=== PATIENT | female | born 1955 | race Caucasian/White ===

== ENCOUNTER → 2024-07-12 | Outpatient (CLI) | payer MEDICARE, SELFPAY ==
[2024-07-12 11:29] LABS: EXAGEN MAILED SPECIMEN
[2024-07-12 12:06] LABS: Color, Urine Straw (Yellow); Glucose, Dipstick Normal (Normal); Ketone-Dipstick Negative (Negative); Leukocyte Esterase-Dipstick Negative /ul (Negative); Nitrite-Dipstick Negative (Negative); Occult Blood-Urine Negative /ul (Negative); Protein-Dipstick Negative (Negative); Urine Bilirubin Dipstick Negative (Negative); Urine Clarity Clear (Clear); Urine Urobilinogen Normal (Normal)
[2024-07-12 12:27] LABS: Absolute Lymphocyte Count 1.44 X10^3/uL (0.83-4.51); Absolute Neutrophil Count 8.3 X10^3/uL (2.0-7.7); Basophil# 0.07 X10^3/uL; Basophil% 0.7 % (0-1); Eosinophil# 0.26 X10^3/uL; Eosinophils% 2.4 % (0-5); Hematocrit 38.9 % (37-47); Hemoglobin 12.8 g/dL (12.0-15.0); Lymphocyte # 1.44 X10^3/ul (0.83-4.51); Lymphocyte % 13.4 % (19-41); Mean Corp Hgb Conc 32.9 g/dL (32-36); Mean Corpuscular Hgb 30.5 pg (27.0-32.0); Mean Corpuscular Volume 92.8 fL (81-99); Mean Platelet Vol. 9.6 fl (6.2-12.0); Monocyte# 0.61 X10^3/uL; Monocyte% 5.7 % (0-10); NRBC Flagged by Analyzer 0 % (0-5); Neutrophil # 8.29 X10^3/uL (2.7-7.7); Neutrophil % 77.2 % (47-70); Platelet Count 567 K/mm3 (150-450); RBC Distribution Width CV 13.3 % (11.6-14.6); RBC Distribution Width SD 45.1 fl (35.1-43.9); Red Blood Count 4.19 M/mm3 (4.2-5.4); White Blood Count 10.7 K/mm3 (4.4-11.0)
[2024-07-12 13:21] LABS: EST Glomerular Filtration Rate 87 (>60); Hepatitis B Surface Antibody Nonreactive; Hepatitis B Surface Antigen Nonreactive (Nonreactive); Hepatitis C Antibody Nonreactive (Nonreactive)
[2024-07-12 13:22] LABS: ALB/GLOB Ratio 1.4 RATIO (0.9-2.4); AST(SGOT) 18 U/L (<=31); Alanine Aminotransfer ALT/SGPT 12 U/L (<=34); Albumin, Serum 4.3 g/dL (3.4-4.8); Alkaline Phosphatase 118 U/L (35-104); Anion Gap 15 (5-15); BUN 11 mg/dL (4-19); BUN/Creat Ratio 14.7 RATIO (10-20); Calcium,Total 9.3 mg/dL (7.6-11.0); Carbon Dioxide 26.7 mmol/L (21.0-32.0); Chloride 96 mmol/L (98-108); Creatinine, Serum 0.71 mg/dL (0.70-1.20); Glucose 191 mg/dL (70-99); Potassium 4.1 mmol/L (3.3-5.1); Protein, Total 7.3 g/dL (5.9-8.4); Sodium Level 138 mmol/L (133-145); Total Bilirubin 0.95 mg/dL (0.00-1.30)
[2024-07-12 21:45] LABS: Protein, Urine (Random) < 6.0 mg/dL (0.0-12.0); Protein:Creat Ratio 188 mg/g CRE (0-200)
[2024-07-18 14:15] LABS: Dilute Prothrombin Time (dPT) 172.9 sec (0.0-47.6); Dilute Russell Viper Venom 93.5 sec (0.0-47.0); Dilute Russell Viper Venom Mix 43.3 sec (0.0-40.4); Hexagonal Phase Phospholipid 2 5 sec (0-11); PTT-LA 106.9 sec (0.0-43.5)
== END | disposition home or self-care (01) ==
LOC: MTLAB 10:23
PROVIDERS: PCP Family Medicine; Referring Provider Internal Medicine Rheumatology; Visit Provider Internal Medicine Rheumatology
DX: R76.8 Other specified abnormal immunological findings in serum (principal)
CPT/HCPCS: 36415; 80053; 81002; 82570; 84156; 85025; 86706; 86803; 87340

== ENCOUNTER 2024-08-08 12:33 | Outpatient (RCR) | payer MEDICARE, SELFPAY ==
[2024-07-18 18:58] LABS: International Normalized Ratio 1.5; Prothrombin Time (Protime)PT. 18.3 SECONDS (11.7-14.9)
[2024-07-25 18:04] LABS: International Normalized Ratio 1.6; Prothrombin Time (Protime)PT. 19.1 SECONDS (11.7-14.9)
[2024-08-01 12:49] LABS: International Normalized Ratio 4.1; Prothrombin Time (Protime)PT. 40.3 SECONDS (11.7-14.9)
[2024-08-08 15:34] LABS: International Normalized Ratio 3.1; Prothrombin Time (Protime)PT. 32.5 SECONDS (11.7-14.9)
== END 2024-08-08 18:00 | disposition home or self-care (01) ==
LOC: MTLAB 12:33
PROVIDERS: PCP Family Medicine; Referring Provider Internal Medicine Cardiovascular Disease; Visit Provider Internal Medicine Cardiovascular Disease
DX: I50.9 Heart failure, unspecified (principal); Z79.01 Long term (current) use of anticoagulants; I48.20 Chronic atrial fibrillation, unspecified
CPT/HCPCS: 36415; 85610

== ENCOUNTER 2024-08-22 11:43 | Outpatient (RCR) | payer MEDICARE, SELFPAY ==
[2024-08-22 15:39] LABS: International Normalized Ratio 2.9
== END 2024-09-07 18:00 | disposition home or self-care (01) ==
LOC: MTLAB 11:43
PROVIDERS: PCP Family Medicine; Referring Provider Internal Medicine Cardiovascular Disease; Visit Provider Internal Medicine Cardiovascular Disease
DX: Z79.01 Long term (current) use of anticoagulants (principal); I48.20 Chronic atrial fibrillation, unspecified
CPT/HCPCS: 36415; 85610

== ENCOUNTER 2024-10-05 11:43 | Outpatient (RCR) | payer MEDICARE, SELFPAY ==
[2024-10-05 16:12] LABS: International Normalized Ratio 3.4; Prothrombin Time (Protime)PT. 34.8 SECONDS (11.7-14.9)
[2024-10-05 16:29] LABS: ALB/GLOB Ratio 1.3 RATIO (0.9-2.4); AST(SGOT) 18 U/L (<=31); Alanine Aminotransfer ALT/SGPT 11 U/L (<=34); Albumin, Serum 4.4 g/dL (3.4-4.8); Alkaline Phosphatase 109 U/L (35-104); Anion Gap 12 (5-15); BUN 14 mg/dL (4-19); BUN/Creat Ratio 18.1 RATIO (10-20); Calcium,Total 9.5 mg/dL (7.6-11.0); Carbon Dioxide 26.4 mmol/L (21.0-32.0); Chloride 98 mmol/L (98-108); Creatinine, Serum 0.79 mg/dL (0.70-1.20); EST Glomerular Filtration Rate 82 (>60); Globulin 3.3 g/dL (2.2-4.2); Glucose 90 mg/dL (70-99); Potassium 4.1 mmol/L (3.3-5.1); Protein, Total 7.6 g/dL (5.9-8.4); Sodium Level 136 mmol/L (133-145); Total Bilirubin 0.76 mg/dL (0.00-1.30)
[2024-10-05 16:33] LABS: Hemoglobin A1c 6.9 % (<=5.6)
== END 2024-10-05 18:00 | disposition home or self-care (01) ==
LOC: MTLAB 11:43
PROVIDERS: PCP Family Medicine; Referring Provider Internal Medicine Cardiovascular Disease; Visit Provider Internal Medicine Cardiovascular Disease
DX: I05.9 Rheumatic mitral valve disease, unspecified (principal); I48.20 Chronic atrial fibrillation, unspecified; Z79.01 Long term (current) use of anticoagulants; E11.9 Type 2 diabetes mellitus without complications
CPT/HCPCS: 80053; 83036; 85610

== ENCOUNTER → 2024-10-17 | Outpatient (CLI) | payer MEDICARE, SELFPAY ==
[2024-10-17 12:16] LABS: Absolute Lymphocyte Count 1.15 X10^3/uL (0.83-4.51); Absolute Neutrophil Count 7.3 X10^3/uL (2.0-7.7); Basophil# 0.05 X10^3/uL; Basophil% 0.5 % (0-1); Eosinophil# 0.36 X10^3/uL; Eosinophils% 3.7 % (0-5); Hemoglobin 12.1 g/dL (12.0-15.0); Lymphocyte # 1.15 X10^3/ul (0.83-4.51); Lymphocyte % 11.8 % (19-41); Mean Corp Hgb Conc 32.7 g/dL (32-36); Mean Corpuscular Hgb 30.2 pg (27.0-32.0); Mean Corpuscular Volume 92.3 fL (81-99); Mean Platelet Vol. 9.4 fl (6.2-12.0); Monocyte% 9.2 % (0-10); NRBC Flagged by Analyzer 0 % (0-5); Neutrophil # 7.26 X10^3/uL (2.7-7.7); Neutrophil % 74.5 % (47-70); Platelet Count 442 K/mm3 (150-450); RBC Distribution Width CV 15.7 % (11.6-14.6); RBC Distribution Width SD 52.5 fl (35.1-43.9); Red Blood Count 4.01 M/mm3 (4.2-5.4); White Blood Count 9.8 K/mm3 (4.4-11.0)
[2024-10-17 13:23] LABS: ALB/GLOB Ratio 1.4 RATIO (0.9-2.4); AST(SGOT) 20 U/L (<=31); Alanine Aminotransfer ALT/SGPT 11 U/L (<=34); Albumin, Serum 4.1 g/dL (3.4-4.8); Alkaline Phosphatase 108 U/L (35-104); Anion Gap 15 (5-15); BUN 11 mg/dL (4-19); Calcium,Total 9.5 mg/dL (7.6-11.0); Chloride 97 mmol/L (98-108); Creatinine, Serum 0.83 mg/dL (0.70-1.20); EST Glomerular Filtration Rate 77 (>60); Glucose 117 mg/dL (70-99); Potassium 4.3 mmol/L (3.3-5.1); Protein, Total 7.1 g/dL (5.9-8.4); Sodium Level 137 mmol/L (133-145); Total Bilirubin 1.17 mg/dL (0.00-1.30)
== END | disposition home or self-care (01) ==
LOC: MTLAB 09:51
PROVIDERS: PCP Family Medicine; Referring Provider Internal Medicine Rheumatology; Visit Provider Internal Medicine Rheumatology
DX: M06.4 Inflammatory polyarthropathy (principal); M19.041 Primary osteoarthritis, right hand; R76.8 Other specified abnormal immunological findings in serum
CPT/HCPCS: 36415; 80053; 85025

== ENCOUNTER 2024-12-08 10:13 | Outpatient (RCR) | payer MEDICARE, SELFPAY ==
[2024-11-30 15:20] LABS: Prothrombin Time (Protime)PT. 39.7 SECONDS (11.7-14.9)
--- OUTSIDE RECORDS SUMMARY | 2024-11-30 19:56 | XMS RPT_ITS | CCD ---
Author Organization [facility] Care Team Providers Care Sales Operations Lead Name Role Phone JUANISSTEPHANY SCHNEIDER Unavailable Unavailable Kromalic, Melissa Unavailable Unavailable Kromalic, Melissa Unavailable Unavailable ERIK HAIRI Attending Unavailable ESTELLE HAIR Referring Unavailable KrMelissa soto. Primary Care Unavailable ESTELLE HARI Attending Unavailable , ESTELLE Referring Unavailable Kromalcheo, Melissa C. Primary Care Unavailable ESTELLE HAIR Referring Unavailable Melissa Del Rio Primary Care Unavailable Melissa Del Rio Primary Care Provider [phone] Quang Melissa Unavailable Unavailable Kromalcheo, Melissa C Unavailable Unavailable Kromalcheo, Melissa C Unavailable Unavailable Kromalic Melissa SMITH Unavailable Unavailable Kromalic Melissa WEST Primary Care Provider JEANNE WEST, DR NURYS Alonso Attending Unavaila ble GLENNA DO, ALEX K Consulting Unavailable NONE, NONE Primary Care Unavailable DR NURYS ANGEL MD Admitting Unavaila ble HE [phone], NELSON Downing Consulting Unava ilable NONE, NONE Consulting Unavailable Quang Melissa C Unavailable Unavailable Unavailable Melissa Del Rio DO Primary Care Provider [phone] Quang Melissa Referring Unavailable QUANG, MELISSA C Primary Care Unavailable Humberto Yu Attending Unavailable Lexi Do Attending Unavailable MELISSA DEL RIO Primary Care Unavailable Gentryomalcheo, Melissa Referring Unavailable Kromalcheo, Melissa Referring Unavailable KRBRITTANY, MELISSA C Primary Care Unavailable Humberto Yu Attending Unavailable Quang Melissa Referring Unavailable QUANG, MELISSA C Primary Care Unavailable Humberto Yu Attending Unavailable Melissa Del Rio Primary Care Unavailab Ms. Lexi Palacios Attending Unavailable Melissa Del Rio Primary Care Unavailab le McGreal, Ms. Lexi Attending Unavailable [facility] Melissa Starkey Primary Care Unavailab le McGreal, Ms. Lexi Attending Unavailable [facility] Melissa Satrkey Primary Care Unavailab le McGreal, Ms. Lexi Attending Unavailable [facility] Melissa Starkey Primary Care Unavailab le McGreal, Ms. Lexi Attending Unavailable [facility] Melissa Starkey Primary Care Unavailab le McGreal, Ms. Lexi Attending Un[facility] Care Unavailab le McGreal, Ms. Lexi Attending Unavailable McGreal, Ms. Lexi Attending [facility] Care Unavailab le Kromal, Melissa Lalito Primary Care Unavailab le McGreal, Ms. Lexi Attending Unavailable McGreal, Ms. Lexi Attending [facility] Unavailab le Kromal, Melissa Lalito Primary Care Unavailab le McGreal, Ms. Lexi Attending Unavailable [facility] Primary Care Unavailab le McGreal, Ms. Lexi Attending Unavailable [facility] Primary Care Unavailab le McGreal, Ms. Lexi Attending Unavailable [facility] Care Unavailab le McGreal, Ms. Lexi Attending Unavailable [facility] Primary Care Unavailab le McGreal, Ms. Lexi Attending Unavailable [facility] Primary Care Unavailab le McGreal, Ms. Lexi Attending Unavailable McGreal, Ms. Lexi Attending Unavailable [facility] Care Unavailab le [facility] Primary Care Unavailab le McGreal, Ms. Lexi Attending Unavailable [facility] Primary Care Unavailab le McGreal, Ms. Lexi Attending Unavailable [facility] Primary Care Unavailab le McGreal, Ms. Lexi Attending Unavailable [facility] Primary Care Unavailab le McGreal, Ms. Lexi Attending Unavailable [facility] Primary Care Unavailab le McGreal, Ms. Lexi Attending Unavailable [facility] Primary Care Unavailab le McGreal, Ms. Lexi Attending Unavailable Melissa Del Rio Primary Care Unavailab le McGreal, Ms. Lexi Attending Unavailable Melissa Del Rio DO Primary Care Provider Melissa Del Rio DO Primary Care Provider Melissa Del Rio DO Primary Care Provider Quang SMITH, Melissa Primary Care Provider KROMALIC, DO MELISSA STARKEY Referring Unavai lable KROMALIC, DO MELISSA STARKEY Attending Unavai lable KROMALIC, DO MELISSA STARKEY Primary Care Unavai lable KRBRITTANY, MELISSA STARKEY Referring Unavailab le KROMALIC, MELISSA STARKEY Attending Unavailab le KROMALIC, MELISSA STARKEY Primary Care Unavailab le KROMALIC, MELISSA STARKEY Primary Care Unavailab le KROMALIC, MELISSA STARKEY Referring Unavailab le KROMALIC, MELISSA STARKEY Attending Unavailab le Kromalic DOMelissa Unavailable Kromalcheo DO, Melissa Downing Primary Care Provider Gentryomalcheo DO, Melissa Downing Unavailable QUANG, MELISSA STARKEY Primary Care Unavailab KYLIE Ramsay Attending Unavailable Melissa Del Rio DO Primary Care Provider Quang WEST, Dr. Caraballo Primary Care Provider Tom WEST, Dr. Malik Attending Provider Tom WEST, Dr. Malik Referring Provider Jacqueline WEST, Dr. Stone Thomas Attending Provider Jacqueline WEST, Dr. Stone Thomas Referring Provider Jacqueline WEST, Dr. Stone Thomas Attending Provider Jacqueline WEST, Dr. Stone Thomas Referring Provider Quang WEST, Dr. Caraballo Other Provider [phone] Melissa Del Rio DO Unavailable MELISSA DEL RIO Attending Unavailable MELISSA DEL RIO Primary Care Unavailable MELISSA DEL RIO Attending Unavailable MELISSA DEL RIO Primary Care Unavailable MELISSA DEL RIO Attending Unavailable MELISSA DEL RIO Primary Care Unavailable STONE SON Attending Unavailable MELISSA DEL RIO Primary Care Unavailable TOAN PENA Admitting Unavailable TOAN PENA Attending Unavailable KROMALIC, MELISSA Primary Care Unavailable Isada, Stone R Attending Unavailable IsadaStone R Referring Unavailable Kromalic, Melissa Primary Care Unavailable Isada, Stone R Attending Unavailable Isada, Stone R Referring Unavailable Kromalic, Melissa Primary Care Unavailable Isada, Stone R Attending Unavailable Isada, Stone R Referring Unavailable Kromalic, Melissa Primary Care Unavailable Kromalic, Melissa Consulting Unavailable Vellanki, Helena Attending Unavailable Vellanki, Helena Referring Unavailable Kromalic, Melissa Primary Care Unavailable Isada, Stone R Attending Unavailable Isada, Stone R Referring Unavailable Kromalic, Melissa Primary Care Unavailable Kromalic, Melissa Consulting Unavailable Vellanki, Helena Attending Unavailable Vellanki, Helena Referring Unavailable Kromalic, Melissa Primary Care Unavailable KROMALIC, MELISSA C Primary Care Unavailable KROMALIC, MELISSA C Primary Care Unavailable KROMALIC, MELISSA C Primary Care Unavailable KROMALIC, MELISSA C Primary Care Unavailable KROMALIC, MELISSA C Primary Care Unavailable KROMALIC, MELISSA C Referring Unavailable KROMALIC, MELISSA C Primary Care Unavailable KROMALIC, MELISSA C Referring Unavailable KROMALIC, MELISSA C Primary Care Unavailable KROMALIC, MELISSA C Primary Care Unavailable MEJIA JACKSON Attending Unavailable KROMALIC, MELISSA C Referring Unavailable KROMALIC, MELISSA C Primary Care Unavailable MEJIA JACKSON Attending Unavailable KROMALIC, MELISSA C Referring Unavailable KROMALIC, MELISSA C Primary Care Unavailable MEJIA JACKSON Attending Unavailable KROMALIC, MELISSA C Referring Unavailable KROMALIC, MELISSA C Primary Care Unavailable MEJIA JACKSON Attending Unavailable KROMALIC, MELISSA C Referring Unavailable KROMALIC, MELISSA C Primary Care Unavailable MEJIA JACKSON Attending Unavailable KROMALIC, MELISSA C Referring Unavailable KROMALIC, MELISSA C Primary Care Unavailable Allergies Allergy Classification Reported Allergen(s) Allergy Type Date of Onset Reaction(s) Facility Cephalosporins (antibiotic) (1 source) Cefaclor Drug Allergy [facility] Work Phone: Penicillins (antibiotic) (2 sources) Amoxicillin; Translations: [Penicillins] Drug Allergy Nausea [facility] Work Phone: (20 sources) Amoxicillin; Translations: [AMOXICILLIN] Drug Allergy 2 Unknown, Other [facility] Repository (20 sources) Cefaclor; Translations: [CEFACLOR] Drug Allergy 2 Unknown, Anaphylaxis, Other [facility] Repository (20 sources) Penicillins; Translations: [PENICILLINS] Propensity to adverse reactions (disorder) 2 Unknown, Nausea, Nausea Only, Other [facility] Repository (20 sources) Amoxicillin; Translations: [Amoxicillin CAPS] Drug Allergy [facility] Work Phone: (20 sources) Cefaclor; Translations: [Ceclor CAPS] Drug Allergy [facility] Work Phone: (1 source) Cefaclor Drug Allergy [facility] Repository (2 sources) Seasonal allergy Propensity to adverse reactions to substance 2 [facility] (14 sources) Pollen; Translations: [POLLEN EXTRACTS] Propensity to adverse reactions [address] [facility] Work Phone: Medications Current Medications Medication Drug Class(es) Dates Sig (Normalized) Sig (Original) acetaminophen 325 mg / oxyCODONE hydrochloride 5 mg oral tablet (7 sources) Opioid Agonist Start: 01-14-2022 End: 07-13-2022 take 1 tablet by mouth every six hours as needed for pain oxyCODONE-acetam inophen (Percocet) 5-325 MG tablet TAKE ONE TABLET BY MOUTH EVERY 6 HOURS NEEDED FOR PAIN. TAKE THE LOWEST DOSE POSSIBLE TO MANAGE PAIN 28 tablet 0 01/14/2022 07/13/2022 Active ALPRAZolam 0.25 mg disintegrating oral tablet (1 source) Benzodiazepine Start: 01-14-2022 ALPRAZolam (NIRAVAM) dissolvable tablet 0.25 mg calcium chloride 0.0014 meq/ml / potassium chloride 0.004 meq/ml / sodium chloride 0.103 meq/ml / sodium lactate 0.028 meq/ml injectable solution (2 sources) Start: 01-14-2022 lactated ringers infusion carvedilol 12.5 mg oral tablet (20 sources) alpha-Adrenergic Drew, beta-Adrenergic Drew Start: 03-23-2015 End: 02-11-2024 take 1 tablet by mouth twice daily carvedilol (Coreg) 12.5 mg tablet Take 1 tablet (12.5 mg) by mouth 2 times a day. 03/23/2015 Active clindamycin 150 mg oral capsule (20 sources) Lincosamide Antibacterial Start: 01-14-2022 End: 01-14-2022 clindamycin (CLEOCIN) 600 mg in dextrose 5 % 50 mL IVPB Start: 12-12-2021 clindamycin (C leocin) 150 mg capsule 12/12/2021 Active Start: 12-12-2021 End: 10-21-2023 take 4 capsules by mouth every hour clindamycin (Cleocin) 150 MG capsule TAKE 4 CAPSULES BY MOUTH ONE HOUR PRIOR TO DENTAL PROCEDURE 4 capsule 1 10/21/2023 Active cyclobenzaprine hydrochloride 5 mg oral tablet (3 sources) Muscle Relaxant Start: 10-10-2024 take 1 tablet by mouth three times daily as needed for muscle spasms cyclobenzaprine (Flexeril) 5 mg tablet Indications: Cervical (neck) region somatic dysfunction Take 1 tablet (5 mg) by mouth 3 times a day as needed for muscle spasms for up to 21 doses. 21 tablet 10/10/2024 Active digoxin 0.125 mg oral tablet (20 sources) Cardiac Glycoside Start: 10-20-2015 End: 01-18-2024 take 1 tablet by mouth once daily digoxin (Lanoxin) 125 MCG tablet Take 1 tablet (125 mcg) by mouth once daily. 10/20/2015 Active 1 ml diphenhydrAMINE hydrochloride 50 mg/ml cartridge (1 source) Histamine-1 Receptor Antagonist Start: 01-14-2022 End: 01-14-2022 diphenhydrAMINE (BENADRYL) injection 12.5 mg 0.8 ml enoxaparin sodium 100 mg/ml prefilled syringe (20 sources) Low Molecular Weight Heparin Start: 07-12-2024 End: 07-26-2024 inject 80 mg by subcutaneous injection every twelve hours enoxaparin (Lovenox) 80 MG/0.8ML solution prefilled syringe Inject 0.8 mL (80 mg) under the skin every 12 hours. 15 each 1 07/26/2024 Active Start: 02-13-2023 End: 02-17-2023 inject 90 mg by subcutaneous injection every twelve hours enoxaparin (Lovenox) 100 MG/ML solution prefilled syringe Inject 0.9 mL (90 mg) under the skin in the morning and 0.9 mL (90 mg) in the evening. Do all this for 4 days. 8 each 0 02/13/2023 02/17/2023 Active Start: 11-12-2021 End: 04-22-2024 enoxaparin (Lovenox) 100 mg/ mL syringe INJECT 1 ML INTO THE SKIN 2 TIMES DAILY 11/16/2021 04/22/2024 Discontinued (Other) furosemide 40 mg oral tablet (20 sources) Loop Diuretic Start: 03-16-2023 End: 03-07-2024 furosemide (Lasix) 40 MG tablet 40 mg daily except 20 mg sat and Sun 100 tablet 3 03/07/2024 Active Start: 03-16-2023 End: 03-16-2023 furosemide (Lasix) 40 MG tab let In the AM skipping Wed and Sun 100 tablet 3 03/16/2023 03/16/2023 Discontinued (Reorder) Start: 10-20-2015 End: 03-16-2023 take 1 tablet by mouth in the morning furosemide (Lasix) 20 MG tablet Take 20 mg by mouth in the morning. 0 01/14/2022 Active 1 ml HYDROmorphone hydrochloride 1 mg/ml cartridge (2 sources) Opioid Agonist Start: 01-14-2022 HYDROmorphone (DILAUDID) injection 0.5 mg Start: 01-14-2022 HYDROmorphone (DILAUDID) injection 0.25 mg labetalol (NORMODYNE;TRANDATE) injection 5 mg (1 source) Start: 01-14-2022 labetalol (NORMODYNE;TRANDATE) injection 5 mg levothyroxine sodium 0.075 mg oral tablet (20 sources) l-Thyr oxine Start: 07-18-2022 End: 01-12-2025 take 1 tablet by mouth once daily before mealtime levothyroxine (Synthroid, Levoxyl) 75 mcg tablet Indications: Acquired hypothyroidism TAKE 1 TABLET (75 MCG) BY MOUTH ONCE DAILY IN THE MORNING. TAKE BEFORE MEALS. 90 tablet 3 01/18/2024 01/12/2025 Active Start: 10-06-2018 take 2 tablets by mo ut once daily levothyroxine (SYNTHROID) 50 mcg tablet Indications: Acquired hypothyroidism TAKE 2 TABLETS (100MCG) BY MOUTH EVERY DAY 180 tablet 1 10/06/2018 Active Start: 07-15-2018 take 1 tablet by fredrick th once daily levothyroxine (SYNTHROID) 100 mcg tablet Indications: Acquired hypothyroidism Take 1 tablet by mouth once daily. 6 days weekly 90 tablet 3 07/15/2018 Active Start: 03-15-2015 take 1 tablet by fredrick th once daily Levothyroxine Sodium 112 MCG Oral Tablet TAKE 1 TABLET DAILY. Refills: 0 DO Start : 15-Mar-2015 Active Comment on above: Take 1 tablet by fredrick th once daily. 6 days weekly TAKE 2 TABLETS (100M CG) BY MOUTH EVERY DAY lisinopril 2.5 mg oral tablet (20 sources) Angiotensin Converting Enzyme Inhibitor Start: 11-13-19 16 End: 02-11-20 24 take 1 tablet by mouth once daily lisinopril 2.5 mg tablet Take 1 tablet (2.5 mg) by mouth once daily. 02/12/2017 Active 1 ml meperidine hydrochloride 25 mg/ml cartridge (1 source) Opioid Agonist Start: 01-15-20 22 meperidine (DEMEROL) injection 12.5 mg oxyCODONE (1 source) Opioid Agonist Start: 01-15-20 End: 01-15-20 22 oxyCODONE (ROXICODONE) immediate release tablet 5 mg pravastatin sodium 40 mg oral tablet (20 sources) HMG-CoA Reductase Inhibitor Start: 11-23-19 14 End: 02-05-20 24 take 1 tablet by mouth once daily pravastatin (Pravachol) 40 mg tablet Take 1 tablet (40 mg) by mouth once daily. 11/22/2013 Active semaglutide (Ozempic) 0.25 mg or 0.5 mg (2 mg/3 mL) pen injector (7 sources) Start: 05-10-20 24 semaglutide (Ozempic) 0.25 mg or 0.5 mg (2 mg/3 mL) pen injector Indications: Class 2 severe obesity due to excess calories with serious comorbidity and body mass index (BMI) of 36.0 to 36.9 in adult , Type 2 diabetes mellitus without complication, without long-term current use of insulin (Multi) Inject 0.25 mg under the skin 1 (one) time per week. 3 mL 3 05/10/2024 Active semaglutide (Ozempic) 1 mg/dose (4 mg/3 mL) pen injector (2 sources) Start: 11-02-19 semaglutide (Ozempic) 1 mg/dose (4 mg/3 mL) pen injector Indications: Type 2 diabetes mellitus without complication, without long-term current use of insulin , Class 2 severe obesity due to excess calories with serious comorbidity and body mass index (BMI) of 36.0 to 36.9 in adult Inject 1 mg under the skin every 7 days. 3 mL 3 11/01/2024 Active spironolactone 25 mg oral tablet (20 sources) Aldosterone Antagonist Start: 03-27-20 End: 01-18-20 take 1 tablet by mouth once daily spironolactone (Aldactone) 25 mg tablet Take 1 tablet (25 mg) by mouth once daily. 03/27/2015 Active warfarin sodium 1 mg oral tablet (20 sources) Vitamin K Antagonist Start: 03-10-20 End: 07-15-19 take 1 tablet by mouth once daily warfarin (Coumadin) 1 mg tablet Take 1 tablet (1 mg) by mouth. Take daily or as directed 04/17/2024 Active Start: 01-20-2022 End: 10-17-2024 warfarin (Coumadin) 4 MG tab let TAKE 1/2-1 TABLET DAILY DIRECTED BY INR 90 tablet 1 10/17/2024 Active Start: 09-02-2021 take 1 tablet by fredrick th once daily warfarin (COUMADIN) 4 MG tablet TAKE 1 TABLET BY MOUTH DAILY OR DIRECTED 90 tablet 1 09/02/2021 Active Start: 09-20-2015 warfarin (COUM PEDRO) 4 mg tablet Start: 08-05-2013 warfarin (Coum pedro) 4 mg tablet Take by mouth. 2mg 5 days a week, 4mg 2 days a week 08/05/2013 Active Completed/Discontinued Medications Medication Drug Class(es) Dates Sig (Normalized) Sig (Original) 200 actuat albuterol 0.09 mg/actuat metered dose inhaler (1 source) beta2-Adrenergic Agonist Start: 02-10-2019 take 1-2 puff(s) by inhalation every four to six hours as needed ProAir HFA 108 (90 Base) MCG/ACT Inhalation Aerosol Solution INHALE 1 TO 2 PUFFS EVERY 4 TO 6 HOURS NEEDED. Quantity: 1 Refills: 3 Melissa Del Rio DO Start : 10-Feb-2019 Active 8.5 GM Inhaler azithromycin 250 mg oral tablet (1 source) Macrolide Antimicrobial Start: 11-16-2017 take 2 tablets by mouth once daily, then take 1 tablet by mouth once daily Azithromycin 250 MG Oral Tablet 2 tablets first day then 1 tablet daily until gone Quantity: 1 Refills: 0 Melissa Del Rio DO Start : 16-Nov-2017 Active 6 Tablet Pack betamethasone 3 mg/ml / betamethasone acetate 3 mg/ml injectable suspension (2 sources) Corticosteroid Start: 05-15-2022 End: 05-15-2022 betamethasone acetate-betamethas one sodium phosphate (Celestone) injection 6 mg Start: 05-15-2022 End: 05-15-2022 betamethasone acetate-betame thasone sodium phosphate (Celestone) injection 6 mg CALCIUM PHOSPHATE DIBAS/VIT D3 (VITAMIN D, WITH CALCIUM, ORAL) (4 sources) CALCIUM PHOSPHAT E DIBAS/VIT D3 (VITAMIN D, WITH CALCIUM, ORAL) Take by mouth. 0 Active Comment on above: Take by mouth. 10 ml lidocaine hydrochloride 10 mg/ml injection (3 sources) Antiarrhythmic, Amide Local Anesthetic Start: 05-15-2022 End: 05-15-2022 lidocaine (Xylocaine) 1 % injection 1 mL Start: 05-15-2022 End: 05-15-2022 lidocaine (Xylocaine) 1 % in jection 1 mL Start: 01-14-2022 End: 01-14-2022 lidocaine PF 1 % injection 1 mL 2 ml ondansetron 2 mg/ml injection (3 sources) Serotonin-3 Receptor Antagonist Start: 07-20-2024 End: 07-20-2024 4 mg, IntraVENous, Once PRN, nausea, vomiting, Starting on Thu07/20/24 at 0948, For 1 dose, Preprocedure Start: 01-14-2022 End: 01-14-2022 ondansetron (ZOFRAN) injecti on 4 mg semaglutide 0.25 mg or 0.5 m g (2 mg/3 mL) pen injector (2 sources) Start: 08-23-2024 End: 11-01-2024 semaglutide 0.25 mg or 0.5 m g (2 mg/3 mL) pen injector Indications: Type 2 diabetes mellitus without complication, without long-term current use of insulin Inject 0.25 mg under the skin 1 (one) time per week. 3 mL 4 08/23/2024 11/01/2024 Discontinued (Dose adjustment) Start: 08-23-2024 semaglutide 0. 25 mg or 0.5 mg (2 mg/3 mL) pen injector Indications: Type 2 diabetes mellitus without complication, without long-term current use of insulin Inject 0.25 mg under the skin 1 (one) time per week. 3 mL 4 08/23/2024 Active 1000 ml sodium chloride 9 mg/ml injection (20 sources) Start: 07-20-2024 End: 07-20-2024 take 75 mL intravenously every hour 75 mL/hr, IntraVENous, Continuous, Starting on Thu07/20/24 at 1000, Preprocedure Start: 02-13-2023 End: 02-13-2023 sodium chloride 0.9 % infusi on Start: 02-13-2023 End: 02-13-2023 sodium chloride 0.9% (NS) fl ush 5-40 mL Start: 01-14-2022 sodium chlorid e flush 0.9 % injection 5-40 mL Start: 01-14-2022 sodium chlorid e flush 0.9 % injection 5-40 mL Start: 01-14-2022 sodium chlorid e flush 0.9 % injection 5-40 mL Start: 01-14-2022 sodium chlorid e flush 0.9 % injection 5-40 mL Start: 01-14-2022 0.9 % sodium c hloride bolus Start: 01-14-2022 0.9 % sodium c hloride infusion Start: 01-14-2022 sodium chlorid e flush 0.9 % injection 5-40 mL traZODone hydrochloride 50 mg oral tablet (2 sources) Serotonin Reuptake Inhibitor Start: 11-15-2018 take 1 tablet by mouth once daily at bedtime as needed for sleep traZODone HCl - 50 MG Oral Tablet TAKE 1 TABLET BY MOUTH EVERY DAY AT BEDTIME NEEDED FOR SLEEP Quantity: 30 Refills: 0 Melissa Del Rio DO Start : 09-May-2019 Active Problems Active Problems Problem Classification Problem Date Documented Da te Episodic/Chronic Allergic reactions (4 sources) Allergy status to other antibiotic agents status; Translations: [Allergy status to penicillin] Onset: 01-14-2022 Episodic Cardiac dysrhythmias (20 sources) Unspecified atrial fibrillation; Translations: [Atrial fibrillation] Onset: 03-06-2016 Resolved: 01-23-2023 04-10-2016 Chronic Complication of device; implant or graft (5 sources) Pain; Translations: [Pain due to internal orthopedic prosthetic devices, implants and grafts, initial encounter] Onset: 01-14-2022 Episodic Coronary atherosclerosis and other heart disease (20 sources) Ischemic myocardial dysfunction; Translations: [Ischemic cardiomyopathy] Onset: 01-26-2023 Chronic Diabetes mellitus without complication (20 sources) Type 2 diabetes mellitus without complication; Translations: [Type 2 diabetes mellitus without complications] Onset: 04-22-2024 04-22-2024 Chronic Disorders of lipid metabolism (20 sources) Dyslipidemia; Translations: [Hyperlipidemia, unspecified] Onset: 04-10-2016 02-14-2016 Chronic E Codes: Adverse effects of medical care (2 sources) Other surgical procedures as the cause of abnormal reaction of the patient, or of later complication, without mention of misadventure at the time of the procedure; Translations: [Oth surgical procedures cause abn react/compl, w/o misadvnt] Onset: 01-14-2022 Episodic Essential hypertension (2 sources) Essential (primary) hypertension; Translations: [Essential (primary) hypertension] Onset: 11-12-2021 Chronic Heart valve disorders (20 sources) Nonrheumatic mitral (valve) insufficiency; Translations: [Presence of prosthetic heart valve] Onset: 04-10-2016 07-19-2011 Chronic Osteoarthritis (5 sources) Primary osteoarthritis, right elbow; Translations: [Primary osteoarthritis, left elbow] Onset: 01-14-2022 Chronic Other aftercare (3 sources) Drug therapy finding; Translations: [Other long term acute care registered nurse (current) drug therapy] 11-25-2023 Episodic Other aftercare (2 sources) Taking high risk medication; Translations: [Other half-way (current) drug therapy] 11-25-2023 Episodic Other and unspecified benign neoplasm (20 sources) History of polyp of colon; Translations: [Personal history of colonic polyps] Episodic Other bone disease and musculoskeletal deformities (4 sources) Cervical somatic dysfunction; Translations: [Segmental and somatic dysfunction of cervical region] Onset: 10-10-2024 10-10-2024 Episodic Other bone disease and musculoskeletal deformities (2 sources) Segmental and somatic dysfunction of cervical region; Translations: [Segmental and somatic dysfunction of cervical region] Onset: 10-10-2024 Episodic Other non-traumatic joint disorders (2 sources) Effusion, left elbow; Translations: [Effusion, left elbow] Onset: 02-27-2022 Episodic Other non-traumatic joint disorders (1 source) Pain in left elbow; Translations: [Pain in left elbow] Onset: 05-07-2022 Episodic Other non-traumatic joint disorders (1 source) Stiffness of left elbow, not elsewhere classified; Translations: [Stiffness of left elbow, not elsewhere classified] Onset: 05-07-2022 Episodic Other non-traumatic joint disorders (4 sources) Bilateral pain of joint of hands; Translations: [Pain in joints of right hand] 04-22-2024 Episodic Other nutritional; endocrine; and metabolic disorders (20 sources) Body mass index 30+ - obesity; Translations: [Obesity, unspecified] Onset: 10-31-2022 02-14-2016 Chronic Other nutritional; endocrine; and metabolic disorders (20 sources) Obesity; Translations: [Obesity, unspecified] Onset: 07-09-2022 11-01-2022 Chronic Other nutritional; endocrine; and metabolic disorders (20 sources) Severe obesity; Translations: [Morbid obesity] 01-25-2023 Chronic Other nutritional; endocrine; and metabolic disorders (2 sources) Body mass index (BMI) 33.0-33.9, adult; Translations: [Body mass index (BMI) 33.0-33.9, adult] Onset: 10-10-2024 Chronic Other nutritional; endocrine; and metabolic disorders (4 sources) Morbid (severe) obesity due to excess calories; Translations: [Morbid (severe) obesity due to excess calories (Multi)] Onset: 07-09-2022 Chronic Other nutritional; endocrine; and metabolic disorders (4 sources) Body mass index (BMI) 36.0-36.9, adult; Translations: [Body mass index (BMI) 36.0-36.9, adult] Onset: 07-09-2022 Chronic Other nutritional; endocrine; and metabolic disorders (2 sources) Obesity, unspecified; Translations: [Obesity, unspecified] Onset: 10-31-2022 Chronic Other upper respiratory infections (20 sources) Acute sinusitis; Translations: [Acute pharyngitis] Episodic Jessica-; endo-; and myocarditis; cardiomyopathy (except that caused by tuberculosis or sexually transmitted disease) (20 sources) Rheumatic heart disease; Translations: [Rheumatic heart disease, unspecified] Onset: 04-10-2016 Resolved: 11-01-2022 04-10-2016 Chronic Pneumonia (except that caused by tuberculosis or sexually transmitted disease) (1 source) Pneumonia, unspecified organism; Translations: [Pneumonia of both lungs due to infectious organism, unspecified part of lung] Onset: 06-30-2024 Episodic Residual codes; unclassified (2 sources) Other specified postprocedural states; Translations: [Other specified postprocedural states] Onset: 02-27-2022 Episodic Residual codes; unclassified (4 sources) Postmenopausal state; Translations: [Asymptomatic menopausal state] 04-22-2024 Episodic Rheumatoid arthritis and related disease (1 source) Inflammatory polyarthropathy; Translations: [Inflammatory polyarthropathy] Onset: 10-21-2024 Chronic Screening and history of mental health and substance abuse codes (2 sources) Personal history of nicotine dependence; Translations: [Personal history of nicotine dependence] Onset: 01-14-2022 Episodic Syncope (1 source) Near syncope; Translations: [Syncope and collapse] 01-26-2023 Episodic Thyroid disorders (20 sources) Hypothyroidism, unspecified; Translations: [Hypothyroidism] Onset: 07-15-2018 02-14-2016 Chronic Unclassified (7 sources) Chronic atrial fibrillation, unspecified; Translations: [Chronic atrial fibrillation, unspecified] Onset: 01-14-2022 Unclassified (2 sources) Longstanding persistent atrial fibrillation; Translations: [Longstanding persistent atrial fibrillation (Multi)] Onset: 07-09-2022 Unclassified (2 sources) Obesity, class 2; Translations: [Obesity, class 2] Onset: 07-09-2022 Urinary tract infections (20 sources) Acute urinary tract infection; Translations: [Urinary tract infection, site not specified] Episodic Past or Other Problems Problem Classification Problem Date Documented Date Episodic/Chronic Chronic obstructive pulmonary disease and bronchiectasis (20 sources) Bronchitis; Translations: [Bronchitis, not specified as acute or chronic] Onset: 07-09-2022 Resolved: 04-22-2024 07-09-2022 Episodic Deficiency and other anemia (15 sources) Anemia; Translations: [Anemia, unspecified] Onset: 01-23-2023 Resolved: 04-22-2024 01-23-2023 Episodic Diabetes mellitus without complication (20 sources) Hyperglycemia; Translations: [Impaired fasting glucose] Onset: 07-09-2022 Resolved: 04-22-2024 07-09-2022 Episodic Diseases of white blood cells (20 sources) Leukocytosis; Translations: [Leukocytosis, unspecified] Onset: 07-09-2022 Resolved: 04-22-2024 07-09-2022 Chronic Fluid and electrolyte disorders (9 sources) Dehydration; Translations: [Dehydration] Onset: 06-30-2024 Resolved: 10-10-2024 06-30-2024 Episodic Immunizations and screening for infectious disease (20 sources) Vaccination needed; Translations: [Need for prophylactic vaccination and inoculation against unspecified single disease] Onset: 07-22-2024 Episodic Other aftercare (20 sources) Long-term current use of anticoagulant; Translations: [penitentiary (current) use of anticoagulants] Onset: 03-06-2016 02-21-2017 Episodic Other aftercare (7 sources) penitentiary (current) use of anticoagulants; Translations: [penitentiary (current) use of anticoagulants] Onset: 01-14-2022 Episodic Other aftercare (2 sources) Other long term acute care registered nurse (current) drug therapy; Translations: [Other long term acute care registered nurse (current) drug therapy] Onset: 12-09-2023 Episodic Other lower respiratory disease (2 sources) Other forms of dyspnea; Translations: [OTHER FORMS OF DYSPNEA] Onset: 08-18-2020 Episodic Other lower respiratory disease (20 sources) Dyspnea; Translations: [Dyspnea, unspecified] Onset: 01-23-2023 Resolved: 10-10-2024 01-23-2023 Episodic Other lower respiratory disease (6 sources) Dyspnea, unspecified; Translations: [Dyspnea, unspecified] Onset: 01-23-2023 Episodic Other lower respiratory disease (4 sources) Shortness of breath; Translations: [Shortness of breath] Onset: 01-23-2023 Episodic Other non-traumatic joint disorders (20 sources) Joint pain; Translations: [Pain in joint, site unspecified] Onset: 07-09-2022 10-31-2022 Episodic Other non-traumatic joint disorders (20 sources) Pain in elbow; Translations: [Pain in left elbow] Onset: 07-09-2022 Resolved: 10-31-2022 Episodic Other non-traumatic joint disorders (20 sources) Decreased range of elbow movement; Translations: [Stiffness of joint, not elsewhere classified, upper arm] Onset: 07-10-2022 Resolved: 04-22-2024 07-10-2022 Episodic Other non-traumatic joint disorders (4 sources) Pain in unspecified joint; Translations: [Pain in unspecified joint] Onset: 07-09-2022 Episodic Other non-traumatic joint disorders (4 sources) Pain in joints of right hand; Translations: [Pain in joints of right hand] Onset: 07-09-2022 Episodic Other non-traumatic joint disorders (4 sources) Pain in joints of left hand; Translations: [Pain in joints of left hand] Onset: 07-09-2022 Episodic Other screening for suspected conditions (not mental disorders or infectious disease) (20 sources) Increased glucose level; Translations: [Patient encounter status] Onset: 03-06-2022 Resolved: 04-22-2024 07-09-2022 Episodic Residual codes; unclassified (2 sources) History of operative procedure on elbow; Translations: [Other specified postprocedural states] Episodic Residual codes; unclassified (1 source) Family history of malignant neoplasm of breast; Translations: [Family history of malignant neoplasm of breast] Onset: 03-06-2022 Episodic Residual codes; unclassified (4 sources) Asymptomatic menopausal state; Translations: [Asymptomatic menopausal state] Onset: 04-22-2024 Episodic Residual codes; unclassified (1 source) Requires vaccination; Translations: [Need for vaccination] Unclassified (6 sources) Patient encounter status; Translations: [Encounter for screening mammogram for breast cancer] 04-22-2024 Unclassified (14 sources) Onset: 07-18-2022 Resolved: 10-10-2024 07-18-2022 Unclassified (2 sources) Obesity, class 2; Translations: [Obesity, class 2] Onset: 04-22-2024 Viral infection (20 sources) Disease caused by 2019-nCoV; Translations: [Other specified viral infection] Onset: 07-09-2022 Resolved: 01-23-2023 07-09-2022 Episodic NEGATED: Highlighted row has not occurred!Residual codes; unclassified (6 sources) Disease Episodic Results Test Name Value Interpretation Reference Range Facility 36on 10-17-2024 36 Last seen 02/15/24. CMP done 10/05/24. GFR 82. CBC done 06/30/24. H/H 14.3/42.4 Normal [facility] Absolute lymphocyte countOrd ered By: Helena Santos on 10-17-2024 Lymphocytes Auto (Unsp spec) [#/Vol] 1.15 10*3/uL 0.83-4.51 [facility] Absolute neutrophil countOrd ered By: Helenayaima Santos on 10-17-2024 Neutrophils (Bld) [#/Vol] 7.3 10*3/uL 2.0-7.7 [facility] Anion gap in Serum or Plasma Ordered By: Helenayaima Santos on 10-17-2024 Anion gap [Moles/Vol] 15 mmol/L 5-15 [facility] Automated lymphocyte count a s percentage of total leukocytesOrdered By: Helena Santos on 10-17-2024 Lymphocytes/100 WBC Auto (Unsp spec) 11.8 % Low 19-41 [facility] BUN/creatinine ratioOrdered By: [facility] on 10-17-2024 Urea nitrogen/Creatinine [Mass ratio] 13.0 mg/mg 10-20 [facility] Basophil percentageOrdered B y: Helena Santos on 10-17-2024 Basophils/100 WBC (Bld) 0.5 % 0-1 [facility] Bilirubin, totalOrdered By: Helenayaima Santos on 10-17-2024 Bilirubin [Mass/Vol] 1.17 mg/dL 0.00-1.30 [facility] CBC W/Diff, Automatedon Absolute Lymph 1.15 X10 3/uL Normal 0.83-4.51 [facility] Comment on above: Performed By: #### L 500.4050, L3890.6202, L3890.6301, L100.0100, L3890.6102, L501.0900, L4500.0100, L400.2010 #### [facility] [address] [place], [address] Absolute Neut 7.3 X10 3/uL Normal 2.0-7.7 [facility] Comment on above: Performed By: #### L 500.4050, L3890.6202, L3890.6301, L100.0100, L3890.6102, L501.0900, L4500.0100, L400.2010 #### [facility] [address] [place], [address] Basophils/100 WBC (Bld) 0.5 % Normal 0-1 [facility] Comment on above: Performed By: #### L 500.4050, L3890.6202, L3890.6301, L100.0100, L3890.6102, L501.0900, L4500.0100, L400.2010 #### [facility] [address] [place], [address] Eosinophils/100 WBC (Bld) 3.7 % Normal 0-5 [facility] Comment on above: Performed By: #### L 500.4050, L3890.6202, L3890.6301, L100.0100, L3890.6102, L501.0900, L4500.0100, L400.2010 #### [facility] [address] [place], [address] Erythrocyte distribution width (RBC) [Ratio] 15.7 % High 11.6-14.6 [facility] Comment on above: Performed By: #### L 500.4050, L3890.6202, L3890.6301, L100.0100, L3890.6102, L501.0900, L4500.0100, L400.2010 #### [facility] [address] [place], [address] Hematocrit (Bld) [Volume fraction] 37.0 % Normal 37-47 [facility] Comment on above: Performed By: #### L 500.4050, L3890.6202, L3890.6301, L100.0100, L3890.6102, L501.0900, L4500.0100, L400.2010 #### [facility] [address] [place], [address] Hemoglobin (Bld) [Mass/Vol] 12.1 g/dL Normal 12.0-15.0 [facility] Comment on above: Performed By: #### L 500.4050, L3890.6202, L3890.6301, L100.0100, L3890.6102, L501.0900, L4500.0100, L400.2010 #### [facility] [address] [place], [address] IG% 0.300 Normal 0.0-0.9 [facility] Comment on above: Result Comment: IG% - Immature Granulocytes (promyelocytes, myelocytes and metamyelocytes) > 1% indicates that a LEFT SHIFT is Present. Performed By: #### L 500.4050, L3890.6202, L3890.6301, L100.0100, L3890.6102, L501.0900, L4500.0100, L400.2010 #### [facility] [address] [place], [address] Lymphocytes/100 WBC (Bld) 11.8 % Low 19-41 [facility] Comment on above: Performed By: #### L 500.4050, L3890.6202, L3890.6301, L100.0100, L3890.6102, L501.0900, L4500.0100, L400.2010 #### [facility] [address] [place], [address] MCH (RBC) [Entitic mass] 30.2 pg Normal 27.0-32.0 [facility] Comment on above: Performed By: #### L 500.4050, L3890.6202, L3890.6301, L100.0100, L3890.6102, L501.0900, L4500.0100, L400.2010 #### [facility] [address] [place], [address] MCHC (RBC) [Mass/Vol] 32.7 g/dL Normal 32-36 [facility] Comment on above: Performed By: #### L 500.4050, L3890.6202, L3890.6301, L100.0100, L3890.6102, L501.0900, L4500.0100, L400.2010 #### [facility] [address] [place], [address] MCV (RBC) [Entitic vol] 92.3 fL Normal 81-99 [facility] Comment on above: Performed By: #### L 500.4050, L3890.6202, L3890.6301, L100.0100, L3890.6102, L501.0900, L4500.0100, L400.2010 #### [facility] [address] [place], [address] Monocytes/100 WBC (Bld) 9.2 % Normal 0-10 [facility] Comment on above: Performed By: #### L 500.4050, L3890.6202, L3890.6301, L100.0100, L3890.6102, L501.0900, L4500.0100, L400.2010 #### [facility] [address] [place], [address] Neutrophils/100 WBC (Bld) 74.5 % High 47-70 [facility] Comment on above: Performed By: #### L 500.4050, L3890.6202, L3890.6301, L100.0100, L3890.6102, L501.0900, L4500.0100, L400.2010 #### [facility] [address] [place], [address] Nucleated RBC (Bld) [#/Vol] 0 10*3/uL Normal 0-5 [facility] Comment on above: Performed By: #### L 500.4050, L3890.6202, L3890.6301, L100.0100, L3890.6102, L501.0900, L4500.0100, L400.2010 #### [facility] [address] [place], [address] Platelet mean volume (Bld) [Entitic vol] 9.4 fL Normal 6.2-12.0 [facility] Comment on above: Performed By: #### L 500.4050, L3890.6202, L3890.6301, L100.0100, L3890.6102, L501.0900, L4500.0100, L400.2010 #### [facility] [address] [place], [address] Platelets (Bld) [#/Vol] 442 10*3/uL Normal 150-450 [facility] Comment on above: Performed By: #### L 500.4050, L3890.6202, L3890.6301, L100.0100, L3890.6102, L501.0900, L4500.0100, L400.2010 #### [facility] [address] [place], [address] RBC (Bld) [#/Vol] 4.01 10*6/uL Low 4.2-5.4 [facility] Comment on above: Performed By: #### L 500.4050, L3890.6202, L3890.6301, L100.0100, L3890.6102, L501.0900, L4500.0100, L400.2010 #### [facility] [address] [place], [address] RDW SD 52.5 fl High 35.1-43.9 [facility] Comment on above: Performed By: #### L 500.4050, L3890.6202, L3890.6301, L100.0100, L3890.6102, L501.0900, L4500.0100, L400.2010 #### [facility] [address] [place], [address] (446) WBC (Bld) [#/Vol] 9.8 10*3/uL Normal 4.4-11.0 [facility] Comment on above: Performed By: #### L 500.4050, L3890.6202, L3890.6301, L100.0100, L3890.6102, L501.0900, L4500.0100, L400.2010 #### [facility] [address] [place], [address] (489) Carbon dioxide, total [Moles /volume] in Central venous bloodOrdered By: Helena Santos on 10-17-2024 CO2 [Moles/Vol] 25.0 mmol/L 21.0-32.0 [facility] Chloride assayOrdered By: Jaime Santos on 10-17-2024 Chloride [Moles/Vol] 97 mmol/L Low 98-108 [facility] Comprehensive Metabolic Prof ilon 10-17-2024 Albumin [Mass/Vol] 4.1 g/dL Normal 3.4-4.8 [facility] Comment on above: Performed By: #### L 500.4050, L3890.6202, L3890.6301, L100.0100, L3890.6102, L501.0900, L4500.0100, L400.2010 #### [facility] [address] [place], [address] Albumin/Globulin [Mass ratio] 1.4 {ratio} Normal 0.9-2.4 [facility] Comment on above: Performed By: #### L 500.4050, L3890.6202, L3890.6301, L100.0100, L3890.6102, L501.0900, L4500.0100, L400.2010 #### [facility] [address] [place], [address] ALK PHOS 108 U/L High 35-104 [facility] Comment on above: Performed By: #### L 500.4050, L3890.6202, L3890.6301, L100.0100, L3890.6102, L501.0900, L4500.0100, L400.2010 #### [facility] [address] [place], [place], [id number] (720) ALT [Catalytic activity/Vol] 11 U/L Normal <=34 [facility] Comment on above: Performed By: #### L 500.4050, L3890.6202, L3890.6301, L100.0100, L3890.6102, L501.0900, L4500.0100, L400.2010 #### [facility] [address] [place], [place], [id number] AST [Catalytic activity/Vol] 20 U/L Normal <=31 [facility] Comment on above: Performed By: #### L 500.4050, L3890.6202, L3890.6301, L100.0100, L3890.6102, L501.0900, L4500.0100, L400.2010 #### [facility] [address] [place], [place], [id number] Bilirubin [Mass/Vol] 1.17 mg/dL Normal 0.00-1.30 [facility] Comment on above: Performed By: #### L 500.4050, L3890.6202, L3890.6301, L100.0100, L3890.6102, L501.0900, L4500.0100, L400.2010 #### [facility] [address] [place], [address] BUN/CRE 13.0 RATIO Normal 10-20 [facility] Comment on above: Performed By: #### L 500.4050, L3890.6202, L3890.6301, L100.0100, L3890.6102, L501.0900, L4500.0100, L400.2010 #### [facility] [address] [place], [address] Calcium [Mass/Vol] 9.5 mg/dL Normal 7.6-11.0 [facility] Comment on above: Performed By: #### L 500.4050, L3890.6202, L3890.6301, L100.0100, L3890.6102, L501.0900, L4500.0100, L400.2010 #### [facility] [address] [place], [address] Chloride [Moles/Vol] 97 mmol/L Low 98-108 [facility] Comment on above: Performed By: #### L 500.4050, L3890.6202, L3890.6301, L100.0100, L3890.6102, L501.0900, L4500.0100, L400.2010 #### [facility] [address] [place], [address] CO2 [Moles/Vol] 25.0 mmol/L Normal 21.0-32.0 [facility] Comment on above: Performed By: #### L 500.4050, L3890.6202, L3890.6301, L100.0100, L3890.6102, L501.0900, L4500.0100, L400.2010 #### [facility] [address] [place], [address] Creatinine [Mass/Vol] 0.83 mg/dL Normal 0.70-1.20 [facility] Comment on above: Performed By: #### L 500.4050, L3890.6202, L3890.6301, L100.0100, L3890.6102, L501.0900, L4500.0100, L400.2010 #### [facility] [address] [place], [address] GAP 15 Normal 5-15 [facility] Comment on above: Performed By: #### L 500.4050, L3890.6202, L3890.6301, L100.0100, L3890.6102, L501.0900, L4500.0100, L400.2010 #### [facility] [address] [place], [address] GFR/1.73 sq M.predicted among non-blacks MDRD (S/P/Bld) [Vol rate/Area] 77 mL/min/{1.73_m2} Normal >60 [facility] Comment on above: Result Comment: mL/m in/1.73m2 CKD-EPI Creatinine Equation (2020) Performed By: #### L 500.4050, L3890.6202, L3890.6301, L100.0100, L3890.6102, L501.0900, L4500.0100, L400.2010 #### [facility] [address] [place], [address] Globulin (S) [Mass/Vol] 3.0 g/dL Normal 2.2-4.2 [facility] Comment on above: Performed By: #### L 500.4050, L3890.6202, L3890.6301, L100.0100, L3890.6102, L501.0900, L4500.0100, L400.2010 #### [facility] [address] [place], [address] Glucose [Mass/Vol] 117 mg/dL High 70-99 [facility] Comment on above: Performed By: #### L 500.4050, L3890.6202, L3890.6301, L100.0100, L3890.6102, L501.0900, L4500.0100, L400.2010 #### [facility] [address] [place], [address] Potassium [Moles/Vol] 4.3 mmol/L Normal 3.3-5.1 [facility] Comment on above: Performed By: #### L 500.4050, L3890.6202, L3890.6301, L100.0100, L3890.6102, L501.0900, L4500.0100, L400.2010 #### [facility] [address] [place], [address] Sodium [Moles/Vol] 137 mmol/L Normal 133-145 [facility] Comment on above: Performed By: #### L 500.4050, L3890.6202, L3890.6301, L100.0100, L3890.6102, L501.0900, L4500.0100, L400.2010 #### [facility] [address] [place], [address] T PROT 7.1 g/dL Normal 5.9-8.4 [facility] Comment on above: Performed By: #### L 500.4050, L3890.6202, L3890.6301, L100.0100, L3890.6102, L501.0900, L4500.0100, L400.2010 #### [facility] [address] [place], [address] Urea nitrogen [Mass/Vol] 11 mg/dL Normal 4-19 [facility] Comment on above: Performed By: #### L 500.4050, L3890.6202, L3890.6301, L100.0100, L3890.6102, L501.0900, L4500.0100, L400.2010 #### [facility] [address] [place], [address] Eosinophil percentageOrdered By: Helena Santos on 10-17-2024 Eosinophils/100 WBC (Bld) 3.7 % 0-5 [facility] Erythrocyte distribution wid th ratioOrdered By: Helena Santos on 10-17-2024 Erythrocyte distribution width (RBC) [Ratio] 15.7 % High 11.6-14.6 [facility] Erythrocyte distribution wid th standard deviationOrdered By: Helena Santos on 10-17-2024 Erythrocyte distribution width (RBC) [Ratio] 52.5 fl High 35.1-43.9 [facility] Glomerular filtration rate ( GFR) estimation/1.73 sq m using serum, plasma, or whole bOrdered By: Helena Santos on 10-17-2024 GFR/1.73 sq M.predicted among non-blacks MDRD (S/P/Bld) [Vol rate/Area] 77 mL/min/{1.73_m2} >60 [facility] Comment on above: mL/min/1.73m2 CKD-EP I Creatinine Equation (2020) Hematocrit Auto (Bld) [Volum e fraction]Ordered By: [facility] on 10-17-2024 Hematocrit (Bld) [Volume fraction] 37.0 % 37-47 [facility] Hemoglobin measurementOrdere d By: Helena Santos on 10-17-2024 Hemoglobin (Bld) [Mass/Vol] 12.1 g/dL 12.0-15.0 [facility] Immature granulocytes/100 WB C Auto (Bld)Ordered By: Helena Santos on 10-17-2024 Immature granulocytes/100 WBC (Bld) 0.300 % 0.0-0.9 [facility] Comment on above: IG% - Immature Granu locytes (promyelocytes, myelocytes and metamyelocytes) > 1% indicates that a LEFT SHIFT is Present. Laboratory - Chemistry and C hemistry - challengeOrdered By: Helena Santos on 10-17-2024 AST [Catalytic activity/Vol] 20 U/L <32 [facility] MCV (mean corpuscular volume ) determinationOrdered By: Helena Santos 10-17-2024 MCV (RBC) [Entitic vol] 92.3 fL 81-99 [facility] Mean corpuscular hemoglobin (MCH) determinationOrdered By: Helena Santos on 10-17-2024 MCH (RBC) [Entitic mass] 30.2 pg 27.0-32.0 [facility] Mean corpuscular hemoglobin concentration (MCHC) determinationOrdered By: Helena Santos on 10-17-2024 MCHC (RBC) [Mass/Vol] 32.7 g/dL 32-36 [facility] Mean platelet volume determi nationOrdered By: Helena Santos on 10-17-2024 Platelet mean volume (Bld) [Entitic vol] 9.4 fL 6.2-12.0 [facility] Monocyte percentageOrdered B y: Helean Santos on 10-17-2024 Monocytes/100 WBC (Bld) 9.2 % 0-10 [facility] Neutrophil percentageOrdered By: Helena Santos on 10-17-2024 Neutrophils/100 WBC (Bld) 74.5 % High 47-70 [facility] Nucleated red blood cell per centageOrdered By: Helena Santos on 10-17-2024 Nucleated RBC/100 WBC (Bld) [Ratio] 0 % 0-5 [facility] Platelet countOrdered By: Jaime Santos on 10-17-2024 Platelets (Bld) [#/Vol] 442 10*3/uL 150-450 [facility] Potassium measurement (mass/ volume)Ordered By: Helena Santos on 10-17-2024 Potassium (Unsp spec) [Mass/Vol] 4.3 mmol/L 3.3-5.1 [facility] RBC Auto (Bld) [#/Vol]Ordere d By: Helena Santos on 10-17-2024 RBC (Bld) [#/Vol] 4.01 10*6/uL Low 4.2-5.4 [facility] Serum creatinine measurement (mass/volume)Ordered By: Helena Santos on 10-17-2024 Creatinine [Mass/Vol] 0.83 mg/dL 0.70-1.20 [facility] Serum globulin measurementOr dered By: Helena Santos on 10-17-2024 Globulin (S) [Mass/Vol] 3.0 g/dL 2.2-4.2 [facility] Serum glucose measurement (m ass/volume)Ordered By: Helena Santos on 10-17-2024 Glucose [Mass/Vol] 117 mg/dL High 70-99 [facility] Serum or plasma alanine patrick otransferase (ALT) measurementOrdered By: Helena Santos on 10-17-2024 ALT [Catalytic activity/Vol] 11 U/L <35 [facility] Serum or plasma albumin flaquita urement (mass/volume)Ordered By: Helena Santos on 10-17-2024 Albumin [Mass/Vol] 4.1 g/dL 3.4-4.8 [facility] Serum or plasma albumin/glob ulin mass ratioOrdered By: Helena Santos on 10-17-2024 Albumin/Globulin [Mass ratio] 1.4 {ratio} 0.9-2.4 [facility] Serum or plasma alkaline jessenia sphatase measurementOrdered By: Helena Santos on 10-17-2024 ALP [Catalytic activity/Vol] 108 U/L High 35-104 [facility] Serum or plasma calcium flaquita urement (mass/volume)Ordered By: Helena Santos on 10-17-2024 Calcium [Mass/Vol] 9.5 mg/dL 7.6-11.0 [facility] Serum or plasma urea nitroge n measurement (mass/volume)Ordered By: Helena Santos on 10-17-2024 Urea nitrogen [Mass/Vol] 11 mg/dL 4-19 [facility] Sodium levelOrdered By: Elisha Santos on 10-17-2024 Sodium [Moles/Vol] 137 mmol/L 133-145 [facility] Total proteinOrdered By: Abraham Santos on 10-17-2024 Protein [Mass/Vol] 7.1 g/dL 5.9-8.4 [facility] White blood cell (WBC) count Ordered By: Helena Santos on 10-17-2024 WBC (Bld) [#/Vol] 9.8 10*3/uL 4.4-11.0 [facility] 36on 10-06-2024 36 See anticoagulation encounter Normal [facility] 36 I rec'd a fax from [facility], dated for 10/05/24, INR 3.4. Normal [facility] Progress Noteon 10-06-2024 Progress Note Anticoagulation Episode Summary Current INR goal: 2.5-3.5 TTR: 46.1% (2.5 y) Next INR check: 11/07/2024 INR from last check: 3.4 (10/05/2024) Weekly max warfarin dose: -- Target end date: -- INR check location: -- Preferred lab: -- Send INR reminders to: [facility] [employer] RECEIVING CLERK Comments: range 2.5-3.5 is ok with LRI LM to continue with same dose and recheck in month. Normal [facility] Anion gap in Serum or Plasma Ordered By: Stone Son on 10-05-2024 Anion gap [Moles/Vol] 12 mmol/L 5-15 [facility] BUN/creatinine ratioOrdered By: Stone Son on 10-05-2024 Urea nitrogen/Creatinine [Mass ratio] 18.1 mg/mg 10-20 [facility] Bilirubin, totalOrdered By: Stone Son on 10-05-2024 Bilirubin [Mass/Vol] 0.76 mg/dL 0.00-1.30 [facility] Carbon dioxide, total [Moles /volume] in Central venous bloodOrdered By: Stone Son on 10-05-2024 CO2 [Moles/Vol] 26.4 mmol/L 21.0-32.0 [facility] Chloride assayOrdered By: Kamryn Son on 10-05-2024 Chloride [Moles/Vol] 98 mmol/L 98-108 [facility] Comprehensive Metabolic Prof ilon 10-05-2024 Albumin [Mass/Vol] 4.4 g/dL Normal 3.4-4.8 [facility] Comment on above: Performed By: #### L 500.4050, L3890.6202, L3890.6301, L100.0100, L3890.6102, L501.0900, L4500.0100, L400.2010 #### [facility] [address] [place], [address] Albumin/Globulin [Mass ratio] 1.3 {ratio} Normal 0.9-2.4 [facility] Comment on above: Performed By: #### L 500.4050, L3890.6202, L3890.6301, L100.0100, L3890.6102, L501.0900, L4500.0100, L400.2010 #### [facility] [address] [place], [address] ALK PHOS 109 U/L High 35-104 [facility] Comment on above: Performed By: #### L 500.4050, L3890.6202, L3890.6301, L100.0100, L3890.6102, L501.0900, L4500.0100, L400.2010 #### [facility] [address] [place], [address] ALT [Catalytic activity/Vol] 11 U/L Normal <=34 [facility] Comment on above: Performed By: #### L 500.4050, L3890.6202, L3890.6301, L100.0100, L3890.6102, L501.0900, L4500.0100, L400.2010 #### [facility] [address] [place], [address] AST [Catalytic activity/Vol] 18 U/L Normal <=31 [facility] Comment on above: Performed By: #### L 500.4050, L3890.6202, L3890.6301, L100.0100, L3890.6102, L501.0900, L4500.0100, L400.2010 #### [facility] [address] [place], [address] Bilirubin [Mass/Vol] 0.76 mg/dL Normal 0.00-1.30 [facility] Comment on above: Performed By: #### L 500.4050, L3890.6202, L3890.6301, L100.0100, L3890.6102, L501.0900, L4500.0100, L400.2010 #### [facility] [address] [place], [address] BUN/CRE 18.1 RATIO Normal 10-20 [facility] Comment on above: Performed By: #### L 500.4050, L3890.6202, L3890.6301, L100.0100, L3890.6102, L501.0900, L4500.0100, L400.2010 #### [facility] [address] [place], [address] Calcium [Mass/Vol] 9.5 mg/dL Normal 7.6-11.0 [facility] Comment on above: Performed By: #### L 500.4050, L3890.6202, L3890.6301, L100.0100, L3890.6102, L501.0900, L4500.0100, L400.2010 #### [facility] [address] [place], [address] Chloride [Moles/Vol] 98 mmol/L Normal 98-108 [facility] Comment on above: Performed By: #### L 500.4050, L3890.6202, L3890.6301, L100.0100, L3890.6102, L501.0900, L4500.0100, L400.2010 #### [facility] [address] [place], [address] CO2 [Moles/Vol] 26.4 mmol/L Normal 21.0-32.0 [facility] Comment on above: Performed By: #### L 500.4050, L3890.6202, L3890.6301, L100.0100, L3890.6102, L501.0900, L4500.0100, L400.2010 #### [facility] [address] [place], [address] Creatinine [Mass/Vol] 0.79 mg/dL Normal 0.70-1.20 [facility] Comment on above: Performed By: #### L 500.4050, L3890.6202, L3890.6301, L100.0100, L3890.6102, L501.0900, L4500.0100, L400.2010 #### [facility] [address] [place], [address] GAP 12 Normal 5-15 [facility] Comment on above: Performed By: #### L 500.4050, L3890.6202, L3890.6301, L100.0100, L3890.6102, L501.0900, L4500.0100, L400.2010 #### [facility] [address] [place], [address] GFR/1.73 sq M.predicted among non-blacks MDRD (S/P/Bld) [Vol rate/Area] 82 mL/min/{1.73_m2} Normal >60 [facility] Comment on above: Result Comment: mL/m in/1.73m2 CKD-EPI Creatinine Equation (2020) Performed By: #### L 500.4050, L3890.6202, L3890.6301, L100.0100, L3890.6102, L501.0900, L4500.0100, L400.2010 #### [facility] [address] [place], [address] Globulin (S) [Mass/Vol] 3.3 g/dL Normal 2.2-4.2 [facility] Comment on above: Performed By: #### L 500.4050, L3890.6202, L3890.6301, L100.0100, L3890.6102, L501.0900, L4500.0100, L400.2010 #### [facility] [address] [place], [address] Glucose [Mass/Vol] 90 mg/dL Normal 70-99 [facility] Comment on above: Performed By: #### L 500.4050, L3890.6202, L3890.6301, L100.0100, L3890.6102, L501.0900, L4500.0100, L400.2010 #### [facility] [address] [place], [address] Potassium [Moles/Vol] 4.1 mmol/L Normal 3.3-5.1 [facility] Comment on above: Performed By: #### L 500.4050, L3890.6202, L3890.6301, L100.0100, L3890.6102, L501.0900, L4500.0100, L400.2010 #### [facility] [address] [place], [address] Sodium [Moles/Vol] 136 mmol/L Normal 133-145 [facility] Comment on above: Performed By: #### L 500.4050, L3890.6202, L3890.6301, L100.0100, L3890.6102, L501.0900, L4500.0100, L400.2010 #### [facility] [address] [place], [address] T PROT 7.6 g/dL Normal 5.9-8.4 [facility] Comment on above: Performed By: #### L 500.4050, L3890.6202, L3890.6301, L100.0100, L3890.6102, L501.0900, L4500.0100, L400.2010 #### [facility] [address] [place], [address] Urea nitrogen [Mass/Vol] 14 mg/dL Normal 4-19 [facility] Comment on above: Performed By: #### L 500.4050, L3890.6202, L3890.6301, L100.0100, L3890.6102, L501.0900, L4500.0100, L400.2010 #### [facility] [address] [facility] [place], [place], [address] Glomerular filtration rate ( GFR) estimation/1.73 sq m using serum, plasma, or whole bOrdered By: Stone Son on 10-05-2024 GFR/1.73 sq M.predicted among non-blacks MDRD (S/P/Bld) [Vol rate/Area] 82 mL/min/{1.73_m2} >60 [facility] Comment on above: mL/min/1.73m2 CKD-EP I Creatinine Equation (2020) Hemoglobin A1con 10-05-2024 HbA1c (Bld) [Mass fraction] 6.9 % High <=5.6 [facility] Comment on above: Result Comment: Norm al < 5.7 % Prediabetic 5.7 - 6.4 % Diabetic >or= 6.5 % Please note range changes. Performed By: #### L 500.4050, L3890.6202, L3890.6301, L100.0100, L3890.6102, L501.0900, L4500.0100, L400.2010 #### [facility] [address] [facility] [place], [place], [id number] Hemoglobin A1c percentageOrd ered By: Stone Son on 10-05-2024 HbA1c (Bld) [Mass fraction] 6.9 % High <5.7 [facility] Comment on above: Normal < 5.7 % Predi abetic 5.7 - 6.4 % Diabetic >or= 6.5 % Please note range changes. International normalized rat io (INR) calculationOrdered By: Stone Son on 10-05-2024 INR Coag (Bld) [Relative time] 3.4 {INR} [facility] - Chemistry and C hemistry - challengeOrdered By: Stone Son on 10-05-2024 AST [Catalytic activity/Vol] 18 U/L <32 [facility] Potassium measurement (mass/ volume)Ordered By: Stone Son on 10-05-2024 Potassium (Unsp spec) [Mass/Vol] 4.1 mmol/L 3.3-5.1 [facility] Prothrombin Time w/INRon INR Coag (PPP) [Relative time] 3.4 {INR} Normal [facility] Comment on above: Performed By: #### L 500.4050, L3890.6202, L3890.6301, L100.0100, L3890.6102, L501.0900, L4500.0100, L400.2010 #### [facility] [address] [place], [place], [address] PT Coag (PPP) [Time] 34.8 s High 11.7-14.9 [facility] Comment on above: Performed By: #### L 500.4050, L3890.6202, L3890.6301, L100.0100, L3890.6102, L501.0900, L4500.0100, L400.2010 #### [facility] [address] [place], [address] Prothrombin timeOrdered By: Stone Son on 10-05-2024 PT Coag (PPP) [Time] 34.8 s High 11.7-14.9 [facility] Serum creatinine measurement (mass/volume)Ordered By: Stone Son on 10-05-2024 Creatinine [Mass/Vol] 0.79 mg/dL 0.70-1.20 [facility] Serum globulin measurementOr dered By: Stone Son on 10-05-2024 Globulin (S) [Mass/Vol] 3.3 g/dL 2.2-4.2 [facility] Serum glucose measurement (m ass/volume)Ordered By: Stone Son on 10-05-2024 Glucose [Mass/Vol] 90 mg/dL 70-99 [facility] Serum or plasma alanine patrick otransferase (ALT) measurementOrdered By: Stone Son on 10-05-2024 ALT [Catalytic activity/Vol] 11 U/L <35 [facility] Serum or plasma albumin flaquita urement (mass/volume)Ordered By: Stone Son on 10-05-2024 Albumin [Mass/Vol] 4.4 g/dL 3.4-4.8 [facility] Serum or plasma albumin/glob ulin mass ratioOrdered By: Stone Son on 10-05-2024 Albumin/Globulin [Mass ratio] 1.3 {ratio} 0.9-2.4 [facility] Serum or plasma alkaline jessenia sphatase measurementOrdered By: Stone Son on 10-05-2024 ALP [Catalytic activity/Vol] 109 U/L High 35-104 [facility] Serum or plasma calcium flaquita urement (mass/volume)Ordered By: Stone Son on 10-05-2024 Calcium [Mass/Vol] 9.5 mg/dL 7.6-11.0 [facility] Serum or plasma urea nitroge n measurement (mass/volume)Ordered By: Stone Son on 10-05-2024 Urea nitrogen [Mass/Vol] 14 mg/dL 4-19 [facility] Sodium levelOrdered By: Yin Son on 10-05-2024 Sodium [Moles/Vol] 136 mmol/L 133-145 [facility] Total proteinOrdered By: Nery Son on 10-05-2024 Protein [Mass/Vol] 7.6 g/dL 5.9-8.4 [facility] 36on 08-23-2024 36 See anticoagulation encounter Normal [facility] 36 I rec'd a fax from [facility], dated for 08/22/24, INR 2.9. Normal [facility] Progress Noteon 08-23-2024 Progress Note Anticoagulation Episode Summary Current INR goal: 2.5-3.5 TTR: 43.3% (2.4 y) Next INR check: 08/22/2024 INR from last check: 2.9 (08/22/2024) Weekly max warfarin dose: -- Target end date: -- INR check location: -- Preferred lab: -- Send INR reminders to: [facility] [employer] RECEIVING CLERK Comments: range 2.5-3.5 is ok with LRI Instructed to continue with same dose and recheck in month. Normal [facility] International normalized rat io (INR) calculationOrdered By: Stone Son on 08-22-2024 INR Coag (Bld) [Relative time] 2.9 {INR} [facility] Prothrombin Time w/INRon INR Coag (PPP) [Relative time] 2.9 {INR} [facility] Comment on above: Performed By: #### L 500.4050, L3890.6202, L3890.6301, L100.0100, L3890.6102, L501.0900, L4500.0100, L400.2010 #### [facility] [address] [place], [place], [address] PT Coag (PPP) [Time] 31.0 s High 11.7-14.9 [facility] Comment on above: Performed By: #### L 500.4050, L3890.6202, L3890.6301, L100.0100, L3890.6102, L501.0900, L4500.0100, L400.2010 #### [facility] [address] [place], [place], [address] Prothrombin timeOrdered By: Stone Son on 08-22-2024 PT Coag (PPP) [Time] 31.0 s High 11.7-14.9 [facility] 36on 08-09-2024 36 See anticoagulation encounter [facility] 36 I rec'd a fax from [facility], dated for 08/08/24, INR 3.1. Normal [facility] Progress Noteon 08-09-2024 Progress Note Anticoagulation Episode Summary Current INR goal: 2.5-3.5 TTR: 42.5% (2.3 y) Next INR check: 08/22/2024 INR from last check: 3.1 (08/09/2024) Weekly max warfarin dose: -- Target end date: -- INR check location: -- Preferred lab: -- Send INR reminders to: [facility] [employer]ED [employer] RECEIVING CLERK Comments: range 2.5-3.5 is ok with LRI Instructed to continue with same dose and recheck in 2 weeks. [facility] International normalized rat io (INR) calculationOrdered By: Stone Son on 08-08-2024 INR Coag (Bld) [Relative time] 3.1 {INR} [facility] Prothrombin Time w/INRon INR Coag (PPP) [Relative time] 3.1 {INR} Normal [facility] Comment on above: Performed By: #### L 500.4050, L3890.6202, L3890.6301, L100.0100, L3890.6102, L501.0900, L4500.0100, L400.2010 #### [facility] [address] [place], [place], [phone] PT Coag (PPP) [Time] 32.5 s High 11.7-14.9 [facility] Comment on above: Performed By: #### L 500.4050, L3890.6202, L3890.6301, L100.0100, L3890.6102, L501.0900, L4500.0100, L400.2010 #### [facility] [address] [place], [place], [id number] ([phone] Prothrombin timeOrdered By: Stone Son on 08-08-2024 PT Coag (PPP) [Time] 32.5 s High 11.7-14.9 [facility] 36on 08-01-2024 36 See anticoagulation encounter Normal [facility] 36 Sent to ASSOCIATE PASTOR for review. [facility] 36 Received a phone cheryl harish from [facility] with urgent alert for patient INR: 4.1 08-01-24 Thank you! Normal [facility] Progress Noteon 08-01-2024 Progress Note Please have her hold her dose today and then resume 3 mg daily starting tomorrow. Stop Lovenox. Recheck INR 1 week. Normal [facility] Progress Note Called pt to clarify if she took 5 mg for 3 days and went back to 3 mg. Pt said she miss understood. She has been taking 5 mg daily since last Thursday plus Lovenox. Advised to wait to hear back from me before taking coumadin and she can stop Lovenox. Pt was off for colonoscopy and bridging with Lovenox. Normal [facility] Progress Note Anticoagulation Episode Summary Current INR goal: 2.5-3.5 TTR: 42.5% (2.3 y) Next INR check: 08/08/2024 INR from last check: 4.1 (08/01/2024) Weekly max warfarin dose: -- Target end date: -- INR check location: -- Preferred lab: -- Send INR reminders to: [facility] [employer] RECEIVING CLERK Comments: range 2.5-3.5 is ok with LRI Instructed to hold dose today, then 3 mg starting tomorrow and recheck next week. Advised to stop Lovenox. Normal [facility] Prothrombin Time w/INRon INR Coag (PPP) [Relative time] 4.1 {INR} Invalid Interpretation Code [facility] Comment on above: Order Comment: Urine , Random Performed By: #### L 500.4050, L3890.6202, L3890.6301, L100.0100, L3890.6102, L501.0900, L4500.0100, L400.2010 #### [facility] [address] [place], [place], [id number] PT Coag (PPP) [Time] 40.3 s High 11.7-14.9 [facility] Comment on above: Order Comment: Urine , Random Performed By: #### L 500.4050, L3890.6202, L3890.6301, L100.0100, L3890.6102, L501.0900, L4500.0100, L400.2010 #### [facility] [address] [place], [address] 36on 07-26-2024 36 See anticoagulation encounter Normal [facility] 36 Lovenox 80 mg BID until INR at least 2. Warfarin 5 mg today, tomorrow and , then back to 3 mg. I need INR Saturday 07/29 or Tuesday 08/01. Normal [facility] 36 Pt had stopped coumadin for colonoscopy on 07/20. Her dose is 3 mg daily normally. She is being bridged with Lovenox 80 mg. INR yesterday 1.6. please advise? Normal [facility] 36 I rec'd a fax from [facility] lab, dated for 07/25/24, INR 1.6. Normal [facility] 36 Pt had INR done yesterday. Will call [facility] for results. Normal [facility] Progress Noteon 07-26-2024 Progress Note Anticoagulation Episode Summary Current INR goal: 2.5-3.5 TTR: 42.5% (2.3 y) Next INR check: 08/01/2024 INR from last check: 1.6 (07/25/2024) Weekly max warfarin dose: -- Target end date: -- INR check location: -- Preferred lab: -- Send INR reminders to: [facility] [employer] RECEIVING CLERK Comments: range 2.5-3.5 is ok with LRI Instructed to take 5 mg for next 3 days and recheck Thursday or Thursday at latest. Will continue with Lovenox 80 mg bid. Normal [facility] Prothrombin Time w/INRon INR Coag (PPP) [Relative time] 1.6 {INR} Normal [facility] Comment on above: Performed By: #### L 500.4050, L3890.6202, L3890.6301, L100.0100, L3890.6102, L501.0900, L4500.0100, L400.2010 #### [facility] [address] [place], [place], [id number] PT Coag (PPP) [Time] 19.1 s High 11.7-14.9 [facility] Comment on above: Performed By: #### L 500.4050, L3890.6202, L3890.6301, L100.0100, L3890.6102, L501.0900, L4500.0100, L400.2010 #### [facility] [address] [place], [address] 36on 07-19-2024 36 Notified pt of INR results. Will continue with Bridging. [facility] 36 I rec'd fax from [facility],INR dated for 07/18/24, INR 1.5. [facility] 36 Called pt she said she had her INR done at [facility] at [address] Advised her I will call for results. Advised her no Lovenox injection tonight. Normal [facility] 36 I called [facility] result line. Results could not be found. [facility] 36 Pt called, left vm. She said that she was calling for PT results she had done yesterday. She said she needs clarification about injection. She said she is scheduled for colonoscopy tomorrow. IN[facility] results not [facility]. [facility] Progress Noteon 07-19-2024 Progress Note Anticoagulation Episode Summary Current INR goal: 2.5-3.5 TTR: 42.9% (2.3 y) Next INR check: 07/25/2024 INR from last check: 1.5 (07/18/2024) Weekly max warfarin dose: -- Target end date: -- INR check location: -- Preferred lab: -- Send INR reminders to: [facility] [employer] RECEIVING CLERK Comments: range 2.5-3.5 is ok with LRI Called pt instructed to continue with bridging instructions. Has been holding since 07/15/24 and bridging. [facility] International normalized rat io (INR) calculationOrdered By: Stone Son on 07-18-2024 INR Coag (Bld) [Relative time] 1.5 {INR} [facility] Lupus Anticoagulant Compon 0 07-18-2024 aPTT Coag (Bld) [Time] 106.9 s High 0.0-43.5 [facility] Comment on above: Performed By: #### L 500.4050, L3890.6202, L3890.6301, L100.0100, L3890.6102, L501.0900, L4500.0100, L400.2010 #### [facility] [address] [place], [address] aPTT Coag (Bld) [Time] 58.0 s High 0.0-40.5 [facility] Comment on above: Performed By: #### L 500.4050, L3890.6202, L3890.6301, L100.0100, L3890.6102, L501.0900, L4500.0100, L400.2010 #### [facility] [address] [place], [address] DILUTE PT (dPT) 172.9 sec High 0.0-47.6 [facility] Comment on above: Result Comment: Ve rified by repeat analysis Performed By: #### L 500.4050, L3890.6202, L3890.6301, L100.0100, L3890.6102, L501.0900, L4500.0100, L400.2010 #### [facility] [address] [place], [address] dPT Conf. Ratio TNP Normal . [facility] Comment on above: Result Comment: Unab le to calculate result since non-numeric result obtained for component test. Performed By: #### L 500.4050, L3890.6202, L3890.6301, L100.0100, L3890.6102, L501.0900, L4500.0100, L400.2010 #### [facility] [address] [place], [address] DRVVT 93.5 sec Abnormal 0.0-47.0 [facility] Comment on above: Performed By: #### L 500.4050, L3890.6202, L3890.6301, L100.0100, L3890.6102, L501.0900, L4500.0100, L400.2010 #### [facility] [address] [place], [address] DRVVT CONFIRM 1.2 ratio Normal 0.8-1.2 [facility] Comment on above: Performed By: #### L 500.4050, L3890.6202, L3890.6301, L100.0100, L3890.6102, L501.0900, L4500.0100, L400.2010 #### [facility] [address] [place], [address] dRVVT MIX 43.3 sec Abnormal 0.0-40.4 [facility] Comment on above: Performed By: #### L 500.4050, L3890.6202, L3890.6301, L100.0100, L3890.6102, L501.0900, L4500.0100, L400.2010 #### [facility] [address] [place], [address] HEX PHAS PHOSPH 5 sec Normal 0-11 [facility] Comment on above: Performed By: #### L 500.4050, L3890.6202, L3890.6301, L100.0100, L3890.6102, L501.0900, L4500.0100, L400.2010 #### [facility] [address] [place], [address] Interpretation Comment Normal . [facility] Comment on above: Result Comment: No L upus Anticoagulant was detected. Performed at: - [address] [id number] Operations Representative: Miya Boyd MD, Phone: [phone] Performed By: #### L 500.4050, L3890.6202, L3890.6301, L100.0100, L3890.6102, L501.0900, L4500.0100, L400.2010 #### [facility] [address] [place], [address] THROMBIN TIME 18.0 sec Normal 0.0-23.0 [facility] Comment on above: Performed By: #### L 500.4050, L3890.6202, L3890.6301, L100.0100, L3890.6102, L501.0900, L4500.0100, L400.2010 #### [facility] [address] [place], [address] Prothrombin Time w/INRon INR Coag (PPP) [Relative time] 1.5 {INR} Normal [facility] Comment on above: Performed By: #### L 300.3900 #### [facility] [address] [place], [address] PT Coag (PPP) [Time] 18.3 s High 11.7-14.9 [facility] Comment on above: Performed By: #### L 300.3900 #### [facility] [address] [place], [address] Prothrombin timeOrdered By: Stone Son on 07-18-2024 PT Coag (PPP) [Time] 18.3 s High 11.7-14.9 [facility] 36on 07-14-2024 36 Last seen 02/15/24. CBC done 06/30/24. Normal [facility] 36on 07-12-2024 36 See anticoagulation encounter Normal [facility] 36 Bridging Instruction s reviewed with pt. Verbalized an understanding. Normal [facility] 36 Take 2 mg daily for now, and repeat INR 07/18. Normal [facility] 36 Pt's INR from yesterday was 4.9. she finished her last day of antibiotics last Thursday07/04/24 and took 2 mg then went back to 3 mg daily. Please advise? Pt having colonoscopy done 07/20/24. She will be stopping coumadin 07/15/24 and starting Lovenox. Normal [facility] Absolute lymphocyte countOrd ered By: Helena Santos on 07-12-2024 Lymphocytes Auto (Unsp spec) [#/Vol] 1.44 10*3/uL 0.83-4.51 [facility] Absolute neutrophil countOrd ered By: Helena Santos on 07-12-2024 Neutrophils (Bld) [#/Vol] 8.3 10*3/uL High 2.0-7.7 [facility] Anion gap in Serum or Plasma Ordered By: Helena Santos on 07-12-2024 Anion gap [Moles/Vol] 15 mmol/L 5-15 [facility] Comment on above: Previous reported re sult: 15 Edited by: YANG on 07/12/24:1322 AMENDED REPORT 07/12/24 1322 GAP previously reported as: 15 Automated lymphocyte count a s percentage of total leukocytesOrdered By: Helena Sanots on 07-12-2024 Lymphocytes/100 WBC Auto (Unsp spec) 13.4 % Low 19-41 [facility] BUN/creatinine ratioOrdered By: Helena Santos on 07-12-2024 Urea nitrogen/Creatinine [Mass ratio] 14.7 mg/mg 10-20 [facility] Comment on above: Previous reported re sult: 14.6 RATIOEdited by: YANG on 07/12/24:1322 AMENDED REPORT 07/12/24 1322 BUN/CRE previously reported as: 14.6 RATIO Basophil percentageOrdered B y: Helena Santos on 07-12-2024 Basophils/100 WBC (Bld) 0.7 % 0-1 [facility] Bilirubin Test strip Ql (U)O rdered By: Helena Santos on 07-12-2024 Bilirubin Ql (U) Negative Negative [facility] Bilirubin, totalOrdered By: Helena Santos on 07-12-2024 Bilirubin [Mass/Vol] 0.95 mg/dL 0.00-1.30 [facility] CBC W/Diff, Automatedon Absolute Lymph 1.44 X10 3/uL Normal 0.83-4.51 [facility] Comment on above: Performed By: #### L 500.4050, L3890.6202, L3890.6301, L100.0100, L3890.6102, L501.0900, L4500.0100, L400.2010 #### [facility] [address] [place], [address] Absolute Neut 8.3 X10 3/uL High 2.0-7.7 [facility] Comment on above: Performed By: #### L 500.4050, L3890.6202, L3890.6301, L100.0100, L3890.6102, L501.0900, L4500.0100, L400.2010 #### [facility] [address] [place], [address] Basophils/100 WBC (Bld) 0.7 % Normal 0-1 [facility] Comment on above: Performed By: #### L 500.4050, L3890.6202, L3890.6301, L100.0100, L3890.6102, L501.0900, L4500.0100, L400.2010 #### [facility] [address] [place], [address] Eosinophils/100 WBC (Bld) 2.4 % Normal 0-5 [facility] Comment on above: Performed By: #### L 500.4050, L3890.6202, L3890.6301, L100.0100, L3890.6102, L501.0900, L4500.0100, L400.2010 #### [facility] [address] [place], [address] Erythrocyte distribution width (RBC) [Ratio] 13.3 % Normal 11.6-14.6 [facility] Comment on above: Performed By: #### L 500.4050, L3890.6202, L3890.6301, L100.0100, L3890.6102, L501.0900, L4500.0100, L400.2010 #### [facility] [address] [place], [address] Hematocrit (Bld) [Volume fraction] 38.9 % Normal 37-47 [facility] Comment on above: Performed By: #### L 500.4050, L3890.6202, L3890.6301, L100.0100, L3890.6102, L501.0900, L4500.0100, L400.2010 #### [facility] [address] [place], [address] Hemoglobin (Bld) [Mass/Vol] 12.8 g/dL Normal 12.0-15.0 [facility] Comment on above: Performed By: #### L 500.4050, L3890.6202, L3890.6301, L100.0100, L3890.6102, L501.0900, L4500.0100, L400.2010 #### [facility] [address] [place], [address] IG% 0.600 Normal 0.0-0.9 [facility] Comment on above: Result Comment: IG% - Immature Granulocytes (promyelocytes, myelocytes and metamyelocytes) > 1% indicates that a LEFT SHIFT is Present. Performed By: #### L 500.4050, L3890.6202, L3890.6301, L100.0100, L3890.6102, L501.0900, L4500.0100, L400.2010 #### [facility] [address] [place], [address] Lymphocytes/100 WBC (Bld) 13.4 % Low 19-41 [facility] Comment on above: Performed By: #### L 500.4050, L3890.6202, L3890.6301, L100.0100, L3890.6102, L501.0900, L4500.0100, L400.2010 #### [facility] [address] [place], [address] MCH (RBC) [Entitic mass] 30.5 pg Normal 27.0-32.0 [facility] Comment on above: Performed By: #### L 500.4050, L3890.6202, L3890.6301, L100.0100, L3890.6102, L501.0900, L4500.0100, L400.2010 #### [facility] [address] [place], [address] MCHC (RBC) [Mass/Vol] 32.9 g/dL Normal 32-36 [facility] Comment on above: Performed By: #### L 500.4050, L3890.6202, L3890.6301, L100.0100, L3890.6102, L501.0900, L4500.0100, L400.2010 #### [facility] [address] [place], [address] MCV (RBC) [Entitic vol] 92.8 fL Normal 81-99 [facility] Comment on above: Performed By: #### L 500.4050, L3890.6202, L3890.6301, L100.0100, L3890.6102, L501.0900, L4500.0100, L400.2010 #### [facility] [address] [place], [address] Monocytes/100 WBC (Bld) 5.7 % Normal 0-10 [facility] Comment on above: Performed By: #### L 500.4050, L3890.6202, L3890.6301, L100.0100, L3890.6102, L501.0900, L4500.0100, L400.2010 #### [facility] [address] [place], [address] Neutrophils/100 WBC (Bld) 77.2 % High 47-70 [facility] Comment on above: Performed By: #### L 500.4050, L3890.6202, L3890.6301, L100.0100, L3890.6102, L501.0900, L4500.0100, L400.2010 #### [facility] [address] [place], [address] Nucleated RBC (Bld) [#/Vol] 0 10*3/uL Normal 0-5 [facility] Comment on above: Performed By: #### L 500.4050, L3890.6202, L3890.6301, L100.0100, L3890.6102, L501.0900, L4500.0100, L400.2010 #### [facility] [address] [place], [address] Platelet mean volume (Bld) [Entitic vol] 9.6 fL Normal 6.2-12.0 [facility] Comment on above: Performed By: #### L 500.4050, L3890.6202, L3890.6301, L100.0100, L3890.6102, L501.0900, L4500.0100, L400.2010 #### [facility] [address] [place], [address] Platelets (Bld) [#/Vol] 567 10*3/uL High 150-450 [facility] Comment on above: Performed By: #### L 500.4050, L3890.6202, L3890.6301, L100.0100, L3890.6102, L501.0900, L4500.0100, L400.2010 #### [facility] [address] [place], [address] RBC (Bld) [#/Vol] 4.19 10*6/uL Low 4.2-5.4 [facility] Comment on above: Performed By: #### L 500.4050, L3890.6202, L3890.6301, L100.0100, L3890.6102, L501.0900, L4500.0100, L400.2010 #### [facility] [address] [place], [address] RDW SD 45.1 fl High 35.1-43.9 [facility] Comment on above: Performed By: #### L 500.4050, L3890.6202, L3890.6301, L100.0100, L3890.6102, L501.0900, L4500.0100, L400.2010 #### [facility] [address] [place], [place], [address] WBC (Bld) [#/Vol] 10.7 10*3/uL Normal 4.4-11.0 [facility] Comment on above: Performed By: #### L 500.4050, L3890.6202, L3890.6301, L100.0100, L3890.6102, L501.0900, L4500.0100, L400.2010 #### [facility] [address] [place], [place], [address] Carbon dioxide, total [Moles /volume] in Central venous bloodOrdered By: Helena Santos on 07-12-2024 CO2 [Moles/Vol] 26.7 mmol/L 21.0-32.0 [facility] Comment on above: Previous reported re sult: 26.5 mmol/LEdited by: YANG on 07/12/24:1322 AMENDED REPORT 07/12/24 1322 CO2 previously reported as: 26.5 mmol/L Chloride assayOrdered By: Jaime Santos on 07-12-2024 Chloride [Moles/Vol] 96 mmol/L Low 98-108 [facility] Comment on above: Previous reported re sult: 95 mmol/LEdited by: AUTOINS on 07/12/24:1322 AMENDED REPORT 07/12/24 1322 CL previously reported as: 95 L mmol/L Comprehensive Metabolic Prof ilon 07-12-2024 Albumin [Mass/Vol] 4.2 g/dL Normal 3.4-4.8 [facility] Comment on above: Result Comment: AMENDED REPORT 07/12/24 1322 ALB previously reported as: 4.2 g/dL Performed By: #### L 500.4050, L3890.6202, L3890.6301, L100.0100, L3890.6102, L501.0900, L4500.0100, L400.2010 #### [facility] [address] [place], [address] Albumin/Globulin [Mass ratio] 1.1 {ratio} Normal 0.9-2.4 [facility] Comment on above: Result Comment: AMENDED REPORT 07/12/241321 A/G previously reported as: 1.1 RATIO Performed By: #### L 500.4050, L3890.6202, L3890.6301, L100.0100, L3890.6102, L501.0900, L4500.0100, L400.2010 #### [facility] [address] [place], [place], [id number] ALK PHOS 116 U/L High 35-104 [facility] Comment on above: Result Comment: AMENDED REPORT 07/12/241321 ALK P previously reported as: 116 H U/L Performed By: #### L 500.4050, L3890.6202, L3890.6301, L100.0100, L3890.6102, L501.0900, L4500.0100, L400.2010 #### [facility] [address] [place], [address] ALT [Catalytic activity/Vol] 11 U/L Normal <=34 [facility] Comment on above: Result Comment: AMENDED REPORT 07/12/241321 ALT previously reported as: 11 U/L Performed By: #### L 500.4050, L3890.6202, L3890.6301, L100.0100, L3890.6102, L501.0900, L4500.0100, L400.2010 #### [facility] [address] [place], [place], [address] AST [Catalytic activity/Vol] 16 U/L Normal <=31 [facility] Comment on above: Result Comment: AMENDED REPORT 07/12/241321 AST previously reported as: 16 U/L Performed By: #### L 500.4050, L3890.6202, L3890.6301, L100.0100, L3890.6102, L501.0900, L4500.0100, L400.2010 #### [facility] [address] [place], [place], [address] Bilirubin [Mass/Vol] 0.95 mg/dL Normal 0.00-1.30 [facility] Comment on above: Performed By: #### L 500.4050, L3890.6202, L3890.6301, L100.0100, L3890.6102, L501.0900, L4500.0100, L400.2010 #### [facility] [address] [facility] [place], [place], [id number] BUN/CRE 14.6 RATIO Normal 10-20 [facility] Comment on above: Result Comment: AMENDED REPORT 07/12/241321 BUN/CRE previously reported as: 14.6 RATIO Performed By: #### L 500.4050, L3890.6202, L3890.6301, L100.0100, L3890.6102, L501.0900, L4500.0100, L400.2010 #### [facility] [address] [address] [place], [place], [address] Calcium [Mass/Vol] 9.6 mg/dL Normal 7.6-11.0 [facility] Comment on above: Result Comment: AMENDED REPORT 07/12/241321 CA previously reported as: 9.6 mg/dL Performed By: #### L 500.4050, L3890.6202, L3890.6301, L100.0100, L3890.6102, L501.0900, L4500.0100, L400.2010 #### [facility] [address] [place], [address] Chloride [Moles/Vol] 95 mmol/L Low 98-108 [facility] Comment on above: Result Comment: AMENDED REPORT 07/12/241321 CL previously reported as: 95 L mmol/L Performed By: #### L 500.4050, L3890.6202, L3890.6301, L100.0100, L3890.6102, L501.0900, L4500.0100, L400.2010 #### [facility] [address] [place], [address] CO2 [Moles/Vol] 26.5 mmol/L Normal 21.0-32.0 [facility] Comment on above: Result Comment: AMENDED REPORT 07/12/241321 CO2 previously reported as: 26.5 mmol/L Performed By: #### L 500.4050, L3890.6202, L3890.6301, L100.0100, L3890.6102, L501.0900, L4500.0100, L400.2010 #### [facility] [address] [place], [address] Creatinine [Mass/Vol] 0.75 mg/dL Normal 0.70-1.20 [facility] Comment on above: Result Comment: AMENDED REPORT 07/12/241321 CREAT,SERUM previously reported as: 0.75 mg/dL Performed By: #### L 500.4050, L3890.6202, L3890.6301, L100.0100, L3890.6102, L501.0900, L4500.0100, L400.2010 #### [facility] [address] [place], [address] GAP 15 Normal 5-15 [facility] Comment on above: Result Comment: AMENDED REPORT 07/12/241321 GAP previously reported as: 15 Performed By: #### L 500.4050, L3890.6202, L3890.6301, L100.0100, L3890.6102, L501.0900, L4500.0100, L400.2010 #### [facility] [address] [place], [address] GFR/1.73 sq M.predicted among non-blacks MDRD (S/P/Bld) [Vol rate/Area] 87 mL/min/{1.73_m2} Normal >60 [facility] Comment on above: Result Comment: mL/m in/1.73m2 CKD-EPI Creatinine Equation (2020) Performed By: #### L 500.4050, L3890.6202, L3890.6301, L100.0100, L3890.6102, L501.0900, L4500.0100, L400.2010 #### [facility] [address] [place], [address] Globulin (S) [Mass/Vol] 3.7 g/dL Normal 2.2-4.2 [facility] Comment on above: Result Comment: AMENDED REPORT 07/12/241321 GLOB previously reported as: 3.7 g/dL Performed By: #### L 500.4050, L3890.6202, L3890.6301, L100.0100, L3890.6102, L501.0900, L4500.0100, L400.2010 #### [facility] [address] [place], [address] Glucose [Mass/Vol] 183 mg/dL High 70-99 [facility] Comment on above: Result Comment: AMENDED REPORT 07/12/241321 GLU previously reported as: 183 H mg/dL Performed By: #### L 500.4050, L3890.6202, L3890.6301, L100.0100, L3890.6102, L501.0900, L4500.0100, L400.2010 #### [facility] [address] [place], [address] Potassium [Moles/Vol] 4.0 mmol/L Normal 3.3-5.1 [facility] Comment on above: Result Comment: AMENDED REPORT 07/12/241321 K previously reported as: 4.0 mmol/L Performed By: #### L 500.4050, L3890.6202, L3890.6301, L100.0100, L3890.6102, L501.0900, L4500.0100, L400.2010 #### [facility] [address] [place], [address] Sodium [Moles/Vol] 136 mmol/L Normal 133-145 [facility] Comment on above: Result Comment: AMENDED REPORT 07/12/241321 NA previously reported as: 136 mmol/L Performed By: #### L 500.4050, L3890.6202, L3890.6301, L100.0100, L3890.6102, L501.0900, L4500.0100, L400.2010 #### [facility] [address] [place], [address] T PROT 7.9 g/dL Normal 5.9-8.4 [facility] Comment on above: Result Comment: AMENDED REPORT 07/12/241321 T PROT previously reported as: 7.9 g/dL Performed By: #### L 500.4050, L3890.6202, L3890.6301, L100.0100, L3890.6102, L501.0900, L4500.0100, L400.2010 #### [facility] [address] [place], [address] Urea nitrogen [Mass/Vol] 11 mg/dL Normal 4-19 [facility] Comment on above: Performed By: #### L 500.4050, L3890.6202, L3890.6301, L100.0100, L3890.6102, L501.0900, L4500.0100, L400.2011 #### [facility] [address] [place], [place], [address] Creatinine Unsp time (U) [Ma ss/Vol]Ordered By: Helena Santos on 07-12-2024 Creatinine (U) [Mass/Vol] 29.20 mg/dL 28-217 [facility] DRVVT confirmOrdered By: Abraham Santos on 07-12-2024 dRVVT actual/normal Coag (PPP) [Relative time] 1.2 ratio 0.8-1.2 [facility] Dilute Johan's viper venom timeOrdered By: Helena Santos on 07-12-2024 dRVVT Coag (PPP) [Time] 93.5 s High 0.0-47.0 [facility] dRVVT Coag (PPP) [Time] 43.3 s High 0.0-40.4 [facility] Dilute prothrombin time rati o confirmationOrdered By: Helena Santos on 07-12-2024 Prothrombin Time Ratio TNP [facility] Comment on above: Test not performedUn able to calculate result since non-numeric resultobtained for component test. EXAGENon 07-12-2024 EXAGEN MAILED SPECIMEN Normal [facility] Comment on above: Performed By: #### L 801.1549 #### [facility] [address] [place], [place], [id number] Eosinophil percentageOrdered By: Helena Santos on 07-12-2024 Eosinophils/100 WBC (Bld) 2.4 % 0-5 [facility] Erythrocyte distribution wid th ratioOrdered By: Helena Santos on 07-12-2024 Erythrocyte distribution width (RBC) [Ratio] 13.3 % 11.6-14.6 [facility] Erythrocyte distribution wid th standard deviationOrdered By: Helena Santos on 07-12-2024 Erythrocyte distribution width (RBC) [Entitic vol] 45.1 fL High 35.1-43.9 [facility] Erythrocyte distribution width (RBC) [Ratio] 45.1 fl High 35.1-43.9 [facility] GFR/1.73 sq M.predicted farhad g non-blacks MDRD (S/P/Bld) [Vol rate/Area]Ordered By: Helena Santos on 07-12-2024 Estimated GFR (MDRD) Non-Af Amer 87 >60 [facility] Comment on above: mL/min/1.73m2 CKD-EP I Creatinine Equation (2020) Glomerular filtration rate ( GFR) estimation/1.73 sq m using serum, plasma, or whole bOrdered By: Helena Santos on 07-12-2024 GFR/1.73 sq M.predicted among non-blacks MDRD (S/P/Bld) [Vol rate/Area] 87 mL/min/{1.73_m2} >60 [facility] Comment on above: mL/min/1.73m2 CKD-EP I Creatinine Equation (2020) Glucose Ql (U)Ordered By: Jaime Santos on 07-12-2024 Urine Glucose (UA) Normal mg/dl Normal [facility] HBV surface Ab Ql (S)Ordered By: Helena Santos on 07-12-2024 Hepatitis B Surface Antibody Non-Reactive [facility] Comment on above: <8.5 mIU/mL: Non-[place] ctive8.5<= x <11.5 mIU/mL: Indeterminate>=11.5 mIU/mL: Reactive Non Reactive: Inconsistent with immunity less than <10 mIU/mL Reactive: Consistent with immunity greater than or equal to 10 mIU/mL HBV surface Ag Ql (S)Ordered By: Helena Santos on 07-12-2024 Hepatitis B Surface Antigen Non-Reactive Nonreactive [facility] Comment on above: Reactive: Presumptiv e evidence of HBV. Repeatedly reactive samples must be confirmed using a neutralization test ([facility] HBsAg Confirmatory Test)Non-Reactive: HBsAg not detected; does not exclude the possibility of exposure to HBV Hematocrit Auto (Bld) [Volum e fraction]Ordered By: Helena Santos on 07-12-2024 Hematocrit (Bld) [Volume fraction] 38.9 % 37-47 [facility] Hemoglobin measurementOrdere d By: Helena Santos on 07-12-2024 Hemoglobin (Bld) [Mass/Vol] 12.8 g/dL 12.0-15.0 [facility] Hepatitis C antibodyOrdered By: Helena Santos on 07-12-2024 Hepatitis C Antibody Non-Reactive Nonreactive [facility] Comment on above: Reactive: Presumptiv e evidence of antibodies to HCV. Follow CDC recommendations for supplemental testing.Non-Reactive: Antibodies to HCV were not detected; does not exclude the possibility of exposure to HCVReactive Results are presumptive evidence of antibodies to HCV. Follow CDC recommendations for supplemental testing.Order confirmation testing: HCV Quant by PCR testing - HCVPCR lc#[id number] Non Reactive: < 0.8 Equivocal: >/= 0.8 to < 1.0 Reactive: >/= 1.0The CDC requires that a reactive/equivocal HCV antibody result be sent out for confirmation. HCV Quant by PCR testing. Immature granulocytes/100 WB C Auto (Bld)Ordered By: Helena Santos on 07-12-2024 Immature granulocytes/100 WBC (Bld) 0.600 % 0.0-0.9 [facility] Comment on above: IG% - Immature Granu locytes (promyelocytes, myelocytes and metamyelocytes) > 1% indicates that a LEFT SHIFT is Present. Interpretation of lupus anti coagulant assayOrdered By: Helena Santos on 07-12-2024 Lupus Anticoagulant Interpretation Comment . [facility] Comment on above: No Lupus Anticoagula nt was detected.Performed at: [address] [id number] Director: Miya Boyd MD, Phone: [phone] Ketones Test strip Ql (U)Ord ered By: Helena Santos on 07-12-2024 Ketones Ql (U) Negative Negative [facility] L3890.6102on 07-12-2024 HEP B Surf Ag Non-Reactive Normal Nonreactive [facility] Comment on above: Result Comment: Reac tive: Presumptive evidence of HBV. Repeatedly reactive samples must be confirmed using a neutralization test ([facility] HBsAg Confirmatory Test) Non-Reactive: HBsAg not detected; does not exclude the possibility of exposure to HBV Performed By: #### L 500.4050, L3890.6202, L3890.6301, L100.0100, L3890.6102, L501.0900, L4500.0100, L400.2010 #### [facility] [address] [place], [place], [id number] L3890.6202on 07-12-2024 HEP B Surf Ab Non-Reactive Normal [facility] Comment on above: Result Comment: <8.5 mIU/mL: Non-Reactive 8.5<= x <11.5 mIU/mL: Indeterminate >=11.5 mIU/mL: Reactive Non Reactive: Inconsistent with immunity less than <10 mIU/mL Reactive: Consistent with immunity greater than or equal to 10 mIU/mL Performed By: #### L 500.4050, L3890.6202, L3890.6301, L100.0100, L3890.6102, L501.0900, L4500.0100, L400.2010 #### [facility] [address] [place], [place], [id number] L3890.6301on 07-12-2024 Hepatitis C Ab Non-Reactive Normal Nonreactive [facility] Comment on above: Result Comment: Reac tive: Presumptive evidence of antibodies to HCV. Follow CDC recommendations for supplemental testing. Non-Reactive: Antibodies to HCV were not detected; does not exclude the possibility of exposure to HCV Reactive Results are presumptive evidence of antibodies to HCV. Follow CDC recommendations for supplemental testing. Order confirmation testing: HCV Quant by PCR testing - HCVPCR #[id number] Non Reactive: < 0.8 Equivocal: >/= 0.8 to < 1.0 Reactive: >/= 1.0 The CDC requires that a reactive/equivocal HCV antibody result be sent out for confirmation. HCV Quant by PCR testing. Performed By: #### L 500.4050, L3890.6202, L3890.6301, L100.0100, L3890.6102, L501.0900, L4500.0100, L400.2010 #### [facility] [address] [place], [place], [id number] Laboratory - Chemistry and C hemistry - challengeOrdered By: Helena Santos on 07-12-2024 AST [Catalytic activity/Vol] 18 U/L <32 [facility] Comment on above: Previous reported re sult: 16 U/LEdited by: YANG on 07/12/24:1322 AMENDED REPORT 07/12/24 1322 AST previously reported as: 16 U/L Laboratory - Microbiology an d Antimicrobial susceptibilityOrdered By: Helena Santos on 07-12-2024 HBV surface Ag Ql (S) Non-Reactive Nonreactive [facility] Comment on above: Reactive: Presumptiv e evidence of HBV. Repeatedly reactive samples must be confirmed using a neutralization test ([employer] HBsAg Confirmatory Test)Non-Reactive: HBsAg not detected; does not exclude the possibility of exposure to HBV Lupus anticoagulant neutrali zation dilute phospholipid time in platelet poor plasmaOrdered By: Helena Santos on 07-12-2024 Prothrombin Time Diluted 172.9 sec High 0.0-47.6 [facility] Comment on above: Verified by repeat analysis Lupus anticoagulant-sensitiv e activated partial thromboplastin timeOrdered By: Helena Santos on 07-12-2024 Lupus Anticoag PTT Mix/Correction 58.0 sec High 0.0-40.5 [facility] Lupus Anticoagulant APTT 106.9 sec High 0.0-43.5 [facility] Lymphocytes Auto (Unsp spec) [#/Vol]Ordered By: Helena Santos on 07-12-2024 Lymphocytes (Bld) [#/Vol] 1.44 10*3/uL 0.83-4.51 [facility] Lymphocytes/100 WBC Auto (Un sp spec)Ordered By: Helena Santos on 07-12-2024 Lymphocytes/100 WBC (Bld) 13.4 % Low 19-41 [facility] MCV (mean corpuscular volume ) determinationOrdered By: Helena Santos on 07-12-2024 MCV (RBC) [Entitic vol] 92.8 fL 81-99 [facility] Mean corpuscular hemoglobin (MCH) determinationOrdered By: Helena Santos on 07-12-2024 MCH (RBC) [Entitic mass] 30.5 pg 27.0-32.0 [facility] Mean corpuscular hemoglobin concentration (MCHC) determinationOrdered By: Helena Santos on 07-12-2024 MCHC (RBC) [Mass/Vol] 32.9 g/dL 32-36 [facility] Mean platelet volume determi nationOrdered By: Helena Santos on 07-12-2024 Platelet mean volume (Bld) [Entitic vol] 9.6 fL 6.2-12.0 [facility] Miscellaneous procedureOrder ed By: Helena Santos on 07-12-2024 Miscellaneous Test Comment MAILED SPECIMEN [facility] Monocyte percentageOrdered B y: Helena Santos on 07-12-2024 Monocytes/100 WBC (Bld) 5.7 % 0-10 [facility] Neutrophil percentageOrdered By: Helena Santos on 07-12-2024 Neutrophils/100 WBC (Bld) 77.2 % High 47-70 [facility] Nitrite Test strip Ql (U)Ord ered By: Helena Santos on 07-12-2024 Nitrite Ql (U) Negative Negative [facility] Nucleated red blood cell per centageOrdered By: Helena Santos on 07-12-2024 Nucleated RBC/100 WBC (Bld) [Ratio] 0 % 0-5 [facility] Plasma lupus anticoagulant d etection by hexagonal phase phospholipid neutralizationOrdered By: Helena Santos on 07-12-2024 aPTT W excess hexagonal phase phospholipid Ql (PPP) 5 sec 0-11 [facility] Platelet countOrdered By: Jaime Santos on 07-12-2024 Platelets (Bld) [#/Vol] 567 10*3/uL High 150-450 [facility] Potassium (Unsp spec) [Mass/ Vol]Ordered By: Helena Santos on 07-12-2024 Potassium [Moles/Vol] 4.1 mmol/L 3.3-5.1 [facility] Comment on above: Previous reported re sult: 4.0 mmol/LEdited by: AUTOINS on 07/12/24:1322 AMENDED REPORT 07/12/24 1322 K previously reported as: 4.0 mmol/L Potassium measurement (mass/ volume)Ordered By: Helena Santos on 07-12-2024 Potassium (Unsp spec) [Mass/Vol] 4.1 mmol/L 3.3-5.1 [facility] Comment on above: Previous reported re sult: 4.0 mmol/LEdited by: YANG on 07/12/24:1322 AMENDED REPORT 07/12/24 1322 K previously reported as: 4.0 mmol/L Progress Noteon 07-12-2024 Progress Note Anticoagulation Episode Summary Current INR goal: 2.5-3.5 TTR: 43.0% (2.2 y) Next INR check: 07/18/2024 INR from last check: 4.9 (07/11/2024) Weekly max warfarin dose: -- Target end date: -- INR check location: -- Preferred lab: -- Send INR reminders to: [facility] [employer] RECEIVING CLERK Comments: range 2.5-3.5 is ok with LRI Decrease to 2 mg and will be stopping for colonoscopy on 07/15/24. Recheck INR 07/18/24. Normal [facility] Protein (U) [Mass/Vol]Ordere d By: Helena Santos on 07-12-2024 Urine Random Total Protein < 6.0 mg/dL 0.0-12.0 [facility] Protein Test strip Ql (U)Ord ered By: Helena Santos on 07-12-2024 Protein Ql (U) Negative Negative [facility] Protein+Creatinine Ratio,Uri neon 07-12-2024 PROT:CRE RATIO 188 mg/g CRE Normal 0-200 [facility] Comment on above: Performed By: #### L 500.4050, L3890.6202, L3890.6301, L100.0100, L3890.6102, L501.0900, L4500.0100, L400.2010 #### [facility] [address] [place], [address] PROTEIN,UR.RAN. < 6.0 Normal 0.0-12.0 [facility] Comment on above: Performed By: #### L 500.4050, L3890.6202, L3890.6301, L100.0100, L3890.6102, L501.0900, L4500.0100, L400.2010 #### [facility] [address] [place], [address] UR CREAT 29.20 mg/dL Normal -217 [facility] Comment on above: Performed By: #### L 500.4050, L3890.6202, L3890.6301, L100.0100, L3890.6102, L501.0900, L4500.0100, L400.2010 #### [facility] [address] [place], [address] Protein/Creatinine (U) [Mass ratio]Ordered By: Helena Santos on 07-12-2024 Urine Protein/Creatinine Ratio 188 mg/g CRE 0-200 [facility] RBC Auto (Bld) [#/Vol]Ordere d By: Helena Santos on 07-12-2024 RBC (Bld) [#/Vol] 4.19 10*6/uL Low 4.2-5.4 [facility] Random urine creatinine flaquita urement (mass/volume)Ordered By: Helena Santos on 07-12-2024 Creatinine Unsp time (U) [Mass/Vol] 29.20 mg/dL [facility] Serum creatinine measurement (mass/volume)Ordered By: Helena Santos on 07-12-2024 Creatinine [Mass/Vol] 0.71 mg/dL 0.70-1.20 [facility] Comment on above: Previous reported re sult: 0.75 mg/dLEdited by: YANG on 07/12/24:1322 AMENDED REPORT 07/12/24 1322 CREAT,SERUM previously reported as: 0.75 mg/dL Serum globulin measurementOr dered By: Helena Santos on 07-12-2024 Globulin (S) [Mass/Vol] 3.0 g/dL 2.2-4.2 [facility] Comment on above: Previous reported re sult: 3.7 g/dLEdited by: YANG on 07/12/24:1322 AMENDED REPORT 07/12/24 1322 GLOB previously reported as: 3.7 g/dL Serum glucose measurement (m ass/volume)Ordered By: Helena Santos on 07-12-2024 Glucose [Mass/Vol] 191 mg/dL High 70-99 [facility] Comment on above: Previous reported re sult: 183 mg/dLEdited by: YANG on 07/12/24:1322 AMENDED REPORT 07/12/24 1322 GLU previously reported as: 183 H mg/dL Serum hepatitis B virus surf tod antibody detectionOrdered By: Helena Santos on 07-12-2024 HBV surface Ab Ql (S) Non-Reactive [facility] Comment on above: <8.5 mIU/mL: Non-Donna ctive8.5<= x <11.5 mIU/mL: Indeterminate>=11.5 mIU/mL: Reactive Non Reactive: Inconsistent with immunity less than <10 mIU/mL Reactive: Consistent with immunity greater than or equal to 10 mIU/mL Serum or plasma alanine patrick otransferase (ALT) measurementOrdered By: Helena Santos on 07-12-2024 ALT [Catalytic activity/Vol] 12 U/L <35 [facility] Comment on above: Previous reported re sult: 11 U/LEdited by: YANG on 07/12/24:1322 AMENDED REPORT 07/12/24 1322 ALT previously reported as: 11 U/L Serum or plasma albumin flaquita urement (mass/volume)Ordered By: Helena Santos on 07-12-2024 Albumin [Mass/Vol] 4.3 g/dL 3.4-4.8 [facility] Comment on above: Previous reported re sult: 4.2 g/dLEdited by: YANG on 07/12/24:1322 AMENDED REPORT 07/12/24 1322 ALB previously reported as: 4.2 g/dL Serum or plasma albumin/glob ulin mass ratioOrdered By: Helena Santos on 07-12-2024 Albumin/Globulin [Mass ratio] 1.4 {ratio} 0.9-2.4 [facility] Comment on above: Previous reported re sult: 1.1 RATIOEdited by: YANG on 07/12/24:1322 AMENDED REPORT 07/12/24 1322 A/G previously reported as: 1.1 RATIO Serum or plasma alkaline jessenia sphatase measurementOrdered By: Helena Santos on 07-12-2024 ALP [Catalytic activity/Vol] 118 U/L High 35-104 [facility] Comment on above: Previous reported re sult: 116 U/LEdited by: YANG on 07/12/24:1322 AMENDED REPORT 07/12/24 1322 ALK P previously reported as: 116 H U/L Serum or plasma calcium flaquita urement (mass/volume)Ordered By: Helena Santos on 07-12-2024 Calcium [Mass/Vol] 9.3 mg/dL 7.6-11.0 [facility] Comment on above: Previous reported re sult: 9.6 mg/dLEdited by: YANG on 07/12/24:1322 AMENDED REPORT 07/12/24 1322 CA previously reported as: 9.6 mg/dL Serum or plasma urea nitroge n measurement (mass/volume)Ordered By: Helena Santos on 07-12-2024 Urea nitrogen [Mass/Vol] 11 mg/dL 4-19 [facility] Sodium levelOrdered By: Elisha Santos on 07-12-2024 Sodium [Moles/Vol] 138 mmol/L 133-145 [facility] Comment on above: Previous reported re sult: 136 mmol/LEdited by: YANG on 07/12/24:1322 AMENDED REPORT 07/12/24 1322 NA previously reported as: 136 mmol/L Thrombin timeOrdered By: Abraham Santos on 07-12-2024 Thrombin time Coag (PPP) [Time] 18.0 sec 0.0-23.0 [facility] Thrombin time Coag (PPP) [Ti me]Ordered By: Helena Santos on 07-12-2024 Thrombin Time 18.0 sec 0.0-23.0 [facility] Total proteinOrdered By: Abraham Santos on 07-12-2024 Protein [Mass/Vol] 7.3 g/dL 5.9-8.4 [facility] Comment on above: Previous reported re sult: 7.9 g/dLEdited by: YANG on 07/12/24:1322 AMENDED REPORT 07/12/24 1322 T PROT previously reported as: 7.9 g/dL Urinalysis, Routine (Dipstic k)on 07-12-2024 BILIRUBIN URINE Negative Normal Negative [facility] Comment on above: Order Comment: Urine , Random Performed By: #### L 500.4050, L3890.6202, L3890.6301, L100.0100, L3890.6102, L501.0900, L4500.0100, L400.2010 #### [facility] [address] [place], [place], [id number] Clarity (U) Clear Normal Clear [facility] Comment on above: Order Comment: Urine , Random Performed By: #### L 500.4050, L3890.6202, L3890.6301, L100.0100, L3890.6102, L501.0900, L4500.0100, L400.2010 #### [facility] [address] [place], [place], [id number] Color (U) Straw Normal Yellow [facility] Comment on above: Order Comment: Urine , Random Performed By: #### L 500.4050, L3890.6202, L3890.6301, L100.0100, L3890.6102, L501.0900, L4500.0100, L400.2010 #### [facility] [address] [place], [place], [phone], UR Normal Normal Normal [facility] Comment on above: Order Comment: Urine , Random Performed By: #### L 500.4050, L3890.6202, L3890.6301, L100.0100, L3890.6102, L501.0900, L4500.0100, L400.2010 #### [facility] [address] [place], [address] KETONE UR Negative Normal Negative [facility] Comment on above: Order Comment: Urine , Random Performed By: #### L 500.4050, L3890.6202, L3890.6301, L100.0100, L3890.6102, L501.0900, L4500.0100, L400.2010 #### [facility] [address] [place], [address] LEUK ESTERASE Negative Normal Negative [facility] Comment on above: Order Comment: Urine , Random Performed By: #### L 500.4050, L3890.6202, L3890.6301, L100.0100, L3890.6102, L501.0900, L4500.0100, L400.2010 #### [facility] [address] [place], [address] Nitrite Ql (U) Negative Normal Negative [facility] Comment on above: Order Comment: Urine , Random Performed By: #### L 500.4050, L3890.6202, L3890.6301, L100.0100, L3890.6102, L501.0900, L4500.0100, L400.2010 #### [facility] [address] [place], [address] OCCULT BLOOD-UR Negative Normal Negative [facility] Comment on above: Order Comment: Urine , Random Performed By: #### L 500.4050, L3890.6202, L3890.6301, L100.0100, L3890.6102, L501.0900, L4500.0100, L400.2010 #### [facility] [address] [place], [address] pH UR 7.0 Normal 5.0 - 8.0 [facility] Comment on above: Order Comment: Urine , Random Performed By: #### L 500.4050, L3890.6202, L3890.6301, L100.0100, L3890.6102, L501.0900, L4500.0100, L400.2010 #### [facility] [address] [place], [address] PROT DIPSTX Negative Normal Negative [facility] Comment on above: Order Comment: Urine , Random Performed By: #### L 500.4050, L3890.6202, L3890.6301, L100.0100, L3890.6102, L501.0900, L4500.0100, L400.2010 #### [facility] [address] [place], [place], [id number] SP.GR. DIPSTX 1.010 Normal 1.002-1.030 [facility] Comment on above: Order Comment: Urine , Random Performed By: #### L 500.4050, L3890.6202, L3890.6301, L100.0100, L3890.6102, L501.0900, L4500.0100, L400.2010 #### [facility] [address] [place], [place], [phone] UROBILI Normal Normal Normal [facility] Comment on above: Order Comment: Urine , Random Performed By: #### L 500.4050, L3890.6202, L3890.6301, L100.0100, L3890.6102, L501.0900, L4500.0100, L400.2010 #### [facility] [address] [place], [place], [address] Urine blood detectionOrdered By: Helena Santos on 07-12-2024 Urine Occult Blood Negative Negative [facility] Urine clarityOrdered By: Abraham Santos on 07-12-2024 Clarity (U) Clear Clear [facility] Urine color determinationOrd ered By: Helena Santos on 07-12-2024 Color (U) Straw Yellow [facility] Urine glucose detectionOrder ed By: Helena Santos on 07-12-2024 Glucose Ql (U) Normal mg/dl Normal [facility] Urine leukocyte esterase det ection by dipstickOrdered By: Helena Santos on 07-12-2024 Leukocyte esterase Test strip Ql (U) Negative Negative [facility] Urine pHOrdered By: Helena ramirez on 07-12-2024 pH (U) 7.0 [pH] 5.0 - 8.0 [facility] Urine protein measurement (m ass/volume)Ordered By: Helena Santos on 07-12-2024 Protein (U) [Mass/Vol] mg/dL 0.0-12.0 [facility] Urine protein/creatinine mas s ratioOrdered By: Helena Santos on 07-12-2024 Protein/Creatinine (U) [Mass ratio] 188 mg/g CRE 0-200 [facility] Urine specific gravity measu rementOrdered By: Helena Santos on 07-12-2024 Specific gravity (U) [Rel density] 1.010 1.002-1.030 [facility] Urine urobilinogen measureme ntOrdered By: Helena Santos on 07-12-2024 Urobilinogen Ql (U) Normal mg/dl Normal [facility] Urobilinogen Ql (U)Ordered B y: Helena Santos on 07-12-2024 Urine Urobilinogen Normal mg/dl Normal [facility] White blood cell (WBC) count Ordered By: Helena Santos on 07-12-2024 WBC (Bld) [#/Vol] 10.7 10*3/uL 4.4-11.0 [facility] aPTT W excess hexagonal phas e phospholipid Ql (PPP)Ordered By: Helena Santos on 07-12-2024 Hexagonal Phase Phospholipid 5 sec 0-11 [facility] dRVVT Coag (PPP) [Time]Order ed By: Helena Santos on 07-12-2024 Dilute Johan Viper Venom (Lupus) 93.5 sec High 0.0-47.0 [facility] DRVVT Mixing Study 43.3 sec High 0.0-40.4 [facility] dRVVT actual/normal Coag (PP P) [Relative time]Ordered By: Helena Santos on 07-12-2024 DRVVT Confirmation Interpretation 1.2 ratio 0.8-1.2 [facility] 3607-05-2024 36 See anticoagulation encounter [facility] 36 2 mg daily now while on antibiotics, and then back to 3 mg daily after. I need another INR next Thursday as well, 07/11. [facility] 36 [facility]. INR from yesterday 07/04/24 4.3. pt has been holding. She normally takes 3 mg daily. [facility] Progress Noteon 07-05-2024 Progress Note Anticoagulation Episode Summary Current INR goal: 2.5-3.5 TTR: 43.4% (2.2 y) Next INR check: 07/11/2024 INR from last check: 8.0 (06/30/2024) Weekly max warfarin dose: -- Target end date: -- INR check location: -- Preferred lab: -- Send INR reminders to: [facility] [employer] RECEIVING CL[facility] Comments: range 2.5-3.5 is ok with LRI Per Dr Son-2 mg daily now while on antibiotics, and then back to 3 mg daily after. I need another INR next Thursday as well, 07/11 Pt verbalized an understanding.. [facility] 36on 07-04-2024 36 Called pt advised he r that INR is still pending and she needs to hold tonight's dose until we have results. Verbalized an understanding. [place] [address] Son. She wants coumadin still held tonight since we don't have results and was pt on antibiotics. Last INR was [address] Son said if results come after hours she can be contacted on what to do with coumadin. [facility] 36 Called for results. Still pending. Will discuss with Dr Son what to do about coumadin since she was to hold just until today. [facility] 36 Called pt she did have INR done today. Had done at facility [facility]. Will call for results. [facility] 3607-01-2024 36 I called and spoke jamilah Demarco; relaying note from Dr Son; she verbalized understanding. She will have INR completed at her usual lab (it was [facility], but now thinks it is a [facility]. I looked and standing INR order placed 02/15/24, so she should be good to go to get labs drawn. I let her know I would inform Nat as well, so that way will keep an eye out for the lab. She was thankful for the call back. [place] [address] This was addressed and a note written. I asked them NOT to give Vit K with a mechanical MVR, not a good idea. I asked her not to take any warfarin at all and get INR repeat on Tuesday 07/04, then we will decide how to proceed. If bleeding ensued in the meantime, back to ED. [place] [address] I called and spoke jamilah Demarco; she endorses being at the ER yesterday; she has pneumonia-she didn't have to be admitted though and she is currently home. Her INR yesterday was >8.0, she held her coumadin yesterday and was looking for further instruction; she tells me Dr Son and the ER physician were talking about it, but she did not receive an update. There is no documentation on our end or in [facility]'s documentation. She reports she thinks INR elevated due to not eating for 10 days due to being very sick with diarrhea and pneumonia. No abx prior or steroids, she just start doxycycline. She normally takes warfarin 3 mg daily. I told her to not take her dose until we talk with her; likely will need to hold at least today and likely will need INR on Thursday. [place] [address] I spoke with Nat today. She said that due to elevated INR in ER yesterday. Pt was told to hold Warfarin yesterday and to resume normal dosing per Dr Son discussion and that she MUST get INR done on Thursday07/04/24, because she was placed on antibiotics. Pls advise pt [phone]. [place] [address] Pt called to follow up on instructions, s/p ER visit yesterday regarding her Warfarin. [facility] HEALTHon 06-30-2024 [facility] HNO ID: [id number] Author: STACK, SHAHEED, RT(R) Service: Radiology Author Type: Technologist Type: Allied Health Filed: 06/30/2024 11:11 Note Text: Radiology Service Progress Note PATIENT NAME: Hernan Walter DATE OF SERVICE: June 30, 2024 TIME: 11:11 AM PATIENT IDENTITY VERIFICATION COMPLETED USING TWO (2) IDENTIFIERS: Name and Date of confirmed by patient verbally and Name and Date of confirmed by identification band. FALL SCREENING: Has the patient had 2 falls in the last year or 1 fall with injury or currently using an Ambulatory Assistive Device (Walker, Cane, Wheelchair, Crutches, etc.)? Emergency Room Patient: Screened in ED PATIENT GENDER DATA: Assigned female at . status: : No status: NO. PATIENT RELEVANT IMPLANT DATA REVIEWED: Not Applicable PATIENT PRESENTS WITH AN IMPLANTABLE OR ATTACHED STUDENT ADVISOR: No RADIOLOGY DEPARTMENT: General X-ray: Exam(s) Completed: Chest X-Ray PERIPHERAL IV DATA: Not applicable SIGNED BY: Shaheed Stack RT(R) June 30, 2024 11:[address] [facility] CBC W Auto Differential pane l (Bld)on 06-30-2024 Basophils (Bld) [#/Vol] 0.04 10*3/uL Normal <0.11 [facility] Comment on above: Order Comment: Specmervat mcdaniel Type: BLOOD SPECIMEN Ordering Facility: [facility] Address: [address] [place] [address] Performed By: #### 5 7021-8 #### [employer] [facility] [employer] [facility] CLIA [id number] [address] [place], [place] [id number] [place] Basophils/100 WBC (Bld) 0.5 % Normal [facility] Comment on above: Order Comment: Carissa mcdaniel Type: BLOOD SPECIMEN Ordering Facility: [facility] Address: [address] [place] [address] Performed By: #### 5 7021-8 #### [employer] [facility] CLIA [id number] [address] [place], [place] [id number] [place] Differential cell count method Nom (Bld) Auto Normal [facility] Comment on above: Order Comment: Carissa mcdaniel Type: BLOOD SPECIMEN Ordering Facility: [facility] Address: [address] [place], [place] [address], [place] [address] Performed By: #### 5 7021-8 #### [facility] CLIA [id number] [address] [place] [address] [place] Eosinophils (Bld) [#/Vol] 0.14 10*3/uL Normal <0.46 [facility] Comment on above: Order Comment: Speci men Type: BLOOD SPECIMEN Ordering Facility: [facility] Address: [address] [place] [address] Performed By: #### 5 7021-8 #### [facility] CLIA [id number] [address] [place], [place] [id number] [place] Eosinophils/100 WBC (Bld) 1.9 % Normal [facility] Comment on above: Order Comment: Speci men Type: BLOOD SPECIMEN Ordering Facility: [facility] Address: [facility] [place] [address] Performed By: #### 5 7021-8 #### [facility] CLIA [id number] [address] [place] [address] [place] Erythrocyte distribution width (RBC) [Ratio] 12.6 % Normal 11.5-15.0 [facility] Comment on above: Order Comment: Speci men Type: BLOOD SPECIMEN Ordering Facility: [facility] Address: [facility] [place] [address] Performed By: #### 5 7021-8 #### [facility] CLIA [id number] [address] [place] [address] [place] Hematocrit (Bld) [Volume fraction] 42.4 % Normal 36.0-46.0 [facility] Comment on above: Order Comment: Speci men Type: BLOOD SPECIMEN Ordering Facility: [facility] Address: [facility] [place] [address] Performed By: #### 5 7021-8 #### [facility] CLIA [id number] [address] [place] [address] [place] Hemoglobin (Bld) [Mass/Vol] 14.3 g/dL Normal 11.5-15.5 [facility] Comment on above: Order Comment: Speci men Type: BLOOD SPECIMEN Ordering Facility: [facility] Address: [address] [place] [address] Performed By: #### 5 7021-8 #### [facility] CLIA [id number] [address] [place] [address] [place] Immature granulocytes (Bld) [#/Vol] 10*3/uL Normal <0.10 [facility] Comment on above: Order Comment: Speci men Type: BLOOD SPECIMEN Ordering Facility: [facility] Address: [address] [place], [place] [address] Performed By: #### 5 7021-8 #### [facility] CLIA [id number] [address] [place] [address] [place] Immature granulocytes/100 WBC (Bld) 0.1 % Normal [facility] Comment on above: Order Comment: Speci men Type: BLOOD SPECIMEN Ordering Facility: [facility] Address: [address] [place] [address] Performed By: #### 5 7021-8 #### [facility] CLIA [id number] [address] [place] [address] [place] Lymphocytes (Bld) [#/Vol] 1.30 10*3/uL Normal 1.00-4.00 [facility] Comment on above: Order Comment: Speci men Type: BLOOD SPECIMEN Ordering Facility: [facility] Address: [facility] [place] [address] Performed By: #### 5 7021-8 #### [facility] CLIA [id number] [address] [place] [address]110 [place] Lymphocytes/100 WBC (Bld) 17.7 % Normal [facility] Comment on above: Order Comment: Speci men Type: BLOOD SPECIMEN Ordering Facility: [facility] Address: [address] [place] [address] Performed By: #### 5 7021-8 #### [facility] CLIA [id number] [address] [place] [address] 00[address]90 [place] MCH (RBC) [Entitic mass] 30.6 pg Normal 26.0-34.0 [facility] Comment on above: Order Comment: Speci men Type: BLOOD SPECIMEN Ordering Facility: [facility] Address: [address] [place] [address] Performed By: #### 5 7021-8 #### [facility] CLIA [id number] [address] [place] [address]36 [place] MCHC (RBC) [Mass/Vol] 33.7 g/dL Normal 30.5-36.0 [facility] Comment on above: Order Comment: Speci men Type: BLOOD SPECIMEN Ordering Facility: [facility] Address: [address] [place] [address] Performed By: #### 5 7021-8 #### [facility] CLIA [id number] [address] [place] [address] [place] MCV (RBC) [Entitic vol] 90.6 fL Normal 80.0-100.0 [facility] Comment on above: Order Comment: Speci men Type: BLOOD SPECIMEN Ordering Facility: [facility] Address: [address] [place] [address] Performed By: #### 5 7021-8 #### [facility] CLIA [id number] [address] [place], [place] [id number] [place] Monocytes (Bld) [#/Vol] 0.73 10*3/uL Normal <0.87 [facility] Comment on above: Order Comment: Speci men Type: BLOOD SPECIMEN Ordering Facility: [facility] Address: [address] [place] [address] Performed By: #### 5 7021-8 #### [facility] CLIA [id number] [address] [place] [address] [place] Monocytes/100 WBC (Bld) 9.9 % Normal [facility] Comment on above: Order Comment: Speci men Type: BLOOD SPECIMEN Ordering Facility: [facility] Address: [address] [place] [address] Performed By: #### 5 7021-8 #### [facility] CLIA [id number] [address] [place] [address]335 [place] Neutrophils (Bld) [#/Vol] 5.14 10*3/uL Normal 1.45-7.50 [facility] Comment on above: Order Comment: Speci men Type: BLOOD SPECIMEN Ordering Facility: [facility] Address: [address] [place] [address] Performed By: #### 5 7021-8 #### [facility] CLIA [id number] [address] [place] [address]08 [place] Neutrophils/100 WBC (Bld) 69.9 % Normal [facility] Comment on above: Order Comment: Speci men Type: BLOOD SPECIMEN Ordering Facility: [facility] Address: [address] [place] [address] Performed By: #### 5 7021-8 #### [facility] CLIA [id number] [address] [place] [address]191 [place] Nucleated RBC (Bld) [#/Vol] Normal [facility] Comment on above: Order Comment: Speci men Type: BLOOD SPECIMEN Ordering Facility: [facility] Address: [address] [place] [address] Performed By: #### 5 7021-8 #### [facility] CLIA [id number] [address] [place] [address]01 [place] Nucleated RBC/100 WBC (Bld) [Ratio] Normal [facility] Comment on above: Order Comment: Speci men Type: BLOOD SPECIMEN Ordering Facility: [facility] Address: [address] [place] [address] Performed By: #### 5 7021-8 #### [facility] CLIA [id number] [address] [place] [address] [place] Platelet mean volume (Bld) [Entitic vol] 9.1 fL Normal 9.0-12.7 [facility] Comment on above: Order Comment: Speci men Type: BLOOD SPECIMEN Ordering Facility: [facility] Address: [facility] [place] [address] Performed By: #### 5 7021-8 #### [facility] CLIA [id number] [address] [place] [address] [place] Platelets (Bld) [#/Vol] 380 10*3/uL Normal 150-400 [facility] Comment on above: Order Comment: Speci men Type: BLOOD SPECIMEN Ordering Facility: [facility] Address: [address] [place] [address] Performed By: #### 5 7021-8 #### [facility] CLIA [id number] [address] [place] [address] 27386 [place] RBC (Bld) [#/Vol] 4.68 10*6/uL Normal 3.90-5.20 [facility] Comment on above: Order Comment: Speci men Type: BLOOD SPECIMEN Ordering Facility: [facility] Address: [address] [place] [address] Performed By: #### 5 7021-8 #### [facility] CLIA [id number] [address] [place] [address] [place] [facility] WBC (Bld) [#/Vol] 7.36 10*3/uL Normal 3.70-11.00 [facility] Comment on above: Order Comment: Speci men Type: BLOOD SPECIMEN Ordering Facility: [facility] Address: [address] [place] [address] Performed By: #### 5 7021-8 #### [facility] CLIA [id number] [address] [place] [address] 77772 [facility] Comprehensive metabolic 2000 panelon 06-30-2024 Albumin [Mass/Vol] 4.3 g/dL Normal 3.9-4.9 [facility] Comment on above: Order Comment: Speci men Type: BLOOD SPECIMEN Ordering Facility: [facility] Address: [address] [place] [address] Performed By: #### 2 4323-8, 97060-8 #### [facility] CLIA [id number] [address] [place] [address] 12009 [place] ALP [Catalytic activity/Vol] 98 U/L Normal 34-123 [facility] Comment on above: Order Comment: Speci men Type: BLOOD SPECIMEN Ordering Facility: [facility] Address: [address] [place] [address] Performed By: #### 2 3-8, #### [facility] CLIA [id number] [address] [place] [address]56 [place] ALT [Catalytic activity/Vol] 18 U/L Normal 7-38 [facility] Comment on above: Order Comment: Speci men Type: BLOOD SPECIMEN Ordering Facility: [facility] Address: [address] [place] [address] Performed By: #### 2 8, #### [facility] CLIA [id number] [address] [place] [address] 65149 [place] Anion gap [Moles/Vol] 12 mmol/L Normal 8-15 [facility] Comment on above: Order Comment: Speci men Type: BLOOD SPECIMEN Ordering Facility: [facility] Address: [facility] [place] [address] Performed By: #### 2 38, #### [facility] CLIA [id number] [address] [place] [address]396 [place] AST [Catalytic activity/Vol] 23 U/L Normal 13-35 [facility] Comment on above: Order Comment: Speci men Type: BLOOD SPECIMEN Ordering Facility: [facility] Address: [address] [place] [address] Performed By: #### 2 3-8, #### [facility] CLIA [id number] [address] [place] [address] [place] Bilirubin [Mass/Vol] 1.0 mg/dL Normal 0.2-1.3 [facility] Comment on above: Order Comment: Speci men Type: BLOOD SPECIMEN Ordering Facility: [facility] Address: [address] [place] [address] Result Comment: Use of this assay is not recommended for patients undergoing treatment with eltrombopag due to the potential for falsely elevated results. Performed By: #### 2 432-8, #### [facility] CLIA [id number] [address] [place] [address] 27676 [place] Calcium [Mass/Vol] 9.3 mg/dL Normal 8.5-10.2 [facility] Comment on above: Order Comment: Speci men Type: BLOOD SPECIMEN Ordering Facility: [facility] Address: [address] [place] [address] Performed By: #### 2 8, #### [facility] CLIA [id number] [address] [place] [address] 52212 [place] Chloride [Moles/Vol] 95 mmol/L Low 98-107 [facility] Comment on above: Order Comment: Speci men Type: BLOOD SPECIMEN Ordering Facility: [facility] Address: [address] [place] [address] Performed By: #### 2 8, #### [facility] CLIA [id number] [address] [place] [address] 25134 [place] CO2 [Moles/Vol] 31 mmol/L High 22-30 [facility] Comment on above: Order Comment: Speci men Type: BLOOD SPECIMEN Ordering Facility: [facility] Address: [address] [place] [address] Performed By: #### 2 8, #### [facility] CLIA [id number] [address] [place] [address] 43053 [place] Creatinine [Mass/Vol] 0.81 mg/dL Normal 0.58-0.96 [facility] Comment on above: Order Comment: Speci men Type: BLOOD SPECIMEN Ordering Facility: [facility] Address: [address] [place] [address] Result Comment: Use of this assay is not recommended for patients undergoing treatment with phenindione, due to the potential for falsely depressed results. Performed By: #### 2 4328, #### [facility] CLIA [id number] [address] [place] [address] 38473 [place] Creatinine and Glomerular filtration rate.predicted panel (S/P/Bld) 80 mL/min/1.73m??? Normal >=60 [facility] Comment on above: Order Comment: Carissa mcdaniel Type: BLOOD SPECIMEN Ordering Facility: [facility] Address: [address] [place] [address] Result Comment: Loli mated Glomerular Filtration Rate (eGFR) is calculated using the 2020 CKD-EPI creatinine equation. This equation utilizes serum creatinine, sex, and age as parameters. The creatinine assay has traceable calibration to isotope dilution-mass spectrometry. Refer to KDIGO guidelines for clinical interpretation. In patients with unstable renal function, e.g. those with acute kidney injury, the eGFR may not accurately reflect actual GFR. Performed By: #### 2 4323-8, #### [facility] CLIA [id number] [address] [place], [place] [id number] [place] Glucose [Mass/Vol] 133 mg/dL High 74-99 [facility] Comment on above: Order Comment: Carissa mcdaniel Type: BLOOD SPECIMEN Ordering Facility: [facility] Address: [address] [place] [address] Result Comment: The [place] Diabetes Association (ADA) provides guidance for cutoff values for fasting glucose and random glucose. The ADA defines fasting as no caloric intake for at least 8 hours. Fasting plasma glucose results between 100 to 125 mg/dL indicate increased risk for diabetes (prediabetes). Fasting plasma glucose results greater than or equal to 126 mg/dL meet the criteria for diagnosis of diabetes. In the absence of unequivocal hyperglycemia, results should be confirmed by repeat testing. In a patient with classic symptoms of hyperglycemia or hyperglycemic crisis, random plasma glucose results greater than or equal to 200 mg/dL meet the criteria for diagnosis of diabetes. Reference: Standards of Medical Care in Diabetes 2016, French Diabetes Association. Diabetes Care. 2016.39(Suppl 1). Performed By: #### 2 4323-8, #### [facility] CLIA [id number] [address] [place] [address] 34780 [place] Potassium [Moles/Vol] 3.2 mmol/L Low 3.7-5.1 [facility] Comment on above: Order Comment: Speci men Type: BLOOD SPECIMEN Ordering Facility: [facility] Address: [address] [place] [address] Performed By: #### 2 4323-8, #### [facility] CLIA [id number] [address] [place] [address] 22383 [place] Protein [Mass/Vol] 7.6 g/dL Normal 6.3-8.0 [facility] Comment on above: Order Comment: Speci men Type: BLOOD SPECIMEN Ordering Facility: [facility] Address: [address] [place] [address] Performed By: #### 2 4323-8, #### [facility] CLIA [id number] [address] [place] [address] 76096 [place] Sodium [Moles/Vol] 138 mmol/L Normal 136-144 [facility] Comment on above: Order Comment: Speci men Type: BLOOD SPECIMEN Ordering Facility: [facility] Address: [address] [place] [address] Performed By: #### 2 3-8, #### [facility] CLIA [id number] [address] [place] [address] 49836 [place] Urea nitrogen [Mass/Vol] 10 mg/dL Normal 7-21 [facility] Comment on above: Order Comment: Speci men Type: BLOOD SPECIMEN Ordering Facility: [facility] Address: [address] [place] [id number] Performed By: #### 2 3-8, #### [facility] CLIA [id number] [address] [place] [address] [place] DIGOXIN/LANOXINon 06-30-2024 Digoxin [Mass/Vol] 1.3 ng/mL High 0.5-1.0 [facility] Comment on above: Order Comment: Speci men Type: BLOOD SPECIMEN Ordering Facility: [facility] Address: [address] [place] [address] Result Comment: Prov ided therapeutic concentrations are based on the 2008 ESC Guidelines for the Diagnosis and Treatment of Acute and Chronic Heart Failure. Reference ranges and high/low indicator flags are provided as general guidelines only. The treating physician must determine appropriate target levels/dosing based on the specific clinical situation. Performed By: #### D IG #### [facility] CLIA [id number] [address] [place] ECG COMPLETEon 06-30-2024 ECG COMPLETE Ventricular Rate : 7 2 BPM QRS Duration : 84 ms Q-T Interval : 406 ms QTC Calculation(Bazett) : 444 ms Calculated R [place] : 36 degrees Calculated T [place] : [address] & T WAVE ABNORMALITY, CONSIDER INFERIOR ISCHEMIA ST & T WAVE ABNORMALITY, CONSIDER ANTEROLATERAL ISCHEMIA ABNORMAL ECG WHEN COMPARED WITH ECG OF 26-Dec-1998 14:14, ATRIAL FIBRILLATION HAS REPLACED ECTOPIC ATRIAL RHYTHM ST NOW DEPRESSED IN LATERAL LEADS T WAVE INVERSION NOW EVIDENT IN INFERIOR LEADS T WAVE INVERSION NOW EVIDENT IN ANTEROLATERAL LEADS Confirmed by KYLIE DORSEY MD ([id number]) on 06/30/2024 2:11:52 PM NAME : HERNAN BRITO PID : [id number] : 1955 Gender : Female Race : ORD : [id number] Procedure Date : Jun 30 2024 10:27:14 Edit Date : Jun 30 2024 14:11:54 Diagnosis: ATRIAL FIBRILLATION ST & T WAVE ABNORMALITY, CONSIDER INFERIOR ISCHEMIA ST & T WAVE ABNORMALITY, CONSIDER ANTEROLATERAL ISCHEMIA ABNORMAL ECG WHEN COMPARED WITH ECG OF 26-Dec-1998 14:14, ATRIAL FIBRILLATION HAS REPLACED ECTOPIC ATRIAL RHYTHM ST NOW DEPRESSED IN LATERAL LEADS T WAVE INVERSION NOW EVIDENT IN INFERIOR LEADS T WAVE INVERSION NOW EVIDENT IN ANTEROLATERAL LEADS Confirmed by KYLIE DORSEY MD ([id number]) on 06/30/2024 2:11:52 PM Test Reason : Chest Pain Location : 148 : [facility] ED Overread By : KYLIE DORSEY MD Edited By : KYLIE DORSEY MD Referred By : , Acquired by : MARGA MCKINLEY [facility] ED NOTEon 06-30-2024 ED NOTE HNO ID: [id number] Author: OSCAR EVANS, RN Service: Emergency Medicine Author Type: Registered Nurse Type: ED Notes Filed: 06/30/2024 10:11 Note Text: Pt sent from Dr. Del Rio office for further eval URI x 8 days with cough congestion. Neg covid swab in office today Normal [facility] ED PROV NOTEon 06-30-2024 ED PROV NOTE HNO ID: [id number] Author: KYLIE MARTINI MD Service: Emergency Medicine Author Type: Physician Type: ED Provider Notes Filed: 06/30/2024 14:15 Note Text: ED Provider Note Patient Name: Hernan Brito : 1955 SERVICE DATE: 06/30/24 History Patient presents with: URI: Cold symptoms x 8 days /diarrhea HPI Patient is a 68-year-old female who has history as below, pertinent history of A-fib maintained on Coumadin status post mitral valve replacement presenting with reports of cough and fatigue, overall just not feeling well. History is provided by patient, spouse at the bedside. Onset of symptoms about 8 days ago. Developed flulike symptoms with headache fatigue, body aches. Had fevers, cough congestion sore throat runny nose. States that the fever broke after 5 days but overall she is just not feeling much better. Does continue to have a cough. States that she feels that her breathing is getting worse. Also having GI symptoms of poor appetite, diarrhea. Reports about 2 episodes per day, no blood. No abdominal pain. Saw her primary care provider today who tested her for influenza which was negative. Due to worsening symptoms and poor p.o. intake was referred to the ED for assessment She denies any chest pain. Again states that the cough is wet but she is not really bringing up much phlegm. No longer having fevers. States that overall she is feels very tired. PAST MEDICAL HISTORY Diagnosis Date - Atrial fibrillation (HCC) - Dyslipidemia - H/O hysterectomy with oophorectomy - H/O mitral valve replacement 1989 - Hypothyroidism, unspecified - Obesity (BMI 30-39.9) PAST SURGICAL HISTORY Procedure Laterality Date - REPLACEMENT OF MITRAL VALVE - TONSILLECTOMY HX FAMILY HISTORY Problem Relation Age of Onset - Alcohol/Drug Other - Arthritis Other - Breast Cancer Other - other (Depression) Other - Heart Other - other (Hypercholesterolemia ) Other Social History Tobacco Use - Smoking status: Former Current packs/day: 0.00 Types: Cigarettes Start date: 05/06/1980 Quit date: 05/06/2010 Years since quittin.1 - Smokeless tobacco: Never Vaping Use - Vaping status: Never Used Substance and Sexual Activity - Alcohol use: Yes Comment: occasional - Drug use: Never - Sexual activity: Yes Partners: Male ALLERGIES Allergen Reactions - Amoxicillin Unknown - Ceclor [Cefaclor] Unknown - Penicillins Unknown Review of Systems Per HPI Physical Exam Vitals BP Pulse Temp Temp src Resp SpO2 Weight Height 06/30/24 1012 06/30/24 1012 06/30/24 1006 06/30/24 1006 06/30/24 1006 06/30/24 1012 06/30/24 1006 -- 119/90 70 37 ?C (98.6 ?F) Temporal 20 98 % 90.7 kg (200 lb) Physical Exam Patient does look as if she feels unwell but is not acutely ill. Vital signs are stable. Hemodynamically stable and afebrile Heart RRR w/o murmurs; Distal pulses intact Lungs wheezing noted to the right lung base. No increased work of breathing or accessory muscle usage. Pulse oximetry is maintained on room air and she has unlabored speech Abd soft, NT, ND. No rebound or guarding. No peritoneal signs. No CVA tenderness or flank pain. Patient moves all 4 extremities spontaneously and without deficit No lower extremity edema. Asymmetric calf pain or swelling. Diagnostic Testing ED Labs Ordered and Reviewed - No data to display Procedures ED Course / Clinical Impression ED Course as of 06/30/24 1415 Kylie Martini's Documentation [facility] Jun 30, 2024 1031 Triage EKG obtained reviewed by myself. Noted to be in A-fib, rate controlled with ventricular of 72 bpm. Intervals otherwise within normal limits. Has some non-specific ST changes in septal leads, no STEMI. Clinical Impressions as of 06/30/24 1415 Hypokalemia Supratherapeutic INR Pneumonia of both lungs due to infectious organism, unspecified part of lung MDM / Disposition / Plan MDM Patient is a 68-year-old female with history as above presenting with complaints of flu-like symptoms. History and exam as above. Medical record reviewed. Additional encounters reviewed: PCP encounter from earlier today HPI obtained from patient and spouse, medical record, report from sending physician Triage EKG obtained reviewed by myself. Noted to be in A-fib, rate controlled with ventricular of 72 bpm. Intervals otherwise within normal limits. Has some non-specific ST changes in septal leads, no STEMI. DDx considered: Patient arrives with reports of 8 days of flulike symptoms not improving. She is reporting poor p.o. intake. Consider possible viral illness now superimposed bacterial process such as pneumonia given persisting cough and now some symptoms of shortness of breath. She has history of A-fib, reports compliance with home medications but is having very poor p.o. intake. Possible extralight derangement, dehydration. Is on digoxin, poor intake consider possible digo (more content not included)... Normal [facility] HIGH SENSITIVITY TROPONIN I (INITIAL)on 06-30-2024 Tropinin I.cardiac panel High sensitivity method 15.1 pg/mL Normal <=20.7 [facility] Comment on above: Order Comment: Carissa mcdaniel Type: BLOOD SPECIMEN Order[facility] Facility: [facility] Address: [address] [place] [address] Performed By: #### L [id number] #### [facility] CLIA [id number] [address] [place] [address] [place] HIGH SENSITIVITY TROPONIN I (SECOND)on 06-30-2024 Tropinin I.cardiac panel High sensitivity method 14.8 pg/mL Normal <=20.7 [facility] Comment on above: Order Comment: Carissa mcdaniel Type: BLOOD SPECIMEN Ordering Facility: [facility] Address: [address] [place] [address] Performed By: #### H STROPI2 #### [facility] CLIA [id number] [address] [place], [place] [id number] [place] Magnesium SerPl-mCncon 06-30 Magnesium [Mass/Vol] 1.7 mg/dL Normal 1.7-2.3 [facility] Comment on above: Order Comment: Carissa mcdaniel Type: BLOOD SPECIMEN Order[facility] Facility: [facility] Address: [address] [place] [address] Performed By: #### 2 4323-8, 39912-7 #### [facility] CLIA [id number] [address] [place] [address] [place] PT Coag (Bld) [Time]on 06-30 INR Coag (PPP) [Relative time] 8 {INR} Abnormal 0.9 - 1.1 [facility] Interpretation and review of laboratory results Abnormal [facility] PT panel Coag (PPP)on 2024 INR Coag (PPP) [Relative time] {INR} High 0.9-1.3 [facility] Comment on above: Order Comment: Carissa mcdaniel Type: BLOOD SPECIMEN Order[facility] Facility: [facility] Address: [address] [place] [address] Result Comment: Shala min K Antagonist (VKA) Therapeutic Range: INR 2 to 3 (Target INR of 2.5) Note: For patients treated with VKA drugs, such as warfarin, the [employer] 2012 Guideline recommends a therapeutic INR range of 2 to 3 (target INR of 2.5). This recommendation includes high-risk patients with antiphospholipid syndrome with previous arterial or venous thromboembolism, current-generation mechanical or bioprosthetic aortic heart valve replacement. Note: Patients with mechanical aortic valve replacement and additional risk factors for thromboembolic events (atrial fibrillation, previous thromboembolism, LV dysfunction, hypercoagulable conditions) or an older generation mechanical AVR (i.e., ball in-Cage) or any mechanical MVR should have a INR therapeutic range of 2.5 to 3.5 (target INR of 3). Sherry NICHOLSON, et al. Chest 2012, 141:7S-47S Osmany RA et al. [facility] 2017, 70: 252-289 Performed By: #### 3 4528-0 #### [facility] CLIA [id number] [address] [place] [address] [place] PT Coag (PPP) [Time] s High <13.1 [facility] Comment on above: Order Comment: Carissa mcdaniel Type: BLOOD SPECIMEN Ordering Facility: [facility] Address: [address] [place] [address] Performed By: #### 3 4528-0 #### AKRON [facility] CLIA [id number] [address] [place] [id number] [place] Protime-INRon 02-20-2025 PT Coag (Bld) [Time] 0 s 9.0 - 12.0 [facility] XR CHEST 2V FRONTAL/LATon XR CHEST 2V FRONTAL/LAT * * *Final Repor t* * * DATE OF EXAM: Jun 30 2024 11:15AM [id number] [id number] - XR CHEST 2V FRONTAL/LAT / PROCEDURE REASON: Cough * * * * Physician Interpretation * * * * EXAMINATION: CHEST RADIOGRAPH (2 VIEW FRONTAL and LATERAL) CLINICAL HISTORY: Cough, Shortness of breath MQ: [id number] EXAM DATE/TIME: 06/30/2024 11:15 AM COMPARISON: 06/30/24 chest x-ray, 07/19/2011 CT abdomen pelvis RESULT: Lines, tubes, and devices: None. Lungs and pleura: No pneumothorax or pleural effusion or convincing focal consolidation. Interstitial prominence Cardiomediastinal silhouette: Stable on the frontal film. Convex margin of the cardiac silhouette posteriorly on the lateral film, which may reflect left atrial enlargement and left atrial contour when correlating to prior CT. Bones and soft tissues: Median sternotomy. IMPRESSION: Interstitial prominence. Consider interstitial edema, atypical pneumonia, or chronic interstitial change Federal Java Developer: SUZAN Transcribe Date/Time: Jun 30 2024 11:26A Dictated by : LATISHA TEE MD This examination was interpreted and the report reviewed and electronically signed by: LATISHA TEE MD on Jun 30 2024 11:36AM EST [id number] N [facility] 05-18-2024 36 Bridging instruction s sent through my chart. [facility] 36on 05-17-2024 36 Called pt LM that sh e will need bridging for colonoscopy. Advised will send through my chart bridging instructions but can review over phone if pt prefers. Requesting call back with further questions. Will send Lovenox to pharmacy. [facility] BI MAMMO BILATERAL SCREENING TOMOSYNTHESISon 05-10-2024 BI MAMMO BILATERAL SCREENING TOMOSYNTHESIS Interpreted By: Severiano Blake, STUDY: BI MAMMO BILATERAL SCREENING TOMOSYNTHESIS; 05/10/2024 9:20 am ACCESSION NUMBER(S): [id number] ORDERING CLINICIAN: MELISSA DEL RIO INDICATION: Screening. ,Z12.31 Encounter for screening mammogram for malignant neoplasm of breast COMPARISON: 03/06/2022 and 02/24/2020 FINDINGS: 2D and tomosynthesis images were reviewed at 1 mm slice thickness. Density: The breasts are heterogeneously dense, which may obscure small masses. No suspicious masses or calcifications are identified. IMPRESSION: No mammographic evidence of malignancy. BI-RADS CATEGORY: BI-RADS Category: 1 Negative. Recommendation: Annual Screening. Recommended Date: 1 Year. Laterality: Bilateral. For any future breast imaging appointments, please call [phone]). MACRO: None Signed by: Severiano Blake 05/15/2024 6:37 AM Dictation workstation: [id number] [facility] C reactive proteinon 024 CRP [Mass/Vol] 1.83 mg/dL High <1.[address] [facility] Comment on above: Performed By: #### 2 4331-1 #### JODI Marquez ([id number]) [facility] ([facility]) [address] [place] [address] 25398 Coagulation tissue factor in ducedon 05-10-2024 PT Coag (PPP) [Time] 38.4 s High 9.8-12.8 [facility] Comment on above: Performed By: #### 2 4331-1 #### JODI Marquez ([id number]) [facility] ([facility]) [address] [place] [address] 27649 DEXA BONE DENSITYon 05-10-20 24 DEXA BONE DENSITY Interpreted By: Segun Sommer, STUDY: DEXA BONE WYOKPST5605/10/2024 9:48 am INDICATION: Signs/Symptoms:.. The patient is a 68 y/o year old F. ,Z78.0 Asymptomatic menopausal state COMPARISON: None. ACCESSION NUMBER(S): [id number] ORDERING CLINICIAN: MELISSA DEL RIO TECHNIQUE: DEXA BONE DENSITY FINDINGS: SPINE L1-L4 Bone Mineral Density: 1.212 T-Score 0.2 Z-Score 1.9 Bone Mineral Density change vs baseline: Not reported Bone Mineral Density change vs previous: Not reported LEFT FEMUR -TOTAL Bone Mineral Density: 1.077 T-Score 0.5 Z-Score 1.8 Bone Mineral Density change vs baseline: Not reported Bone Mineral Density change vs previous: Not reported LEFT FEMUR -NECK Bone Mineral Density: 1.106 T-Score 0.5 Z-Score 2.0 Bone Mineral Density change vs baseline: Not reported Bone Mineral Density change vs previous: Not reported LEFT FOREARM Total Bone Mineral Density: Not reported T-Score Not reported Z-Score Not reported UD Bone Mineral Density: Not reported T-Score Not reported Z-Score Not reported MID Bone Mineral Density: Not reported T-Score Not reported Z-Score Not reported 1/3 Bone Mineral Density: Not reported T-Score Not reported Z-Score Not reported Bone Mineral Density change vs baseline: Not reported Bone Mineral Density change vs previous: Not reported RIGHT FEMUR -TOTAL Bone Mineral Density: Not reported T-Score Not reported Z-Score Not reported Bone Mineral Density change vs baseline: Not reported Bone Mineral Density change vs previous: Not reported RIGHT FEMUR -NECK Bone Mineral Density: Not reported T-Score Not reported Z-Score Not reported Bone Mineral Density change vs baseline: Bone Mineral Density change vs previous: RIGHT FOREARM Bone Mineral Density: Not reported T-Score Not reported Z-Score Not reported UD Bone Mineral Density: Not reported T-Score Not reported Z-Score Not reported MID Bone Mineral Density: Not reported T-Score Not reported Z-Score Not reported 1/3 Bone Mineral Density: Not reported T-Score Not reported Z-Score Not reported Bone Mineral Density change vs baseline: Not reported Bone Mineral Density change vs previous: Not reported World Health Organization (WHO) criteria for post-menopausal, Women: Normal: T-score at or above -1 SD Osteopenia: T-score between -1 and -2.5 SD Osteoporosis: T-score at or below -2.5 SD 10-year Fracture Risk: Major Osteoporotic Fracture Not reported Hip Fracture Not reported Note: If no FRAX score is reported, it is because: Some T-score for Spine Total or Hip Total or Femoral Neck at or below -2.5 IMPRESSION: DEXA: According to World Health Organization criteria, classification is normal. Followup recommended in 2 years or sooner as clinically warranted. All images and detailed analysis are available on the Radiology PACS. MACRO: None Signed by: Segun Sommer 05/10/2024 10:11 AM Dictation workstation: [id number] [facility] DXA Skeletal system Views fo r bone densityon 05-10-2024 DEXA: According to World Health Organization criteria, classification is normal. Followup recommended in 2 years or sooner as clinically warranted. All images and detailed analysis are available on the Radiology PACS. MACRO: None Signed by: Segun Sommer 05/10/2024 10:11 AM Dictation workstation: [id number] MMODAL Interpreted By: Segun Sommer, STUDY: DEXA BONE [id number]/10/2024 9:48 am INDICATION: Signs/Symptoms:.. The patient is a 68 y/o year old F. ,Z78.0 Asymptomatic menopausal state COMPARISON: None. ACCESSION NUMBER(S): [id number] ORDERING CLINICIAN: MELISSA DEL RIO TECHNIQUE: DEXA BONE DENSITY FINDINGS: SPINE L1-L4 Bone Mineral Density: 1.212 T-Score 0.2 Z-Score 1.9 Bone Mineral Density change vs baseline: Not reported Bone Mineral Density change vs previous: Not reported LEFT FEMUR -TOTAL Bone Mineral Density: 1.077 T-Score 0.5 Z-Score 1.8 Bone Mineral Density change vs baseline: Not reported Bone Mineral Density change vs previous: Not reported LEFT FEMUR -NECK Bone Mineral Density: 1.106 T-Score 0.5 Z-Score 2.0 Bone Mineral Density change vs baseline: Not reported Bone Mineral Density change vs previous: Not reported LEFT FOREARM Total Bone Mineral Density: Not reported T-Score Not reported Z-Score Not reported UD Bone Mineral Density: Not reported T-Score Not reported Z-Score Not reported MID Bone Mineral Density: Not reported T-Score Not reported Z-Score Not reported 1/3 Bone Mineral Density: Not reported T-Score Not reported Z-Score Not reported Bone Mineral Density change vs baseline: Not reported Bone Mineral Density change vs previous: Not reported RIGHT FEMUR -TOTAL Bone Mineral Density: Not reported T-Score Not reported Z-Score Not reported Bone Mineral Density change vs baseline: Not reported Bone Mineral Density change vs previous: Not reported RIGHT FEMUR -NECK Bone Mineral Density: Not reported T-Score Not reported Z-Score Not reported Bone Mineral Density change vs baseline: Bone Mineral Density change vs previous: RIGHT FOREARM Bone Mineral Density: Not reported T-Score Not reported Z-Score Not reported UD Bone Mineral Density: Not reported T-Score Not reported Z-Score Not reported MID Bone Mineral Density: Not reported T-Score Not reported Z-Score Not reported 13 Bone Mineral Density: Not reported T-Score Not reported Z-Score Not reported Bone Mineral Density change vs baseline: Not reported Bone Mineral Density change vs previous: Not reported World Health Organization (WHO) criteria for post-menopausal, Women: Normal: T-score at or above -1 SD Osteopenia: T-score between -1 and -2.5 SD Osteoporosis: T-score at or below -2.5 SD 10-year Fracture Risk: Major Osteoporotic Fracture Not reported Hip Fracture Not reported Note: If no FRAX score is reported, it is because: Some T-score for Spine Total or Hip Total or Femoral Neck at or below -2.5 [facility] Segun Harvey MD - 05/10/2024 Interpreted By: Segun Sommer, STUDY: DEXA BONE SKXOTCN3605/10/2024 9:48 am INDICATION: Signs/Symptoms:.. The patient is a 68 y/o year old F. ,Z78.0 Asymptomatic menopausal state COMPARISON: None. ACCESSION NUMBER(S): [id number] ORDERING CLINICIAN: MELISSA DEL RIO TECHNIQUE: DEXA BONE DENSITY FINDINGS: SPINE L1-L4 Bone Mineral Density: 1.212 T-Score 0.2 Z-Score 1.9 Bone Mineral Density change vs baseline: Not reported Bone Mineral Density change vs previous: Not reported LEFT FEMUR -TOTAL Bone Mineral Density: 1.077 T-Score 0.5 Z-Score 1.8 Bone Mineral Density change vs baseline: Not reported Bone Mineral Density change vs previous: Not reported LEFT FEMUR -NECK Bone Mineral Density: 1.106 T-Score 0.5 Z-Score 2.0 Bone Mineral Density change vs baseline: Not reported Bone Mineral Density change vs previous: Not reported LEFT FOREARM Total Bone Mineral Density: Not reported T-Score Not reported Z-Score Not reported UD Bone Mineral Density: Not reported T-Score Not reported Z-Score Not reported MID Bone Mineral Density: Not reported T-Score Not reported Z-Score Not reported 3 Bone Mineral Density: Not reported T-Score Not reported Z-Score Not reported Bone Mineral Density change vs baseline: Not reported Bone Mineral Density change vs previous: Not reported RIGHT FEMUR -TOTAL Bone Mineral Density: Not reported T-Score Not reported Z-Score Not reported Bone Mineral Density change vs baseline: Not reported Bone Mineral Density change vs previous: Not reported RIGHT FEMUR -NECK Bone Mineral Density: Not reported T-Score Not reported Z-Score Not reported Bone Mineral Density change vs baseline: Bone Mineral Density change vs previous: RIGHT FOREARM Bone Mineral Density: Not reported T-Score Not reported Z-Score Not reported UD Bone Mineral Density: Not reported T-Score Not reported Z-Score Not reported MID Bone Mineral Density: Not reported T-Score Not reported Z-Score Not reported 1/3 Bone Mineral Density: Not reported T-Score Not reported Z-Score Not reported Bone Mineral Density change vs baseline: Not reported Bone Mineral Density change vs previous: Not reported World Health Organization (WHO) criteria for post-menopausal, Women: Normal: T-score at or above -1 SD Osteopenia: T-score between -1 and -2.5 SD Osteoporosis: T-score at or below -2.5 SD 10-year Fracture Risk: Major Osteoporotic Fracture Not reported Hip Fracture Not reported Note: If no FRAX score is reported, it is because: Some T-score for Spine Total or Hip Total or Femoral Neck at or below -2.5 IMPRESSION: DEXA: According to World Health Organization criteria, classification is normal. Followup recommended in 2 years or sooner as clinically warranted. All images and detailed analysis are available on the Radiology PACS. MACRO: None Signed by: Segun Sommer 05/10/2024 10:11 AM Dictation workstation: [id number] [facility] Work Phone: Radiology Study observation (narrative) [facility] Work Phone: DXA Skeletal system Views fo r bone densityOrdered By: Segun Sommer on 05-10-2024 [facility] Work Phone: ESR Westergren method (Bld) [Velocity]on 05-10-2024 ESR (Bld) [Velocity] 38 mm/h High 0-30 [facility] Comment on above: Performed By: #### 2 4331-1 #### JODI Marquez ([id number]) [facility] ([facility]) [address] [place] [address] [phone] Extractable nuclear Ab panel (S)on 05-10-2024 Centromere protein B Ab Qn (S) <0.2 Normal <1.[address] [facility] Comment on above: Result Comment: < 1. 0 = NEGATIVE >=1.0 = POSITIVE Performed By: #### 1 3935-3 #### JODI Marquez ([id number]) [facility] ([facility]) [address] [place] [address] 21092 Chromatin Ab Qn <0.2 Normal <1.0 [facility] Comment on above: Result Comment: < 1. 0 = NEGATIVE >=1.0 = POSITIVE Performed By: #### 1 9535-3 #### JODI Marquez ([id number]) [facility] ([facility]) [address] [place] [address] 53675 DNA double strand Ab Qn (S) 2.0 [IU]/mL Normal <5.[address] [facility] Comment on above: Result Comment: NEGA TIVE: <= 4 IU/ML EQUIVOCAL: 5- 9 IU/ML POSITIVE: >=10 IU/ML Performed By: #### 1 8828-3 #### JODI Marquez ([id number]) [facility] ([facility]) [address] [place] [address] 58499 Teresa-1 extractable nuclear Ab IA Ql (S) <0.2 Normal <1.[address] [facility] Comment on above: Result Comment: < 1. 0 = NEGATIVE >=1.0 = POSITIVE Performed By: #### 1 8892-3 #### JODI Marquez ([id number]) [facility] ([facility]) [address] [place] [address] 85644 Ribonucleoprotein extractable nuclear Ab IA Qn (S) <0.2 Normal <1.[address] [facility] Comment on above: Result Comment: < 1. 0 = NEGATIVE >=1.0 = POSITIVE Performed By: #### 1 8835-3 #### JODI Marquez ([id number]) [facility] ([facility]) [address] [place] [address] 67609 Ribosomal P Ab Qn (S) <0.2 Normal <1.0 [facility] Comment on above: Result Comment: < 1. 0 = NEGATIVE >=1.0 = POSITIVE Performed By: #### 1 0535-3 #### JODI Marquez ([id number]) [facility] ([facility]) [address] [place] [address] 44233 SCL-70 extractable nuclear Ab IA Ql (S) <0.2 Normal <1.[address] [facility] Comment on above: Result Comment: < 1. 0 = NEGATIVE >=1.0 = POSITIVE Performed By: #### 1 0535-3 #### JODI Marquez ([id number]) [facility] ([facility]) [address] [place], [place] [phone] Sjogrens syndrome-A extractable nuclear Ab IA Qn (S) <0.2 Normal <1.[address] [facility] Comment on above: Result Comment: < 1. 0 = NEGATIVE >=1.0 = POSITIVE Performed By: #### 1 0535-3 #### JODI Marquez ([id number]) [facility] ([facility]) [address] [place], [place] [phone] Sjogrens syndrome-B extractable nuclear Ab IA Qn (S) <0.2 Normal <1.[address] [facility] Comment on above: Result Comment: < 1. 0 = NEGATIVE >=1.0 = POSITIVE Performed By: #### 1 0535-3 #### JODI Marquez ([id number]) [facility] ([facility]) [address] [place] [address] 02499 Vinson extractable nuclear Ab IA Qn (S) <0.2 Normal <1.[address] [facility] Comment on above: Result Comment: < 1. 0 = NEGATIVE >=1.0 = POSITIVE Performed By: #### 1 0535-3 #### JODI Marquez ([id number]) [facility] ([facility]) [address] [place] [address] 65537 Vinson extractable nuclear Ab+Ribonucleoprotein extractable nuclear Ab IA Ql (S) <0.2 Normal <1.[address] [facility] Comment on above: Result Comment: < 1. 0 = NEGATIVE >=1.0 = POSITIVE Performed By: #### 1 0535-3 #### JODI Marquez ([id number]) [facility] ([facility]) [address] [place] [address] 04025 Nuclear Abon 05-10-2024 Nuclear Ab Hep2 substrate Ql (S) Positive Abnormal Negative [facility] Comment on above: Result Comment: The Antinuclear Antibody (TIA) test was performed using indirect immunofluorescence assay with HEp-2 cells slide. Performed By: #### 1 0535-3 #### JODI Marquez ([id number]) [facility] ([facility]) [address] [place] [address] 06733 Nuclear Ab Hep2 substrate Ql (S)on 05-10-2024 TIA PATTERN Homogeneous Normal [facility] Comment on above: Performed By: #### 1 0535-3 #### JODI Marquez ([id number]) [facility] ([facility]) [address] [place] [address] 85775 Nuclear Ab IF (S) [Titer] 1:[address] [facility] Comment on above: Performed By: #### 1 0535-3 #### JODI Marquez ([id number]) [facility] ([facility]) [address] [place] [address] 52135 PT Coag (PPP) [Time]on 05-10 INR Coag (PPP) [Relative time] 3.4 High 0.9-1.[address] [facility] Comment on above: Performed By: #### 2 4331-1 #### JODI Marquez ([id number]) [facility] ([facility]) [address] [place] [address] 67762 Rheumatoid factoron 05-10-20 24 Rheumatoid factor Nephelometry Qn (S) <10 Normal 0-[address] [facility] Comment on above: Performed By: #### 2 4331-1 #### JODI Marquez ([id number]) [facility] ([facility]) [address] [place] [address] 16006 XR HAND 3+ VIEWS BILATERALon 05-10-2024 XR HAND 3+ VIEWS BILATERAL Interpreted By: Sahara Tinoco, STUDY: XR HAND 3+ VIEWS BILATERAL; ; 05/10/2024 9:43 am INDICATION: Signs/Symptoms:.. ,M25.541 Pain in joints of right hand,M25.542 Pain in joints of left hand COMPARISON: 03/17/2018 ACCESSION NUMBER(S): [id number] ORDERING CLINICIAN: MELISSA DEL RIO FINDINGS: 6 views bilateral hands: Left hand: There is no fracture, dislocation or acute bony abnormality. There is erosive osteoarthritis involving the DIP joints. There is mild spurring of the 1st through 3rd metacarpophalangeal joints. There is no chondrocalcinosis. There is no periarticular osteopenia. The appearance of the left hand is unchanged compared to 03/17/2018. Right hand: There is no fracture, dislocation or acute bony abnormality. There is erosive osteoarthritis involving the DIP joints. This has progressed compared to 03/17/2018. There is erosive osteoarthritis involving the PIP joint of the 5th digit. This has progressed compared to 03/17/2018. There is mild spurring of the 1st through 3rd metacarpophalangeal joints, unchanged. There is mild spurring of the 1st carpometacarpal joint unchanged. There is no chondrocalcinosis. There is no periarticular osteopenia. 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 MACRO: None Signed by: Sahara Tinoco 05/12/2024 8:43 AM Dictation workstation: [id number] [address] 05-09-2024 36 Lovenox 80 mg BID to start on day 2 off warfarin. Hold the PM prior to surgery and the AM of surgery. Resume with warfarin the evening surgery is complete, and maintain Lovenox until INR at least 2. Normal [address] 05-07-2024 36 Letter done in [facility] 05/07/24. Intermediate risk pt. Needs bridging. [address] 05-06-2024 36 I rec'd a fax requesting clearance for colonoscopy scheduled on 07/20/[address] Pena's office. Pt last ov was 02/15/24. Normal [address] 04-20-2024 36 See anticoagulation encounter from 04/15/24. Normal [facility] 36on 04-15-2024 36 Sent to ASSOCIATE PASTOR for review. Normal [facility] 36 Pt called, left yesterday after 5pm for INR results she said she had done on 04/11/24. I checked for results in care everywhere. Pt's INR per labs was 3.8. Normal [facility] Progress Noteon 04-15-2024 Progress Note This makes it challenging going into the weekend. This lab value is old and I'm not comfortable modifying at this time. Her target goal is 2.5-3.5. Her INR today is 3.8. Please have her recheck her INR again on Thursday morning. She should call us if she hasn't heard from our office in 24 hours after we receive the result to assure that this has been handled. Normal [facility] Progress Note Anticoagulation Summary As of 04/15/2024 INR goal: 2.5-3.5 TTR: 48.4% (2 y) INR used for dosing: -- Warfarin maintenance plan: 3 mg (4 mg x 0.5 and 1 mg x 1) every day Weekly warfarin total: 21 mg Plan last modified: Tania Dawkins RN (03/09/2023) Next INR check: 04/29/2024 Priority: High Target end date: -- Anticoagulation Episode Summary INR check location: -- Preferred lab: -- Send INR reminders to: [facility] [employer] RECEIVING CLERK Comments: range 2.5-3.5 is ok with LRI I called and relayed the note form Ruby Elise CNPJason Demarco is not on any antibiotics, denied steroid use or other medication change. Hernan said it is hard to get in to where she has INR drawn as she lives far way. She will get in as soon as she can but not early next week. Normal [facility] CBC W Auto Differential pane l (Bld)on 04-11-2024 Basophils (Bld) [#/Vol] 0.07 x10*3/uL Normal 0.00-0.[address] [facility] Comment on above: Performed By: #### 5 7021-8 #### JODI Marquez ([id number]) [facility] ([facility]) [id number] [place] [address] 01970 Basophils/100 WBC (Bld) 0.7 % Normal 0.0-2.0 [facility] Comment on above: Performed By: #### 5 7021-8 #### JODI Marquez ([id number]) [facility] ([facility]) [id number] [place] [address] 79035 Eosinophils (Bld) [#/Vol] 0.34 x10*3/uL Normal 0.00-0.[address] [facility] Comment on above: Performed By: #### 5 7021-8 #### JODI Marquez ([id number]) [facility] ([facility]) [address] [place] [address] 21952 Eosinophils/100 WBC (Bld) 3.4 % Normal 0.0-6.[address] [facility] Comment on above: Performed By: #### 5 7021-8 #### JODI Marquez ([id number]) [facility] ([facility]) [address] [place] [address] 10404 Erythrocyte distribution width (RBC) [Ratio] 13.6 % Normal 11.5-14.[address] [facility] Comment on above: Performed By: #### 5 7021-8 #### JODI Marquez ([id number]) [facility] ([facility]) [address] [place] [address] 74162 Hematocrit (Bld) [Volume fraction] 37.5 % Normal 36.0-46.[address] [facility] Comment on above: Performed By: #### 5 7021-8 #### JODI Marquez ([id number]) [facility] ([facility]) [address] [place] [address] 63016 Hemoglobin (Bld) [Mass/Vol] 12.3 g/dL Normal 12.0-16.[address] [facility] Comment on above: Performed By: #### 5 7021-8 #### JODI Marquez ([id number]) [facility] ([facility]) [id number] [place] [address] 10493 Immature granulocytes (Bld) [#/Vol] 0.05 x10*3/uL Normal 0.00-0.[address] [facility] Comment on above: Performed By: #### 5 7021-8 #### JODI Marquez ([id number]) [facility] ([facility]) [id number] [place] [address] 10189 Immature granulocytes/100 WBC (Bld) 0.5 % Normal 0.0-0.[address] [facility] Comment on above: Result Comment: Jessica ture Granulocyte Count (IG) includes promyelocytes, myelocytes and metamyelocytes but does not include bands. Percent differential counts (%) should be interpreted in the context of the absolute cell counts (cells/UL). Performed By: #### 5 7021-8 #### JODI Marquez ([id number]) [facility] ([facility]) [address] [place] [address] 13147 Lymphocytes (Bld) [#/Vol] 1.24 x10*3/uL Normal 1.20-4.[address] [facility] Comment on above: Performed By: #### 5 7021-8 #### JODI Marquez ([id number]) [facility] ([facility]) [address] [place] [address] 73277 Lymphocytes/100 WBC (Bld) 12.5 % Normal 13.0-44.[address] [facility] Comment on above: Performed By: #### 5 7021-8 #### JODI Marquez ([id number]) [facility] ([facility]) [address] [place] [address] 12015 MCH (RBC) [Entitic mass] 31.0 pg Normal 26.0-34.[address] [facility] Comment on above: Performed By: #### 5 7021-8 #### JODI Marquez ([id number]) [facility] ([facility]) [address] [place] [address] 94281 MCHC (RBC) [Mass/Vol] 32.8 g/dL Normal 32.0-36.0 [facility] Comment on above: Performed By: #### 5 7021-8 #### JODI Marquez ([id number]) [facility] ([facility]) [address] [place] [address] MCV (RBC) [Entitic vol] 95 fL Normal 80-100 [facility] Comment on above: Performed By: #### 5 7021-8 #### JODI Marquez ([id number]) [facility] ([facility]) [address] [place] [address] 58192 Monocytes (Bld) [#/Vol] 0.86 x10*3/uL Normal 0.10-1.[address] [facility] Comment on above: Performed By: #### 5 7021-8 #### JODI Marquez ([id number]) [facility] ([facility]) [address] [place] [address] 15947 Monocytes/100 WBC (Bld) 8.7 % Normal 2.0-10.0 [facility] Comment on above: Performed By: #### 5 7021-8 #### JODI Marquez ([id number]) [facility] ([facility]) [address] [place] [address] 44978 Neutrophils (Bld) [#/Vol] 7.35 x10*3/uL Normal 1.20-7.[address] [facility] Comment on above: Result Comment: Perc ent differential counts (%) should be interpreted in the context of the absolute cell counts (cells/uL). Performed By: #### 5 7021-8 #### JODI Marquez ([id number]) [facility] ([facility]) [address] [place] [address] 53408 Neutrophils/100 WBC (Bld) 74.2 % Normal 40.0-80.[address] [facility] Comment on above: Performed By: #### 5 7021-8 #### JODI HUDSON L ([id number]) [facility] ([facility]) [address] [place] [address] 66740 Nucleated RBC/100 WBC (Bld) [Ratio] 0.0 /100 WBCs Normal 0.0-0.[address] [facility] Comment on above: Performed By: #### 5 7021-8 #### JODI Marquez ([id number]) [facility] ([facility]) [address] [place] [address] 37143 Platelets (Bld) [#/Vol] 452 x10*3/uL High 150-[address] [facility] Comment on above: Performed By: #### 5 7021-8 #### JODI Marquez ([id number]) [facility] ([facility]) [address] [place] [address] 41418 RBC (Bld) [#/Vol] 3.97 x10*6/uL Low 4.00-5.20 [facility] Comment on above: Performed By: #### 5 7021-8 #### JODI Marquez ([id number]) [facility] ([facility]) [address] [place] [address] 01539 WBC (Bld) [#/Vol] 9.9 x10*3/uL Normal 4.4-11.3 [facility] Comment on above: Performed By: #### 5 7021-8 #### JODI Marquez ([id number]) [facility] ([facility]) [address] [place] [address] 62476 Coagulation tissue factor in ducedon 04-11-2024 PT Coag (PPP) [Time] 43.8 s High 9.8-12.8 [facility] Comment on above: Performed By: #### 2 4331-1 #### JODI Marquez ([id number]) [facility] ([facility]) [address] [place] [address] 47952 Comprehensive metabolic 2000 panelon 04-11-2024 Albumin BCP dye [Mass/Vol] 4.3 g/dL Normal 3.4-5.[address] [facility] Comment on above: Performed By: #### 2 4323-8 #### JODI Marquez ([id number]) [facility] ([facility]) [address] [place] [address] 94774 ALP [Catalytic activity/Vol] 104 U/L Normal 33-[address] [facility] Comment on above: Performed By: #### 2 4323-8 #### JODI Marquez ([id number]) [facility] ([facility]) [address] [place] [address] ALT With P-5'-P [Catalytic activity/Vol] 11 U/L Normal 7-[address] [facility] Comment on above: Result Comment: Kellie ents treated with Sulfasalazine may generate falsely decreased results for ALT. Performed By: #### 2 4323-8 #### JODI Marquez ([id number]) [facility] ([facility]) [address] [place] [address] Anion gap [Moles/Vol] 12 mmol/L Normal 10-20 [facility] Comment on above: Performed By: #### 2 4323-8 #### JODI Marquez ([id number]) [facility] ([facility]) [address] [place] [address] AST With P-5'-P [Catalytic activity/Vol] 13 U/L Normal 9-[address] [facility] Comment on above: Performed By: #### 2 4323-8 #### JODI Marquez ([id number]) [facility] ([facility]) [address] [place] [address] Bilirubin [Mass/Vol] 1.3 mg/dL High 0.0-1.2 [facility] Comment on above: Performed By: #### 2 4323-8 #### JODI Marquez ([id number]) [facility] ([facility]) [address] [place] [address] Calcium [Mass/Vol] 9.4 mg/dL Normal 8.6-10.6 [facility] Comment on above: Performed By: #### 2 4323-8 #### JODI Marquez ([id number]) [facility] ([facility]) [address] [place] [address] Chloride [Moles/Vol] 98 mmol/L Normal 98-107 [facility] Comment on above: Performed By: #### 2 4323-8 #### JODI Marquez ([id number]) [facility] ([facility]) [address] [place] [address] CO2 [Moles/Vol] 30 mmol/L Normal 21-32 [facility] Comment on above: Performed By: #### 2 4323-8 #### JODI Marquez ([id number]) [facility] ([facility]) [address] [place] [address] 99327 Creatinine [Mass/Vol] 0.70 mg/dL Normal 0.50-1.05 [facility] Comment on above: Performed By: #### 2 4323-8 #### JODI Marquez ([id number]) [facility] ([facility]) [address] [place] [address] 41682 GFR/1.73 sq M.predicted MDRD (S/P/Bld) [Vol rate/Area] mL/min/{1.73_m2} Normal >[address] [facility] Comment on above: Result Comment: Calc ulations of estimated GFR are performed using the 2020 CKD-EPI Study Refit equation without the race variable for the IDMS-Traceable creatinine methods. https://jasn.asnjournals.org/content/early//ASN.2020 938296 Performed By: #### 2 4323-8 #### JODI Marquez ([id number]) [facility] ([facility]) [address] [place] [address] 37115 Glucose [Mass/Vol] 149 mg/dL High 74-99 [facility] Comment on above: Performed By: #### 2 4323-8 #### JODI Marquez ([id number]) [facility] ([facility]) [address] [place] [address] 39733 Potassium [Moles/Vol] 4.3 mmol/L Normal 3.5-5.3 [facility] Comment on above: Performed By: #### 2 4323-8 #### JODI Marquez ([id number]) [facility] ([facility]) [address] [place] [address] Protein [Mass/Vol] 7.0 g/dL Normal 6.4-8.2 [facility] Comment on above: Performed By: #### 2 4323-8 #### JODI Marquez ([id number]) [facility] ([facility]) [address] [place] [address] 81778 Sodium [Moles/Vol] 136 mmol/L Normal 136-145 [facility] Comment on above: Performed By: #### 2 4323-8 #### JODI Marquez ([id number]) [facility] ([facility]) [address] [place] [address] 52654 Urea nitrogen [Mass/Vol] 16 mg/dL Normal 6-[address] [facility] Comment on above: Performed By: #### 2 4323-8 #### JODI Marquez ([id number]) [facility] ([facility]) [address] [place] [address] 16816 HbA1c (Bld) [Mass fraction]o n 04-11-2024 Average glucose Estimated from glycated hemoglobin (Bld) [Mass/Vol] 171 mg/dL Normal Not Established [facility] Comment on above: Order Comment: Diagn osis of Xtzjhdxt-VltswtNcr-Duqarhno: < or = 5.6%Increased risk for developing diabetes: 5.7-6.4%Diagnostic of diabetes: > or = 6.5% Performed By: #### 2 4331-1 #### JODI Marquez ([id number]) [facility] ([facility]) [address] [place] [address] 03855 Hemoglobin A1c/Hemoglobin.to dayo 04-11-2024 HbA1c (Bld) [Mass fraction] 7.6 % High See comment [facility] Comment on above: Order Comment: Diagn osis of Iyufbuhc-LugnkpQbz-Rlzzwplt: < or = 5.6%Increased risk for developing diabetes: 5.7-6.4%Diagnostic of diabetes: > or = 6.5% Performed By: #### 2 4331-1 #### JODI Marquez ([id number]) [facility] ([facility]) [address] [place] [address] 23552 Lipid 1996 panelon 4 Cholesterol [Mass/Vol] 171 mg/dL Normal 0-199 [facility] Comment on above: Result Comment: Age Desirable Borderline High High 0-19 Y 0 - 169 170 - 199 >/= 200 20-24 Y 0 - 189 190 - 224 >/= 225 >24 Y 0 - 199 200 - 239 >/= 240 All ranges are based on fasting samples. Specific therapeutic targets will vary based on patient-specific cardiac risk. Pediatric guidelines reference:Pediatrics 2011, 128(S5).Adult guidelines reference: NCEP ATPIII Guidelines,LAYNE 2001, 258:2486-97 Venipuncture immediately after or during the administration of Metamizole may lead to falsely low results. Testing should be performed immediately prior to Metamizole dosing. Performed By: #### 2 4331-1 #### JODI Marquez ([id number]) [facility] ([facility]) [address] [place] [address] 77156 Cholesterol in HDL [Mass/Vol] 47.1 mg/dL Normal [facility] Comment on above: Result Comment: Age Very Low Low Normal High 0-19 Y < 35 < 40 40-45 ---- 20-24 Y ---- < 40 >45 ---- >24 Y ---- < 40 40-60 >60 Performed By: #### 2 4331-1 #### JODI Marquez ([id number]) [facility] ([facility]) [address] [place] [address] 23389 Cholesterol in LDL [Mass/Vol] 88 mg/dL Normal <=[address] [facility] Comment on above: Result Comment: Near Borderline AGE Desirable Optimal High High Very High 0-19 Y 0 - 109 --- 110-129 >/= 130 ---- 20-24 Y 0 - 119 --- 120-159 >/= 160 ---- >24 Y 0 - 99 100-129 130-159 160-189 >/=190 Performed By: #### 2 4331-1 #### JODI Marquez ([id number]) [facility] ([facility]) [address] [place] [address] Cholesterol in VLDL [Mass/Vol] 36 mg/dL Normal 0-[address] [facility] Comment on above: Performed By: #### 2 4331-1 #### JODI Marquez ([id number]) [facility] ([facility]) [address] [place] [address] CHOLESTEROL/HDL RATIO 3.6 Normal [facility] Comment on above: Result Comment: Ref Values Desirable < 3.4 High Risk > 5.0 Performed By: #### 2 4331-1 #### JODI Marquez ([id number]) [facility] ([facility]) [address] [place] [address] NON HDL CHOLESTEROL 124 mg/dL Normal 0-149 [facility] Comment on above: Result Comment: Age Desirable Borderline High High Very High 0-19 Y 0 - 119 120 - 144 >/= 145 >/= 160 20-24 Y 0 - 149 150 - 189 >/= 190 ---- >24 Y 30 mg/dL above LDL Cholesterol goal Performed By: #### 2 4331-1 #### JODI Marquez ([id number]) [facility] ([facility]) [address] [place] [address] Triglyceride [Mass/Vol] 180 mg/dL High 0-149 U [facility] Comment on above: Result Comment: Age Desirable Borderline High Very High SEX:B mg/dL mg/dL mg/dL mg/dL <=14D 86-277 ---- ---- ---- 15D-365D 55-277 ---- ---- ---- 1Y-9Y 0-74 75-99 >=100 ---- 10Y-19Y 0-89 90-129 >=130 ---- 20Y-24Y 0-114 115-149 >=150 ---- >= 25Y 0-149 150-199 200-499 >=500 Venipuncture immediately after or during the administration of Metamizole may lead to falsely low results. Testing should be performed immediately prior to Metamizole dosing. Performed By: #### 2 4331-1 #### JODI Marquez ([id number]) [facility] ([facility]) [address] [place] [address] PT Coag (PPP) [Time]on 04-11 INR Coag (PPP) [Relative time] 3.8 High 0.9-1.[address] [facility] Comment on above: Performed By: #### 2 4331-1 #### JODI Marquez ([id number]) [facility] ([facility]) [address] [place] [address] 41032 TSH WITH REFLEX TO FREE T4 I F ABNORMALon 04-11-2024 TSH Qn 3.16 m[IU]/L Normal 0.44-3.[address] [facility] Comment on above: Order Comment: TSH t esting is performed using different testing methodology at [facility] than at [facility]. Direct result comparisons should only be made within the same method. Performed By: #### 2 4331-1 #### JODI Marquez ([id number]) [facility] ([facility]) [address] [place] [address] 31302 36on 03-07-2024 36 Last seen 02/15/24. Normal [facility] 36on 02-25-2024 36 See anticoagulation encounter Normal [facility] 36 Sent to ASSOCIATE PASTOR for review Normal [facility] 36 Pt called for INR results from 02/23/24. I ck'd care everywhere. labs results for 02/23/24 was 3.7. Normal [facility] Progress Noteon 02-25-2024 Progress Note Called pt no changes in her medications or diet the last 2 weeks. Normal [facility] Progress Note Anticoagulation Episode Summary Current INR goal: 2.5-3.5 TTR: 51.8% (1.9 y) Next INR check: 03/01/2024 INR from last check: 3.7 (02/23/2024) Weekly max warfarin dose: Target end date: INR check location: Preferred lab: Send INR reminders to: [facility] [employer] RECEIVING CLERK Comments: range 2.5-3.5 is ok with LRI Instructed to take 1 mg today and recheck next week. Normal [facility] Progress Note Chart reviewed. She was also high last week. I would have her only take 1 mg today then continue her current dosing. Recheck in 1 week. If she is back in range next week, I may do a small permanent decrease in her dosing. Normal [facility] 36on 02-23-2024 36 Order faxed to [facility] [phone]. Normal [facility] 36 Pt called she is at the lab now and needs INR order signed. Will send for signature. Normal [facility] Coagulation tissue factor in ducedon 02-23-2024 PT Coag (PPP) [Time] 41.8 s High 9.8-12.8 [facility] Comment on above: Performed By: #### 5 902-2 #### JODI Marquez ([id number]) [facility] ([facility]) [id number] [place] [address] 84274 PT Coag (PPP) [Time]on 02-22 INR Coag (PPP) [Relative time] 3.7 High 0.9-1.[address] [facility] Comment on above: Performed By: #### 5 902-2 #### JODI Marquez ([id number]) [facility] ([facility]) [id number] [place] [address] 05461 36on 02-15-2024 36 Reviewed with pt in office. See anticoagulation flow sheet Normal [facility] 36 I would go with 2 mg today, tomorrow and Thu, re-check Normal [facility] 36 Pt's INR today 4.5. called pt no changes in diet or medication. Takes 3 mg daily. Last INR 12/27 was 3.8. pt coming in for office visit today. Please advise? Normal [facility] 36 I rec'd a fax from [facility], dated for 02/12/24, INR 4.5. Normal [facility] ECG 12 lead - CLINIC PERFORM EDon 02-15-2024 Atrial fibrillation -Nonspecific T-abnormality. ABNORMAL [facility] Office Visiton 02-15-2024 Follow-up visit [id number] Hernan Walter 1955 F Date Provider Department Center 02/15/2024 [id number] IV[facility] None Family History Problem Relation Age of Onset Breast cancer Mother Heart failure Father Family Status - Relation Status Age at Mother Alive Father Level of Service:80923 [facility] OFFICE/OUTPATIENT ESTABLISHED LOW MDM 20 MIN Reason for Visit and Comments: 6 Month Follow-up [671] - overdue Normal [facility] Progress Noteon 02-15-2024 Progress Note Anticoagulation Episode Summary Current INR goal: 2.5-3.5 TTR: 52.4% (1.8 y) Next INR check: 02/23/2024 INR from last check: 4.5 (02/15/2024) Weekly max warfarin dose: Target end date: INR check location: Preferred lab: Send INR reminders to: [facility] [employer] RECEIVING CLERK Comments: range 2.5-3.5 is ok with LRI Instructed to decrease 2 mg for next 3 days and check next week. Normal [facility] Progress Note [facility] Cardiology [facility] 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 Ms. Rosenbaum had a h/o tachycardia mediated LV dysfunction, now recovered. Dx also included hyperlipidemia and chronic anticoagulation. In 2020, she contracted Covid but did not require hospital stay. She felt unwell throughout August, September, October with intermittent high fevers; no Covid vaccine, and no intention of doing that either. In 2021, she had denied chest discomfort, dyspnea, PND, palpitations (despite the atrial arrhythmia); no dizziness, lightheadedness, syncope, or focal neurologic events. Updated echo early 2022: normal LV size and thickness, EF low normal 50%, no WMA; normal R side; [facility] [place] MVR, size unknown, mean grad 6 mm Hg, normal function; borderline ascending aorta = 3.7 cm. At the office visit, she c/o new exertional chest tightness, and initially wrote if off to humidity. However, despite the onset of cooler weather, she noted sx progressing. She stated she had to stop to rest. Not really SOB - but described as unable to take a breath - discomfort located in the mid-sternal area. Minutes for resolution, usually < 5 minutes. No nausea or diaphoresis. INR had been up and down, but nothing < 2.0. The valve was > 30 years old, placed 1989. I was not convinced this was related to the prosthetic valve, I was more concerned with CAD. L+R heart cath followed: widely patent right-dominant coronary arteries with minor luminal irregularities; no significant obstructive CAD; mildly elevated right heart filling pressure with mild-moderate pulmonary hypertension; borderline elevated LVEDP with elevated PCWP; normal cardiac index; normal function mechanical MVR on fluoro. 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 When last seen late 2022, she had remained stable, still some SOB, but not worsened. Diuresis seemed prudent. The pt had changes in insurance, and some question about follow up. I cannot continue to prescribe a high risk medication like warfarin without direct patient contact. Review of EMR does not suggest any recent hospital stays or surgery. Had noted SOB with heat, [place], and a bit uncomfortable. INR today is high 4.5, we are dropping warfarin to 2 mg today, tomorrow and Wed, and then back to usual dose. She has some limitations getting INR, planned to repeat next 02/22. Past Medical History: Past Medical History: Diagnosis Date Arthritis Atrial fibrillation, chronic (HCC) Cardiomegaly Cardiomyopathy, dilated (HCC) Cerebral artery occlusion with cerebral infarction (HCC) Endometriosis h/o reason for hyster H/O cardiovascular stress test H/O echocardiogram History of blood transfusion 1998 x6 post hysterectomy Hyperlipidemia Mitral valve disorder 1989- 01/21 [place] Paroxysmal atrial fibrillation (HCC) Presence of prosthetic heart valve Rheumatic heart disease S/P MVR (mitral valve replacement) 03/13/2021 Thyroid disease hypothroidism- NO MEDS TIA (transient ischemic attack) x2 Past Surgical History Past Surgical History: Procedure Laterality Date CARDIAC CATHETERIZATION N/A 02/13/2023 Performed by Papo Thompson MD at [facility] Cardiac Cath/EP Lab CARDIAC PROCEDURE CATARACT EXTRACTION Bilateral CATARACT EXTRACTION Bilateral COLONOSCOPY KNEE SURGERY Left [facility] [place] MITRAL VALVE REPLACEMENT RADIAL HEAD RECONSTRUCTION W/ IMPLANT Left 2014 [facility] - [place] TONSILLECTOMY (HISTORICAL) TOTAL ABDOMINAL HYSTERECTOMY AGH Family History Family History Problem Relation Name Age of Onset Breast cancer Mother Heart failure Father Social History Social History Tobacco Use Smoking status: Former Current packs/day: 0.00 Types: Cigarettes Quit date: 05/06/2010 Years since quittin.7 Smokeless tobacco: Never Substance Use Topics Alcohol use: Yes Comment: occ Drug use: No Allergies: Allergies Allergen Reactions Cefaclor Other reaction(s): Unknown Intolerance-unknown Penicillins Other reaction(s): Unknown, Unknown Intolerance-unknown Intolerance-unknown Medications: Current Outpatient Medications: carvedilol (Coreg) 12.5 MG tablet, TAKE 1 TABLET BY MOUTH TWICE A DAY, Disp: 180 tablet, Rfl: 3 clindamycin (Cleocin) 150 MG capsule, TAKE 4 CAPSULES BY MOUTH ONE HOUR PRIOR TO DENTAL PROCEDURE, Disp: 4 capsule, Rfl: 1 digoxin (Lanoxin) 125 MCG tablet, TAKE 1 TABLET BY MOUTH EVERY DAY, Disp: 90 tablet, Rfl: 3 fu (more content not included)... Normal [facility] Coagulation tissue factor in ducedon 02-12-2024 PT Coag (PPP) [Time] 51.4 s High 9.8-12.8 [facility] Comment on above: Performed By: #### 5 902-2 #### JODI Marquez ([id number]) [facility] ([facility]) [address] [place] [address] 39285 PT Coag (PPP) [Time]on 02-11 INR Coag (PPP) [Relative time] 4.5 High 0.9-1.[address] [facility] Comment on above: Performed By: #### 5 902-2 #### JODI Marquez ([id number]) [facility] ([facility]) [address] [place] [address] 89639 36on 02-11-2024 36 Last seen 03/16/23. CMP done 12/09/23. Has follow up scheduled. [facility] 36on 09-09-2024 36 Last seen 03/16/23. CMP done 12/09/23 and dig 12/09/23. Normal [facility] 36on 12-28-2023 36 See anticoagulation encounter Normal [facility] 36 I would do nothing, re-check this week, not urgent. [facility] 36 Called pt regarding elevated INR. No medication changes. Takes 3 mg daily. Please advise? Normal [facility] 36 I rec'd a fax from [employer], dated for 12/25/23, INR 3.8. Normal [facility] Progress Noteon 12-28-2023 Progress Note Anticoagulation Episode Summary Current INR goal: 2.5-3.5 TTR: 56.8% (1.7 y) Next INR check: 12/17/2023 INR from last check: 3.8 (12/25/2023) Weekly max warfarin dose: Target end date: INR check location: [facility] lab: Send INR reminders to: [facility] [employer]INICAL [employer] RECEIVING CLERK Comments: range 2.5-3.5 is ok with LRI No changes in dose. Recheck this week. Normal [facility] Coagulation tissue factor in ducedon 12-25-2023 PT Coag (PPP) [Time] 43.6 s High 9.8-12.8 [facility] Comment on above: Performed By: #### 5 902-2 #### JODI Marquez ([id number]) [facility] ([facility]) [address] [place] [address] PT Coag (PPP) [Time]on 12-24 INR Coag (PPP) [Relative time] 3.8 High 0.9-1.[address] [facility] Comment on above: Performed By: #### 5 902-2 #### JODI Marquez ([id number]) [facility] ([facility]) [address] [place] [address] 36on 12-11-2023 36 LM that labs showed nothing concerning except triglycerides were little elevated. Advised no medication changes and follow up as scheduled. Normal [facility] 36on 12-10-2023 36 Pt had labs done at that we ordered. Please review in epic. INR was addressed already. Normal [facility] 36 Spoke with Johanne. e anticoagulation encounter Normal [facility] 36 Results are in epic. INR from 12/09/23 is 3.8. takes 3 mg daily. Please advise? Range 2.5-3.5 Normal [facility] 36 Patient said her results and other labs were collected at on [address] Normal [facility] Progress Noteon 12-10-2023 Progress Note Anticoagulation Episode Summary Current INR goal: 2.5-3.5 TTR: 58.3% (1.7 y) Next INR check: 10/30/2023 INR from last check: 3.8 (12/09/2023) Weekly max warfarin dose: Target end date: INR check location: Preferred lab: Send INR reminders to: [facility] [employer] CLINICAL [employer]URNED [employer] RECEIVING CLERK Comments: range 2.5-3.5 is ok with LRI Anticoagulation Episode Summary Current INR goal: 2.5-3.5 TTR: 58.3% (1.7 y) Next INR check: 12/17/2023 INR from last check: 3.8 (12/09/2023) Weekly max warfarin dose: Target end date: INR check location: Preferred lab: Send INR reminders to: [employer] CLINICAL [employer]URNED [employer] RECEIVING CLERK Comments: range 2.5-3.5 is ok with LRI Spoke with johanne advised to have pt hold one dose and recheck next week. Pt aware. Normal [facility] Coagulation tissue factor in ducedon 12-09-2023 PT Coag (PPP) [Time] 43.2 s High 9.8-12.8 [facility] Comment on above: Performed By: #### 5 902-2 #### JODI Marquez ([id number]) [facility] ([facility]) [id number] [place] [address] 67661 Comprehensive metabolic 2000 panelon 12-09-2023 Albumin BCP dye [Mass/Vol] 4.2 g/dL Normal 3.4-5.[address] [facility] Comment on above: Performed By: #### 2 4323-8 #### JODI Marquez ([id number]) [facility] ([facility]) [id number] [place] [address] 74602 ALP [Catalytic activity/Vol] 95 U/L Normal 33-[address] [facility] Comment on above: Performed By: #### 2 4323-8 #### JODI Marquez ([id number]) [facility] ([facility]) [address] [place] [address] ALT With P-5'-P [Catalytic activity/Vol] 11 U/L Normal 7-[address] [facility] Comment on above: Result Comment: Kellie ents treated with Sulfasalazine may generate falsely decreased results for ALT. Performed By: #### 2 4323-8 #### JODI Marquez ([id number]) [facility] ([facility]) [address] [place] [address] Anion gap [Moles/Vol] 15 mmol/L Normal 10-20 [facility] Comment on above: Performed By: #### 2 4323-8 #### JODI Marquez ([id number]) [facility] ([facility]) [id number] [place] [address] 60453 AST With P-5'-P [Catalytic activity/Vol] 15 U/L Normal 9-[address] [facility] Comment on above: Performed By: #### 2 4323-8 #### JODI Marquez ([id number]) [facility] ([facility]) [address] [place] [address] Bilirubin [Mass/Vol] 0.6 mg/dL Normal 0.0-1.2 [facility] Comment on above: Performed By: #### 2 4323-8 #### JODI Marquez ([id number]) [facility] ([facility]) [address] [place] [address] 31602 Calcium [Mass/Vol] 9.2 mg/dL Normal 8.6-10.6 [facility] Comment on above: Performed By: #### 2 4323-8 #### JODI Marquez ([id number]) [facility] ([facility]) [address] [place] [address] Chloride [Moles/Vol] 97 mmol/L Low 98-107 [facility] Comment on above: Performed By: #### 2 4323-8 #### JODI Marquez ([id number]) [facility] ([facility]) [address] [place] [address] CO2 [Moles/Vol] 27 mmol/L Normal 21-32 [facility] Comment on above: Performed By: #### 2 4323-8 #### JODI Marquez ([id number]) [facility] ([facility]) [id number] [place] [address] 16287 Creatinine [Mass/Vol] 0.78 mg/dL Normal 0.50-1.05 [facility] Comment on above: Performed By: #### 2 4323-8 #### JODI Marquez ([id number]) [facility] ([facility]) [address] [place] [address] 27684 Glomerular filtration rate/1.73 sq M.predicted 84 mL/min/1.73m*2 Normal >[address] [facility] Comment on above: Result Comment: Calc ulations of estimated GFR are performed using the 2020 CKD-EPI Study Refit equation without the race variable for the IDMS-Traceable creatinine methods. https://jasn.asnjournals.org/content/early//ASN.2020 740048 Performed By: #### 2 4323-8 #### JODI Marquez ([id number]) [facility] ([facility]) [id number] [place] [address] 28131 Glucose [Mass/Vol] 136 mg/dL High 74-99 [facility] Comment on above: Performed By: #### 2 4323-8 #### JODI Marquez ([id number]) [facility] ([facility]) [id number] [place] [address] 08347 Potassium [Moles/Vol] 4.6 mmol/L Normal 3.5-5.3 [facility] Comment on above: Performed By: #### 2 4323-8 #### JODI Marquez ([id number]) [facility] ([facility]) [address] [place] [address] Protein [Mass/Vol] 6.6 g/dL Normal 6.4-8.2 [facility] Comment on above: Performed By: #### 2 4323-8 #### JODI Marquez ([id number]) [facility] ([facility]) [address] [place] [address] 74234 Sodium [Moles/Vol] 134 mmol/L Low 136-145 [facility] Comment on above: Performed By: #### 2 4323-8 #### JODI Marquez ([id number]) [facility] ([facility]) [address] [place] [address] 13011 Urea nitrogen [Mass/Vol] 21 mg/dL Normal 6-[address] [facility] Comment on above: Performed By: #### 2 4323-8 #### JODI Marquez ([id number]) [facility] ([facility]) [address] [place] [address] 90123 Creatine kinaseon 12-09-2023 CK [Catalytic activity/Vol] 108 U/L Normal 0-[address] [facility] Comment on above: Performed By: #### 2 157-6 #### JODI Marquez ([id number]) [facility] ([facility]) [address] [place] [address] 94025 Digoxinon 12-09-2023 Digoxin [Mass/Vol] 0.67 ng/mL Low 0.80-<2.00 [facility] Comment on above: Order Comment: Digox in measurements can be falsely increased or decreased if patient is receiving Digoxin-binding antibody therapy or Digoxin-like immunoreactive factors are present. Performed By: #### 1 0535-3 #### JODI Marquez ([id number]) [facility] ([facility]) [address] [place] [address] 70862 Lipid 1996 panelon Cholesterol [Mass/Vol] 155 mg/dL Normal 0-199 [facility] Comment on above: Performed By: #### 2 4331-1 #### JODI Marquez ([id number]) [facility] ([facility]) [address] [place] [address] Cholesterol in HDL [Mass/Vol] 42.6 mg/dL Normal [facility] Comment on above: Result Comment: Age Very Low Low Normal High 0-19 Y < 35 < 40 40-45 ---- 20-24 Y ---- < 40 >45 ---- >24 Y ---- < 40 40-60 >60 Performed By: #### 2 4331-1 #### JODI Marquez ([id number]) [facility] ([facility]) [address] [place] [address] 24887 Cholesterol in LDL [Mass/Vol] 78 mg/dL Normal [facility] Comment on above: Result Comment: Near Borderline AGE Desirable Optimal High High Very High 0-19 Y 0 - 109 --- 110-129 >/= 130 ---- 20-24 Y 0 - 119 --- 120-159 >/= 160 ---- >24 Y 0 - 99 100-129 130-159 160-189 >/=190 Performed By: #### 2 4331-1 #### JODI Marquez ([id number]) [facility] ([facility]) [id number] [place] [address] 20586 Cholesterol in VLDL [Mass/Vol] 34 mg/dL Normal 0-[address] [facility] Comment on above: Performed By: #### 2 4331-1 #### JODI Marquez ([id number]) [facility] ([facility]) [id number] [place] [address] 57132 CHOLESTEROL/HDL RATIO 3.6 Normal [facility] Comment on above: Result Comment: Ref Values Desirable < 3.4 High Risk > 5.0 Performed By: #### 2 4331-1 #### JODI Marquez ([id number]) [facility] ([facility]) [id number] [place] [address] 15546 NON HDL CHOLESTEROL 112 mg/dL Normal 0-149 [facility] Comment on above: Result Comment: Age Desirable Borderline High High Very High 0-19 Y 0 - 119 120 - 144 >/= 145 >/= 160 20-24 Y 0 - 149 150 - 189 >/= 190 ---- >24 Y 30 mg/dL above LDL Cholesterol goal Performed By: #### 2 4331-1 #### JODI Marquez ([id number]) [facility] ([facility]) [address] [place] [address] 78655 Triglyceride [Mass/Vol] 171 mg/dL High 0-149 U [facility] Comment on above: Performed By: #### 2 4331-1 #### JODI Marquez ([id number]) [facility] ([facility]) [address] [place] [address] PT Coag (PPP) [Time]on 12-08 INR Coag (PPP) [Relative time] 3.8 High 0.9-1.[address] [facility] Comment on above: Performed By: #### 5 902-2 #### JODI Marquez ([id number]) [facility] ([facility]) [id number] [place] [address] 27333 36on 11-26-2023 36 I mailed lab orders to pt. Normal [facility] 36on 11-25-2023 36 Orders placed. Normal [facility] 36 This pt does not hav e any recent labs since Feb, per pcp office. Normal [facility] 36on 10-27-2023 36 Needs new Rx for clarification on frequency. Normal [facility] 36on 10-21-2023 36 Can you see if PCP has any recent labs for refills? Thanks! Normal [facility] 36 Last seen 04/02. CBC and BMP fall 2022. Due for labs. Will check with PCP. Normal [facility] 36 Pt called for refill on Warfarin 4mg and Clindamyacin for 10/25 dental appt. Pls eRx to [facility] in [place]. She was unable to make an appt at this time due to her schedule. Normal [facility] PT Coag (Bld) [Time]on 02-20 INR Coag (PPP) [Relative time] 2.8 {INR} Abnormal 0.9 - 1.1 [facility] Interpretation and review of laboratory results Abnormal [facility] Protime-INRon 02-20-2023 PT Coag (Bld) [Time] 9.0 - 12.0 s [facility] Cardiac catheterization stud yon 02-13-2023 Widely patent right-dominant coronary arteries with minor luminal irregularities; no significant obstructive CAD. Mildly elevated right heart filling pressure with mild-moderate pulmonary hypertension. Borderline elevated LVEDP with elevated PCWP. Normal cardiac index. Normal function of mechanical MV by fluoroscopy. 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 Procedure Details Patient was prepped and draped in sterile fashion. Soft tissue overlying the right radial artery was anesthetized with lidocaine injected subcutaneously. 6 Wolof sheath was advanced into the right radial artery using modified Seldinger technique. Standard cocktail of nitroglycerin and verapamil was administered through the sheath. Patient was anticoagulated with IV heparin. Left and right coronary angiograms were performed with 5 Wolof JL 3.5 and JR4 catheters respectively. 4F PIG tail catheter was advanced across the aortic valve using a guidewire to perform left heart cath with measurement of pressures. Catheter was aspirated and flushed with saline. Sheath was aspirated and flushed between all catheter exchanges. At the end of the case, radial sheath was withdrawn and arterial hemostasis was achieved with placement of Vasc Band over the right radial arteriotomy. Right arm prepped and draped in sterile fashion. Continuous ECG monitoring and pulse oximetry in place. Soft tissue overlying the brachial vein anesthetized with lidocaine injected subcutaneously. Right brachial vein IV was exchanged using a modified Seldinger technique used to place a 5 Wolof sheath in the right brachial vein. Sheath sutured in place, and was aspirated and flushed with saline. 5 Wolof [place]-Beena catheter was advanced under fluoroscopic and hemodynamic guidance sequentially into the right atrium, right ventricle, pulmonary artery, and pulmonary capillary wedge positions. Pressures measured at each stage. Oxygen saturation obtained from right atrium and pulmonary artery for calculation of cardiac output by Salvador method. Cardiac output also assessed by standard thermal dilution technique. Coronary Findings Diagnostic Dominance: Right Left Main: The vessel is large in size. The vessel is angiographically normal. Left Anterior Descending: The vessel is moderate in size. The vessel exhibits minimal luminal irregularities. Prox LAD lesion, 20% stenosed. The lesion is tubular. First Diagonal Branch: The vessel is small in size. Second Diagonal Branch: The vessel is small in size. Left Circumflex: The vessel is moderate in size. The vessel exhibits minimal luminal irregularities. First Obtuse Marginal Branch: The vessel is moderate in size. The vessel is angiographically normal. Right Coronary Artery: The vessel is large in size. The vessel is angiographically normal. Right Posterior Descending Artery: The vessel is moderate in size. The vessel exhibits minimal luminal irregularities. First Right Posterolateral Branch: The vessel is moderate in size. The vessel exhibits minimal luminal irregularities. Second Right Posterolateral Branch: The vessel is moderate in size. The vessel exhibits minimal luminal irregularities. Intervention No interventions have been documented. Left Ventricle Left ventriculogram was not performed.LV systolic pressure is normal. LV end diastolic pressure is normal. Mitral Valve The patient has a mechanical prosthetic mitral valve that opens and closes well. Aortic Valve There is no aortic valve stenosis. Right Ventricle The right ventricle pressure is mildly and elevated. Right Atrium Right atrial pressure is mildly elevated. Right Heart Cath [place]-Beena catheter inserted via right brachial vein. Mild to moderate pulmonary hypertension noted. No shunt was noted. 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 Recent echo showed low normal EF and normal function of mechanical MV. Warfarin held for 2 days prior to cath, with INR today 1.6. Hemodynamics Interpretation Hemodynamic Summary: RA Mean: 15 mm Hg RV: 45/10 mm Hg PA: 52/22 mm Hg, Mean: 37 mm Hg PCWP: 23 mm Hg mean PVR: 112 CHARLES PA Sat: 65 % RA Sat 64% Arterial Sat 93% Salvador Cardiac Output: 6.4 L/min, Cardiac Index: 3.2 L/min/m2 Thermodilution Cardiac Output: 5.7 L/min, Cardiac Index: 2.8 L/min/m2 No significant aortic gradient LVEDP 18 mm Hg Cath Recommendations Patient management should include: Optimal medical management and continue with current meds. Continue long-term anticoagulation of mechanical MV with warfarin; INR target 2.5-3.5. Resume warfarin tonight. Given subthe (more content not included)... CV CPACS HEMO [facility] - Coagulationon 1 INR Coag (Bld) [Relative time] 1.6 {INR} High 0.9 - 1.1 [facility] No Panel Informationon 02-13 Performed by: [facility], [address] [place] [address] CLIA ID: [id number] Reportable Results: OxyHemoglobin 0 - 100% Expected Ranges: OxyHemoglobin Arterial Sample 95 - 100%* Adequate Oxygenation >92% Venous sample 60 - 85%* Note: *OxyHemoglobin Reference Ranges based upon literature review Adequate oxygenation based upon [facility] Clinical Decision [facility]formed by: [facility], [address] [place] [address] CLIA ID: [id number] Reportable Results: OxyHemoglobin 0 - 100% Expected Ranges: OxyHemoglobin Arterial Sample 95 - 100%* Adequate Oxygenation >92% Venous sample 60 - 85%* Note: *OxyHemoglobin Reference Ranges based upon literature review Adequate oxygenation based upon [facility] Clinical Decision [facility] Performed by: [facility], [address] [place] [address] CLIA ID: [id number] Reportable Results: OxyHemoglobin 0 - 100% Expected Ranges: OxyHemoglobin Arterial Sample 95 - 100%* Adequate Oxygenation >92% Venous sample 60 - 85%* Note: *OxyHemoglobin Reference Ranges based upon literature review Adequate oxygenation based upon [facility] Clinical Decision [facility] Interpretation and review of laboratory results Abnormal [facility] Performed by: [facility], [address] [place] [address] CLIA ID: [id number] [facility] Vital signson 02-13-2023 Oxygen saturation in Blood 66 % [facility] Oxygen saturation in Blood 93 % [facility] Oxygen saturation in Blood 64 % [facility] PT Coag (Bld) [Time]on 02-10 INR Coag (PPP) [Relative time] 3.7 {INR} High [facility] Comment on above: Reference Range 0.9 -1.1 Moderate-intensity Warfarin Therapy 2.0-3.0 Higher-intensity Warfarin Therapy 3.0-4.0 Interpretation and review of laboratory results Abnormal [facility] PT Coag (PPP) [Time] 35.3 s High [facility] Comment on above: For additional infor yon, please refer to [email or web address] I [email or web address]/[email or web address] (This link is being provided for informational/ educational purposes only.) [facility] PT Coag (Bld) [Time]on 02-05 INR Coag (PPP) [Relative time] 4.3 {INR} High [facility] Comment on above: Reference Range 0.9- 1.1 Moderate-intensity Warfarin Therapy 2.0-3.0 Higher-intensity Warfarin Therapy 3.0-4.0 Interpretation and review of laboratory results Abnormal [facility] PT Coag (PPP) [Time] 41.3 s High [facility] Comment on above: For additional infor yon, please refer to [email or web address] [email or web address] [email or web address]/[email or web address] (This link is being provided for informational/ educational purposes only.) [facility] ECG 12 Leadon 01-25-2023 EKG performed and reviewed. Atrial fibrillation noted with well-controlled rate. No acute ST-T wave changes noted. [facility] Work Phone: [facility] Work Phone: Cobalamin (Vitamin B12) [Mas s/Vol]on 01-24-2023 [facility] FERRITINon 01-24-2023 FERRITIN 65 ug/L Normal 8 - 150 [facility] Comment on above: Performed By: #### F ERRI #### [facility] [address] [place] [address] Ferritinon 01-24-2023 Ferritin [Mass/Vol] 65 ug/L 8 - 150 ug/L [facility] IRON + TIBCon 01-24-2023 % SATURATION 13 % Low 25 - 45 [facility] Comment on above: Performed By: #### I PAULA #### [facility] [address] [place] [address] Iron [Mass/Vol] 54 ug/dL Normal 35 - 150 [facility] Comment on above: Performed By: #### I RONT #### [facility] [address] [place] [address] TIBC 413 ug/dL Normal 240 - 445 [facility] Comment on above: Performed By: #### I RONT #### [facility] [address] [place] [address] Iron and Iron binding capaci ty panelon 01-24-2023 Interpretation and review of laboratory results Abnormal [facility] Iron [Mass/Vol] 54 ug/dL 35 - 150 ug/dL [facility] Iron binding capacity [Mass/Vol] 413 ug/dL 240 - 445 ug/dL [facility] Iron saturation [Mass fraction] 13 % Low 25 - 45 % [facility] No Panel Informationon 01-24 [facility] VITAMIN B12on 01-24-2023 Cobalamin (Vitamin B12) [Mass/Vol] 349 pg/mL Normal 211 - 911 [facility] Comment on above: Performed By: #### V TB12 #### [facility] [address] [place] [address] Vitamin B12on 01-24-2023 Cobalamin (Vitamin B12) [Mass/Vol] 349 pg/mL 211 - 911 pg/mL [facility] XR Chest 2 Viewson 3 Likely COPD changes. No evidence of acute intrathoracic abnormality. [facility] Interpreted By: JLUIS REYNA MD Patient Name: HERNAN WALTER STUDY: TH CHEST 2 VIEW PA AND LAT INDICATION: .. Dyspnea COMPARISON: February 10, 2019 ACCESSION NUMBER(S): [id number] ORDERING CLINICIAN: MELISSA DEL RIO FINDINGS: Cardiomegaly with median sternotomy unchanged. No consolidation, effusion, edema, or pneumothorax. Hyperinflation suggests COPD. [facility] Jluis Reyna MD - 01/24/2023 Interpreted By: JLUIS REYNA MD Patient Name: HERNAN WALTER STUDY: TH CHEST 2 VIEW PA AND LAT INDICATION: .. Dyspnea COMPARISON: February 10, 2019 ACCESSION NUMBER(S): [id number] ORDERING CLINICIAN: MELISSA DEL RIO FINDINGS: Cardiomegaly with median sternotomy unchanged. No consolidation, effusion, edema, or pneumothorax. Hyperinflation suggests COPD. IMPRESSION: Likely COPD changes. No evidence of acute intrathoracic abnormality. [facility] Work Phone: XR Chest 2 ViewsOrdered By: Jluis Reyna on 01-24-2023 [facility] CHEST 2 VIEW PA AND LATon CHEST 2 VIEW PA AND LAT Patient Name: HERNAN WALTRE STUDY: TH CHEST 2 VIEW PA AND LAT INDICATION: .. Dyspnea COMPARISON: February 10, 2019 ACCESSION NUMBER(S): [id number] ORDERING CLINICIAN: MELISSA DEL RIO FINDINGS: Cardiomegaly with median sternotomy unchanged. No consolidation, effusion, edema, or pneumothorax. Hyperinflation suggests COPD. IMPRESSION: Likely COPD changes. No evidence of acute intrathoracic abnormality. Electronically signed by: JLUIS REYNA MD Normal [facility] VITAMIN B12on 01-23-2023 Lab Specimen Source Normal [facility] Comment on above: Performed By: #### V TB12 #### [facility] [address] [place] [address] XR Chest 2 Viewson 3 Radiology Study observation (narrative) [facility] Work Phone: PT Coag (Bld) [Time]on 01-22 INR Coag (PPP) [Relative time] 4.9 {INR} High [employer] [facility] Comment on above: Verified by repeat a nalysis. Reference Range 0.9-1.1 Moderate-intensity Warfarin Therapy 2.0-3.0 Higher-intensity Warfarin Therapy 3.0-4.0 Interpretation and review of laboratory results Abnormal [facility] PT Coag (PPP) [Time] 46.8 s High [employer] Comment on above: For additional infor yon, please refer to http://education.Photos I Like/faq/CKG756 (This link is being provided for informational/ educational purposes only.) [facility] [facility] PT Coag (Bld) [Time]on 01-01 INR Coag (PPP) [Relative time] 3.3 {INR} High [facility] Comment on above: Reference Range 0.9- 1.1 Moderate-intensity Warfarin Therapy 2.0-3.0 Higher-intensity Warfarin Therapy 3.0-4.0 Interpretation and review of laboratory results Abnormal [facility] PT Coag (PPP) [Time] 32.5 s [facility] Comment on above: For additional infor yon, please refer to http://[employer].Photos I Like/faq/QDH310 (This link is being provided for informational/ educational purposes only.) [facility] PT Coag (Bld) [Time]on 12-19 INR Coag (PPP) [Relative time] 4.8 {INR} High [facility] Comment on above: Reference Range 0.9- 1.1 Moderate-intensity Warfarin Therapy 2.0-3.0 Higher-intensity Warfarin Therapy 3.0-4.0 Interpretation and review of laboratory results Abnormal [facility] PT Coag (PPP) [Time] 45.1 s [facility] Comment on above: For additional infor yon, please refer to http://[employer].Photos I Like/faq/TZO714 (This link is being provided for informational/ educational purposes only.) [facility] PT Coag (Bld) [Time]on 10-28 INR Coag (PPP) [Relative time] 4.4 {INR} High [facility] Comment on above: Reference Range 0.9- 1.1 Moderate-intensity Warfarin Therapy 2.0-3.0 Higher-intensity Warfarin Therapy 3.0-4.0 Interpretation and review of laboratory results Abnormal [facility] PT Coag (PPP) [Time] 42.3 s [facility] Comment on above: For additional infor yon, please refer to http://[employer].Photos I Like/faq/OQJ468 (This link is being provided for informational/ educational purposes only.) [facility] PT Coag (Bld) [Time]on 09-23 INR Coag (PPP) [Relative time] 3.5 {INR} High [facility] Comment on above: Reference Range 0.9- 1.1 Moderate-intensity Warfarin Therapy 2.0-3.0 Higher-intensity Warfarin Therapy 3.0-4.0 Interpretation and review of laboratory results Abnormal [facility] PT Coag (PPP) [Time] 34.1 s High [facility] Comment on above: For additional infor yon, please refer to http://education.Photos I Like/faq/RSG315 (This link is being provided for informational/ educational purposes only.) [facility] Heart TransthoracicOrdere d By: Guanaco López on 09-22-2022 Ascending Aorta 3.7 cm [facility] Work Phone: [phone] Ascending Aorta Index 1.83 cm/m2 [facility] Work Phone: [phone] AV Area by Peak Velocity 1.9 cm2 [facility] Work Phone: [phone] AV Area by VTI 1.8 cm2 [facility] Work Phone: [phone] AV Mean Gradient 7 mmHg [facility] Work Phone: [phone] AV Mean Velocity 1.2 m/s [facility] Work Phone: [phone] AV Peak Gradient 14 mmHg [facility] Work Phone: [phone] AV Peak Velocity 1.9 m/s [facility] Work Phone: [phone] AV Velocity Ratio 0.53 [facility] Work Phone: [phone] AV VTI 41.7 cm [facility] Work Phone: [phone] CHANCE/BSA Peak Velocity 0.9 cm2/m2 [facility] Work Phone: [phone] CHANCE/BSA VTI 0.9 cm2/m2 [facility] Work Phone: [phone] EF BP 47 % Abnormal 55 - 100 % [facility] Work Phone: [phone] Fractional Shortening 2D 24 % 28 - 44 % [facility] Work Phone: Global Longitudinal Strain -17.1 % [facility] Work Phone: [phone] Global Longitudinal Strain -12.1 % [facility] Work Phone: [phone] Global Longitudinal Strain -15.5 % [facility] Work Phone: [phone] Global Longitudinal Strain -14.9 % [facility] Work Phone: [phone] Interpretation and review of laboratory results Abnormal [facility] Work Phone: IVSd 1.4 cm Abnormal 0.6 - 0.9 cm [facility] Work Phone: LA Volume 4C 94 mL Abnormal 22 - 52 mL [facility] Work Phone: LA Volume Index 4C 47 mL/m2 Abnormal 16 - 34 mL/m2 [facility] Work Phone: LV E' Lateral Velocity 6 cm/s [facility] Work Phone: [phone] LV E' Septal Velocity 7 cm/s [facility] Work Phone: LV EDV A2C 105 mL [facility] Work Phone: LV EDV A4C 110 mL [facility] Work Phone: LV EDV BP 109 mL Abnormal 56 - 104 mL [facility] Work Phone: LV EDV Index A2C 52 mL/m2 [facility] Work Phone: LV EDV Index A4C 54 mL/m2 [facility] Work Phone: LV EDV Index BP 54 mL/m2 [facility] Work Phone: LV Ejection Fraction A2C 49 % [facility] Work Phone: LV Ejection Fraction A4C 46 % [facility] Work Phone: LV ESV A2C 54 mL [facility] Work Phone: LV ESV A4C 59 mL [facility] Work Phone: LV ESV BP 58 mL Abnormal 19 - 49 mL [facility] Work Phone: LV ESV Index A2C 27 mL/m2 [facility] Work Phone: LV ESV Index A4C 29 mL/m2 [facility] Work Phone: LV ESV Index BP 29 mL/m2 [facility] Work Phone: LV Mass 2D 249.4 g Abnormal 67 - 162 g [facility] Work Phone: LV Mass 2D Index 123.5 g/m2 Abnormal 43 - 95 g/m2 [facility] Work Phone: [phone] LV RWT Ratio 0.33 [facility] Work Phone: [phone] LVIDd 5.4 cm Abnormal 3.9 - 5.3 cm [facility] Work Phone: [phone] LVIDd Index 2.67 cm/m2 [facility] Work Phone: [phone] LVIDs 4.1 cm [facility] Work Phone: [phone] 95 LVIDs Index 2.03 cm/m2 [facility] Work Phone: [phone] 95 LVOT Area 3.5 cm2 [facility] Work Phone: ) 95 LVOT Cardiac Output 4.6 liter/minute [facility] Work Phone: ) 95 LVOT Diameter 2.1 cm [facility] Work Phone: 95 LVOT Mean Gradient 2 mmHg [facility] Work Phone: 95 LVOT Peak Gradient 4 mmHg [facility] Work Phone: 95 LVOT Peak Velocity 1.0 m/s [facility] Work Phone: 95 LVOT Stroke Volume Index 36.8 mL/m2 [facility] Work Phone: ) 95 LVOT SV 74.4 ml [facility] Work Phone: ) 95 LVOT VTI 21.5 cm [facility] Work Phone: 95 LVOT:AV VTI Index 0.52 [facility] Work Phone: ) 95 LVPWd 0.9 cm 0.6 - 0.9 cm [facility] Work Phone: 95 MV Area by PHT 2.3 cm2 [facility] Work Phone: 95 MV Area by VTI 1.5 cm2 [facility] Work Phone: 95 MV Max Velocity 2.1 m/s [facility] Work Phone: 95 MV Mean Gradient 6 mmHg [facility] Work Phone: 95 MV Mean Velocity 1.1 m/s [facility] Work Phone: [phone] MV Peak Gradient 18 mmHg [facility] Work Phone: [phone] MV PHT 97.2 ms [facility] Work Phone: [phone] MV VTI 50.7 cm [facility] Work Phone: [phone] MV:LVOT VTI Index 2.36 [facility] Work Phone: [phone] TAPSE 1.5 cm Abnormal 1.7 cm [facility] Work Phone: [phone] TR Max Velocity 2.68 m/s [facility] Work Phone: [phone] TR Peak Gradient 29 mmHg [facility] Work Phone: [phone] [facility] Work Phone: [phone] Heart Transthoracicon Left Ventricle: Left ventricle size is normal. Normal wall thickness. Findings consistent with mild asymmetric hypertrophy. Low normal left ventricular systolic function. The EF by visual approximation is 50%. Normal wall motion. Right Ventricle: Right ventricle size is normal. Normal systolic function. Mitral Valve: Not well visualized. ST EDINSON mechanical valve. MV mean gradient is 6 mmHg. Aorta: Normal sized sinuses of Valsalva. Mildly dilated ascending aorta. Ao ascending diameter is 3.7 cm. Left Ventricle Left ventricle size is normal. Normal wall thickness. Findings consistent with mild asymmetric hypertrophy. Low normal left ventricular systolic function. The EF by visual approximation is 50%. Normal wall motion. Indeterminate diastolic function due to mitral valve surgery. Right Ventricle Right ventricle size is normal. Normal systolic function. Left Atrium Left atrium is mildly dilated. Right Atrium Right atrium size is normal. IVC/SVC IVC is dilated. Mitral Valve Not well visualized. ST EDINSON mechanical valve. MV mean gradient is 6 mmHg. Trace regurgitation. No stenosis noted. Tricuspid Valve Valve structure is normal. Trace regurgitation. Aortic Valve Not well visualized. Trileaflet. Mildly thickened cusps. Mildly calcified cusps. Trace regurgitation. No stenosis. Pulmonic Valve Valve structure is normal. Trace regurgitation. Ascending Aorta Normal sized sinuses of Valsalva. Mildly dilated ascending aorta. Ao ascending diameter is 3.7 cm. Pericardium No pericardial effusion. Septum No interatrial shunt visualized on color Doppler. Study Details Image quality: adequate. Additional technique includes myocardial strain. Heart rate: 73 bpm. Blood pressure: 137/62 mmHg. No contrast was given. CV CPACS PT Coag (Bld) [Time]on 07-24 INR Coag (PPP) [Relative time] 3.7 {INR} Abnormal 0.9 - 1.1 [facility] Interpretation and review of laboratory results Abnormal [facility] Protime-INRon 07-24-2022 PT Coag (Bld) [Time] 9.0 - 12.0 s [facility] Therapy Communicationon Therapy Communication Message HERNAN BRITO was (D/C)- last seen: 05/13/22. Pt attended 18 visits. Pt called and cancelled all appts. Message left at physicians office. No return phone call. D/c at this time. Signatures Electronically signed by : DUSTIN Grant/Harish; Jun 19 2022 9:23AM EST (Author) Normal [facility] Progress Noteon OT Progress Note Therapy Diagnosis Assessed Left elbow pain (719.42) (M25.522) Decreased range of motion of left elbow (719.52) (M25.622) Plan Goals: Goals set and discussed today. STG: HERNAN will demonstrate good carryover of HEP for ROM, strengthening and coordination in order to improve functional independence at home/work by 2 weeks. 03/20 Pt reporting if she is not sore she does them 3 times a day, but if she is sore she does not complete 04/16 Pt reporting on less busy days she completes HEP 2x/day reports about 3/7 days LTG: HERNAN will demonstrate improved functional independence at home by a decreased DASH score by to below 50% by 6 weeks. 03/20 50% this date 04/14 52.27% this date, continue LTG: HERNAN will demo increased elbow extension to no more than 15 degree lack pain free and elbow flexion to 80 degrees pain free by 6 weeks 03/20 20 degree extension lacvk, 115 degrees flexion, CONTINUE 04/16 20 degree extension lack, 140 degrees flexion, UPGRADE flexion to 160 flexion LTG: HERNAN will demo decrease in scar length by 2cm to demo good scar management and prevent deformity by 6 weeks. 03/20 Decrease of 1 cm, CONTINUE 04/14 Decrease of 1cm overall this date, continue LTG: HERNAN will increase L barn hand strength by 15 lbs to increase I with manipulating heavier objects to complete work and home tasks in 4 weeks. 04/16 7lbs this date, CONTINUE LTG: HERNAN to improve L hand coordination by decreasing 9HPT time by 5 seconds with no drops to improve manipulation of small objects. 04/16 Decrease to 22seconds this date, overall decrease of 9 seconds. GOAL MET LTG: HERNAN will demo 4/5 or better in LUE elbow and shoulder with minimal pain by 4 weeks. 04/16 3/5 LUE this date. LTG: HERNAN will report sleeping well 4/7 nights or more by 4 weeks 04/16 Pt reporting 0/7 nights per week sleeping through pain. pt reporting she does wake up but is able to reposition back to sleep. LTG: HERNAN will demo increased elbow extension with hand pronated to 90 degrees or more pain free by 5 weeks. Motor Function/Control/Tone : Intervention plan include: fluidotherapy , hot pack , paraffin , ultrasound , compression bandaging , education/instruction , home program , manual therapy , therapeutic activities and therapeutic exercises. Frequency and duration: 2 time(s) a week, for 6 weeks, for 12 visits. Potential to achieve rehab goals is good. 04/16 Continue POC 2x/week for 5 weeks. Assessment Pt very painful this date with elbow flex/ext but demos increased ROM with AAROM. Pt demos increased sup/pro of wrist with hammer activity, demos significant weakness and lack of control with hammer. Patient was able to complete today's treatment with much difficulty. Reason For Visit Initial Evaluation, Evaluation and Treatment. Reason for Referral: removal of L radial head. Referred by Abiodun Hastings. Adult Risk Screening There are no spiritual/cultural practices/values/need s that are important to know Initial Fall Risk Screening: HERNAN has not fallen in the last 6 months. Her fall did not result in injury. HERNAN does not have a fear of falling. She does not need assistance with sitting, standing or walking. Does not need assistance walking in her home. She does not need assistance in an unfamiliar setting. The patient is not using an assistive device. Please identify location of pain: L wrist, forearm, elbow. Pain Quality: sharp. The pain makes it hard for the patient to do these things: work, house work, relationships with family or friends and self-care (bathing, dressing, eating). Living Will. Living Will: No living will on file. Healthcare POA: No healthcare proxy on file. Declaration of Mental Health Treatment: No mental health treatment on file. Insurance Insurance reviewed Visit number: 24 Approved number of visits: 70 [facility] 10/18 POC 24 INS Onset Date: 2021 Subjective Patient reports:. 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 Some bruising to tricep region. Objective Integumentary: Edema: Location #1: ELBOW and circumferential measurement (cm) 31Size: 9 cm cm 9 cm overall, 8 white and healed, 1.5 raised. ROM/JointMobility: (Range of Motion in degrees) Elbow: (Yusuf = P! Denotes Pain with Movement) Extension: L Active 20 degree lack. Flexion: L Active 20-140 . Supination L Active 0-170 P!. Pronation: L Active 180. Wrist: (Yusuf = P! Denotes Pain with Movement) Extension: L Active 0-55. Flexion: L Active 0-60. Radial deviation: L Active 0-20. Ulnar deviation: L Active 0-30. Supination: L Active 0-170. Hand: (Yusuf: Ext/Flex Finger abbrev. IF, MF, RF, SF P! Denotes Pain with Movement + Hypertension, - Extension Deficit) Thumb: Thumb opposition to all Additional Information: No elbow extension with hand pronated, very painful. Strength: Hands (Yusuf: P! Denotes Pain with Movement) Hand Dom (more content not included)... Normal [employer] Therapy Communicationon Therapy Communication Message HERNAN BRITO canceled today . Pt called restaurant front manager and stated she will be cancelling all appts per physician stating to stop going. She was unable to tell us which physician she was seeing this morning. Therapist attempted to call physician office at [phone] but was placed on extensive hold. Please call Rose Page OT to discuss. Thank you, Rose Page OTR/L. Signatures Electronically signed by : Rosemaribell Page OTR/L; May 15 2022 10:53AM EST (Author) Normal [facility] [employer] Therapy Communication Message HERNAN BRITO was (D/C)- last seen: 05/13/22. Per restaurant front manager pt called to cancel remaining appts per physician instruction. Fax and message left at office. D/c if not further follow up is made. Signatures Electronically signed by : DUSTIN Grant/Harish; May 15 2022 10:57AM EST (Author) Normal [facility] Progress Noteon 2 OT Progress Note Therapy Diagnosis Assessed Decreased range of motion of left elbow (719.52) (M25.622) Left elbow pain (719.42) (M25.522) Plan Goals: Goals set and discussed today. STG: HERNAN will demonstrate good carryover of HEP for ROM, strengthening and coordination in order to improve functional independence at home/work by 2 weeks. 03/20 Pt reporting if she is not sore she does them 3 times a day, but if she is sore she does not complete 04/16 Pt reporting on less busy days she completes HEP 2x/day reports about 3/7 days LTG: HERNAN will demonstrate improved functional independence at home by a decreased DASH score by to below 50% by 6 weeks. 03/20 50% this date 04/14 52.27% this date, continue LTG: HERNAN will demo increased elbow extension to no more than 15 degree lack pain free and elbow flexion to 80 degrees pain free by 6 weeks 03/20 20 degree extension lacvk, 115 degrees flexion, CONTINUE 04/16 20 degree extension lack, 140 degrees flexion, UPGRADE flexion to 160 flexion LTG: HERNAN will demo decrease in scar length by 2cm to demo good scar management and prevent deformity by 6 weeks. 03/20 Decrease of 1 cm, CONTINUE 04/14 Decrease of 1cm overall this date, continue LTG: HERNAN will increase L barn hand strength by 15 lbs to increase I with manipulating heavier objects to complete work and home tasks in 4 weeks. 04/16 7lbs this date, CONTINUE LTG: HERNAN to improve L hand coordination by decreasing 9HPT time by 5 seconds with no drops to improve manipulation of small objects. 04/16 Decrease to 22seconds this date, overall decrease of 9 seconds. GOAL MET LTG: HERNAN will demo 4/5 or better in LUE elbow and shoulder with minimal pain by 4 weeks. 04/16 3/5 LUE this date. LTG: HERNAN will report sleeping well 4/7 nights or more by 4 weeks 04/16 Pt reporting 0/7 nights per week sleeping through pain. pt reporting she does wake up but is able to reposition back to sleep. LTG: HERNAN will demo increased elbow extension with hand pronated to 90 degrees or more pain free by 5 weeks. Motor Function/Control/Tone : Intervention plan include: fluidotherapy , hot pack , paraffin , ultrasound , compression bandaging , education/instruction , home program , manual therapy , therapeutic activities and therapeutic exercises. Frequency and duration: 2 time(s) a week, for 6 weeks, for 12 visits. Potential to achieve rehab goals is good. 04/16 Continue POC 2x/week for 5 weeks. Assessment Patient c/o increased pain w/ activities this date, patient states she is unable to flex elbow this date d/t yesterdays session. Patient was able to complete today's treatment with much difficulty. Reason For Visit Initial Evaluation, Evaluation and Treatment. Reason for Referral: removal of L radial head. Referred by bAiodun Hastings. Adult Risk Screening There are no spiritual/cultural practices/values/need s that are important to know Initial Fall Risk Screening: HERNAN has not fallen in the last 6 months. Her fall did not result in injury. HERNAN does not have a fear of falling. She does not need assistance with sitting, standing or walking. Does not need assistance walking in her home. She does not need assistance in an unfamiliar setting. The patient is not using an assistive device. Please identify location of pain: L wrist, forearm, elbow. Pain Quality: sharp. The pain makes it hard for the patient to do these things: work, house work, relationships with family or friends and self-care (bathing, dressing, eating). Living Will. Living Will: No living will on file. Healthcare POA: No healthcare proxy on file. Declaration of Mental Health Treatment: No mental health treatment on file. Insurance Insurance reviewed Visit number: 23 Approved number of visits: 70 [facility] 09/17 POC 23 INS Onset Date: 2021 Subjective Patient reports:. Patient seen two days in a row this week, scheduled in 30 min slot this week. Patient states she does not do her exercises at home when she has therapy. Patient very tight in L elbow this date. Objective Integumentary: Edema: Location #1: ELBOW and circumferential measurement (cm) 31Size: 9 cm cm 9 cm overall, 8 white and healed, 1.5 raised. ROM/JointMobility: (Range of Motion in degrees) Elbow: (Yusuf = P! Denotes Pain with Movement) Extension: L Active 20 degree lack. Flexion: L Active 20-140 . Supination L Active 0-170 P!. Pronation: L Active 180. Wrist: (Yusuf = P! Denotes Pain with Movement) Extension: L Active 0-55. Flexion: L Active 0-60. Radial deviation: L Active 0-20. Ulnar deviation: L Active 0-30. Supination: L Active 0-170. Hand: (Yusuf: Ext/Flex Finger abbrev. IF, MF, RF, SF P! Denotes Pain with Movement + Hypertension, - Extension Deficit) Thumb: Thumb opposition to all Additional Information: No elbow extension with hand pronated, very painful. Strength: Hands (Yusuf: P! Denotes Pain with Movement) (more content not included)... Normal [facility] OT Progress Noteon 2 OT Progress Note Therapy Diagnosis Assessed Decreased range of motion of left elbow (719.52) (M25.622) Left elbow pain (719.42) (M25.522) Plan Goals: Goals set and discussed today. STG: HERNAN will demonstrate good carryover of HEP for ROM, strengthening and coordination in order to improve functional independence at home/work by 2 weeks. 03/20 Pt reporting if she is not sore she does them 3 times a day, but if she is sore she does not complete 12/ Pt reporting on less busy days she completes HEP 2x/day reports about 3/7 days LTG: HERNAN will demonstrate improved functional independence at home by a decreased DASH score by to below 50% by 6 weeks. 03/20 50% this date 04/14 52.27% this date, continue LTG: HERNAN will demo increased elbow extension to no more than 15 degree lack pain free and elbow flexion to 80 degrees pain free by 6 weeks 03/20 20 degree extension lacvk, 115 degrees flexion, CONTINUE 04/16 20 degree extension lack, 140 degrees flexion, UPGRADE flexion to 160 flexion LTG: HERNAN will demo decrease in scar length by 2cm to demo good scar management and prevent deformity by 6 weeks. 03/20 Decrease of 1 cm, CONTINUE 04/14 Decrease of 1cm overall this date, continue LTG: HERNAN will increase L barn hand strength by 15 lbs to increase I with manipulating heavier objects to complete work and home tasks in 4 weeks. 04/16 7lbs this date, CONTINUE LTG: HERNAN to improve L hand coordination by decreasing 9HPT time by 5 seconds with no drops to improve manipulation of small objects. 04/16 Decrease to 22seconds this date, overall decrease of 9 seconds. GOAL MET LTG: HERNAN will demo 4/5 or better in LUE elbow and shoulder with minimal pain by 4 weeks. 04/16 3/5 LUE this date. LTG: HERNAN will report sleeping well 4/7 nights or more by 4 weeks 04/16 Pt reporting 0/7 nights per week sleeping through pain. pt reporting she does wake up but is able to reposition back to sleep. LTG: HERNAN will demo increased elbow extension with hand pronated to 90 degrees or more pain free by 5 weeks. Motor Function/Control/Tone : Intervention plan include: fluidotherapy , hot pack , paraffin , ultrasound , compression bandaging , education/instruction , home program , manual therapy , therapeutic activities and therapeutic exercises. Frequency and duration: 2 time(s) a week, for 6 weeks, for 12 visits. Potential to achieve rehab goals is good. 04/16 Continue POC 2x/week for 5 weeks. Assessment Patient tolerating cupping well this date, states elbow feels really good at end of session. Patient was able to complete today's treatment with much difficulty. Reason For Visit Initial Evaluation, Evaluation and Treatment. Reason for Referral: removal of L radial head. Referred by Abiodun Hastings. Adult Risk Screening There are no spiritual/cultural practices/values/need s that are important to know Initial Fall Risk Screening: HERNAN has not fallen in the last 6 months. Her fall did not result in injury. HERNAN does not have a fear of falling. She does not need assistance with sitting, standing or walking. Does not need assistance walking in her home. She does not need assistance in an unfamiliar setting. The patient is not using an assistive device. Please identify location of pain: L wrist, forearm, elbow. Pain Quality: sharp. The pain makes it hard for the patient to do these things: work, house work, relationships with family or friends and self-care (bathing, dressing, eating). Living Will. Living Will: No living will on file. Healthcare POA: No healthcare proxy on file. Declaration of Mental Health Treatment: No mental health treatment on file. Insurance Insurance reviewed Visit number: 21 Approved number of visits: 70 [facility] 07/18 POC 21 INS Onset Date: 2021 Subjective Patient reports:. 0/10 pain reported at beginning of session. Precautions: no active ROM NO RESTRICTIONS. Fall Risk: none Objective Integumentary: Edema: Location #1: ELBOW and circumferential measurement (cm) 31Size: 9 cm cm 9 cm overall, 8 white and healed, 1.5 raised. ROM/JointMobility: (Range of Motion in degrees) Elbow: (Yusuf = P! Denotes Pain with Movement) Extension: L Active 20 degree lack. Flexion: L Active 20-140 . Supination L Active 0-170 P!. Pronation: L Active 180. Wrist: (Yusuf = P! Denotes Pain with Movement) Extension: L Active 0-55. Flexion: L Active 0-60. Radial deviation: L Active 0-20. Ulnar deviation: L Active 0-30. Supination: L Active 0-170. Hand: (Yusuf: Ext/Flex Finger abbrev. IF, MF, RF, SF P! Denotes Pain with Movement + Hypertension, - Extension Deficit) Thumb: Thumb opposition to all Additional Information: No elbow extension with hand pronated, very painful. Strength: Hands (Yusuf: P! Denotes Pain with Movement) Hand Dominance: Right Occupational Nurse Strength: level III 50 lbs on the right and level III 7 P! lbs on the left. The yusuf pinch (more content not included)... Normal [facility] OT Progress Noteon 2 OT Progress Note Therapy Diagnosis Assessed Left elbow pain (719.42) (M25.522) Plan Goals: Goals set and discussed today. STG: HERNAN will demonstrate good carryover of HEP for ROM, strengthening and coordination in order to improve functional independence at home/work by 2 weeks. 03/20 Pt reporting if she is not sore she does them 3 times a day, but if she is sore she does not complete 04/16 Pt reporting on less busy days she completes HEP 2x/day reports about 3/7 days LTG: HERNAN will demonstrate improved functional independence at home by a decreased DASH score by to below 50% by 6 weeks. 03/20 50% this date 04/14 52.27% this date, continue LTG: HERNAN will demo increased elbow extension to no more than 15 degree lack pain free and elbow flexion to 80 degrees pain free by 6 weeks 03/20 20 degree extension lacvk, 115 degrees flexion, CONTINUE 04/16 20 degree extension lack, 140 degrees flexion, UPGRADE flexion to 160 flexion LTG: HERNAN will demo decrease in scar length by 2cm to demo good scar management and prevent deformity by 6 weeks. 03/20 Decrease of 1 cm, CONTINUE 04/14 Decrease of 1cm overall this date, continue LTG: HERNAN will increase L barn hand strength by 15 lbs to increase I with manipulating heavier objects to complete work and home tasks in 4 weeks. 04/16 7lbs this date, CONTINUE LTG: HERNAN to improve L hand coordination by decreasing 9HPT time by 5 seconds with no drops to improve manipulation of small objects. 04/16 Decrease to 22seconds this date, overall decrease of 9 seconds. GOAL MET LTG: HERNAN will demo 4/5 or better in LUE elbow and shoulder with minimal pain by 4 weeks. 04/16 3/5 LUE this date. LTG: HERNAN will report sleeping well 4/7 nights or more by 4 weeks 04/16 Pt reporting 0/7 nights per week sleeping through pain. pt reporting she does wake up but is able to reposition back to sleep. LTG: HERNAN will demo increased elbow extension with hand pronated to 90 degrees or more pain free by 5 weeks. Motor Function/Control/Tone : Intervention plan include: fluidotherapy , hot pack , paraffin , ultrasound , compression bandaging , education/instruction , home program , manual therapy , therapeutic activities and therapeutic exercises. Frequency and duration: 2 time(s) a week, for 6 weeks, for 12 visits. Potential to achieve rehab goals is good. 04/16 Continue POC 2x/week for 5 weeks. Assessment Extended time and several breaks required for dowel activity patient c/o increased pain during at activity and at end of session. Patient was able to complete today's treatment with much difficulty. Reason For Visit Initial Evaluation, Evaluation and Treatment. Reason for Referral: removal of L radial head. Referred by Abiodun Hastings. Adult Risk Screening There are no spiritual/cultural practices/values/need s that are important to know Initial Fall Risk Screening: HERNAN has not fallen in the last 6 months. Her fall did not result in injury. HERNAN does not have a fear of falling. She does not need assistance with sitting, standing or walking. Does not need assistance walking in her home. She does not need assistance in an unfamiliar setting. The patient is not using an assistive device. Please identify location of pain: L wrist, forearm, elbow. Pain Quality: sharp. The pain makes it hard for the patient to do these things: work, house work, relationships with family or friends and self-care (bathing, dressing, eating). Living Will. Living Will: No living will on file. Healthcare POA: No healthcare proxy on file. Declaration of Mental Health Treatment: No mental health treatment on file. Insurance Insurance reviewed Visit number: 20 Approved number of visits: 70 [facility] 06/20 POC 20 INS Onset Date: 2021 Subjective Patient reports:. Patient 1/10 pain without movement 6-7/10 pain w/ movement states elbow is bruised from last session. Precautions: no active ROM NO RESTRICTIONS. Fall Risk: none Objective Integumentary: Edema: Location #1: ELBOW and circumferential measurement (cm) 31Size: 9 cm cm 9 cm overall, 8 white and healed, 1.5 raised. ROM/JointMobility: (Range of Motion in degrees) Elbow: (Yusuf = P! Denotes Pain with Movement) Extension: L Active 20 degree lack. Flexion: L Active 20-140 . Supination L Active 0-170 P!. Pronation: L Active 180. Wrist: (Yusuf = P! Denotes Pain with Movement) Extension: L Active 0-55. Flexion: L Active 0-60. Radial deviation: L Active 0-20. Ulnar deviation: L Active 0-30. Supination: L Active 0-170. Hand: (Yusuf: Ext/Flex Finger abbrev. IF, MF, RF, SF P! Denotes Pain with Movement + Hypertension, - Extension Deficit) Thumb: Thumb opposition to all Additional Information: No elbow extension with hand pronated, very painful. Strength: Hands (Yusuf: P! Denotes Pain with Movement) Hand Dominance: Right Occupational Nurse Strength: level III 50 lbs on the right and level III 7 P (more content not included)... Normal [facility] OT Progress Noteon 2 OT Progress Note Therapy Diagnosis Assessed Decreased range of motion of left elbow (719.52) (M25.622) Left elbow pain (719.42) (M25.522) Plan Goals: Goals set and discussed today. STG: HERNAN will demonstrate good carryover of HEP for ROM, strengthening and coordination in order to improve functional independence at home/work by 2 weeks. 03/20 Pt reporting if she is not sore she does them 3 times a day, but if she is sore she does not complete 04/16 Pt reporting on less busy days she completes HEP 2x/day reports about 3/7 days LTG: HERNAN will demonstrate improved functional independence at home by a decreased DASH score by to below 50% by 6 weeks. 03/20 50% this date 04/14 52.27% this date, continue LTG: HERNAN will demo increased elbow extension to no more than 15 degree lack pain free and elbow flexion to 80 degrees pain free by 6 weeks 03/20 20 degree extension lacvk, 115 degrees flexion, CONTINUE 04/16 20 degree extension lack, 140 degrees flexion, UPGRADE flexion to 160 flexion LTG: HERNAN will demo decrease in scar length by 2cm to demo good scar management and prevent deformity by 6 weeks. 03/20 Decrease of 1 cm, CONTINUE 04/14 Decrease of 1cm overall this date, continue LTG: HERNAN will increase L barn hand strength by 15 lbs to increase I with manipulating heavier objects to complete work and home tasks in 4 weeks. 04/16 7lbs this date, CONTINUE LTG: HERNAN to improve L hand coordination by decreasing 9HPT time by 5 seconds with no drops to improve manipulation of small objects. 04/16 Decrease to 22seconds this date, overall decrease of 9 seconds. GOAL MET LTG: HERNAN will demo 4/5 or better in LUE elbow and shoulder with minimal pain by 4 weeks. 04/16 3/5 LUE this date. LTG: HERNAN will report sleeping well 4/7 nights or more by 4 weeks 04/16 Pt reporting 0/7 nights per week sleeping through pain. pt reporting she does wake up but is able to reposition back to sleep. LTG: HERNAN will demo increased elbow extension with hand pronated to 90 degrees or more pain free by 5 weeks. Motor Function/Control/Tone : Intervention plan include: fluidotherapy , hot pack , paraffin , ultrasound , compression bandaging , education/instruction , home program , manual therapy , therapeutic activities and therapeutic exercises. Frequency and duration: 2 time(s) a week, for 6 weeks, for 12 visits. Potential to achieve rehab goals is good. 04/16 Continue POC 2x/week for 5 weeks. Assessment Pt tolerating IASTM and US much better this date. Pt muscles very tight at beginning of session but demos increased elbow extension at end of session. Educated to keep arm down and extended rather than flexed and guarded. Patient was able to complete today's treatment with much difficulty. Reason For Visit Initial Evaluation, Evaluation and Treatment. Reason for Referral: removal of L radial head. Referred by Abiodun Hastings. Adult Risk Screening There are no spiritual/cultural practices/values/need s that are important to know Initial Fall Risk Screening: HERNAN has not fallen in the last 6 months. Her fall did not result in injury. HERNAN does not have a fear of falling. She does not need assistance with sitting, standing or walking. Does not need assistance walking in her home. She does not need assistance in an unfamiliar setting. The patient is not using an assistive device. Please identify location of pain: L wrist, forearm, elbow. Pain Quality: sharp. The pain makes it hard for the patient to do these things: work, house work, relationships with family or friends and self-care (bathing, dressing, eating). Living Will. Living Will: No living will on file. Healthcare POA: No healthcare proxy on file. Declaration of Mental Health Treatment: No mental health treatment on file. Insurance Insurance reviewed Visit number: 19 Approved number of visits: 70 [facility] 05/20 POC 19 INS Onset Date: 2021 Subjective Patient reports:. Pt reporting work has been a rough go of it. Pt reporting she has only be able to do her stretches 1x a day and its very painful. Precautions: no active ROM NO RESTRICTIONS. Fall Risk: none Objective Integumentary: Edema: Location #1: ELBOW and circumferential measurement (cm) 31Size: 9 cm cm 9 cm overall, 8 white and healed, 1.5 raised. ROM/JointMobility: (Range of Motion in degrees) Elbow: (Yusuf = P! Denotes Pain with Movement) Extension: L Active 20 degree lack. Flexion: L Active 20-140 . Supination L Active 0-170 P!. Pronation: L Active 180. Wrist: (Yusuf = P! Denotes Pain with Movement) Extension: L Active 0-55. Flexion: L Active 0-60. Radial deviation: L Active 0-20. Ulnar deviation: L Active 0-30. Supination: L Active 0-170. Hand: (Yusuf: Ext/Flex Finger abbrev. IF, MF, RF, SF P! Denotes Pain with Movement + Hypertension, - Extension Deficit) Thumb: Thumb opposition to all Additional Information: No elbow extension w (more content not included)... Normal [facility] OT Progress Noteon 2 OT Progress Note Therapy Diagnosis Assessed Left elbow pain (719.42) (M25.522) Decreased range of motion of left elbow (719.52) (M25.622) Plan Goals: Goals set and discussed today. STG: HERNAN will demonstrate good carryover of HEP for ROM, strengthening and coordination in order to improve functional independence at home/work by 2 weeks. 03/20 Pt reporting if she is not sore she does them 3 times a day, but if she is sore she does not complete 04/16 Pt reporting on less busy days she completes HEP 2x/day reports about 3/7 days LTG: HERNAN will demonstrate improved functional independence at home by a decreased DASH score by to below 50% by 6 weeks. 03/20 50% this date 04/14 52.27% this date, continue LTG: HERNAN will demo increased elbow extension to no more than 15 degree lack pain free and elbow flexion to 80 degrees pain free by 6 weeks 03/20 20 degree extension lacvk, 115 degrees flexion, CONTINUE 04/16 20 degree extension lack, 140 degrees flexion, UPGRADE flexion to 160 flexion LTG: HERNAN will demo decrease in scar length by 2cm to demo good scar management and prevent deformity by 6 weeks. 03/20 Decrease of 1 cm, CONTINUE 04/14 Decrease of 1cm overall this date, continue LTG: HERNAN will increase L barn hand strength by 15 lbs to increase I with manipulating heavier objects to complete work and home tasks in 4 weeks. 04/16 7lbs this date, CONTINUE LTG: HERNAN to improve L hand coordination by decreasing 9HPT time by 5 seconds with no drops to improve manipulation of small objects. 04/16 Decrease to 22seconds this date, overall decrease of 9 seconds. GOAL MET LTG: HERNAN will demo 4/5 or better in LUE elbow and shoulder with minimal pain by 4 weeks. 04/16 3/5 LUE this date. LTG: HERNAN will report sleeping well 4/7 nights or more by 4 weeks 04/16 Pt reporting 0/7 nights per week sleeping through pain. pt reporting she does wake up but is able to reposition back to sleep. LTG: HERNAN will demo increased elbow extension with hand pronated to 90 degrees or more pain free by 5 weeks. Motor Function/Control/Tone : Intervention plan include: fluidotherapy , hot pack , paraffin , ultrasound , compression bandaging , education/instruction , home program , manual therapy , therapeutic activities and therapeutic exercises. Frequency and duration: 2 time(s) a week, for 6 weeks, for 12 visits. Potential to achieve rehab goals is good. 04/16 Continue POC 2x/week for 5 weeks. Assessment Patients Response to Today's Treatment: orthosis - independent with don/doffing. Pt demos some improvement with recheck this date with ROM and FMC. Pt demos no change on barn hand strength and only slight improvement of pinch strength. Pt still very limited with elbow extension in any position aside from neutral. Pt provided t sponge HEP for strengthening and reminder of importance of completing HEP, stretching and massage at home to facilitate most improvement possible. Pt returns to work tomorrow and educated on reporting difficulties to therapist so adaptations can be put in place. Pt appears discouraged by lack of progress this date and educated on prognosis with intensive surgery. Pt in agrement to continue therapy to help increase QOL and to return to best recent PLOF. Pt has met goals with [] and []. Pt still presenting with [] and []. Pt provided [] this date for increased challenge. Pt still presenting with deficits with [] this date. Pt would continue to benefit from additional skilled therapy services. Extend POC to address new/updated goals. Patient was able to complete today's treatment with much difficulty. Reason For Visit Initial Evaluation, Evaluation and Treatment. Reason for Referral: removal of L radial head. Referred by Abiodun Hastings. Adult Risk Screening There are no spiritual/cultural practices/values/need s that are important to know Initial Fall Risk Screening: HERNAN has not fallen in the last 6 months. Her fall did not result in injury. HERNAN does not have a fear of falling. She does not need assistance with sitting, standing or walking. Does not need assistance walking in her home. She does not need assistance in an unfamiliar setting. The patient is not using an assistive device. Please identify location of pain: L wrist, forearm, elbow. Pain Quality: sharp. The pain makes it hard for the patient to do these things: work, house work, relationships with family or friends and self-care (bathing, dressing, eating). Living Will. Living Will: No living will on file. Healthcare POA: No healthcare proxy on file. Declaration of Mental Health Treatment: No mental health treatment on file. Insurance Insurance reviewed Visit number: 18 Approved number of visits: 70 [facility] 10/16 POC 18 INS Onset Date: 2021 Subjective Patient reports:. Pt reporting she drove all the way to [place] on her own. Pt reporting she has had less difficulty with her hair. Pt also reporting she has been able to lift (more content not included)... Normal [facility] Therapy Re-eval Noteon 04-16 Therapy Re-eval Note Therapy Diagnosis Assessed Left elbow pain (719.42) (M25.522) Decreased range of motion of left elbow (719.52) (M25.622) Plan Goals: Goals set and discussed today. STG: HERNAN will demonstrate good carryover of HEP for ROM, strengthening and coordination in order to improve functional independence at home/work by 2 weeks. / Pt reporting if she is not sore she does them 3 times a day, but if she is sore she does not complete 04/16 Pt reporting on less busy days she completes HEP 2x/day reports about 3/7 days LTG: HERNAN will demonstrate improved functional independence at home by a decreased DASH score by to below 50% by 6 weeks. 03/20 50% this date 04/14 52.27% this date, continue LTG: HERNAN will demo increased elbow extension to no more than 15 degree lack pain free and elbow flexion to 80 degrees pain free by 6 weeks 03/20 20 degree extension lacvk, 115 degrees flexion, CONTINUE 04/16 20 degree extension lack, 140 degrees flexion, UPGRADE flexion to 160 flexion LTG: HERNAN will demo decrease in scar length by 2cm to demo good scar management and prevent deformity by 6 weeks. 03/20 Decrease of 1 cm, CONTINUE 04/14 Decrease of 1cm overall this date, continue LTG: HERNAN will increase L barn hand strength by 15 lbs to increase I with manipulating heavier objects to complete work and home tasks in 4 weeks. 04/16 7lbs this date, CONTINUE LTG: HERNAN to improve L hand coordination by decreasing 9HPT time by 5 seconds with no drops to improve manipulation of small objects. 04/16 Decrease to 22seconds this date, overall decrease of 9 seconds. GOAL MET LTG: HERNAN will demo 4/5 or better in LUE elbow and shoulder with minimal pain by 4 weeks. 04/16 3/5 LUE this date. LTG: HERNAN will report sleeping well 4/7 nights or more by 4 weeks 04/16 Pt reporting 0/7 nights per week sleeping through pain. pt reporting she does wake up but is able to reposition back to sleep. LTG: HERNAN will demo increased elbow extension with hand pronated to 90 degrees or more pain free by 5 weeks. Motor Function/Control/Tone : Intervention plan include: fluidotherapy , hot pack , paraffin , ultrasound , compression bandaging , education/instruction , home program , manual therapy , therapeutic activities and therapeutic exercises. Frequency and duration: 2 time(s) a week, for 6 weeks, for 12 visits. Potential to achieve rehab goals is good. 04/16 Continue POC 2x/week for 5 weeks. Assessment Patients Response to Today's Treatment: orthosis - independent with don/doffing. Pt demos some improvement with recheck this date with ROM and FMC. Pt demos no change on barn hand strength and only slight improvement of pinch strength. Pt still very limited with elbow extension in any position aside from neutral. Pt provided t sponge HEP for strengthening and reminder of importance of completing HEP, stretching and massage at home to facilitate most improvement possible. Pt returns to work tomorrow and educated on reporting difficulties to therapist so adaptations can be put in place. Pt appears discouraged by lack of progress this date and educated on prognosis with intensive surgery. Pt in agrement to continue therapy to help increase QOL and to return to best recent PLOF. Pt has met goals with [] and []. Pt still presenting with [] and []. Pt provided [] this date for increased challenge. Pt still presenting with deficits with [] this date. Pt would continue to benefit from additional skilled therapy services. Extend POC to address new/updated goals. Patient was able to complete today's treatment with much difficulty. Reason For Visit Reason for Visit_OT_[facility]: Initial Evaluation, Evaluation and Treatment. Reason for Referral: removal of L radial head. Referred by Abiodun Hastings. Adult Risk Screening There are no spiritual/cultural practices/values/need s that are important to know Initial Fall Risk Screening: HERNAN has not fallen in the last 6 months. Her fall did not result in injury. HERNAN does not have a fear of falling. She does not need assistance with sitting, standing or walking. Does not need assistance walking in her home. She does not need assistance in an unfamiliar setting. The patient is not using an assistive device. Please identify location of pain: L wrist, forearm, elbow. Pain Quality: sharp. The pain makes it hard for the patient to do these things: work, house work, relationships with family or friends and self-care (bathing, dressing, eating). Living Will. Living Will: No living will on file. Healthcare POA: No healthcare proxy on file. Declaration of Mental Health Treatment: No mental health treatment on file. Insurance Insurance reviewed Visit number: 18 Approved number of visits: 70 [facility] 10/16 POC 18 INS Onset Date: 2021 Subjective Patient reports:. Pt reporting she drove all the way to [place] on her own. Pt reporting she has had less difficulty with her hair. Pt also reporting (more content not included)... [facility] OT Progress Noteon 2 OT Progress Note Therapy Diagnosis Assessed Left elbow pain (719.42) (M25.522) Plan Goals: Goals set and discussed today. STG: HERNAN will demonstrate good carryover of HEP for ROM, strengthening and coordination in order to improve functional independence at home/work by 2 weeks. 03/20 Pt reporting if she is not sore she does them 3 times a day, but if she is sore she does not complete LTG: HERNAN will demonstrate improved functional independence at home by a decreased DASH score by to below 50% by 6 weeks. 03/20 50% this date LTG: HERNAN will demo increased elbow extension to no more than 15 degree lack pain free and elbow flexion to 80 degrees pain free by 6 weeks 03/20 20 degree extension lacvk, 115 degrees flexion, CONTINUE LTG: HERNAN will demo decrease in scar length by 2cm to demo good scar management and prevent deformity by 6 weeks. 03/20 Decrease of 1 cm, CONTINUE LTG: HERNAN will increase L barn hand strength by 15 lbs to increase I with manipulating heavier objects to complete work and home tasks in 4 weeks. LTG: HERNAN to improve L hand coordination by decreasing 9HPT time by 5 seconds with no drops to improve manipulation of small objects. LTG: HERNAN will demo 4/5 or better in LUE elbow and shoulder with minimal pain by 4 weeks. LTG: HERNAN will report sleeping well 4/7 nights or more by 4 weeks Motor Function/Control/Tone : Intervention plan include: fluidotherapy , hot pack , paraffin , ultrasound , compression bandaging , education/instruction , home program , manual therapy , therapeutic activities and therapeutic exercises. Frequency and duration: 2 time(s) a week, for 6 weeks, for 12 visits. Potential to achieve rehab goals is good. Assessment Patients Response to Today's Treatment: orthosis - independent with don/doffing. Patient able to complete most activities w/ several breaks and tons of encouragement, patient requiring extensive education to keep moving arm at home d/t arm being stiff from lack of movement over past several days. LUE extremely tight this date, several adhesions found in L forearm, bicep and elbow region that have been recently broke down with cupping, IASTM and Manual massage d/t lack of use and carry over at home. Patient Strongly encouraged to call for early follow up d/t high pain and patient not having an appointment until the middle of May 2022. 10/10 pain reported with exercises this date session ended early d/t high pain and unable to complete hammer activity. Patient states she is going on vacation this weekend and will call when she has time and unsure when that would be. Patient was able to complete today's treatment with much difficulty. Reason For Visit Initial Evaluation, Evaluation and Treatment. Reason for Referral: removal of L radial head. Referred by Abiodun Hastings. Adult Risk Screening There are no spiritual/cultural practices/values/need s that are important to know Initial Fall Risk Screening: HERNAN has not fallen in the last 6 months. Her fall did not result in injury. HERNAN does not have a fear of falling. She does not need assistance with sitting, standing or walking. Does not need assistance walking in her home. She does not need assistance in an unfamiliar setting. The patient is not using an assistive device. Please identify location of pain: L wrist, forearm, elbow. Pain Quality: sharp. The pain makes it hard for the patient to do these things: work, house work, relationships with family or friends and self-care (bathing, dressing, eating). Living Will. Living Will: No living will on file. Healthcare POA: No healthcare proxy on file. Declaration of Mental Health Treatment: No mental health treatment on file. Insurance Insurance reviewed Visit number: 17 Approved number of visits: 70 [facility] 09/15 POC 17 INS Onset Date: 2021 Subjective Patient reports:. Patient reporting 5/10 pain in elbow this date w/o movement. 9/10 pain w/ movement. Patient encouraged to call to discuss pain patient states I am not calling my DrJason and I am not going there Patient states after cupping she did not move arm at all for two days and it feels very tight. Patient hesitant to do therapy this date however agreeing to try. Patient states she has not done exercises past 2 days. Precautions: no active ROM NO RESTRICTIONS. Fall Risk: none Objective Integumentary: Edema: Location #1: ELBOW and circumferential measurement (cm) 31Size: 9 cm cm 9 cm overall, 8.5 white and healed, 1.5 raised. ROM/JointMobility: (Range of Motion in degrees) Elbow: (Yusuf = P! Denotes Pain with Movement) Extension: L Active 20 degree lack. Flexion: L Active 20-115 P!. Supination L Active 0-160 P!. Pronation: L Active 0 P!. Wrist: (Yusuf = P! Denotes Pain with Movement) Extension: L Active 0-50. Flexion: L Active 0-50. Radial deviation: L Active 0-20. Ulnar deviation: L Active 0-30. Supination: L Active 0-1 (more content not included)... Normal [facility] OT Progress Noteon 2 OT Progress Note Therapy Diagnosis Assessed Left elbow pain (719.42) (M25.522) Plan Goals: Goals set and discussed today. STG: HERNAN will demonstrate good carryover of HEP for ROM, strengthening and coordination in order to improve functional independence at home/work by 2 weeks. 03/20 Pt reporting if she is not sore she does them 3 times a day, but if she is sore she does not complete LTG: HERNAN will demonstrate improved functional independence at home by a decreased DASH score by to below 50% by 6 weeks. 03/20 50% this date LTG: HERNAN will demo increased elbow extension to no more than 15 degree lack pain free and elbow flexion to 80 degrees pain free by 6 weeks 03/20 20 degree extension lacvk, 115 degrees flexion, CONTINUE LTG: HERNAN will demo decrease in scar length by 2cm to demo good scar management and prevent deformity by 6 weeks. 03/20 Decrease of 1 cm, CONTINUE LTG: HERNAN will increase L barn hand strength by 15 lbs to increase I with manipulating heavier objects to complete work and home tasks in 4 weeks. LTG: HERNAN to improve L hand coordination by decreasing 9HPT time by 5 seconds with no drops to improve manipulation of small objects. LTG: HERNAN will demo 4/5 or better in LUE elbow and shoulder with minimal pain by 4 weeks. LTG: HERNAN will report sleeping well 4/7 nights or more by 4 weeks Motor Function/Control/Tone : Intervention plan include: fluidotherapy , hot pack , paraffin , ultrasound , compression bandaging , education/instruction , home program , manual therapy , therapeutic activities and therapeutic exercises. Frequency and duration: 2 time(s) a week, for 6 weeks, for 12 visits. Potential to achieve rehab goals is good. Assessment Patients Response to Today's Treatment: orthosis - independent with don/doffing. Patient c/o 6/10 pain with exercises this date, patient given 2lb DB states I am unable to pick that up off the table given 1lb DB to complete exercises. Patient educated to continue with exercises at home for strengthening. Patient was able to complete today's treatment with much difficulty. Reason For Visit Initial Evaluation, Evaluation and Treatment. Reason for Referral: removal of L radial head. Referred by Abiodun Hastings. Adult Risk Screening There are no spiritual/cultural practices/values/need s that are important to know Initial Fall Risk Screening: HERNAN has not fallen in the last 6 months. Her fall did not result in injury. HERNAN does not have a fear of falling. She does not need assistance with sitting, standing or walking. Does not need assistance walking in her home. She does not need assistance in an unfamiliar setting. The patient is not using an assistive device. Please identify location of pain: L wrist, forearm, elbow. Pain Quality: sharp. The pain makes it hard for the patient to do these things: work, house work, relationships with family or friends and self-care (bathing, dressing, eating). Living Will. Living Will: No living will on file. Healthcare POA: No healthcare proxy on file. Declaration of Mental Health Treatment: No mental health treatment on file. Insurance Insurance reviewed Visit number: 16 Approved number of visits: 70 [facility] 08/16 POC 16 INS Onset Date: 2021 Subjective Patient reports:. Patient reporting 0/10 pain in elbow this date w/o movement. Precautions: no active ROM NO RESTRICTIONS. Fall Risk: none Objective Integumentary: Edema: Location #1: ELBOW and circumferential measurement (cm) 31Size: 9 cm cm 9 cm overall, 8.5 white and healed, 1.5 raised. ROM/JointMobility: (Range of Motion in degrees) Elbow: (Yusuf = P! Denotes Pain with Movement) Extension: L Active 20 degree lack. Flexion: L Active 20-115 P!. Supination L Active 0-160 P!. Pronation: L Active 0 P!. Wrist: (Yusuf = P! Denotes Pain with Movement) Extension: L Active 0-50. Flexion: L Active 0-50. Radial deviation: L Active 0-20. Ulnar deviation: L Active 0-30. Supination: L Active 0-170. Hand: (Yusuf: Ext/Flex Finger abbrev. IF, MF, RF, SF P! Denotes Pain with Movement + Hypertension, - Extension Deficit) Not Tested Due To: Surgery. Additional Information: no wrist AROM yet. Strength: Hands (Yusuf: P! Denotes Pain with Movement) Hand Dominance: Right Occupational Nurse Strength: level III 50 lbs on the right and level III 7 P! lbs on the left. The yusuf pinch trials for the right 14 lbs and left 9 P! lbs. 3 Point Pinch: right 10 lbs and left 4 lbs. Coordination and Manual Dexterity: 9 Hole Peg Test: 20 seconds on right, 31 seconds on the left Outcome Measures: Quick Dash score: 50.00 Treatment Time in clinic started at 1115 am Time in clinic ended at 1200 pm Total time in clinic is 45 minutes. Total timed code time is 43 minutes. Modalities: untimed minutes . Manual Therapy (85154): timed minutes 20 . [id number] -Cupping to dorsal forearm and bicep regions to break d (more content not included)... [facility] Therapy Communicationon 03-12 Therapy Communication Message HERNAN BRITO canceled today 04/15/22. Per PSR patient stated told her not to do OT treatments until they were able to see her in person. Patient has recheck with OT tomorrow 04/16/22. Signatures Electronically signed by : KELSEA Fuller/Harish; Apr 15 2022 3:45PM EST (Author) [facility] Therapy Communicationon 03-12 Therapy Communication Message HERNAN BRITO canceled today 04/02/22. d/t problems w/ vehicle. Signatures Electronically signed by : KELSEA Fuller/Harish; Apr 02 2022 3:23PM EST (Author) [facility] OT Progress Noteon OT Progress Note Therapy Diagnosis Assessed Left elbow pain (719.42) (M25.522) Plan Goals: Goals set and discussed today. STG: HERNAN will demonstrate good carryover of HEP for ROM, strengthening and coordination in order to improve functional independence at home/work by 2 weeks. 03/20 Pt reporting if she is not sore she does them 3 times a day, but if she is sore she does not complete LTG: HERNAN will demonstrate improved functional independence at home by a decreased DASH score by to below 50% by 6 weeks. 03/20 50% this date LTG: HERNAN will demo increased elbow extension to no more than 15 degree lack pain free and elbow flexion to 80 degrees pain free by 6 weeks 03/20 20 degree extension lacvk, 115 degrees flexion, CONTINUE LTG: HERNAN will demo decrease in scar length by 2cm to demo good scar management and prevent deformity by 6 weeks. 03/20 Decrease of 1 cm, CONTINUE LTG: HERNAN will increase L barn hand strength by 15 lbs to increase I with manipulating heavier objects to complete work and home tasks in 4 weeks. LTG: HERNAN to improve L hand coordination by decreasing 9HPT time by 5 seconds with no drops to improve manipulation of small objects. LTG: HERNAN will demo 4/5 or better in LUE elbow and shoulder with minimal pain by 4 weeks. LTG: HERNAN will report sleeping well 4/7 nights or more by 4 weeks Motor Function/Control/Tone : Intervention plan include: fluidotherapy , hot pack , paraffin , ultrasound , compression bandaging , education/instruction , home program , manual therapy , therapeutic activities and therapeutic exercises. Frequency and duration: 2 time(s) a week, for 6 weeks, for 12 visits. Potential to achieve rehab goals is good. Assessment Patients Response to Today's Treatment: orthosis - independent with don/doffing. Patient c/o increased pain 7/10 w/ PROM flexion and 5/10 w/ extension, patient demos increased ROM and decreased pain post stretching and cupping, states arm is sore. Patient c/o intense pain in dorsal forearm with light pressure prior to cupping then stating it does not hurt anymore there at all post cupping. Patient demos understanding of potential bruising and to drink water. Patient was able to complete today's treatment with much difficulty. Reason For Visit Initial Evaluation, Evaluation and Treatment. Reason for Referral: removal of L radial head. Referred by Abiodun Hastings. Adult Risk Screening There are no spiritual/cultural practices/values/need s that are important to know Initial Fall Risk Screening: HERNAN has not fallen in the last 6 months. Her fall did not result in injury. HERNAN does not have a fear of falling. She does not need assistance with sitting, standing or walking. Does not need assistance walking in her home. She does not need assistance in an unfamiliar setting. The patient is not using an assistive device. Please identify location of pain: L wrist, forearm, elbow. Pain Quality: sharp. The pain makes it hard for the patient to do these things: work, house work, relationships with family or friends and self-care (bathing, dressing, eating). Living Will. Living Will: No living will on file. Healthcare POA: No healthcare proxy on file. Declaration of Mental Health Treatment: No mental health treatment on file. Insurance Insurance reviewed Visit number: 15 Approved number of visits: 70 [facility] 07/16 POC 15 INS Onset Date: 2021 Subjective Patient reports:. Patient reporting 4/10 pain in elbow this date. Patient states she is compliant with exercises. Precautions: no active ROM NO RESTRICTIONS. Fall Risk: none Objective Integumentary: Edema: Location #1: ELBOW and circumferential measurement (cm) 31Size: 9 cm cm 9 cm overall, 8.5 white and healed, 1.5 raised. ROM/JointMobility: (Range of Motion in degrees) Elbow: (Yusuf = P! Denotes Pain with Movement) Extension: L Active 20 degree lack. Flexion: L Active 20-115 P!. Supination L Active 0-160 P!. Pronation: L Active 0 P!. Wrist: (Uysuf = P! Denotes Pain with Movement) Extension: L Active 0-50. Flexion: L Active 0-50. Radial deviation: L Active 0-20. Ulnar deviation: L Active 0-30. Supination: L Active 0-170. Hand: (Yusuf: Ext/Flex Finger abbrev. IF, MF, RF, SF P! Denotes Pain with Movement + Hypertension, - Extension Deficit) Not Tested Due To: Surgery. Additional Information: no wrist AROM yet. Strength: Hands (Yusuf: P! Denotes Pain with Movement) Hand Dominance: Right Occupational Nurse Strength: level III 50 lbs on the right and level III 7 P! lbs on the left. The yusuf pinch trials for the right 14 lbs and left 9 P! lbs. 3 Point Pinch: right 10 lbs and left 4 lbs. Coordination and Manual Dexterity: 9 Hole Peg Test: 20 seconds on right, 31 seconds on the left Outcome Measures: Quick Dash score: 50.00 Treatment Time in clinic started at 1345 am Time in clinic ended at 1430 am Total time in clinic is 4 (more content not included)... [facility] OT Progress Noteon 2 OT Progress Note Therapy Diagnosis Assessed Left elbow pain (719.42) (M25.522) Plan Goals: Goals set and discussed today. STG: HERNAN will demonstrate good carryover of HEP for ROM, strengthening and coordination in order to improve functional independence at home/work by 2 weeks. 11 Pt reporting if she is not sore she does them 3 times a day, but if she is sore she does not complete LTG: HERNAN will demonstrate improved functional independence at home by a decreased DASH score by to below 50% by 6 weeks. 03/20 50% this date LTG: HERNAN will demo increased elbow extension to no more than 15 degree lack pain free and elbow flexion to 80 degrees pain free by 6 weeks 03/20 20 degree extension lacvk, 115 degrees flexion, CONTINUE LTG: HERNAN will demo decrease in scar length by 2cm to demo good scar management and prevent deformity by 6 weeks. 03/20 Decrease of 1 cm, CONTINUE LTG: HERNAN will increase L barn hand strength by 15 lbs to increase I with manipulating heavier objects to complete work and home tasks in 4 weeks. LTG: HERNAN to improve L hand coordination by decreasing 9HPT time by 5 seconds with no drops to improve manipulation of small objects. LTG: HERNAN will demo 4/5 or better in LUE elbow and shoulder with minimal pain by 4 weeks. LTG: HERNAN will report sleeping well 4/7 nights or more by 4 weeks Motor Function/Control/Tone : Intervention plan include: fluidotherapy , hot pack , paraffin , ultrasound , compression bandaging , education/instruction , home program , manual therapy , therapeutic activities and therapeutic exercises. Frequency and duration: 2 time(s) a week, for 6 weeks, for 12 visits. Potential to achieve rehab goals is good. Assessment Patient unable to push Dystrophile on 2lb setting, however able to push 11lb ball back and forth on table. Patient unable to complete hammer exercise states hammer is too heavy and she is unable to turn it. Max A to hold L arm to attempt to complete activity. Patient strongly encouraged to continue hammer and isometric exercises at home w/ other exercises. reporting 6/10 pain in elbow and forearm at end of session. Patient was able to complete today's treatment with much difficulty. Reason For Visit Initial Evaluation, Evaluation and Treatment. Reason for Referral: removal of L radial head. Referred by Abiodun Hastings. Adult Risk Screening There are no spiritual/cultural practices/values/need s that are important to know Initial Fall Risk Screening: HERNAN has not fallen in the last 6 months. Her fall did not result in injury. HERNAN does not have a fear of falling. She does not need assistance with sitting, standing or walking. Does not need assistance walking in her home. She does not need assistance in an unfamiliar setting. The patient is not using an assistive device. Please identify location of pain: L wrist, forearm, elbow. Pain Quality: sharp. The pain makes it hard for the patient to do these things: work, house work, relationships with family or friends and self-care (bathing, dressing, eating). Living Will. Living Will: No living will on file. Healthcare POA: No healthcare proxy on file. Declaration of Mental Health Treatment: No mental health treatment on file. Insurance Insurance reviewed Visit number: 14 Approved number of visits: 70 [facility] 06/18 POC 14 INS Onset Date: 2021 Subjective Patient reports:. Patient reporting 4/10 pain in elbow this date. States pain is worse w/ cold weather. Patient states she is compliant with exercises however has not done any massage on elbow. Precautions: no active ROM NO RESTRICTIONS. Fall Risk: none Objective Integumentary: Edema: Location #1: ELBOW and circumferential measurement (cm) 31Size: 9 cm cm 9 cm overall, 8.5 white and healed, 1.5 raised. ROM/JointMobility: (Range of Motion in degrees) Elbow: (Yusuf = P! Denotes Pain with Movement) Extension: L Active 20 degree lack. Flexion: L Active 20-115 P!. Supination L Active 0-160 P!. Pronation: L Active 0 P!. Wrist: (Yusuf = P! Denotes Pain with Movement) Extension: L Active 0-50. Flexion: L Active 0-50. Radial deviation: L Active 0-20. Ulnar deviation: L Active 0-30. Supination: L Active 0-170. Hand: (Yusuf: Ext/Flex Finger abbrev. IF, MF, RF, SF P! Denotes Pain with Movement + Hypertension, - Extension Deficit) Not Tested Due To: Surgery. Additional Information: no wrist AROM yet. Strength: Hands (Yusuf: P! Denotes Pain with Movement) Hand Dominance: Right Occupational Nurse Strength: level III 50 lbs on the right and level III 7 P! lbs on the left. The yusfu pinch trials for the right 14 lbs and left 9 P! lbs. 3 Point Pinch: right 10 lbs and left 4 lbs. Coordination and Manual Dexterity: 9 Hole Peg Test: 20 seconds on right, 31 seconds on the left Outcome Measures: Quick Dash score: 50.00 Treatment Time in clinic started at 1100 am Time in clinic ended at 1145 (more content not included)... Normal [facility] OT Progress Noteon 2 OT Progress Note Therapy Diagnosis Assessed Left elbow pain (719.42) (M25.522) Plan Goals: Goals set and discussed today. STG: HERNAN will demonstrate good carryover of HEP for ROM, strengthening and coordination in order to improve functional independence at home/work by 2 weeks. 03/20 Pt reporting if she is not sore she does them 3 times a day, but if she is sore she does not complete LTG: HERNAN will demonstrate improved functional independence at home by a decreased DASH score by to below 50% by 6 weeks. 03/20 50% this date LTG: HERNAN will demo increased elbow extension to no more than 15 degree lack pain free and elbow flexion to 80 degrees pain free by 6 weeks 03/20 20 degree extension lacvk, 115 degrees flexion, CONTINUE LTG: HERNAN will demo decrease in scar length by 2cm to demo good scar management and prevent deformity by 6 weeks. 03/20 Decrease of 1 cm, CONTINUE LTG: HERNAN will increase L barn hand strength by 15 lbs to increase I with manipulating heavier objects to complete work and home tasks in 4 weeks. LTG: HERNAN to improve L hand coordination by decreasing 9HPT time by 5 seconds with no drops to improve manipulation of small objects. LTG: HERNAN will demo 4/5 or better in LUE elbow and shoulder with minimal pain by 4 weeks. LTG: HERNAN will report sleeping well 4/7 nights or more by 4 weeks Motor Function/Control/Tone : Intervention plan include: fluidotherapy , hot pack , paraffin , ultrasound , compression bandaging , education/instruction , home program , manual therapy , therapeutic activities and therapeutic exercises. Frequency and duration: 2 time(s) a week, for 6 weeks, for 12 visits. Potential to achieve rehab goals is good. Assessment Patient requiring extensive encouragement for arm ladder and sliding towel up wall for elbow extension d/t increase in pain. Patient asking to use R hand to hold L arm up several times stating I can't do it several times w/ attempting only 1x each, patient requiring [employer] and extra encouragement to complete task. Patient was able to complete today's treatment with some difficulty. Reason For Visit Initial Evaluation, Evaluation and Treatment. Reason for Referral: removal of L radial head. Referred by Abiodun Hastings. Adult Risk Screening There are no spiritual/cultural practices/values/need s that are important to know Initial Fall Risk Screening: HERNAN has not fallen in the last 6 months. Her fall did not result in injury. HERNAN does not have a fear of falling. She does not need assistance with sitting, standing or walking. Does not need assistance walking in her home. She does not need assistance in an unfamiliar setting. The patient is not using an assistive device. Please identify location of pain: L wrist, forearm, elbow. Pain Quality: sharp. The pain makes it hard for the patient to do these things: work, house work, relationships with family or friends and self-care (bathing, dressing, eating). Living Will. Living Will: No living will on file. Healthcare POA: No healthcare proxy on file. Declaration of Mental Health Treatment: No mental health treatment on file. Insurance Insurance reviewed Visit number: 13 Approved number of visits: 70 [facility] 05/18 POC 13 INS Onset Date: 2021 Subjective Patient reports:. Patient reporting 3/10 pain in elbow this date, states she had trouble driving w/ L hand d/t tightness in L wrist and elbow. Patient states she is returning to work April 16. Precautions: no active ROM NO RESTRICTIONS. Fall Risk: none Objective Integumentary: Edema: Location #1: ELBOW and circumferential measurement (cm) 31Size: 9 cm cm 9 cm overall, 8.5 white and healed, 1.5 raised. ROM/JointMobility: (Range of Motion in degrees) Elbow: (Yusuf = P! Denotes Pain with Movement) Extension: L Active 20 degree lack. Flexion: L Active 20-115 P!. Supination L Active 0-160 P!. Pronation: L Active 0 P!. Wrist: (Yusuf = P! Denotes Pain with Movement) Extension: L Active 0-50. Flexion: L Active 0-50. Radial deviation: L Active 0-20. Ulnar deviation: L Active 0-30. Supination: L Active 0-170. Hand: (Yusuf: Ext/Flex Finger abbrev. IF, MF, RF, SF P! Denotes Pain with Movement + Hypertension, - Extension Deficit) Not Tested Due To: Surgery. Additional Information: no wrist AROM yet. Strength: Hands (Yusuf: P! Denotes Pain with Movement) Hand Dominance: Right Occupational Nurse Strength: level III 50 lbs on the right and level III 7 P! lbs on the left. The yusuf pinch trials for the right 14 lbs and left 9 P! lbs. 3 Point Pinch: right 10 lbs and left 4 lbs. Coordination and Manual Dexterity: 9 Hole Peg Test: 20 seconds on right, 31 seconds on the left Outcome Measures: Quick Dash score: 50.00 Treatment Time in clinic started at 945 am Time in clinic ended at 1030 am Total time in clinic is 45 minutes. Total timed code time is 43 minutes. Modalities: untimed (more content not included)... Normal [facility] OT Progress Noteon 2 OT Progress Note Therapy Diagnosis Assessed Left elbow pain (719.42) (M25.522) Plan Goals: Goals set and discussed today. STG: HERNAN will demonstrate good carryover of HEP for ROM, strengthening and coordination in order to improve functional independence at home/work by 2 weeks. 03/20 Pt reporting if she is not sore she does them 3 times a day, but if she is sore she does not complete LTG: HERNAN will demonstrate improved functional independence at home by a decreased DASH score by to below 50% by 6 weeks. 03/20 50% this date LTG: HERNAN will demo increased elbow extension to no more than 15 degree lack pain free and elbow flexion to 80 degrees pain free by 6 weeks 03/20 20 degree extension lacvk, 115 degrees flexion, CONTINUE LTG: HERNAN will demo decrease in scar length by 2cm to demo good scar management and prevent deformity by 6 weeks. 03/20 Decrease of 1 cm, CONTINUE LTG: HERNAN will increase L barn hand strength by 15 lbs to increase I with manipulating heavier objects to complete work and home tasks in 4 weeks. LTG: HERNAN to improve L hand coordination by decreasing 9HPT time by 5 seconds with no drops to improve manipulation of small objects. LTG: HERNAN will demo 4/5 or better in LUE elbow and shoulder with minimal pain by 4 weeks. LTG: HERNAN will report sleeping well 4/7 nights or more by 4 weeks Motor Function/Control/Tone : Intervention plan include: fluidotherapy , hot pack , paraffin , ultrasound , compression bandaging , education/instruction , home program , manual therapy , therapeutic activities and therapeutic exercises. Frequency and duration: 2 time(s) a week, for 6 weeks, for 12 visits. Potential to achieve rehab goals is good. Assessment Pt demos significant improvements with re-eval this date. Pt has met goals with ROM this date. Pt was assessed for barn hand strength and FMC this date as protocol now has no limitations. Pt is still very painful with ROM this date but demonstrates increase of 65 degrees of flexion. Pt still presenting with decreased ROM, ADLs/IADLs, FMC, pain management. Pt would continue to benefit from additional skilled therapy services. Extend POC to address new/updated goals. Patient was able to complete today's treatment with some difficulty. Reason For Visit Initial Evaluation, Evaluation and Treatment. Reason for Referral: removal of L radial head. Referred by Abiodun Hastings. Adult Risk Screening There are no spiritual/cultural practices/values/need s that are important to know Initial Fall Risk Screening: HERNAN has not fallen in the last 6 months. Her fall did not result in injury. HERNAN does not have a fear of falling. She does not need assistance with sitting, standing or walking. Does not need assistance walking in her home. She does not need assistance in an unfamiliar setting. The patient is not using an assistive device. Please identify location of pain: L wrist, forearm, elbow. Pain Quality: sharp. The pain makes it hard for the patient to do these things: work, house work, relationships with family or friends and self-care (bathing, dressing, eating). Living Will. Living Will: No living will on file. Healthcare POA: No healthcare proxy on file. Declaration of Mental Health Treatment: No mental health treatment on file. Insurance Insurance reviewed Visit number: 12 Approved number of visits: 70 [facility] 04/21 POC 12 INS Onset Date: 2021 Subjective Patient reports:. Pt reporting / pain this date. Pt reporting she did not complete any exercises yesterday d/t soreness. Pt seen for recheck this date. Precautions: no active ROM NO RESTRICTIONS. Fall Risk: none Objective Integumentary: Edema: Location #1: ELBOW and circumferential measurement (cm) 31Size: 9 cm cm 9 cm overall, 8.5 white and healed, 1.5 raised. ROM/JointMobility: (Range of Motion in degrees) Elbow: (Yusuf = P! Denotes Pain with Movement) Extension: L Active 20 degree lack. Flexion: L Active 20-115 P!. Supination L Active 0-160 P!. Pronation: L Active 0 P!. Wrist: (Yusuf = P! Denotes Pain with Movement) Extension: L Active 0-50. Flexion: L Active 0-50. Radial deviation: L Active 0-20. Ulnar deviation: L Active 0-30. Supination: L Active 0-170. Hand: (Yusuf: Ext/Flex Finger abbrev. IF, MF, RF, SF P! Denotes Pain with Movement + Hypertension, - Extension Deficit) Not Tested Due To: Surgery. Additional Information: no wrist AROM yet. Strength: Hands (Yusuf: P! Denotes Pain with Movement) Hand Dominance: Right Occupational Nurse Strength: level III 50 lbs on the right and level III 7 P! lbs on the left. The yusuf pinch trials for the right 14 lbs and left 9 P! lbs. 3 Point Pinch: right 10 lbs and left 4 lbs. Coordination and Manual Dexterity: 9 Hole Peg Test: 20 seconds on right, 31 seconds on the left Outcome Measures: Quick Dash score: 50.00 Treatment Time in clinic started at 930 am Time in clinic ended (more content not included)... Normal [facility] Therapy Re-eval Noteon 03-20 Therapy Re-eval Note Therapy Diagnosis Assessed Left elbow pain (719.42) (M25.522) Plan Goals: Goals set and discussed today. STG: HERNAN will demonstrate good carryover of HEP for ROM, strengthening and coordination in order to improve functional independence at home/work by 2 weeks. 11 Pt reporting if she is not sore she does them 3 times a day, but if she is sore she does not complete LTG: HERNAN will demonstrate improved functional independence at home by a decreased DASH score by to below 50% by 6 weeks. 03/20 50% this date LTG: HERNAN will demo increased elbow extension to no more than 15 degree lack pain free and elbow flexion to 80 degrees pain free by 6 weeks 03/20 20 degree extension lacvk, 115 degrees flexion, CONTINUE LTG: HERNAN will demo decrease in scar length by 2cm to demo good scar management and prevent deformity by 6 weeks. 03/20 Decrease of 1 cm, CONTINUE LTG: HERNAN will increase L barn hand strength by 15 lbs to increase I with manipulating heavier objects to complete work and home tasks in 4 weeks. LTG: HERNAN to improve L hand coordination by decreasing 9HPT time by 5 seconds with no drops to improve manipulation of small objects. LTG: HERNAN will demo 4/5 or better in LUE elbow and shoulder with minimal pain by 4 weeks. LTG: HERNAN will report sleeping well 4/7 nights or more by 4 weeks Motor Function/Control/Tone : Intervention plan include: fluidotherapy , hot pack , paraffin , ultrasound , compression bandaging , education/instruction , home program , manual therapy , therapeutic activities and therapeutic exercises. Frequency and duration: 2 time(s) a week, for 6 weeks, for 12 visits. Potential to achieve rehab goals is good. Assessment Pt demos significant improvements with re-eval this date. Pt has met goals with ROM this date. Pt was assessed for barn hand strength and FMC this date as protocol now has no limitations. Pt is still very painful with ROM this date but demonstrates increase of 65 degrees of flexion. Pt still presenting with decreased ROM, ADLs/IADLs, FMC, pain management. Pt would continue to benefit from additional skilled therapy services. Extend POC to address new/updated goals. Patient was able to complete today's treatment with some difficulty. Reason For Visit Reason for Visit_OT_[facility]: Initial Evaluation, Evaluation and Treatment. Reason for Referral: removal of L radial head. Referred by Abiodun Hastings. Adult Risk Screening There are no spiritual/cultural practices/values/need s that are important to know Initial Fall Risk Screening: HERNAN has not fallen in the last 6 months. Her fall did not result in injury. HERNAN does not have a fear of falling. She does not need assistance with sitting, standing or walking. Does not need assistance walking in her home. She does not need assistance in an unfamiliar setting. The patient is not using an assistive device. Please identify location of pain: L wrist, forearm, elbow. Pain Quality: sharp. The pain makes it hard for the patient to do these things: work, house work, relationships with family or friends and self-care (bathing, dressing, eating). Living Will. Living Will: No living will on file. Healthcare POA: No healthcare proxy on file. Declaration of Mental Health Treatment: No mental health treatment on file. Insurance Insurance reviewed Visit number: 12 Approved number of visits: 70 [facility] 04/21 POC 12 INS Onset Date: 2021 Subjective Patient reports:. Pt reporting 6/10 pain this date. Pt reporting she did not complete any exercises yesterday d/t soreness. Pt seen for recheck this date. Precautions: no active ROM NO RESTRICTIONS. Fall Risk: none Objective Integumentary: Edema: Location #1: ELBOW and circumferential measurement (cm) 31Size: 9 cm cm 9 cm overall, 8.5 white and healed, 1.5 raised. ROM/JointMobility: (Range of Motion in degrees) Elbow: (Yusuf = P! Denotes Pain with Movement) Extension: L Active 20 degree lack. Flexion: L Active 20-115 P!. Supination L Active 0-160 P!. Pronation: L Active 0 P!. Wrist: (Yusuf = P! Denotes Pain with Movement) Extension: L Active 0-50. Flexion: L Active 0-50. Radial deviation: L Active 0-20. Ulnar deviation: L Active 0-30. Supination: L Active 0-170. Hand: (Yusuf: Ext/Flex Finger abbrev. IF, MF, RF, SF P! Denotes Pain with Movement + Hypertension, - Extension Deficit) Not Tested Due To: Surgery. Additional Information: no wrist AROM yet. Strength: Hands (Yusuf: P! Denotes Pain with Movement) Hand Dominance: Right Occupational Nurse Strength: level III 50 lbs on the right and level III 7 P! lbs on the left. The yusuf pinch trials for the right 14 lbs and left 9 P! lbs. 3 Point Pinch: right 10 lbs and left 4 lbs. Coordination and Manual Dexterity: 9 Hole Peg Test: 20 seconds on right, 31 seconds on the left Outcome Measures: Quick Dash score: 50.00 Treatment Time in clinic started at 930 (more content not included)... Normal [facility] OT Progress Noteon 2 OT Progress Note Therapy Diagnosis Assessed Left elbow pain (719.42) (M25.522) Plan Goals: Goals set and discussed today. STG: HERNAN will demonstrate good carryover of HEP for ROM, strengthening and coordination in order to improve functional independence at home/work by 2 weeks. LTG: HERNAN will demonstrate improved functional independence at home by a decreased DASH score by to below 50% by 6 weeks. LTG: HERNAN will demo increased elbow extension to no more than 15 degree lack pain free and elbow flexion to 80 degrees pain free by 6 weeks LTG: HERNAN will demo decrease in scar length by 2cm to demo good scar management and prevent deformity by 6 weeks. Goals will be upgraded as protocol permits Motor Function/Control/Tone : Intervention plan include: fluidotherapy , hot pack , paraffin , ultrasound , compression bandaging , education/instruction , home program , manual therapy , therapeutic activities and therapeutic exercises. Frequency and duration: 2 time(s) a week, for 6 weeks, for 12 visits. Potential to achieve rehab goals is good. Assessment Pt tolerating manual this date with minimal suction for cupping. pt demos good reponse with cupping on scar. Pt requires min a for about 8/10 reps of ROM arc in each direction, requires increased time. Patient was able to complete today's treatment with some difficulty. Reason For Visit Initial Evaluation, Evaluation and Treatment. Reason for Referral: removal of L radial head. Referred by Abiodun Hastings. Adult Risk Screening There are no spiritual/cultural practices/values/need s that are important to know Initial Fall Risk Screening: HERNAN has not fallen in the last 6 months. Her fall did not result in injury. HERNAN does not have a fear of falling. She does not need assistance with sitting, standing or walking. Does not need assistance walking in her home. She does not need assistance in an unfamiliar setting. The patient is not using an assistive device. Please identify location of pain: L wrist, forearm, elbow. Pain Quality: sharp. The pain makes it hard for the patient to do these things: work, house work, relationships with family or friends and self-care (bathing, dressing, eating). Living Will. Living Will: No living will on file. Healthcare POA: No healthcare proxy on file. Declaration of Mental Health Treatment: No mental health treatment on file. Insurance Insurance reviewed Visit number: 11 Approved number of visits: 70 [facility] 03/22 POC 11 INS Onset Date: 2021 Subjective Patient reports:. Patient reporting 2/10 pain at beginning of session. Pt states she traveled over the weekend and did not do any exercises. Precautions: no active ROM NO RESTRICTIONS. Fall Risk: none Objective Integumentary: Edema: Location #1: ELBOW and circumferential measurement (cm) 33Size: 10 cm cm 10 cm overall, 4.5 white and healed, 5.5 red and scabbed. ROM/JointMobility: (Range of Motion in degrees) Elbow: (Yusuf = P! Denotes Pain with Movement) Extension: L Active 30 degree lack. Flexion: L Active 30-55 degrees. Supination L Active 0-140. Pronation: L Active 0 P!. Hand: (Yusuf: Ext/Flex Finger abbrev. IF, MF, RF, SF P! Denotes Pain with Movement + Hypertension, - Extension Deficit) Not Tested Due To: Surgery. Additional Information: no wrist AROM yet. Outcome Measures: Quick Dash score: 84.09 Treatment Time in clinic started at 930 am Time in clinic ended at 1020 am Total time in clinic is 50 minutes. Total timed code time is 48 minutes. Modalities: untimed minutes 5 . 930-938 US to L elbow with o.8cm2 continuous 3.3hz. Manual Therapy (80645): timed minutes 36 . 930-938 US to L elbow with o.8cm2 continuous 3.3hz 940-1008 Static cupping to medial and lateral L elbow to facilaite increased blood flow and to break up scar tissue adhesions Dynamic cupping with light suction to medial and lateral L elbow to facilaite increased blood flow and break up scar tissue adhesions Dynamic cupping with small cup to scar on L elbow to break down scar tissue and facilitate scar healing. Therapeutic Activity (01874): timed minutes 15 . 7053-2514 ROM arc with long attachment x1 full rep in each direction. Provided today: a personalized home program, education and equipment provided . [employer] w/ HEP. 'Scores and Scales' Signatures Electronically signed by : Rose Page OTR/L; Mar 18 2022 10:43AM EST (Author) Normal [facility] OT Progress Noteon 2 OT Progress Note Therapy Diagnosis Assessed Left elbow pain (719.42) (M25.522) Plan Goals: Goals set and discussed today. STG: HERNAN will demonstrate good carryover of HEP for ROM, strengthening and coordination in order to improve functional independence at home/work by 2 weeks. LTG: HERNAN will demonstrate improved functional independence at home by a decreased DASH score by to below 50% by 6 weeks. LTG: HERNAN will demo increased elbow extension to no more than 15 degree lack pain free and elbow flexion to 80 degrees pain free by 6 weeks LTG: HERNAN will demo decrease in scar length by 2cm to demo good scar management and prevent deformity by 6 weeks. Goals will be upgraded as protocol permits Motor Function/Control/Tone : Intervention plan include: fluidotherapy , hot pack , paraffin , ultrasound , compression bandaging , education/instruction , home program , manual therapy , therapeutic activities and therapeutic exercises. Frequency and duration: 2 time(s) a week, for 6 weeks, for 12 visits. Potential to achieve rehab goals is good. Assessment Patient refusing cupping this date and asking therapist to stop w/ STM d/t high increase in pain. Patient continues to demo little to no improvement, c/o of fatigue and 6/10 pain at end of session. Patient has several adhesions in L tricep and distal bicep, educated to massage at home several times a day. Patient demos extreme difficulty w/ tasks this date unable to finish block stacking task stating I cannot close my hand anymore I think I am done patient strongly encouraged to stretch and finish activity to improve overall healing process. Patient states she is unable to lift arm off of table to stack/un stack last two towers of blocks. Patient strongly educated to continue massage and exercises at home. Patient was able to complete today's treatment with some difficulty. Reason For Visit Initial Evaluation, Evaluation and Treatment. Reason for Referral: removal of L radial head. Referred by Abiodun Hastings. Adult Risk Screening There are no spiritual/cultural practices/values/need s that are important to know Initial Fall Risk Screening: HERNAN has not fallen in the last 6 months. Her fall did not result in injury. HERNAN does not have a fear of falling. She does not need assistance with sitting, standing or walking. Does not need assistance walking in her home. She does not need assistance in an unfamiliar setting. The patient is not using an assistive device. Please identify location of pain: L wrist, forearm, elbow. Pain Quality: sharp. The pain makes it hard for the patient to do these things: work, house work, relationships with family or friends and self-care (bathing, dressing, eating). Living Will. Living Will: No living will on file. Healthcare POA: No healthcare proxy on file. Declaration of Mental Health Treatment: No mental health treatment on file. Insurance Insurance reviewed Visit number: 10 Approved number of visits: 70 [facility] 02/19 POC 10 INS Onset Date: 2021 Subjective Patient reports:. Patient reporting 2/10 pain at beginning of session states things are getting a lot easier at home and it has not been as painful Patient states sje goes back to work in 2 weeks. Precautions: no active ROM NO RESTRICTIONS. Fall Risk: none Objective Integumentary: Edema: Location #1: ELBOW and circumferential measurement (cm) 33Size: 10 cm cm 10 cm overall, 4.5 white and healed, 5.5 red and scabbed. ROM/JointMobility: (Range of Motion in degrees) Elbow: (Yusuf = P! Denotes Pain with Movement) Extension: L Active 30 degree lack. Flexion: L Active 30-55 degrees. Supination L Active 0-140. Pronation: L Active 0 P!. Hand: (Yusuf: Ext/Flex Finger abbrev. IF, MF, RF, SF P! Denotes Pain with Movement + Hypertension, - Extension Deficit) Not Tested Due To: Surgery. Additional Information: no wrist AROM yet. Outcome Measures: Quick Dash score: 84.09 Treatment Time in clinic started at 1030 am Time in clinic ended at 1115 am Total time in clinic is 45 minutes. Total timed code time is 43 minutes. Modalities: untimed minutes 5 . [id number] -Hot pack donned to L elbow to increase ROM, Patient interview w/ hot pack donned. Manual Therapy (08351): timed minutes 20 . [id number] -Hot pack donned to L elbow to increase ROM, Patient interview w/ hot pack donned -STM to medial elbow and forearm to facilitate edema management and loosen muscle adhesions -PROM to L elbow flex/ext x 10 w/ 10 second holds each to increase ROM and decrease pain . Therapeutic Activity (01958): timed minutes 23 . 3833-3161 -L hand squeezing hand helper 5#s resistance x 20 -LUE ROM over 11lb ball flex/ext x 10 w/ 10 second holds -L hand on short handle mortuary technician in extension 0 resistance stacking/un-stacking 1: blocks into towers of 4 x 4 towers x 3 trials . Provided today: a personalized home program, education and eq (more content not included)... Normal [facility] OT Progress Noteon 2 OT Progress Note Therapy Diagnosis Assessed Left elbow pain (719.42) (M25.522) Plan Goals: Goals set and discussed today. STG: HERNAN will demonstrate good carryover of HEP for ROM, strengthening and coordination in order to improve functional independence at home/work by 2 weeks. LTG: HERNAN will demonstrate improved functional independence at home by a decreased DASH score by to below 50% by 6 weeks. LTG: HERNAN will demo increased elbow extension to no more than 15 degree lack pain free and elbow flexion to 80 degrees pain free by 6 weeks LTG: HERNAN will demo decrease in scar length by 2cm to demo good scar management and prevent deformity by 6 weeks. Goals will be upgraded as protocol permits Motor Function/Control/Tone : Intervention plan include: fluidotherapy , hot pack , paraffin , ultrasound , compression bandaging , education/instruction , home program , manual therapy , therapeutic activities and therapeutic exercises. Frequency and duration: 2 time(s) a week, for 6 weeks, for 12 visits. Potential to achieve rehab goals is good. Assessment Patient demos increased ROM and decreased pain this date w/ exercises and cupping, Patient refusing to do cupping at first after extensive encouragement patient agreeing to try it again. Patient was able to complete today's treatment with some difficulty. Reason For Visit Initial Evaluation, Evaluation and Treatment. Reason for Referral: removal of L radial head. Referred by Abiodun Hastings. Adult Risk Screening There are no spiritual/cultural practices/values/need s that are important to know Initial Fall Risk Screening: HERNAN has not fallen in the last 6 months. Her fall did not result in injury. HERNAN does not have a fear of falling. She does not need assistance with sitting, standing or walking. Does not need assistance walking in her home. She does not need assistance in an unfamiliar setting. The patient is not using an assistive device. Please identify location of pain: L wrist, forearm, elbow. Pain Quality: sharp. The pain makes it hard for the patient to do these things: work, house work, relationships with family or friends and self-care (bathing, dressing, eating). Living Will. Living Will: No living will on file. Healthcare POA: No healthcare proxy on file. Declaration of Mental Health Treatment: No mental health treatment on file. Insurance Insurance reviewed Visit number: 9 Approved number of visits: 70 [facility] 01/20 POC 9 INS Onset Date: 2021 Subjective Patient reports:. Patient reporting 2/10 pain at beginning of session states things are getting a lot easier at home and it has not been as painful Patient states sje goes back to work in 2 weeks. Precautions: no active ROM NO RESTRICTIONS. Fall Risk: none Objective Integumentary: Edema: Location #1: ELBOW and circumferential measurement (cm) 33Size: 10 cm cm 10 cm overall, 4.5 white and healed, 5.5 red and scabbed. ROM/JointMobility: (Range of Motion in degrees) Elbow: (Yusuf = P! Denotes Pain with Movement) Extension: L Active 30 degree lack. Flexion: L Active 30-55 degrees. Supination L Active 0-140. Pronation: L Active 0 P!. Hand: (Yusuf: Ext/Flex Finger abbrev. IF, MF, RF, SF P! Denotes Pain with Movement + Hypertension, - Extension Deficit) Not Tested Due To: Surgery. Additional Information: no wrist AROM yet. Outcome Measures: Quick Dash score: 84.09 Treatment Time in clinic started at 1030 am Time in clinic ended at 1115 am Total time in clinic is 45 minutes. Total timed code time is 43 minutes. Modalities: timed minutes 8 . 5209-4658 -US to L elbow with 3.3mhz continuous 0.8cm2 to facilitate muscle ROM. Manual Therapy (30765): timed minutes 20 . 0433-0645 -STM to medial elbow and forearm to facilitate edema management and loosen muscle adhesions -Cupping to L elbow to break down adhesions to increase ROM and decrease pain . Therapeutic Activity (96026): timed minutes 15 . 2335-4498 -L hand squeezing hand helper 5#s resistance x 20 -LUE ROM over 11lb ball flex/ext x 10 w/ 10 second holds . Provided today: a personalized home program, education and equipment provided . [place] Putty w/ HEP. 'Scores and Scales' Signatures Electronically signed by : KELSEA Fuller/Harish; Mar 10 2022 11:14AM EST (Author) Electronically signed by : YEIMY Grant; Mar 10 2022 4:49PM EST Normal [facility] Mamm - Screening Mammogram w / Tomosynthesison 03-06-2022 MG Breast Screening Normal [facility] Work Phone: OT Progress Noteon 2 OT Progress Note Therapy Diagnosis Assessed Left elbow pain (719.42) (M25.522) Plan Goals: Goals set and discussed today. STG: HERNAN will demonstrate good carryover of HEP for ROM, strengthening and coordination in order to improve functional independence at home/work by 2 weeks. LTG: HERNAN will demonstrate improved functional independence at home by a decreased DASH score by to below 50% by 6 weeks. LTG: HERNAN will demo increased elbow extension to no more than 15 degree lack pain free and elbow flexion to 80 degrees pain free by 6 weeks LTG: HERNAN will demo decrease in scar length by 2cm to demo good scar management and prevent deformity by 6 weeks. Goals will be upgraded as protocol permits Motor Function/Control/Tone : Intervention plan include: fluidotherapy , hot pack , paraffin , ultrasound , compression bandaging , education/instruction , home program , manual therapy , therapeutic activities and therapeutic exercises. Frequency and duration: 2 time(s) a week, for 6 weeks, for 12 visits. Potential to achieve rehab goals is good. Assessment Patient very tearful and painful throughout session w/ STM, retrograde massage and PROM, patient requiring several breaks throughout session. 6/10 pain reported at end of session in L Lateral wrist, elbow and tricep. Patient was able to complete today's treatment with some difficulty. Reason For Visit Initial Evaluation, Evaluation and Treatment. Reason for Referral: removal of L radial head. Referred by Abiodun Hastings. Adult Risk Screening There are no spiritual/cultural practices/values/need s that are important to know Initial Fall Risk Screening: HERNAN has not fallen in the last 6 months. Her fall did not result in injury. HERNAN does not have a fear of falling. She does not need assistance with sitting, standing or walking. Does not need assistance walking in her home. She does not need assistance in an unfamiliar setting. The patient is not using an assistive device. Please identify location of pain: L wrist, forearm, elbow. Pain Quality: sharp. The pain makes it hard for the patient to do these things: work, house work, relationships with family or friends and self-care (bathing, dressing, eating). Living Will. Living Will: No living will on file. Healthcare POA: No healthcare proxy on file. Declaration of Mental Health Treatment: No mental health treatment on file. Insurance Insurance reviewed Visit number: 8 Approved number of visits: 70 [facility] 12/20 POC 8 INS Onset Date: 2021 Subjective Patient reports:. patient reporting 5/10 pain in LUE states elbow is very painful from cupping. states she is in constant agony. Precautions: no active ROM NO RESTRICTIONS. Fall Risk: none Objective Integumentary: Edema: Location #1: ELBOW and circumferential measurement (cm) 33Size: 10 cm cm 10 cm overall, 4.5 white and healed, 5.5 red and scabbed. ROM/JointMobility: (Range of Motion in degrees) Elbow: (Yusuf = P! Denotes Pain with Movement) Extension: L Active 30 degree lack. Flexion: L Active 30-55 degrees. Supination L Active 0-140. Pronation: L Active 0 P!. Hand: (Yusuf: Ext/Flex Finger abbrev. IF, MF, RF, SF P! Denotes Pain with Movement + Hypertension, - Extension Deficit) Not Tested Due To: Surgery. Additional Information: no wrist AROM yet. Outcome Measures: Quick Dash score: 84.09 Treatment Time in clinic started at 1115 am Time in clinic ended at 1200 pm Total time in clinic is 45 minutes. Total timed code time is 43 minutes. Modalities: timed minutes 8 . 5289-0100 US to L elbow with 3.3mhz continuous 0.8cm2 to facilitate muscle ROM. Manual Therapy (33155): timed minutes 17 . 5294-5114 -STM to medial elbow and forearm to faciliate edema management and loosen muscle adhesions. Therapeutic Activity (02570): timed minutes 18 . 3745-7890 -PROM to wrist and elbow with x5 reps of each direction with 3 second holds -AAROM over 11lb ball elbow flex/ext x 10 w/ 10 second holds -AAROM to L elbow on towel on table to increase elbow extension. Provided today: a personalized home program, education and equipment provided . Alden Blakely w/ HEP. 'Scores and Scales' Signatures Electronically signed by : KELSEA Fuller/Harish; Mar 06 2022 12:02PM EST (Author) Electronically signed by : YEIMY Grant; Mar 10 2022 4:49PM EST Normal [facility] HM 50+ Yearson 03-03-2022 HM 50+ Years Diagnoses/Problems Health Maintenance/Risks Encounter for preventive health examination (V70.0) (Z00.00) Assessed Atrial fibrillation (427.31) (I48.91) Hypothyroidism (244.9) (E03.9) Mitral valve replaced (V43.3) (Z95.2) Obesity (278.00) (E66.9) Rheumatic heart disease (398.90) (I09.9) Class 2 obesity with body mass index (BMI) of 36.0 to 36.9 in adult (278.00,V85.36) (E66.9,Z68.36) Class 2 severe obesity due to excess calories with serious comorbidity and body mass index (BMI) of 35.0 to 35.9 in adult (278.01,V85.35) (E66.01,Z68.35) Elevated fasting glucose (790.21) (R73.01) Elevated WBC count (288.60) (D72.829) Elevated TSH (794.5) (R79.89) Orders Elevated TSH T3 - Free Triiodothyronine, Serum; Status:Active; Requested for:03Mar2022; Perform:Lab Services - Lab To Draw (Blood Test); Due:01Jun2022;Ordered ; For:Elevated TSH; Ordered By:Melissa Del Rio; Thyroxine, Serum (T4); Status:Active; Requested for:03Mar2022; Perform:Lab Services - Lab To Draw (Blood Test); Due:01Jun2022;Ordered ; For:Elevated TSH; Ordered By:Melissa Del Rio; TSH - Thyroid Stimulating Hormone, Serum; Status:Active; Requested for:03Mar2022; Perform:Lab Services - Lab To Draw (Blood Test); Due:01Jun2022;Ordered ; For:Elevated TSH; Ordered By:Melissa Del Rio; Elevated WBC count Complete Blood Count + Differential; Status:Active; Requested for:03Mar2022; Perform:Lab Services - Lab To Draw (Blood Test); Due:01Jun2022;Ordered ; For:Elevated WBC count; Ordered By:Melissa Del Rio; Encounter for screening mammogram for breast cancer Mamm - Screening Mammogram w/ Tomosynthesis; Status:Active; Requested for:06Mar2022; Perform: Radiology Services Imaging;Ordered; For:Encounter for screening mammogram for breast cancer; Ordered By:Melissa Del Rio; Radiologist to Determine Optimal Study : Y What are the patient's signs and symptoms ? : Annual Screening Mammogram Health Maintenance IO UA (automated w/ microscopy); Status:Active - Perform Order; Requested for:03Mar2022; Perform:In Office; Due:01Jun2022;Ordered ; For:Health Maintenance; Ordered By:Melissa Del Rio; Obesity AEROBIC EXERCISE - ASHLI; Status:In Progress; Done: 03Mar2022 Perform:[employer]; Last Updated By:Olimpia Bhat; 03/03/2022 2:55:21 PM;Ordered; For:Obesity; Ordered By:Melissa Del Rio; BODY MASS INDEX, ADULT - ASHLI; Status:In Progress; Done: 03Mar2022 Perform:[employer]; Last Updated By:Perlita Provider; 03/03/2022 2:55:04 PM;Ordered; For:Obesity; Ordered By:Melissa Del Rio; CALORIE COUNTING DIET - ASHLI; Status:In Progress; Done: 03Mar2022 Perform:[employer]; Last Updated By:Perlita Provider; 03/03/2022 2:55:13 PM;Ordered; For:Obesity; Ordered By:Melissa Del Rio; CARBOHYDRATE COUNTING DIET - ASHLI; Status:In Progress; Done: 03Mar2022 Perform:[employer]; Last Updated By:Perlita Provider; 03/03/2022 2:55:17 PM;Ordered; For:Obesity; Ordered By:Melissa Del Rio; WEIGHT LOSS TIPS; Status:In Progress; Done: 03Mar2022 Perform:[employer]; Last Updated By:Perlita Provider; 03/03/2022 2:55:09 PM;Ordered; For:Obesity; Ordered By:Melissa Del Rio; Patient Discussion/Summary Doing well. Please continue to work toward weight loss. Given 1500-calorie diet. Obtain a copy of your labs to be performed. Lab studies showed slight elevation of TSH level. Also showed slight elevation of white blood cell count. Patient did have recent surgery performed. Discussion about colonoscopy. She would like to wait 1 year to do this. I have offered to do fecal occult blood testing in the interim. He would like to hold off on this. Please continue follow-up with cardiology on regular please have annual mammogram performed. Reviewed labs with you today. TSH level is somewhat elevated. Going to reevaluate this in 4 weeks, urinalysis also going to be performed. TSH is slightly elevated going to recheck TSH, T3 and T4 in 4 weeks as well. If any fever or chills or signs or symptoms of infection, please call and let me know. Chief Complaint physical History of Present IllnessThe last health maintenance visit was 1 year year(s) ago. The patient's health since the last visit is described as good. There are no interval changes in the patient's PMH, PSH, and current medications. There are no interval changes in the patient's social and family history. She has regular dental visits. She denies vision problems. She denies hearing loss. Immunizations status: not up to date . Requires Shingrix vaccination. Lifestyle: She does not have a healthy diet. She does not have any weight concerns. She does not exercise regularly (7 days per week for 1 hour per day). She exercises for 30 or more minutes per session. Exercise includes walking, aerobic conditioning and biking. She does not use tobacco. She consumes alcohol (Vodka and sprite rarely). She reports occasional alcohol use and drinking 1 drinks per week. She typically drinks hard liquor, but no wine consumption. Reproductive health: the p (more content not included)... Normal [facility] IO UA (automated w/ microsco py)on 03-03-2022 Protein (U) [Mass/Vol] Negative [facility] Work Phone: IO UA (automated w/ microscopy) Negative [facility] Work Phone: IO UA (automated w/ microscopy) Normal (0.2-1.0 mg/dl) [facility] Work Phone: IO UA (automated w/ microscopy) 5.5 1 [facility] Work Phone: IO UA (automated w/ microscopy) Trace [facility] Work Phone: IO UA (automated w/ microscopy) 1.020 1 [facility] Work Phone: OT Progress Noteon 2 OT Progress Note Therapy Diagnosis Assessed Left elbow pain (719.42) (M25.522) Plan Goals: Goals set and discussed today. STG: HERNAN will demonstrate good carryover of HEP for ROM, strengthening and coordination in order to improve functional independence at home/work by 2 weeks. LTG: HERNAN will demonstrate improved functional independence at home by a decreased DASH score by to below 50% by 6 weeks. LTG: HERNAN will demo increased elbow extension to no more than 15 degree lack pain free and elbow flexion to 80 degrees pain free by 6 weeks LTG: HERNAN will demo decrease in scar length by 2cm to demo good scar management and prevent deformity by 6 weeks. Goals will be upgraded as protocol permits Motor Function/Control/Tone : Intervention plan include: fluidotherapy , hot pack , paraffin , ultrasound , compression bandaging , education/instruction , home program , manual therapy , therapeutic activities and therapeutic exercises. Frequency and duration: 2 time(s) a week, for 6 weeks, for 12 visits. Potential to achieve rehab goals is good. Assessment Pt demos significant difficulty tolerating PROM, cupping and STM with light/moderate pressure. pt requiring cues to keep breathing though exercises. Pt refusing IASTM this date or continued cupping, only allowing STM but requests light pressure. Pt reporting pain with light pressure and with AROM/PROM this date. Pt demos good understanding of wearing compression sleeve to faciliate edema management. Patient was able to complete today's treatment with some difficulty. Reason For Visit Initial Evaluation, Evaluation and Treatment. Reason for Referral: removal of L radial head. Referred by Abiodun Hastings. Adult Risk Screening There are no spiritual/cultural practices/values/need s that are important to know Initial Fall Risk Screening: HERNAN has not fallen in the last 6 months. Her fall did not result in injury. HERNAN does not have a fear of falling. She does not need assistance with sitting, standing or walking. Does not need assistance walking in her home. She does not need assistance in an unfamiliar setting. The patient is not using an assistive device. Please identify location of pain: L wrist, forearm, elbow. Pain Quality: sharp. The pain makes it hard for the patient to do these things: work, house work, relationships with family or friends and self-care (bathing, dressing, eating). Living Will. Living Will: No living will on file. Healthcare POA: No healthcare proxy on file. Declaration of Mental Health Treatment: No mental health treatment on file. Insurance Insurance reviewed Visit number: 7 Approved number of visits: 70 [facility] 11/19 POC 7 INS Onset Date: 2021 Subjective Patient reports:. Pt reporting no pain at beginning of session. Pt bringing new order with her stating no restrictions and to continue aggressive ROM and compression sleeve. Precautions: no active ROM NO RESTRICTIONS. Fall Risk: none Objective Integumentary: Edema: Location #1: ELBOW and circumferential measurement (cm) 33Size: 10 cm cm 10 cm overall, 4.5 white and healed, 5.5 red and scabbed. ROM/JointMobility: (Range of Motion in degrees) Elbow: (Yusuf = P! Denotes Pain with Movement) Extension: L Active 30 degree lack. Flexion: L Active 30-55 degrees. Supination L Active 0-140. Pronation: L Active 0 P!. Hand: (Yusuf: Ext/Flex Finger abbrev. IF, MF, RF, SF P! Denotes Pain with Movement + Hypertension, - Extension Deficit) Not Tested Due To: Surgery. Additional Information: no wrist AROM yet. Outcome Measures: Quick Dash score: 84.09 Treatment Time in clinic started at 1120 am Time in clinic ended at 1205 pm Total time in clinic is 45 minutes. Total timed code time is 43 minutes. Modalities: timed minutes 8 . 5168-3589 US to L elbow with 3.3mhz continuous 0.8cm2 to facilitate muscle ROM. Manual Therapy (86110): timed minutes 17 . 0845-9386 Cupping with x.05 pumps to lateral elbow and bicep 1653-2675 STM to medial elbow and forearm to faciliate edema management and loosen muscle adhesions. Therapeutic Activity (45202): timed minutes 16 . 6778-9185 PROM to wrist and elbow with x5 reps of each direction with 3 second holds. Provided today: a personalized home program, education and equipment provided . Alden Blakely w/ HEP. 'Scores and Scales' Signatures Electronically signed by : DUSTIN Grant/Harish; Mar 03 2022 12:47PM EST (Author) Normal [facility] PHQ-2 VITALSon 03-03-2022 Adult depression screening assessment No [facility] Work Phone: Fall risk assessment a) No falls within the last year [facility] Work Phone: CR Elbow 3+ Views Lefton CR Elbow 3+ Views Left Patient Name: HERNAN DAWKINS Diagnostic Radiology ACCESSION EXAM DATE/TIME PROCEDURE ORDERING PROVIDER [id number] 02/27/2022 09:51 EDT CR Elbow 3+ Views Left TRACI DO, LEXI Garcia CPT code 86122 Reason For Exam (CR Elbow 3+ Views Left) Pain due to internal orthopedic prosthetic devices, implants and grafts, initial encounter Report LEFT ELBOW, 3 VIEWS: INDICATION: Left elbow pain and limited range of motion COMPARISON: 01/20/2022 Frontal, lateral and oblique views of the left elbow were obtained. The bone density appears normal. There has been a prior resection of the proximal radius. Again noted is lucency of the proximal radial shaft, likely a sequela of the previously removed prosthetic component. Arthritic changes and joint space narrowing is noted the elbow joint. There are no significant soft tissue abnormalities. There is a moderate joint effusion, similar in appearance to the prior study. 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 Report Dictated on Final Dictating Physician: DO HARGROVE ALFRED Signed Date and Time: 03/03/2022 9:20 am Signed by: DO HARGROVE ALFRED Transcribed Date and Time: 03/03/2022 9:21 Normal [facility] OT Progress Noteon OT Progress Note Therapy Diagnosis Assessed Left elbow pain (719.42) (M25.522) Plan Goals: Goals set and discussed today. STG: HERNAN will demonstrate good carryover of HEP for ROM, strengthening and coordination in order to improve functional independence at home/work by 2 weeks. LTG: HERNAN will demonstrate improved functional independence at home by a decreased DASH score by to below 50% by 6 weeks. LTG: HERNAN will demo increased elbow extension to no more than 15 degree lack pain free and elbow flexion to 80 degrees pain free by 6 weeks LTG: HERNAN will demo decrease in scar length by 2cm to demo good scar management and prevent deformity by 6 weeks. Goals will be upgraded as protocol permits Motor Function/Control/Tone : Intervention plan include: fluidotherapy , hot pack , paraffin , ultrasound , compression bandaging , education/instruction , home program , manual therapy , therapeutic activities and therapeutic exercises. Frequency and duration: 2 time(s) a week, for 6 weeks, for 12 visits. Potential to achieve rehab goals is good. Assessment Patient demos increased ROM in L elbow and wrist this date, intermittent increase in pain reported w/ exercises. Patient states she is sore at end of session however not super painful patient demos understanding of HEP w/ putty and stretches. Patient was able to complete today's treatment with some difficulty. Reason For Visit Initial Evaluation, Evaluation and Treatment. Reason for Referral: removal of L radial head. Referred by Abiodun Hastings. Adult Risk Screening There are no spiritual/cultural practices/values/need s that are important to know Initial Fall Risk Screening: HERNAN has not fallen in the last 6 months. Her fall did not result in injury. HERNAN does not have a fear of falling. She does not need assistance with sitting, standing or walking. Does not need assistance walking in her home. She does not need assistance in an unfamiliar setting. The patient is not using an assistive device. Please identify location of pain: L wrist, forearm, elbow. Pain Quality: sharp. The pain makes it hard for the patient to do these things: work, house work, relationships with family or friends and self-care (bathing, dressing, eating). Living Will. Living Will: No living will on file. Healthcare POA: No healthcare proxy on file. Declaration of Mental Health Treatment: No mental health treatment on file. Insurance Insurance reviewed Visit number: 6 Approved number of visits: 70 [facility] 10/20 POC 6 INS Onset Date: 2021 Subjective Patient reports:. No pain reported at beginning of session, patient states she cooked this am and was able to use L hand to help, patient also states she is sleeping a lot better. Precautions: weight bearing restrictions, no active ROM NWB on LUE. Fall Risk: none Objective Integumentary: Edema: Location #1: ELBOW and circumferential measurement (cm) 33Size: 10 cm cm 10 cm overall, 4.5 white and healed, 5.5 red and scabbed. ROM/JointMobility: (Range of Motion in degrees) Elbow: (Yusuf = P! Denotes Pain with Movement) Extension: L Active 30 degree lack. Flexion: L Active 30-55 degrees. Supination L Active 0-140. Pronation: L Active 0 P!. Hand: (Yusuf: Ext/Flex Finger abbrev. IF, MF, RF, SF P! Denotes Pain with Movement + Hypertension, - Extension Deficit) Not Tested Due To: Surgery. Additional Information: no wrist AROM yet. Outcome Measures: Quick Dash score: 84.09 Treatment Time in clinic started at 1400 pm Time in clinic ended at 1445 pm Total time in clinic is 45 minutes. Total timed code time is 43 minutes. Modalities: timed minutes 8 . 1594-2868 US to L elbow with 3.3mhz continuous 0.8cm2 to facilitate muscle ROM. Therapeutic Activity (28019): timed minutes 35 . 6846-4133 -LUE over ball elbow flex/ext x 10 w/ 10 second holds at end points -LUE over ball wrist flex/ex x 10 w/ 10 second holds -B hands cane raises x 12 -B hands bicep curls on cane x 12 -LUE over ROM arc low setting x 3 round trips -T putty exercises w/ [place] Ward putty and HEP provided -L D1/D2 pinching loops on Velcro blocks to take off of grid to extended elbow to place on target dot x25 -L D1/D5 pinching Velcro blocks to push back down on grid x 25. Provided today: a personalized home program, education and equipment provided . [place] Putty w/ HEP. 'Scores and Scales' Signatures Electronically signed by : KELSEA Fuller/Harish; Feb 26 2022 2:46PM EST (Author) Electronically signed by : DUSTIN Grant/Harish; Feb 26 2022 3:54PM EST Normal [facility] OT Progress Noteon 2 OT Progress Note Therapy Diagnosis Assessed Left elbow pain (719.42) (M25.522) Plan Goals: Goals set and discussed today. STG: HERNAN will demonstrate good carryover of HEP for ROM, strengthening and coordination in order to improve functional independence at home/work by 2 weeks. LTG: HERNAN will demonstrate improved functional independence at home by a decreased DASH score by to below 50% by 6 weeks. LTG: HERNAN will demo increased elbow extension to no more than 15 degree lack pain free and elbow flexion to 80 degrees pain free by 6 weeks LTG: HERNAN will demo decrease in scar length by 2cm to demo good scar management and prevent deformity by 6 weeks. Goals will be upgraded as protocol permits Motor Function/Control/Tone : Intervention plan include: fluidotherapy , hot pack , paraffin , ultrasound , compression bandaging , education/instruction , home program , manual therapy , therapeutic activities and therapeutic exercises. Frequency and duration: 2 time(s) a week, for 6 weeks, for 12 visits. Potential to achieve rehab goals is good. Assessment Patient reporting increased pain with all exercises this date in L elbow, patient unable to lift L arm off of able for Juxacisor activity wedge provided for elevation. Extended time for all activities d/t decreased ROM and increased pain. Patient was able to complete today's treatment with some difficulty. Reason For Visit Initial Evaluation, Evaluation and Treatment. Reason for Referral: removal of L radial head. Referred by Abiodun Hastings. Adult Risk Screening There are no spiritual/cultural practices/values/need s that are important to know Initial Fall Risk Screening: HERNAN has not fallen in the last 6 months. Her fall did not result in injury. HERNAN does not have a fear of falling. She does not need assistance with sitting, standing or walking. Does not need assistance walking in her home. She does not need assistance in an unfamiliar setting. The patient is not using an assistive device. Please identify location of pain: L wrist, forearm, elbow. Pain Quality: sharp. The pain makes it hard for the patient to do these things: work, house work, relationships with family or friends and self-care (bathing, dressing, eating). Living Will. Living Will: No living will on file. Healthcare POA: No healthcare proxy on file. Declaration of Mental Health Treatment: No mental health treatment on file. Insurance Insurance reviewed Visit number: 5 Approved number of visits: 70 [facility] 09/19 POC 5 INS Onset Date: 2021 Subjective Patient reports:. patient rating 7/10 pain in L elbow and 3/10 pain in L wrist this date with movement only. Patient states she does not have any pain without movement. Patient states she is compliant with exercises. Precautions: weight bearing restrictions, no active ROM NWB on LUE. Fall Risk: none Objective Integumentary: Edema: Location #1: ELBOW and circumferential measurement (cm) 33Size: 10 cm cm 10 cm overall, 4.5 white and healed, 5.5 red and scabbed. ROM/JointMobility: (Range of Motion in degrees) Elbow: (Yusuf = P! Denotes Pain with Movement) Extension: L Active 30 degree lack. Flexion: L Active 30-55 degrees. Supination L Active 0-140. Pronation: L Active 0 P!. Hand: (Yusuf: Ext/Flex Finger abbrev. IF, MF, RF, SF P! Denotes Pain with Movement + Hypertension, - Extension Deficit) Not Tested Due To: Surgery. Additional Information: no wrist AROM yet. Outcome Measures: Quick Dash score: 84.09 Treatment Time in clinic started at 1430 pm Time in clinic ended at 1515 pm Total time in clinic is 45 minutes. Total timed code time is 43 minutes. Modalities: timed minutes 8 . 2758-7311 US to L elbow with 3.3mhz continuous 0.8cm2 to facilitate muscle ROM. Therapeutic Activity (76587): timed minutes 35 . 6870-7399 -LUE over ball elbow flex/ext x 10 w/ 10 second holds at end points -LUE over ball wrist flex/ex x 10 w/ 10 second holds -L hand juxacisor x 1 round trip on wedge -L hand large Velcro Dowel flex/ext x 3 round trips -B hands cane raises x 10. 'Scores and Scales' Signatures Electronically signed by : KELSEA Fuller/Harish; Feb 24 2022 4:07PM EST (Author) Electronically signed by : DUSTIN Grant/Harish; Feb 26 2022 3:53PM EST (Author) Normal [facility] OT Progress Noteon 2 OT Progress Note Therapy Diagnosis Assessed Left elbow pain (719.42) (M25.522) Plan Goals: Goals set and discussed today. STG: HERNAN will demonstrate good carryover of HEP for ROM, strengthening and coordination in order to improve functional independence at home/work by 2 weeks. LTG: HERNAN will demonstrate improved functional independence at home by a decreased DASH score by to below 50% by 6 weeks. LTG: HERNAN will demo increased elbow extension to no more than 15 degree lack pain free and elbow flexion to 80 degrees pain free by 6 weeks LTG: HERNAN will demo decrease in scar length by 2cm to demo good scar management and prevent deformity by 6 weeks. Goals will be upgraded as protocol permits Motor Function/Control/Tone : Intervention plan include: fluidotherapy , hot pack , paraffin , ultrasound , compression bandaging , education/instruction , home program , manual therapy , therapeutic activities and therapeutic exercises. Frequency and duration: 2 time(s) a week, for 6 weeks, for 12 visits. Potential to achieve rehab goals is good. Assessment Pt reporting increased pain with ROM arc, demos lack of control with release of rings, unable to complete full reps decreased to 2 full ROM. Pt reporting icnreased pain with towel activity, demos ability to complete all reps. Encouraged to limited use fo RUE to assist LUE. pt reporting 4-5/10 pain at end of session. Patient was able to complete today's treatment with some difficulty. Interdisciplinary Team Communication: occupational therapy . Reason For Visit Initial Evaluation, Evaluation and Treatment. Reason for Referral: removal of L radial head. Referred by Abiodun Hastings. Adult Risk Screening There are no spiritual/cultural practices/values/need s that are important to know Initial Fall Risk Screening: HERNAN has not fallen in the last 6 months. Her fall did not result in injury. HERNAN does not have a fear of falling. She does not need assistance with sitting, standing or walking. Does not need assistance walking in her home. She does not need assistance in an unfamiliar setting. The patient is not using an assistive device. Please identify location of pain: L wrist, forearm, elbow. Pain Quality: sharp. The pain makes it hard for the patient to do these things: work, house work, relationships with family or friends and self-care (bathing, dressing, eating). Living Will. Living Will: No living will on file. Healthcare POA: No healthcare proxy on file. Declaration of Mental Health Treatment: No mental health treatment on file. Insurance Insurance reviewed Visit number: 4 Approved number of visits: 70 [facility] 08/20 POC 4 INS Onset Date: 2021 Subjective Patient reports:. Pt reporting she was very sore following treatment Thursday. Precautions: weight bearing restrictions, no active ROM NO WRIST ROM UNTIL CLEARED BY OT, 4 WEEKS POST OP EARLIEST. Protocol in chart allow finger AROM NWB on LUE. Fall Risk: none Objective Integumentary: Edema: Location #1: ELBOW and circumferential measurement (cm) 33Size: 10 cm cm 10 cm overall, 4.5 white and healed, 5.5 red and scabbed. ROM/JointMobility: (Range of Motion in degrees) Elbow: (Yusuf = P! Denotes Pain with Movement) Extension: L Active 30 degree lack. Flexion: L Active 30-55 degrees. Supination L Active 0-140. Pronation: L Active 0 P!. Hand: (Yusuf: Ext/Flex Finger abbrev. IF, MF, RF, SF P! Denotes Pain with Movement + Hypertension, - Extension Deficit) Not Tested Due To: Surgery. Additional Information: no wrist AROM yet. Outcome Measures: Quick Dash score: 84.09 Treatment Time in clinic started at 1500 pm Time in clinic ended at 1545 pm Total time in clinic is 45 minutes. Total timed code time is 43 minutes. Modalities: timed minutes 8 . 1041-1734 US to L elbow with 3.3mhz continuous 0.8cm2 to facilitate muscle ROM. Therapeutic Activity (83952): timed minutes 35 . 1621-5116 ROM arc with no attachments from R<=>L for elbow wrist ROM x3 with ball under elbow to faciliate elbow extension, beading pony beads onto string with LUE x25 table wiping elbow flexion/extension L<=R and forward<=> back x15 each direction balling/unballing towel x15 . 'Scores and Scales' Signatures Electronically signed by : DUSTIN Grant/Harish; Feb 20 2022 3:44PM EST (Author) [facility] OT Progress Noteon 2 OT Progress Note Therapy Diagnosis Assessed Left elbow pain (719.42) (M25.522) Plan Goals: Goals set and discussed today. STG: HERNAN will demonstrate good carryover of HEP for ROM, strengthening and coordination in order to improve functional independence at home/work by 2 weeks. LTG: HERNAN will demonstrate improved functional independence at home by a decreased DASH score by to below 50% by 6 weeks. LTG: HERNAN will demo increased elbow extension to no more than 15 degree lack pain free and elbow flexion to 80 degrees pain free by 6 weeks LTG: HERNAN will demo decrease in scar length by 2cm to demo good scar management and prevent deformity by 6 weeks. Goals will be upgraded as protocol permits Motor Function/Control/Tone : Intervention plan include: fluidotherapy , hot pack , paraffin , ultrasound , compression bandaging , education/instruction , home program , manual therapy , therapeutic activities and therapeutic exercises. Frequency and duration: 2 time(s) a week, for 6 weeks, for 12 visits. Potential to achieve rehab goals is good. Assessment Pt reporting significant pain with all PROM this date, reps limited to 5. Pt demos good understanding of increasing HEP frequency to x3/day. Patient was able to complete today's treatment with some difficulty. Interdisciplinary Team Communication: occupational therapy . Reason For Visit Initial Evaluation, Evaluation and Treatment. Reason for Referral: removal of L radial head. Referred by Abiodun Hastings. Adult Risk Screening There are no spiritual/cultural practices/values/need s that are important to know Initial Fall Risk Screening: HERNAN has not fallen in the last 6 months. Her fall did not result in injury. HERNAN does not have a fear of falling. She does not need assistance with sitting, standing or walking. Does not need assistance walking in her home. She does not need assistance in an unfamiliar setting. The patient is not using an assistive device. Please identify location of pain: L wrist, forearm, elbow. Pain Quality: sharp. The pain makes it hard for the patient to do these things: work, house work, relationships with family or friends and self-care (bathing, dressing, eating). Living Will. Living Will: No living will on file. Healthcare POA: No healthcare proxy on file. Declaration of Mental Health Treatment: No mental health treatment on file. Insurance Insurance reviewed Visit number: 3 Approved number of visits: 70 [facility] 07/20 POC 3 INS Onset Date: 2021 Subjective Patient reports:. Pt reporting no pain at rest this date. Progressing to wrist ROM this date. Precautions: weight bearing restrictions, no active ROM NO WRIST ROM UNTIL CLEARED BY OT, 4 WEEKS POST OP EARLIEST. Protocol in chart allow finger AROM NWB on LUE. Fall Risk: none Objective Integumentary: Edema: Location #1: ELBOW and circumferential measurement (cm) 33Size: 10 cm cm 10 cm overall, 4.5 white and healed, 5.5 red and scabbed. ROM/JointMobility: (Range of Motion in degrees) Elbow: (Yusuf = P! Denotes Pain with Movement) Extension: L Active 30 degree lack. Flexion: L Active 30-55 degrees. Supination L Active 0-140. Pronation: L Active 0 P!. Hand: (Yusuf: Ext/Flex Finger abbrev. IF, MF, RF, SF P! Denotes Pain with Movement + Hypertension, - Extension Deficit) Not Tested Due To: Surgery. Additional Information: no wrist AROM yet. Outcome Measures: Quick Dash score: 84.09 Treatment Time in clinic started at 1015 am Time in clinic ended at 1045 am Total time in clinic is 45 minutes. Total timed code time is 43 minutes. Manual Therapy (52089): timed minutes 15 . 6710-7505 STM to bicep and elbow to decrease muscle tightness and increase ROM IASTM to scar to break down scar tissue and facilitate healing. Therapeutic Activity (34677): timed minutes 28 . 7196-8745 AAROM of wrist flex/ex/sup/pro over 11lb with 5 second holds x10 HEP additions of wrist AROM 2536-0947 PROM of elbow flex/ext x5 PROM of wrist flex/ext/supx5 External rotation of shoulder x5. 'Scores and Scales' Signatures Electronically signed by : DUSTIN Grant/Harish; Feb 17 2022 12:35PM EST (Author) [facility] OT Progress Noteon 2 OT Progress Note Therapy Diagnosis Assessed Left elbow pain (719.42) (M25.522) Plan Goals: Goals set and discussed today. STG: HERNAN will demonstrate good carryover of HEP for ROM, strengthening and coordination in order to improve functional independence at home/work by 2 weeks. LTG: HERNAN will demonstrate improved functional independence at home by a decreased DASH score by to below 50% by 6 weeks. LTG: HERNAN will demo increased elbow extension to no more than 15 degree lack pain free and elbow flexion to 80 degrees pain free by 6 weeks LTG: HERNAN will demo decrease in scar length by 2cm to demo good scar management and prevent deformity by 6 weeks. Goals will be upgraded as protocol permits Motor Function/Control/Tone : Intervention plan include: fluidotherapy , hot pack , paraffin , ultrasound , compression bandaging , education/instruction , home program , manual therapy , therapeutic activities and therapeutic exercises. Frequency and duration: 2 time(s) a week, for 6 weeks, for 12 visits. Potential to achieve rehab goals is good. Assessment Patient requiring extended time for ROM d/t decreased ROM and increased pain 08/18. Start gentle ROM of wrist next week. Patient was able to complete today's treatment with some difficulty. Interdisciplinary Team Communication: occupational therapy . Reason For Visit Initial Evaluation, Evaluation and Treatment. Reason for Referral: removal of L radial head. Referred by Abiodun Hastings. Adult Risk Screening There are no spiritual/cultural practices/values/need s that are important to know Initial Fall Risk Screening: HERNAN has not fallen in the last 6 months. Her fall did not result in injury. HERNAN does not have a fear of falling. She does not need assistance with sitting, standing or walking. Does not need assistance walking in her home. She does not need assistance in an unfamiliar setting. The patient is not using an assistive device. Please identify location of pain: L wrist, forearm, elbow. Pain Quality: sharp. The pain makes it hard for the patient to do these things: work, house work, relationships with family or friends and self-care (bathing, dressing, eating). Living Will. Living Will: No living will on file. Healthcare POA: No healthcare proxy on file. Declaration of Mental Health Treatment: No mental health treatment on file. Insurance Insurance reviewed Visit number: 2 Approved number of visits: 70 [facility] 06/22 POC 2 INS Onset Date: 2021 Subjective Patient reports:. 0/10 pain reported at rest, patient states she only has pain w/ movement. Precautions: weight bearing restrictions, no active ROM NO WRIST ROM UNTIL CLEARED BY OT, 4 WEEKS POST OP EARLIEST. Protocol in chart allow finger AROM NWB on LUE. Fall Risk: none Objective Integumentary: Edema: Location #1: ELBOW and circumferential measurement (cm) 33Size: 10 cm cm 10 cm overall, 4.5 white and healed, 5.5 red and scabbed. ROM/JointMobility: (Range of Motion in degrees) Elbow: (Yusuf = P! Denotes Pain with Movement) Extension: L Active 30 degree lack. Flexion: L Active 30-55 degrees. Supination L Active 0-140. Pronation: L Active 0 P!. Hand: (Yusuf: Ext/Flex Finger abbrev. IF, MF, RF, SF P! Denotes Pain with Movement + Hypertension, - Extension Deficit) Not Tested Due To: Surgery. Additional Information: no wrist AROM yet. Outcome Measures: Quick Dash score: 84.09 Treatment Time in clinic started at 1445 pm Time in clinic ended at 1530 pm Total time in clinic is 45 minutes. Total timed code time is 43 minutes. Therapeutic Activity (62021): timed minutes 43 . 9578-4987 -LUE on towel L<>R, P<>D w/ 5 second holds at end points x 15 each -L hand on ROM arc moving rings L to R x 10 rings -STM to L elbow to break down adhesions to increase ROM -Scar management education -AROM education for elbow. 'Scores and Scales' Signatures Electronically signed by : KELSEA Fuller/Harish; Feb 12 2022 3:58PM EST (Author) Electronically signed by : DUSTIN Grant/Harish; Feb 17 2022 8:29AM EST [facility] OT Initial Evalutationon OT Initial Evalutation Therapy Diagnosis Assessed Left elbow pain (719.42) (M25.522) Plan of Care Goals: Goals set and discussed today. STG: HERNAN will demonstrate good carryover of HEP for ROM, strengthening and coordination in order to improve functional independence at home/work by 2 weeks. LTG: HERNAN will demonstrate improved functional independence at home by a decreased DASH score by to below 50% by 6 weeks. LTG: HERNAN will demo increased elbow extension to no more than 15 degree lack pain free and elbow flexion to 80 degrees pain free by 6 weeks LTG: HERNAN will demo decrease in scar length by 2cm to demo good scar management and prevent deformity by 6 weeks. Goals will be upgraded as protocol permits Motor Function/Control/Tone : Intervention plan include: fluidotherapy , hot pack , paraffin , ultrasound , compression bandaging , education/instruction , home program , manual therapy , therapeutic activities and therapeutic exercises. Frequency and duration: 2 time(s) a week, for 6 weeks, for 12 visits. Potential to achieve rehab goals is good. Assessment HERNAN BRITO was evaluated today for s/p radial head implant removal on 01/14/22 . HERNAN presents with deficits in elbow/wrist and finger ROM, pain management, ADLs/IADLS, edema, scar management. HERNAN would benefit from regular outpatient OT x2 /week for 6 weeks in order to improve AROM/PROM, strengthening, coordination, scar management, pain management and activity tolerance to improve functional independence in ADLs/IADLs/work tasks. HERNAN BRITO presents with good prognosis considering supportive factors such as age, motivation, PLOF with consideration of onset of condition 7 years ago. HERNAN BRITO presents with good understanding and teach back of today's education and provides input into goals/POC. Interdisciplinary Team Communication: occupational therapy . Reason For Visit Initial Evaluation, Evaluation and Treatment. Reason for Referral: removal of L radial head. Referred by Abiodun Hastings. Adult Risk Screening There are no spiritual/cultural practices/values/need s that are important to know Initial Fall Risk Screening: HERNAN has not fallen in the last 6 months. Her fall did not result in injury. HERNAN does not have a fear of falling. She does not need assistance with sitting, standing or walking. Does not need assistance walking in her home. She does not need assistance in an unfamiliar setting. The patient is not using an assistive device. Pain Scale: On a scale of 0 to 10, the patient rates the pain at 5. Please identify location of pain: L wrist, forearm, elbow. Pain Quality: sharp. The pain makes it hard for the patient to do these things: work, house work, relationships with family or friends and self-care (bathing, dressing, eating). Living Will. Living Will: No living will on file. Healthcare POA: No healthcare proxy on file. Declaration of Mental Health Treatment: No mental health treatment on file. Insurance Insurance reviewed Visit number: 1 Approved number of visits: 70 [facility] Onset Date: 2021 Subjective Patient reports: Pt presenting to outpatient OT this date s/p radial head implant removal on 01/14/22 from break 7 years ago from fall on 2014. Pt reporting 1/10 pain at rest. Pt reporting significant pain since the surgery. Pt reporting she is not taking the percocete since last week and is currently taking Tylenol that limits the pain that can help her sleep. Pt lives with spouse helps with ADLs. Pt reporting currently her spouse has been having to only help with her bra and wash her R side. Pt reporting she has been doing a lot better doing things one handed. Pt denies n/t in L UE. Pt is R handed. 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 Pain Exacerbating Factors: repetitive motion. Pain Relieving Factors: rest, ice, over the counter medication and splint use. Medical Screening: Reviewed medical history form with patient and medical screening assessed. Precautions: weight bearing restrictions, no active ROM NO WRIST ROM UNTIL CLEARED BY OT, 4 WEEKS POST OP EARLIEST. Protocol in chart allow finger AROM NWB on LUE. Fall Risk: none Functional Assessment and Medical Management Prior Level of Function: independent. 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 Roles, Rituals, Routines: parent, spouse Patient stated goal(s) for treatment include: relieving pain, increasing strength, returning to work and returning to prior level of function . Pt likes to dedechino caruso, 4 wheeling. Pt is very active outside. Current Status: condition of patient is improving. Patient Awareness: Pt is aware of her diagnosis and prognosis. Preferred learning method: visual, verbal and kinesthetic . HERNAN does not demonstrate any current barriers to learning that may impact effectiv (more content not included)... Normal [facility] OPERATIVE REPORTon 2 Ordered by an unspecified provider. [facility] Op Noteon 01-14-2022 Op Note [facility] GENERAL SURGERY [address] [place] [address] Dept: [phone] Loc: [phone] Operative Report Patient Name: Hernan Brito Date of : 1955 Date of Surgery: 01/14/22 Preoperative Diagnosis: Loose LEFT radial head implant Postoperative Diagnosis: Same, with no evidence of infection. Arthrosis capitellum. Procedure: Removal LEFT radial head implant Surgeon: Humberto Yu MD 1st Assist: Edwin Garcia MD 2nd Assist: None Implants: None Specimens Removed: None Anesthesia: MAC/Regional Local Anesthesia: None Tourniquet: Brachium Estimated Blood Loss: <5ml Pre Operative Antibiotics: Yes Indications: Ms. Hernan Brito is a 66 y.o. year-old female who had a previous left radial head implant 7-8 years ago who presented my office with lateral elbow pain. X-rays demonstrated gross lucency of her implant within the medullary canal of the proximal radius. She elected to proceed with radial head excision. I have discussed with her, preoperatively, the complications, limitations, expectations, alternatives, and risks of surgical intervention which she has demonstrated understanding. No guarantees were given or implied. After having all of her questions answered to her satisfaction, Ms. Hernan Brito has provided written informed consent to proceed. Please see previous notes for full operative risk discussion. Procedure: Hernan Brito was identified in the preoperative waiting area. Her operative site was initialed and consent was reviewed. Final questions were answered. She was brought to the operating room and placed in the supine position. All bony prominences were well padded. The operative extremity was prepped and draped in the usual sterile fashion. A surgical timeout was then performed with the patient's identification, the procedure to be performed being reviewed, verification that the patient had received preoperative antibiotics if indicated, and verification of the correct surgical site. The patient's ASA was verified by the nurse tour manager and the anesthesia staff. Fire risk was assessed. An esmarch bandage was used to exsanguinate the limb and the tourniquet was inflated to 250mm Hg. I used the previous incision over the lateral elbow. Electrocautery was used to subcutaneous tissues. Mena's interval was used to enter the radiocapitellar joint. There was benign-appearing fluid within the joint and a loose radial head implant. The lateral collateral ligament and common extensors appeared intact and competent. The radial head was levered anteriorly and the stem removed without incident. The joint was cassidy irrigated normal saline. The wrist extensors were repaired directly to the common extensors using interrupted 0 Vicryl sutures. The tourniquet was deflated. Hemostasis was achieved with bipolar cautery and gentle compression. The skin was closed in layers followed by well-padded posterior slab splint. Ms. Hernan Brito was taken to the recovery room in stable condition. POST OPERATIVE PLAN Percocet IPO: DC splint. Fit with cock up wrist splint. Begin elbow/forearm ROM unrestricted. Sling when not working ROM. No wrist ROM 4wks: Begin gentle wrist ROM out of splint. DC sling 6wks: DC wrist splint and begin gentle strengthening to pain tolerance Outpatient Follow-up XRays: Yes, Left Elbow 3V Humberto Yu MD 01/14/2022 , 5:45 PM Normal [facility] Basic Metabolic Panelon 07-0 Anion gap [Moles/Vol] 8 mmol/L Normal 3-13 [facility] Comment on above: Performed By: #### Desmond EDWARDS BMP3 #### [facility] [address] [place] [address] Calcium [Mass/Vol] 8.8 mg/dL Normal 8.4-10.4 [facility] Comment on above: Performed By: #### Desmond EDWARDS BMP3 #### [facility] [address] [place] [address] CO2 [Moles/Vol] 30 mmol/L Normal 22-30 [facility] Comment on above: Performed By: #### Desmond EDWARDS BMP3 #### [facility] [address] [place] [address] Glucose [Mass/Vol] 109 mg/dL High 70-100 [facility] Comment on above: Performed By: #### Desmond EDWARDS BMP3 #### [facility] [address] [place] [address] Urea nitrogen [Mass/Vol] 19 mg/dL Normal 9-20 [facility] Comment on above: Performed By: #### Desmond EDWARDS BMP3 #### [facility] [address] [place] [address] Creatinine [Mass/Vol] 0.77 mg/dL Normal 0.52-1.25 [facility] Comment on above: Performed By: #### Desmond EDWARDS BMP3 #### [facility] [address] [place] [address] GFR/1.73 sq M.predicted among blacks MDRD (S/P/Bld) [Vol rate/Area] mL/min/{1.73_m2} Normal >60 [facility] Comment on above: Performed By: #### Desmond EDWARDS BMP3 #### [facility] [address] [place] [address] GFR/1.73 sq M.predicted among non-blacks MDRD (S/P/Bld) [Vol rate/Area] 81.5 mL/min/{1.73_m2} Normal >60 [facility] Comment on above: Result Comment: KDIG O guidelines provide the following GFR categories: Stage GFR(ml/min/1.73 m2) Terms G1 >=90 Normal or high G2 60-89 Mildly decreased* G3a 45-59 Mildly to moderately decreased G3b 30-44 Moderately to severely decreased G4 15-29 Severely decreased G5 <15 Kidney failure *Relative to young adult level. In the absence of evidence of kidney damage, neither GFR category G1 nor G2 fulfill the criteria for CKD. The CKD-EPI equation is validated in individuals 18 years of age and older. Currently the best equation for estimating glomerular filtration rate (GFR) from serum creatinine in children is the Bedside Neal equation. It is less accurate in patients with extremes of muscle mass, restriction of dietary protein, ingestion of creatine, extra-renal metabolism of creatinine, or treatment with medications that affect renal tubular creatinine secretion. Performed By: #### Desmond EDWARDS BMP3 #### [facility] [address] [place] [address] Potassium [Moles/Vol] 4.4 mmol/L Normal 3.5-5.1 [facility] Comment on above: Performed By: #### Desmond EDWARDS BMP3 #### [facility] [address] [place] [address] Sodium [Moles/Vol] 138 mmol/L Normal 135-145 [facility] Comment on above: Performed By: #### Desmond EDWARDS BMP3 #### [facility] [address] [place] [address] Chloride [Moles/Vol] 99 mmol/L Normal 98-107 [facility] Comment on above: Performed By: #### Desmond EDWARDS BMP3 #### [facility] [address] [place] [address] Hemogramon 11-12-2021 Erythrocyte distribution width (RBC) [Ratio] 14.1 % Normal 11.5-14.5 [facility] Comment on above: Performed By: #### Desmond EDWARDS BMP3 #### [facility] [address] [place] [address] Hematocrit (Bld) [Volume fraction] 35.3 % Normal 35.0-47.0 [facility] Comment on above: Performed By: #### Desmond EDWARDS BMP3 #### [facility] [address] [place] [address] Hemoglobin (Bld) [Mass/Vol] 12.1 g/dL Normal 11.7-16.0 [facility] Comment on above: Performed By: #### H JERRY, BMP3 #### [facility] [address] [place] [address] MCH (RBC) [Entitic mass] 32.1 pg Normal 26.0-34.0 [facility] Comment on above: Performed By: #### H JERRY BMP3 #### [facility] [address] [place] [address] MCHC 34.2 % Normal 32.0-36.0 [facility] Comment on above: Performed By: #### H JERRY BMP3 #### [facility] [address] [place] [address] MCV (RBC) [Entitic vol] 93.8 fL Normal 79.0-98.0 [facility] Comment on above: Performed By: #### Desmond EDWARDS BMP3 #### [facility] [address] [place] [address] Platelet mean volume (Bld) [Entitic vol] 7.0 fL Low 7.4-12.4 [facility] Comment on above: Result Comment: MPV is a calculated measurement using platelet volume ratio. Performed By: #### H JERRY, BMP3 #### [facility] [address] [place] [address] Platelets (Bld) [#/Vol] 367 10*3/uL Normal 140-440 [facility] Comment on above: Performed By: #### H JERRY, BMP3 #### [facility] [address] [place] [address] RBC (Bld) [#/Vol] 3.76 10*6/uL Low 3.80-5.20 [facility] Comment on above: Performed By: #### H EMOYessica, BMP3 #### [facility] [address] [place] [address] WBC (Bld) [#/Vol] 9.6 10*3/uL Normal 3.6-10.7 [facility] Comment on above: Performed By: #### H EMO, BMP3 #### [facility] [address] [place] [address] No Panel Informationon 05-06 [facility] Mamm - Screening Mammogram w / Tomosynthesison 02-24-2020 [facility] Breast screening Interpreted by: ISAK EMERY 16:50MRN: [id number] Name: HERNAN BRITO STUDY:DIGITAL MAMM SCREENING W/ BERT; 02/24/2020 2:44 pm ORDERING CLINICIAN:MELISSA DEL RIO INDICATION:Screening. Family history of breast cancer. COMPARISON:03/10/2018 , 02/13/2017 FINDINGS:2D and tomosynthesis images were reviewed at 1 mm slice thickness. There are areas of scattered fibroglandular tissue. There arebilateral benign circumscribed masses. No suspicious masses orcalcifications are identified. IMPRESSION:No mammographic evidence of malignancy. BI-RADS CATEGORY: Category: 2 - Benign.Recommendation : 1 Year Screening. For any future breast imaging appointments, please call [phone]). Patient letter sent SNORM Electronically signed by: ISAK VALENTINE 02/24/20 16:50 Normal [facility] Work Phone: Free Thyroxineon 07-15-2018 T4 free mass conc 1.16 ng/dL Normal 0.76-1.46 [facility] Comment on above: Performed By: #### F T4 #### [facility] [address] [place], [place] [address] TSH, 3rd generationon 2018 TSH, 3rd generation 1.940 uIU/mL Normal 0.358-3.740 [facility] Comment on above: Performed By: #### T SH3 #### [facility] [address] [place], [place] [address] Echo Complete w/wo Contrasto n 04-14-2018 Echo Complete w/wo Contrast Patient Name: HERNAN BRITO Ultrasound Exam Date/Time 04/14/2018 09:09:54 EST Exam Echo Complete w/wo Contrast Ordering Physician MULUGETA ELIZALDE NICHOLE Accession Number [id number] Reason For Exam mechanical MV Report TRANSTHORACIC ECHOCARDIOGRAM PATIENT: Hernan Brito STUDY DATE: 04/14/2018 : 1955 AGE: 62 HT/WT: 167.6 cm (66 88.5 kg in) (194.6 lb) GENDER: F BP: 105 / 65 LOCATION: [facility] STATUS: *ORDERING PHYSICIAN: * Stephany Elizalde *RN: * Veronica Carrillo RN *READING PHYSICIAN: * Stone Son *CLAIM EXAMINER: * Walter Garibay RDCS, AE MD --- INDICATIONS: MVR. --- CONCLUSIONS SUMMARY: 1. Left ventricle: The cavity size is normal. Wall thickness is mildly increased. Systolic function is normal by the biplane method of disks. The estimated ejection fraction is 54%. Unable to assess LV diastolic function due to prosthetic mitral valve 2. Mitral valve: A [employer] mechanical prosthesis is present. Size is not known. There is trivial, less than 1+ regurgitation. Mean gradient (D): 4 mm Hg. When caompred to study done in Jun 2015, mean gradients was 6 mm Hg, and peak was 19.5 mm Hg = stable. --- STUDY DATA: Complete transthoracic echocardiogram. Procedure: Image quality was suboptimal. Intravenous imaging enhancement (Definity) was administered to opacify the chamber. Definity lot #: [id number]. M-mode, complete 2D, complete spectral Doppler, and color flow Doppler images were acquired and archived for permanent storage and are available for subsequent review. Study status: Routine. Patient status: Outpatient. ECG RHYTHM: Atrial fibrillation --- FINDINGS LEFT VENTRICLE: The cavity size is normal. Wall thickness is mildly increased. Systolic function is normal by the biplane method of disks. The estimated ejection fraction is 54%. There are no regional wall motion abnormalities. Unable to assess LV diastolic function due to prosthetic mitral valve RIGHT VENTRICLE: The cavity size is normal. Wall thickness is normal. Systolic function is normal. Right ventricular systolic pressure is within the normal range. VENTRICULAR SEPTUM: There is no evidence of a ventricular septal defect. LEFT ATRIUM: The atrium is mildly dilated. RIGHT ATRIUM: The atrium is normal in size. ATRIAL SEPTUM: Color Doppler shows no evidence of shunt. MITRAL VALVE: A [employer] Edinson mechanical prosthesis is present. Size is not known. When caompred to study done in Jun 2015, mean gradients was 6 mm Hg, and peak was 19.5 mm Hg = stable. Doppler: There is trivial, less than 1+ regurgitation. Valve area by pressure half-time: 2.6 cm2. Valve area by continuity equation (using LVOT flow): 1.6 cm2. Mean gradient (D): 4 mm Hg. Peak gradient (D): 15 mm Hg. AORTIC VALVE: Trileaflet; mildly thickened, mildly calcified leaflets. Doppler: There is mild, 1+ regurgitation, which arises centrally. Peak gradient (S): 10 mm Hg. Peak velocity (S): 1.6 m/sec. TRICUSPID VALVE: Structurally normal valve. Doppler: There is no significant regurgitation. PULMONIC VALVE: Structurally normal valve. Doppler: There is trivial, less than 1+ regurgitation. AORTA: The aorta is normal. PULMONARY ARTERY: Main pulmonary artery: Normal. PERICARDIUM: There is no pericardial effusion. SYSTEMIC VEINS: Inferior vena cava: The vessel is normal. The IVC collapses by greater than 50% with inspiration. --- Measurements Left ventricle Value 04/10/2016 Reference LV ID, ED 4.8 cm 5.2 3.9 - 5.3 LV ID, ES 3.6 cm 4.1 ------- -- LV PW thickness, ED (H) 1.2 cm 1.3 0.6 - 0.9 LV end-diastolic volume, 1-p A4C 87 ml 128 56 - 104 LV end-systolic volume, 1-p A4C 34 ml 45 19 - 49 LV end-diastolic volume, 2-p 64 ml 115 56 - 104 LV end-systolic volume, 2-p 29 ml 38 19 - 49 LV ejection fraction, 2-p (L) 54 % >=55 Ventricular septum Value 04/10/2016 Reference IVS thickness, ED (H) 1.1 cm 1.3 0.6 - 0.9 LVOT Value 04/10/2016 Reference LVOT ID, A-P 2.0 cm 1.8 ------- -- LVOT mean velocity, S 0.6 m/sec ------- -- LVOT VTI, S 19.9 cm ------- -- LVOT peak gradient, S 4 mm Hg ------- -- Stroke volume (SV), LVOT DP 64 ml ------- -- Stroke index (SV/bsa), LVOT DP 31 ml/m2 -------- - Aortic valve Value 04/10/2016 Reference Aortic annulus diameter, ED 1.2 cm ------- -- Aortic valve peak velocity, S 1.6 m/sec ------- -- Aortic peak gradient, S 10 mm Hg ------- -- Aortic regurg pressure half-time 781 ms ------- -- Aorta Value 04/10/2016 Reference Ascending aorta ID, A-P, S 2.9 cm ------- -- Left atrium Value 04/10/2016 Reference LA volume/bsa, ES, 2-p 35 ml/m2 -------- - Mitral valve Value 04/10/2016 Reference Mitral pressure half-time 85 ms 105 ------- -- Mitral mean gradient, D 4 mm Hg 6 ------- -- Mitral peak gradient, D 15 mm Hg 20 ------- -- Mitral valve area, PHT, DP 2.6 cm2 2.1 -------- - Mitral valve area, LVOT continuity 1.6 cm2 -------- - Tricuspid valve Value 04/10/2016 Reference Tricuspid regurg peak velocity 1.5 m/sec 2.6 ------- -- Tricuspid peak RV-RA gradient 9 mm Hg 27 ------- -- Right atrium Value 04/10/2016 Reference RA area, ES, A4C 17 cm2 10 - 18 Right ventricle Value 04/10/2016 Reference RV ID, minor axis, ED, A4C base 2.9 cm 2.4 - 4.2 RV ID, minor axis, ED, A4C mid 3.4 cm 2.0 - 3.5 TAPSE 1.7 cm ------- -- RV s', lateral, S 0.08 m/sec ------- -- Pulmonic valve Value 04/10/2016 Reference Pulmonic regurg gradient, ED 6 mm Hg ------- -- Legend: (L) and (H) papo values outside specified reference range. Electronically signed by Stone Son MD 04/14/2018 09:59 Final Dictated: 04/14/2018 9:59 am Dictating Physician: MD SON LORETTA Signed Date and Time: 04/14/2018 9:59 am Signed by: MD SON LORETTA [facility] 12-27-1998 CONVERTED ELECTRONIC SIGNATURE JESUSITA HAWTHORNE M.D. (Electronic signature on file) Final Signed Out: 12/27/1998 16:45 [facility] CONVERTED FINAL DIAGNOSIS DIAGNOSIS NO MALIGNANT CELLS IDENTIFIED. NARRATIVE MESOTHELIAL CELLS, HISTIOCYTES, PMN'S, LYMPHOCYTES. [facility] CONVERTED ORDERING PROVIDER Ordering Provider: CELESTINA [facility] CLIN[facility]AY [facility] CONVERTED ELECTRONIC SIGNATURE RONI BARRETT M.D., PATHOLOGIST (Electronic signature on file) Final Signed Out: 12/27/1998 16:10 [facility] CONVERTED FINAL DIAGNOSIS A) OVARY, LEFT, PARTIAL OOPHORECTOMY - RUPTURED HEMORRHAGIC CORPUS LUTEUM WITH EXTENSIVE BLOOD CLOT FORMATION AND NECROSIS. B) UTERUS AND RIGHT OVARY AND FALLOPIAN TUBE, HYSTERECTOMY/RIGHT SALPINGO-OOPHORECTOMY - CERVIX - NO PATHOLOGIC ABNORMALITIES. ENDOMETRIUM - PROLIFERATIVE PHASE. MYOMETRIUM - ADENOMYOSIS. OVARY, RIGHT - NO PATHOLOGIC ABNORMALITIES. SEE COMMENT. FALLOPIAN TUBE, RIGHT - NO PATHOLOGIC ABNORMALITY. SEE COMMENT. LEFT OVARIAN REMNANT - RUPTURED HEMORRHAGIC CORPUS LUTEUM. COMMENT: The right ovary and fallopian tube are surrounded by blood clot and fibrous adhesions but show no intrinsic pathologic abnormalities. [facility] CONVERTED ORDERING PROVIDER Ordering Provider: CELESTINA [facility] Vital Signs Date Time Vital Sign Value Performing Clinician Facility 10-10-2024 09:01-0400 Body height 162.6 cm Melissa Pierrecheo DO Work Phone: [facility] 10-10-2024 09:01-0400 Body mass index (BMI) [Ratio] 33.13 kg/m2 Melissa Del Rio DO Work Phone: [facility] 10-10-2024 09:01-0400 Body temperature 97.5 [degF] Melissa Jayic DO Work Phone: [facility] 10-10-2024 09:01-0400 Body weight 87.54 kg Melissa Jayic DO Work Phone: [facility] 10-10-2024 09:01-0400 Diastolic blood pressure 70 mm[Hg] Melissa Jayic DO Work Phone: [facility] 10-10-2024 09:01-0400 Heart rate 94 /min Melissa Del Rio DO Work Phone: [facility] 10-10-2024 09:01-0400 SaO2% (BldA) [Mass fraction] 97 % Melissa Del Rio DO Work Phone: [facility] 10-10-2024 09:01-0400 Systolic blood pressure 124 mm[Hg] Melissa Del Rio DO Work Phone: [facility] 07-20-2024 11:13-0400 Diastolic blood pressure 73 mm[Hg] Toan Hudsons DO Work Phone: [facility] 07-20-2024 11:13-0400 Heart rate 70 /min Toan Aggarwallis DO Work Phone: [facility] 07-20-2024 11:13-0400 Respiratory rate 16 /min Toan Aggarwallis DO Work Phone: [facility] 07-20-2024 11:13-0400 SaO2% (BldA) [Mass fraction] 100 % Toan Aggarwallis DO Work Phone: [facility] 07-20-2024 11:13-0400 Systolic blood pressure 112 mm[Hg] Toan Aggarwallis DO Work Phone: [facility] 07-20-2024 10:53-0400 Body temperature 97.5 [degF] Toan Pena DO Work Phone: [facility] 07-20-2024 09:30-0400 Body height 162.6 cm Toan Pena DO Work Phone: [facility] 07-20-2024 09:30-0400 Body mass index (BMI) [Ratio] 37.76 kg/m2 Toan Pena DO Work Phone: [facility] 07-20-2024 09:30-0400 Body weight 99.79 kg Toan Pena DO Work Phone: [facility] 06-30-2024 08:49-0500 Body height 162.6 cm Melissa Del Rio DO Work Phone: [facility] 06-30-2024 08:49-0500 Body mass index (BMI) [Ratio] 34.33 kg/m2 Melissa aJyic DO Work Phone: [facility] 06-30-2024 08:49-0500 Body temperature 97.7 [degF] Melissa Jayic DO Work Phone: [facility] 06-30-2024 08:49-0500 Body weight 90.72 kg Melissa Jayic DO Work Phone: [facility] 06-30-2024 08:49-0500 Diastolic blood pressure 60 mm[Hg] Melissa Jayic DO Work Phone: [facility] 06-30-2024 08:49-0500 Heart rate 71 /min Melissa Jayic DO Work Phone: [facility] 06-30-2024 08:49-0500 SaO2% (BldA) [Mass fraction] 96 % Melissa Jayic DO Work Phone: [facility] 06-30-2024 08:49-0500 Systolic blood pressure 139 mm[Hg] Melissa Rinaldiomalic DO Work Phone: [facility] 05-10-2024 08:58-0500 Body height 163.8 cm [facility] 05-10-2024 08:58-0500 Body mass index (BMI) [Ratio] 36.86 kg/m2 [facility] 05-10-2024 08:58-0500 Body weight 98.9 kg [facility] 04-22-2024 15:20-0500 Body height 163.8 cm Melissa Kromalic DO Work Phone: [facility] 04-22-2024 15:20-0500 Body mass index (BMI) [Ratio] 36.84 kg/m2 Melissa Kromalic DO Work Phone: [facility] 04-22-2024 15:20-0500 Body temperature 97.7 [degF] Melissa Kromalic DO Work Phone: [facility] 04-22-2024 15:20-0500 Body weight 98.88 kg Melissa Kromalic DO Work Phone: [facility] 04-22-2024 15:20-0500 Diastolic blood pressure 64 mm[Hg] Melissa Kromalic DO Work Phone: [facility] 04-22-2024 15:20-0500 Heart rate 80 /min Melissa Kromalic DO Work Phone: [facility] 04-22-2024 15:20-0500 SaO2% (BldA) [Mass fraction] 97 % Melissa Kromalic DO Work Phone: [facility] 04-22-2024 15:20-0500 Systolic blood pressure 128 mm[Hg] Melissa Kromalic DO Work Phone: [facility] 02-15-2024 15:37-0400 Body height 166.4 cm Stone Son MD Work Phone: [employer] 02-15-2024 15:37-0400 Body mass index (BMI) [Ratio] 36.35 kg/m2 Stone Son MD Work Phone: [facility] 02-15-2024 15:37-0400 Body weight 100.61 kg Stone Son MD Work Phone: [facility] 02-15-2024 15:37-0400 Diastolic blood pressure 76 mm[Hg] Stone Son MD Work Phone: [facility] 02-15-2024 15:37-0400 Heart rate 65 /min Stone Son MD Work Phone: [facility] 02-15-2024 15:37-0400 Systolic blood pressure 130 mm[Hg] Stone Son MD Work Phone: [facility] 03-16-2023 08:14-0500 Body height 166.4 cm Stone Son MD Work Phone: [facility] 03-16-2023 08:14-0500 Body mass index (BMI) [Ratio] 35.95 kg/m2 Stone Son MD Work Phone: [facility] 03-16-2023 08:14-0500 Body weight 99.52 kg Stone Son MD Work Phone: [facility] 03-16-2023 08:14-0500 Diastolic blood pressure 82 mm[Hg] Stone Son MD Work Phone: [facility] 03-16-2023 08:14-0500 Heart rate 68 /min Stone Son MD Work Phone: [facility] 03-16-2023 08:14-0500 Systolic blood pressure 118 mm[Hg] Stone Son MD Work Phone: [facility] 02-13-2023 15:15-0400 Diastolic blood pressure 47 mm[Hg] Papo Thompson MD Work Phone: [facility] 02-13-2023 15:15-0400 Heart rate 52 /min Papo Thompson MD Work Phone: [facility] 02-13-2023 15:15-0400 Respiratory rate 22 /min Papo Thompson MD Work Phone: [facility] 02-13-2023 15:15-0400 Systolic blood pressure 112 mm[Hg] Papo Thompson MD Work Phone: [facility] 02-13-2023 13:45-0400 SaO2% (BldA) [Mass fraction] 95 % Papo Thompson MD Work Phone: [facility] 02-13-2023 13:12-0400 Body temperature 97.2 [degF] Papo Thompson MD Work Phone: [facility] 02-13-2023 10:56-0400 Body height 165.1 cm Papo Thompson MD Work Phone: [facility] 02-13-2023 10:56-0400 Body mass index (BMI) [Ratio] 34.95 kg/m2 Papo Thompson MD Work Phone: [facility] 02-13-2023 10:56-0400 Body weight 95.25 kg Papo Thompson MD Work Phone: [facility] 01-26-2023 15:34-0400 Body height 166.4 cm Stone Son MD Work Phone: [facility] 01-26-2023 15:34-0400 Body mass index (BMI) [Ratio] 36.02 kg/m2 Stone Son MD Work Phone: [facility] 01-26-2023 15:34-0400 Body weight 99.7 kg Stone Son MD Work Phone: [facility] 01-26-2023 15:34-0400 Diastolic blood pressure 68 mm[Hg] Stone Son MD Work Phone: [facility] 01-26-2023 15:34-0400 Heart rate 62 /min Stone Son MD Work Phone: [facility] 01-26-2023 15:34-0400 Systolic blood pressure 138 mm[Hg] Stone Son MD Work Phone: [facility] 01-23-2023 14:51-0400 Body height 162.6 cm Melissa Kromalic DO Work Phone: [facility] 01-23-2023 14:51-0400 Body mass index (BMI) [Ratio] 37.42 kg/m2 Melissa Kromalic DO Work Phone: [facility] 01-23-2023 14:51-0400 Body temperature 97.3 [degF] Melissa Kromalic DO Work Phone: [facility] 01-23-2023 14:51-0400 Body weight 98.88 kg Melissa Kromalic DO Work Phone: [facility] 01-23-2023 14:51-0400 Diastolic blood pressure 60 mm[Hg] Melissa Kromalic DO Work Phone: [facility] 01-23-2023 14:51-0400 Heart rate 80 /min Melissa Gentryomalic DO Work Phone: [facility] 01-23-2023 14:51-0400 SaO2% (BldA) [Mass fraction] 97 % Melissa Kromalic DO Work Phone: [facility] 01-23-2023 14:51-0400 Systolic blood pressure 124 mm[Hg] Melissa Kromalic DO Work Phone: [facility] 10-31-2022 15:47-0400 Body temperature 97.59 [degF] Melissa Kromalic DO Work Phone: [facility] 10-31-2022 15:47-0400 Diastolic blood pressure 82 mm[Hg] Melissa Kromalic DO Work Phone: [facility] 10-31-2022 15:47-0400 Heart rate 73 /min Melissa Kromalic DO Work Phone: [facility] 10-31-2022 15:47-0400 Systolic blood pressure 134 mm[Hg] Melissa Kromalic DO Work Phone: [facility] 09-22-2022 08:56-0400 Body height 165.1 cm Stone Son MD Work Phone: [facility] 09-22-2022 08:56-0400 Body mass index (BMI) [Ratio] 34.95 kg/m2 Stone Son MD Work Phone: [facility] 09-22-2022 08:56-0400 Body weight 95.25 kg Stone Son MD Work Phone: [facility] 07-18-2022 15:18-0500 Body height 162.6 cm Melissa Kromalic DO Work Phone: [facility] 07-18-2022 15:18-0500 Body mass index (BMI) [Ratio] 36.73 kg/m2 Melissa Kromalic DO Work Phone: [facility] 07-18-2022 15:18-0500 Body temperature 97.11 [degF] Melissa Kromalic DO Work Phone: [facility] 07-18-2022 15:18-0500 Body weight 97.07 kg Melissa Kromalic DO Work Phone: [facility] 07-18-2022 15:18-0500 Diastolic blood pressure 60 mm[Hg] Melissa Kromalic DO Work Phone: [facility] 07-18-2022 15:18-0500 Heart rate 90 /min Melissa Kromalic DO Work Phone: [facility] 07-18-2022 15:18-0500 SaO2% (BldA) [Mass fraction] 95 % Melissa Kromalic DO Work Phone: [facility] 07-18-2022 15:18-0500 Systolic blood pressure 112 mm[Hg] Melissa Kromalic DO Work Phone: [facility] 05-15-2022 09:25-0500 Body height 166.4 cm Humberto Yu MD Work Phone: [facility] 05-15-2022 09:25-0500 Body mass index (BMI) [Ratio] 34.41 kg/m2 Humberto Yu MD Work Phone: [facility] 05-15-2022 09:25-0500 Body temperature 96.91 [degF] Humberto Yu MD Work Phone: [facility] 05-15-2022 09:25-0500 Body weight 95.25 kg Humberto Yu MD Work Phone: [facility] 05-15-2022 09:25-0500 Diastolic blood pressure 74 mm[Hg] Humberto Yu MD Work Phone: [facility] 05-15-2022 09:25-0500 Systolic blood pressure 116 mm[Hg] Humberto Yu MD Work Phone: [facility] 03-03-2022 14:34-0400 Diastolic blood pressure 70 mm[Hg] Melissa Del Rio Work Phone: [facility] Work Phone: 03-03-2022 14:34-0400 Systolic blood pressure 122 mm[Hg] Melissa Del Rio Work Phone: [facility] Work Phone: 03-03-2022 13:55-0400 Body height 165.1 cm Melissa Del Rio Work Phone: [facility] Work Phone: 03-03-2022 13:55-0400 Body mass index (BMI) [Ratio] 36.11 kg/m2 Melissa Del Rio Work Phone: [facility] Work Phone: 03-03-2022 13:55-0400 Body surface area Derived from formula 2.05 m2 Melissa Del Rio Work Phone: [facility] Work Phone: 03-03-2022 13:55-0400 Body temperature 97 [degF] Melissa Del Rio Work Phone: [facility] Work Phone: 03-03-2022 13:55-0400 Body weight 98.43 kg Melissa Del Rio Work Phone: [facility] Work Phone: 03-03-2022 13:55-0400 Diastolic blood pressure 70 mm[Hg] Melissa Del Rio Work Phone: [facility] Work Phone: 03-03-2022 13:55-0400 Heart rate 84 /min Melissa Del Rio Work Phone: [facility] Work Phone: 03-03-2022 13:55-0400 SaO2% (BldA) [Mass fraction] 96 % Melissa Del Rio Work Phone: [facility] Work Phone: 03-03-2022 13:55-0400 Systolic blood pressure 134 mm[Hg] Melissa Del Rio Work Phone: [facility] Work Phone: 01-14-2022 18:00-0400 Diastolic blood pressure 57 mm[Hg] Humberto Yu MD Work Phone: [facility] 01-14-2022 18:00-0400 Heart rate 68 /min Humberto Yu MD Work Phone: [facility] 01-14-2022 18:00-0400 Respiratory rate 18 /min Humberto Yu MD Work Phone: [facility] 01-14-2022 18:00-0400 SaO2% (BldA) [Mass fraction] 93 % Humberto Yu MD Work Phone: [facility] 01-14-2022 18:00-0400 Systolic blood pressure 135 mm[Hg] Humberto Yu MD Work Phone: [facility] 01-14-2022 17:18-0400 Body temperature 97.59 [degF] Humberto Yu MD Work Phone: [facility] 01-14-2022 13:34-0400 Body height 166.4 cm Humberto Yu MD Work Phone: [facility] 01-14-2022 13:32-0400 Body mass index (BMI) [Ratio] 34.41 kg/m2 Humberto Yu MD Work Phone: [facility] 01-14-2022 13:32-0400 Body weight 95.25 kg Humberto Yu MD Work Phone: [facility] 01-07-2022 11:03-0400 Body height 166.4 cm Humberto Yu MD Work Phone: [facility] 01-07-2022 11:03-0400 Body mass index (BMI) [Ratio] 34.74 kg/m2 Humberto Yu MD Work Phone: [facility] 01-07-2022 11:03-0400 Body weight 96.16 kg Humberto Yu MD Work Phone: [facility] 05-06-2021 13:05-0500 Body height 167.6 cm Jania Garrido APRN.PROJECT MANAGEMENT PROFESSOR Work Phone: [facility] 05-06-2021 13:05-0500 Body weight 83.92 kg Jania Garrido KEY BED INSTALLER.PROJECT MANAGEMENT PROFESSOR Work Phone: [facility] 05-06-2021 13:05-0500 Respiratory rate 18 /min Jania Garrido KEY BED INSTALLER.PROJECT MANAGEMENT PROFESSOR Work Phone: [facility] Encounters Encounter Date Encounter Type Care Provider Facility Start: 11-29-2024 End: 11-29-2024 Telemedicine consultation with patient Mejia Abad Jackson [facility] Work Phone: [facility] Comment on above: Type 2 diabetes elton itus without complication, without long- term current use of insulin (Primary Dx); Class 2 severe obesity due to excess calories with serious comorbidity and body mass index (BMI) of 36.0 to 36.9 in adult Start: 11-01-2024 End: 11-01-2024 ambulatory MEJIA JACKSON [facility] Start: 11-01-2024 End: 11-01-2024 Telemedicine consultation with patient Mejia Jackson [facility] Work Phone: [facility] Comment on above: Type 2 diabetes elton itus without complication, without long- term current use of insulin (Primary Dx); Class 2 severe obesity due to excess calories with serious comorbidity and body mass index (BMI) of 36.0 to 36.9 in adult Start: 10-17-2024 End: 10-17-[address] Melissa Del Rio MD Work Phone: [facility] Work Phone: Start: 10-17-2024 End: 10-17-[address] Helena Santos MD -Laboratory [place] Work Phone: Start: 10-17-2024 End: 10-17-2024 ambulatory Helena Santos Facility:[facility] Start: 10-15-2024 End: 10-17-2024 Refill Stone Son MD Work Phone: [facility] Card[facility] Start: 10-10-2024 End: 10-10-2024 Office outpatient visit 25 minutes Melissa Del Rio DO Work Phone: [facility] Comment on above: Longstanding persist ent atrial fibrillation (Multi) (Primary Dx); Cardiomyopathy, dilated (Multi); BMI 33.0-33.9,adult; Type 2 diabetes mellitus without complication, without long-term current use of insulin; Cervical (neck) region somatic dysfunction Start: 10-10-2024 End: 10-10-2024 ambulatory MELISSA DEL RIO [facility] Start: 10-05-2024 End: 10-05-[address] Stone Thomas MD -Laboratory [place] Work Phone: Start: 10-05-2024 End: 10-05-[address] Melissa Del Rio MD Work Phone: [facility] Work Phone: Start: 10-04-2024 End: 10-04-2024 ambulatory [facility] Start: 08-22-2024 End: 09-07-[address] Stone Thomas MD -Laboratory [place] Work Phone: Start: 08-22-2024 End: 09-07-2024 ambulatory Stone Son Facility:[facility] Start: 08-08-2024 End: 08-08-[address] Melissa Del Rio MD Work Phone: [facility] Work Phone: Start: 08-08-2024 End: 08-08-[address] Stone Thomas MD -Laboratory, [place] Work Phone: Start: 08-01-2024 End: 08-01-2024 Telephone encounter Stone Son MD Work Phone: [facility] Comment on above: Results (INR) Start: 07-26-2024 End: 07-26-2024 Refill Tania Dawkins RN [facility]iology [facility] Start: 07-20-2024 End: 07-20-2024 ambulatory TOAN PENA [facility] Start: 07-20-2024 End: 07-20-2024 Subsequent hospital visit by physician Toan Pena DO Work Phone: [facility] Start: 07-19-2024 End: 07-19-2024 Telephone encounter Stone Son MD Work Phone: [facility] Comment on above: Results (INR results /colonoscopy tomorrow) Start: 07-18-[address] Guilherme Thomas MD -Laboratory, [place] Work Phone: Start: 07-14-2024 End: 07-14-2024 Refill Stone Son MD Work Phone: [facility] Start: 07-12-2024 End: 07-12-[address] Helena Santos MD -Laboratory, [place] Work Phone: Start: 07-12-2024 End: 07-12-2024 Refill Tania Dawkins RN [facility] Start: 07-12-2024 End: 07-12-2024 ambulatory Helena Santos Facility:[facility] Start: 07-05-2024 End: 07-05-2024 Anticoagulant drug monitoring [facility] Start: 07-05-2024 End: 07-05-2024 Telemedicine consultation with patient Mejia Jackson PharmD Work Phone: [facility] Comment on above: Type 2 diabetes elton itus without complication, without long- term current use of insulin (Multi) (Primary Dx); Class 2 severe obesity due to excess calories with serious comorbidity and body mass index (BMI) of 36.0 to 36.9 in adult; Obesity (BMI 30-39.9) Start: 07-05-2024 End: 07-05-2024 ambulatory MEJIA JACKSON [facility] Start: 07-01-2024 End: 07-04-2024 Telephone encounter [facility] Comment on above: Other (INR instructi ons/post ER visit) Start: 06-30-2024 End: 06-30-2024 Emergency department patient visit MELISSA DEL RIO Facility:[facility] Start: 06-30-2024 End: 06-30-2024 ambulatory [facility] Start: 06-30-2024 End: 06-30-2024 Office outpatient visit 40 minutes Melissa Del Rio DO Work Phone: [facility] Comment on above: Longstanding persist ent atrial fibrillation (Multi) (Primary Dx); Dehydration; Dyspnea, unspecified type; Bronchitis Start: 06-07-2024 End: 06-07-2024 Telemedicine consultation with patient Mejia Jackson PharmD Work Phone: [facility] Comment on above: Type 2 diabetes elton itus without complication, without long- term current use of insulin (Multi) (Primary Dx); Obesity (BMI 30-39.9); Class 2 severe obesity due to excess calories with serious comorbidity and body mass index (BMI) of 36.0 to 36.9 in adult Start: 06-07-2024 End: 06-07-2024 ambulatory MEJIA JACKSON [facility] Start: 05-10-2024 End: 05-10-2024 ambulatory MEJIA JACKSON [facility] Start: 05-10-2024 End: 05-10-2024 Telemedicine consultation with patient Mejia Jackson PharmD Work Phone: [facility] Comment on above: Class 2 severe obesi ty due to excess calories with serious comorbidity and body mass index (BMI) of 36.0 to 36.9 in adult (Primary Dx); Type 2 diabetes mellitus without complication, without long-term current use of insulin (Multi) Start: 05-10-2024 End: 05-10-2024 Subsequent hospital visit by physician Casey Nova110 X-Ray 1 [facility] Comment on above: Arthralgia of both h ands Post-menopausal Screening mammogram for breast cancer Start: 05-10-2024 End: 05-10-2024 ambulatory [facility] Start: 05-06-2024 End: 05-07-2024 Telephone encounter Stone Son MD Work Phone: [facility] [place] Comment on above: Cardiac Clearance Start: 04-22-2024 End: 04-22-2024 ambulatory [facility] Start: 04-22-2024 End: 04-22-2024 Encounter for general adult medical examination without abnormal findings [facility] Start: 04-22-2024 End: 04-22-2024 Assay of hemosiderin, quant Melissa Del Rio DO Work Phone: [facility] Work Phone: Start: 04-22-2024 End: 04-22-2024 Patient encounter procedure Melissa Del Rio DO Work Phone: [facility] Comment on above: Routine general medi cheryl examination at health care facility (Primary Dx); Arthralgia, unspecified joint; Longstanding persistent atrial fibrillation (Multi); Elevated fasting glucose; Hypothyroidism, unspecified type; Mitral valve replaced; Class 2 severe obesity due to excess calories with serious comorbidity and body mass index (BMI) of 36.0 to 36.9 in adult; Cardiomyopathy, dilated (Multi); Mitral valve disorder; Dyslipidemia; Arthralgia of both hands; History of mitral valve replacement; Type 2 diabetes mellitus without complication, without long-term current use of insulin (Multi); Post-menopausal; Screening mammogram for breast cancer; Colon cancer screening Start: 04-15-2024 End: 04-15-2024 Telephone encounter Stone Son MD Work Phone: [facility] [place] Comment on above: Results (INR results ) Start: 04-11-2024 End: 04-11-2024 ambulatory [facility] Start: 03-05-2024 End: 03-07-2024 Refill Stone Son MD Work Phone: [facility] Start: 02-25-2024 End: 02-25-2024 Telephone encounter Stone Son MD Work Phone: [facility] [place] Comment on above: Results (INR results ) Start: 02-23-2024 End: 02-23-2024 ambulatory [facility] Start: 02-23-2024 End: 02-23-2024 Telephone encounter Tania Dawkins RN [facility] Comment on above: Orders Start: 02-15-2024 End: 02-15-2024 Office outpatient visit 15 minutes Stone Son MD Work Phone: [facility] Comment on above: Shortness of breath (Primary Dx); H/O mitral valve replacement with mechanical valve; Rheumatic heart disease; Atrial fibrillation, chronic (HCC); Chronic anticoagulation; Mixed hyperlipidemia Start: 02-15-2024 End: 02-15-2024 ambulatory STONE SON [facility] Start: 02-12-2024 End: 02-12-2024 ambulatory [facility] Start: 02-11-2024 End: 02-11-2024 Refill Stone Son MD Work Phone: [facility] Start: 02-05-2024 End: 02-05-2024 Refill Stone Son MD Work Phone: [facility] Start: 01-26-2024 End: 01-26-2024 Refill Stone Son MD Work Phone: [facility] Start: 01-17-2024 End: 01-18-2024 Refill Stone Sno MD Work Phone: [facility] Start: 01-13-2024 End: 01-13-2024 Refill Stone Son MD Work Phone: [facility] Start: 12-25-2023 End: 12-25-2023 ambulatory [facility] Start: 12-10-2023 End: 12-10-2023 Telephone encounter Stone Son MD Work Phone: [facility] Comment on above: Results (PT/INR) Start: 12-09-2023 End: 12-09-2023 ambulatory [facility] Start: 10-27-2023 End: 10-27-2023 Refill Tania Dawkins RN [facility] Start: 10-21-2023 End: 11-26-2023 Refill Stone Son MD Work Phone: [facility] Comment on above: Labs Only Start: 07-13-2023 Refill Stone alonso MD Work Phone: [facility] Start: 04-25-2023 Refill Stone alonso MD Work Phone: [facility] Comment on above: Cardiomyopathy, dila asiya (HCC); H/O mitral valve replacement with mechanical valve Start: 04-13-2023 Refill Stone alonso MD Work Phone: [facility] Start: 03-16-2023 Refill Stone alonso MD Work Phone: [facility] Start: 03-16-2023 End: 03-16-2023 Office outpatient visit 15 minutes Stone Son MD Work Phone: [facility] Comment on above: Shortness of breath (Primary Dx); H/O mitral valve replacement with mechanical valve; Cardiomyopathy, dilated (HCC); Atrial fibrillation, chronic (HCC); Chronic anticoagulation Start: 03-10-2023 Refill Stone alonso MD Work Phone: [facility] Start: 03-09-2023 Telephone encounter Stone Son MD Work Phone: [facility] Comment on above: Results (INR) Start: 02-24-2023 Anticoagulant drug monitoring Tania Dawkins RN [facility] Start: 02-18-2023 Telephone encounter Stone Son MD Work Phone: [facility] Comment on above: Orders (INR standing order/ medical question) Start: 02-13-2023 End: 02-13-2023 Subsequent hospital visit by physician Papo Thompson MD Work Phone: [facility] Cath/EP Lab Comment on above: History of MVR with cardiopulmonary bypass; Cardiomyopathy, dilated (HCC); Atrial fibrillation, chronic (CMS/HCC) (HCC); Chronic anticoagulation; Angina of effort (CMS/HCC) (HCC) Start: 02-12-2023 ambulatory Cecilia Mckeon KEY BED INSTALLER - PROJECT MANAGEMENT PROFESSOR Work Phone: [facility] Start: 02-11-2023 Refill Stone alonso MD Work Phone: [facility] Start: 02-09-2023 Orders Only Stone alonso MD Work Phone: [facility] Start: 02-05-2023 Telephone encounter Stone Son MD Work Phone: [facility] Comment on above: Results (INR) Results (labs) Start: 02-04-2023 Orders Only Stone alonso MD Work Phone: [facility] Start: 01-28-2023 Refill Stone alonso MD Work Phone: [facility] Start: 01-27-2023 Refill Stone alonso MD Work Phone: [facility] Start: 01-27-2023 Telephone encounter Stone Son MD Work Phone: [facility] Comment on above: Procedure (L/RHC) Start: 01-26-2023 End: 01-27-2023 Office outpatient visit 40 minutes Stone Son MD Work Phone: [facility] Comment on above: History of MVR with cardiopulmonary bypass (Primary Dx); Cardiomyopathy, dilated (HCC); Atrial fibrillation, chronic (CMS/HCC) (HCC); Chronic anticoagulation; Angina of effort (CMS/HCC) (HCC); Near syncope Start: 01-23-2023 ambulatory MELISSA DEL RIO Facility:[id number] Start: 01-23-2023 End: 01-23-2023 Office outpatient visit 25 minutes Melissa Del Rio DO Work Phone: [facility] Comment on above: Longstanding persist ent atrial fibrillation (CMS/HCC) (Primary Dx); Cardiomyopathy, dilated (CMS/HCC); Dyslipidemia; Elevated fasting glucose; Hyperlipidemia, unspecified hyperlipidemia type; Hypothyroidism, unspecified type; Anemia, unspecified type; Dyspnea, unspecified type; Class 2 severe obesity due to excess calories with serious comorbidity and body mass index (BMI) of 36.0 to 36.9 in adult (CMS/HCC) Start: 01-21-2023 Orders Only Stone alonso MD Work Phone: [facility] Start: 01-21-2023 Refill Stone alonso MD Work Phone: [facility] Start: 12-31-2022 Orders Only Stone alonso MD Work Phone: [facility] Start: 12-18-2022 Orders Only Stone alonso MD Work Phone: [facility] Start: 10-31-2022 End: 10-31-2022 Office outpatient visit 25 minutes Melissa Del Rio DO Work Phone: [facility] Comment on above: Cardiomyopathy, dila asiay (CMS/HCC) (Primary Dx); Acquired hypothyroidism; Atrial fibrillation, chronic ([facility]); Rheumatic heart disease; Hypothyroidism, unspecified type; Pain in other joint; Left elbow pain; Mitral valve replaced; Chronic atrial fibrillation ([facility]CC); Class 2 severe obesity due to excess calories with serious comorbidity and body mass index (BMI) of 36.0 to 36.9 in adult (CMS/HCC); Mitral valve disorder; History of mitral valve replacement Start: 10-27-2022 Orders Only Stone alonso MD Work Phone: [facility] Start: 09-22-2022 Orders Only Stone alonso MD Work Phone: [facility] Start: 09-22-2022 End: 09-22-2022 Subsequent hospital visit by physician Stone Son MD Work Phone: [facility] Non-Invasive Cardiology Comment on above: Cardiomyopathy, isch emic Start: 07-25-2022 Anticoagulant drug monitoring Tania Dawkins RN [facility] Start: 07-18-2022 End: 07-18-2022 Office outpatient visit 15 minutes Melissa Del Rio DO Work Phone: [facility] Comment on above: Acquired hypothyroid ism (Primary Dx); Longstanding persistent atrial fibrillation (CMS/HCC); Elbow pain, chronic, left; Class 2 severe obesity due to excess calories with serious comorbidity and body mass index (BMI) of 36.0 to 36.9 in adult (CMS/HCC) Start: 07-09-2022 Refill Stone alonso MD Work Phone: [facility] Start: 07-03-2022 Telephone encounter Stone Son MD Work Phone: [facility] Comment on above: Results (INR results ) Start: 05-15-2022 OTFUADULT4, Provider : Rebecca Westfall, Status: Pen, Time: 5:00 PM Melissa Del Rio [facility] Work [facility]: Start: 05-15-2022 Patient encounter procedure Melissa Del Rio Work Phone: [facility] Work Phone: Start: 05-15-2022 End: 05-15-2022 Office outpatient visit 15 minutes Humberto Yu MD Work Phone: [facility] [place] Comment on above: Arthritis of left el bow; H/O elbow surgery Start: 05-13-2022 Patient encounter procedure Melissa Del Rio Work Phone: [facility] Work Phone: Start: 05-13-2022 ambulatory Melissa Del Rio Facility:[id number] Start: 05-07-2022 OTFUADULT3, Provider : Rebecca Westfall, Status: Pen, Time: 4:30 PM Melissa Del Rio Work Phone: [facility] Work Phone: Start: 05-07-2022 Patient encounter procedure Melissa Del Rio Work Phone: [facility] Work Phone: Start: 05-07-2022 ambulatory Melissa Del Rio Facility:[id number] Start: 05-06-2022 ambulatory Ms. Lexi Olivo ility:[id number] Start: 05-06-2022 Patient encounter procedure Melissa Del Rio [facility] Work [facility]: Start: 04-30-2022 Patient encounter procedure Melissa Del Rio Work [facility] Work [facility]: Start: 04-30-2022 ambulatory Ms. Lexi Olivo ility:[id number] Start: 04-25-2022 ambulatory Ms. Lexi Olivo ility:[id number] Start: 04-25-2022 OTFUCOLEMAN, Provider : Rebecca Westfall, Status: Pen, Time: 8:45 AM Melissa Salina Rinaldibrittany Work Phone: [facility] Work [facility]: Start: 04-25-2022 Patient encounter procedure Melissa Del Rio Work [facility] Work [facility]: Start: 04-23-2022 ambulatory Melissa Del Rio Facility:[id number] Start: 04-23-2022 Patient encounter procedure Melissa Jaycheo [facility]: Start: 04-16-2022 OTRECALLAN, Provider : Rose Page, Status: Pen, Time: 7:45 AM Melissa Del Rio [facility] Work [facility]: Start: 04-16-2022 ambulatory Melissa Del Rio Facility:[id number] Start: 04-10-2022 AUDIT Melissa downing Work Phone: [facility] Work Phone: Start: 04-09-2022 OTFUADULT4, Provider : Rbeecca Westfall, Status: Pen, Time: 1:00 PM Melissa Jayic Work Phone: [facility] Work Phone: Start: 04-09-2022 Patient encounter procedure Melissa Jayic Work Phone: [facility] Work Phone: Start: 04-09-2022 ambulatory Melissa Lalito Quang Facility:[id number] Start: 04-07-2022 Patient encounter procedure Melissa Jayic Work Phone: [facility] Work Phone: Start: 04-07-2022 ambulatory Melissa Lalito Quang Facility:[id number] Start: 04-02-2022 OTFUADULT4, Provider : Rebecca Westfall, Status: Pen, Time: 2:45 PM Melissa Jayic Work Phone: [facility] Work Phone: Start: 03-31-2022 Patient encounter procedure Melissa Del Rio Work Phone: [facility] Work Phone: Start: 03-31-2022 ambulatory Melissa Lalito Rinaldibrittany Facility:[id number] Start: 03-28-2022 Patient encounter procedure Melissa Jayic Work Phone: [facility] Work Phone: Start: 03-28-2022 ambulatory Melissa Lalito Rinaldibrittany Facility:[id number] Start: 03-24-2022 ambulatory Melissa Lalito Rinaldibrittany Facility:[id number] Start: 03-24-2022 Patient encounter procedure Melissa Downing Pierreic Work Phone: [facility] Work Phone: Start: 03-20-2022 Patient encounter procedure Melissa Jayic Work Phone: [facility] Work Phone: Start: 03-20-2022 ambulatory Melissa Del Rio Facility:[id number] Start: 03-18-2022 ambulatory Melissa Del Rio Facility:[id number] Start: 03-13-2022 Patient encounter procedure Melissa Jayic Work Phone: [facility] Work Phone: Start: 03-13-2022 ambulatory Melissa Del Rio Facility:[id number] Start: 03-10-2022 Patient encounter procedure Melissa Del Rio Work Phone: [facility] Work Phone: Start: 03-10-2022 ambulatory Melissa Del Rio Facility:[id number] Start: 03-06-2022 ambulatory MELISSA DEL RIO Facility:[id number] Start: 03-06-2022 OTFUADULT4, Provider : Rebecca Westfall, Status: Pen, Time: 11:15 AM Melissa Del Rio Work Phone: [facility] Work Phone: Start: 03-06-2022 Patient encounter procedure Melissa Jayic Work Phone: [facility] Work Phone: Start: 03-06-2022 ambulatory Melissa Del Rio Facility:[id number] Start: 03-03-2022 Periodic preventive med est patient 40-64yrs Melissa Jayic Work Phone: [facility] Work Phone: Start: 03-03-2022 ambulatory DO MELISSA LOKESH Gwyn JAYCHEO Facility:[id number] Start: 03-03-2022 Patient encounter procedure Melissa Jayic Work Phone: [facility] Work Phone: Start: 03-03-2022 ambulatory Melissa Del Rio Facility:[id number] Start: 02-27-2022 ambulatory Lexi Do [facility] Start: 02-26-2022 OTFUADULT4, Provider : Rebecca Westfall, Status: Pen, Time: 2:00 PM Melissa Del Rio Work Phone: [facility] Work Phone: Start: 02-26-2022 ambulatory Melissa Del Rio Facility:[id number] Start: 02-24-2022 ambulatory Melissa Del Rio Facility:[id number] Start: 02-24-2022 Patient encounter procedure Melissa Del Rio Work Phone: [facility] Work Phone: Start: 02-23-2022 Transcribe Orders Stone soni MD Work Phone: [facility] Comment on above: Cardiomyopathy, isch emic (Primary Dx) Start: 02-20-2022 Patient encounter procedure Melissa Del Rio Work Phone: [facility] [facility] Work Phone: Start: 02-20-2022 ambulatory Melissa Del Rio Facility:[id number] Start: 02-17-2022 ambulatory Melissa Del Rio Facility:[id number] Start: 02-17-2022 Patient encounter procedure Melissa Del Rio Work Phone: [facility] Work Phone: Start: 02-12-2022 ambulatory Melissa Del Rio Facility:[id number] Start: 02-05-2022 Patient encounter procedure Melissa Del Rio Work Phone: [facility] Work Phone: Start: 02-05-2022 ambulatory Melissa Del Rio Facility:[id number] Start: 01-14-2022 End: 01-14-2022 ambulatory Melissa Del Rio [facility] Start: 01-14-2022 End: 01-14-2022 Subsequent hospital visit by physician Humberto Yu MD Work Phone: [facility] General Surgery Comment on above: Painful orthopaedic hardware (HCC) (Primary Dx) Start: 01-07-2022 End: 01-07-2022 Subsequent hospital visit by physician Humberto Yu MD Work Phone: [facility] Comment on above: Arrived Start: 01-02-2022 AUDIT Melissa downing Work Phone: [facility] Work Phone: Start: 11-19-2021 [facility] Start: 11-12-2021 ambulatory Melissa Del Rio [facility] Start: 11-12-2021 Encounter for other [facility]procedural [facility] Start: 05-07-2021 Telephone encounter Aidee man MD Work Phone: [facility] Comment on above: Appointment Start: 05-06-2021 Telephone encounter Jaina grimes KEY BED INSTALLER.PROJECT MANAGEMENT PROFESSOR Work Phone: [facility] Comment on above: Xray Results Start: 05-06-2021 End: 05-06-2021 Subsequent hospital visit by physician Blaise Columbus [facility] Comment on above: Left elbow pain [M25 .522] Start: 05-06-2021 End: 05-06-2021 Patient encounter procedure Jania Garrido APRN.PROJECT MANAGEMENT PROFESSOR Work Phone: [facility] Comment on above: Left elbow pain ([place] Dx); H/O elbow surgery Start: 08-23-2020 [facility] Work Phone: Start: 08-18-2020 End: 08-18-[address] NURYS ANGEL MD Facility:[facility] Start: 03-02-2020 [facility] Work Phone: Start: 02-10-2019 [facility] Work Phone: Start: 07-15-2018 End: 07-16-2018 Patient encounter procedure ESTELLE HAIR Facility:[facility] Start: 04-14-2018 Patient encounter procedure STEPHANY ELIZALDE [facility] Start: 03-22-2018 Nursing evaluation o f patient and report Melissa [facility] Work Phone: Start: 03-17-2018 [facility] procedure Melissa [facility] Work Phone: Start: 12-26-1998 End: 12-26-1998 Patient encounter procedure Celestina Quinn Work Phone: [facility] Start: 12-26-1998 Results Only Celestina Camacho Riya gusmankelin Work Phone: [facility] Procedures Date Procedure Procedure Detail Performing Clinician Start: 07-20-2024 Colonoscopy Toan Ge llis DO Work Phone: Start: 07-12-[address] Melissa benitez MD Work Phone: Start: 07-12-2024 Hepatitis C antibody measurement Dr. Melissa Del Rio MD Work Phone: Comment on above: Reactive: Presumptiv e evidence of antibodies to HCV. Follow CDC recommendations for supplemental testing.Non-Reactive: Antibodies to HCV were not detected; does not exclude the possibility of exposure to HCVReactive Results are presumptive evidence of antibodies to HCV. Follow CDC recommendations for supplemental testing.Order confirmation testing: HCV Quant by PCR testing - HCVPCR #[id number] Non Reactive: < 0.8 Equivocal: >/= 0.8 to < 1.0 Reactive: >/= 1.0The CDC requires that a reactive/equivocal HCV antibody result be sent out for confirmation. HCV Quant by PCR testing. Start: 07-12-[address] Melissa Del Rio MD Work Phone: Comment on above: No Lupus Anticoagula nt was detected.Performed at: [address] [id number] Director: Miya Boyd MD, Phone: [phone] Start: 07-12-2024 Lupus anticoagulant assay, platelet neutralization method Dr. Melissa Del Rio MD Work Phone: Comment on above: Verified by repeat analysis Start: 07-12-2024 Lupus antico[address] screening test Dr. Melissa Del Rio MD Work Phone: Start: 07-12-[address] Teresa Del Rio MD Work Phone: Comment on above: Test not performedUn able to calculate result since non-numeric resultobtained for component test. Start: 07-12-2024 Urnls dip stick/tabl et reagent auto microscopy Dr. Melissa Del Rio MD Work Phone: Start: 06-30-2024 Prothrombin time Histor suellen Doan MD Work Phone: Start: 05-10-2024 Dxa bone density federico dy 1/> sites axial skel Melissa Del Rio DO Work Phone: Start: 05-10-2024 Mammography Mejia Ray PharmD Work Phone: Start: 04-11-2024 Lipid 1995 panel - S wyatt or Plasma Stone Son MD Work Phone: Start: 04-11-2024 Thyrotropin [Units/v olume] in Serum or Plasma Stone Son MD Work Phone: Start: 02-15-2024 Ecg routine ecg w/le ast 12 lds w/i&r Stone Son MD Work Phone: Start: 12-09-2023 Lipid 1995 panel - S wyatt or Plasma Stone Son MD Work Phone: Start: 02-20-2023 Prothrombin time Histor romiel Olimpia WEST Work Phone: Start: 02-13-2023 Cardiac catheterizat ion study Stone Son MD Work Phone: Start: 02-13-2023 End: 02-13-2023 POCT O2 SATURATION Papo Thompson MD Work Phone: Start: 02-13-2023 Prothrombin time Papo Thompson MD Work Phone: Start: 02-09-2023 Prothrombin time Michelle Son MD Work Phone: Start: 02-04-2023 Prothrombin time Michelle Son MD Work Phone: Start: 01-25-2023 Ecg routine ecg w/le ast 12 lds w/i&r Melissa Del Rio DO Work Phone: Start: 01-23-2023 Radiologic exam ches t 2 views Melissa Del Rio DO Work Phone: Start: 01-21-2023 Prothrombin time Michelle Son MD Work Phone: Start: 12-31-2022 Prothrombin time Michelle Son MD Work Phone: Start: 12-18-2022 Prothrombin time Michelle Son MD Work Phone: Start: 10-28-2022 Thyrotropin [Units/v olume] in Serum or Plasma Melissa Del Rio DO Work Phone: Start: 10-27-2022 Prothrombin time Michelle Son MD Work Phone: Start: 09-22-2022 Prothrombin time Michelle Son MD Work Phone: Start: 09-22-2022 Echo tthrc r-t 2d w/ wom-mode compl spec&colr d Stone Son MD Work Phone: Start: 07-24-2022 Prothrombin time Josephine Doan MD Work Phone: Start: 03-06-2022 Mammography Melissa killian DO Work Phone: Start: 01-14-2022 OPERATIVE REPORT Physic [place] Generic Start: 05-06-2021 Radex elbow complete minimum 3 views Jania Garrido APRN.PROJECT MANAGEMENT PROFESSOR Work Phone: Start: 03-15-2021 Lipid 1996 panel - S wyatt or Plasma Stone Son MD Work Phone: Start: 02-10-2020 Assay of thyroid sti mulating hormone tsh Melissa Rinaldiomalic Start: 02-10-2020 Blood count complete auto&auto difrntl wbc Melissa Rinaldiomalic Start: 02-10-2020 Comprehensive metabo lic 2000 panel Melissa Gentryomalic Start: 02-10-2020 Lipid panel Melissa Kroma lic Start: 02-10-2020 MG Breast screening Cy diane Rinaldiomalic Start: 02-10-2020 Thyrotropin [Units/v olume] in Serum or Plasma Stone Son MD Work Phone: Start: 03-10-2018 Lipid 1996 panel - S wyatt or Plasma Melissa Del Rio DO Work Phone: Start: 03-10-2018 Thyrotropin [Units/v olume] in Serum or Plasma Melissa Del Rio DO Work Phone: Start: 12-26-1998 CONVERTED CYTOLOGY NON-CIRCUS LABORER Celestina Qiunn Work Phone: Start: 12-26-1998 CONVERTED SURGICAL PATHOLOGY Celestina Quinn Work Phone: History of Mitral Va lve Replacement Melissa Del Rio Screening colonoscopy Melissa benitez Tonsillectomy Melissa Del Rio Total abdominal hyst erectomy with bilateral salpingo-oophorectomy Melissa Del Rio Plan of Treatment Date Care Activity Detail Author Start: 07-20-2034 Screening for malignant neoplasm of colon [facility] Start: 04-11-2029 Lipid panel Lipid Panel [facility] Start: 12-08-2028 Lipid panel Lipid Panel [facility] Start: 02-12-2027 DTaP/Tdap/Td vaccine (2 - Td or Tdap) DTaP/Tdap/Td vaccine (2 - Td or Tdap) [facility] Start: 02-12-2027 DTaP/Tdap/Td Vaccines (2 - Td or Tdap) DTaP/Tdap/Td Vaccines (2 - Td or Tdap) [facility] Start: 03-15-2026 Lipid panel Lipid Panel [facility] Start: 10-05-2025 Hemoglobin A1c measurement Diabetes: Hemoglobin A1C [facility] Start: 05-10-2025 Screening for malignant neoplasm of breast Mammogram [facility] Start: 04-23-2025 Medicare Annual Wellness Visit Medicare Annual Wellness Visit (AWV) [facility] Start: 04-11-2025 Diabetes mellitus screening Diabetes Screening [facility] Start: 04-11-2025 Hemoglobin A1c measurement Diabetes: Hemoglobin A1C [facility] Start: 04-11-2025 Lipid panel Lipid Panel [facility] Start: 04-11-2025 Thyroid stimulating hormone measurement TSH Level [facility] Start: 03-30-2025 End: 03-30-2025 Patient encounter procedure 03/30/2025 10:00 AM EST Office Visit [facility] [address] [place] [address] Melissa Del Rio DO [address] [facility] [address] [place] [address] [facility] Start: 02-01-2025 End: 02-01-2025 Telemedicine consultation with patient 02/01/2025 1:40 PM EDT Telemedicine [facility] [address] [place] [phone] Mejia Jackson, [facility] [address] [place] [address] [facility] Start: 01-09-2025 Influenza vaccination [facility] Start: 01-05-2025 Hemoglobin A1c measurement Diabetes: Hemoglobin A1C [facility] Start: 11-29-2024 End: 11-29-2024 Telemedicine consultation with patient 11/29/2024 1:20 PM EDT Telemedicine [facility] [address] [place] [phone] Mejia Jackson, [facility] [address] [place] [address] [facility] Start: 11-01-2024 End: 11-01-2024 Telemedicine consultation with patient 11/01/2024 1:40 PM EDT Telemedicine [facility] [address] [place] [phone] Mejia Jackson, [facility] [address] [place] [address] [facility] Start: 10-04-2024 End: 10-04-2024 Telemedicine consultation with patient 10/04/2024 1:20 PM EDT Telemedicine [facility] [address] [place] [phone] Mejia Jackson, PharmD [address] [place] [address] [facility] Start: 07-20-2024 End: 07-20-2024 Admission to same day surgery center 07/20/2024 10:30 AM EDT - 07/20/2024 11:00 AM EDT Surgery [facility] [address] [place] [phone] Toan Pena DO [address] [place], [place] [id number] COLONOSCOPY [16730 (CPT )] [facility] Comment on above: COLONOSCOPY [62489 (CPT )] Start: 07-20-2024 Subsequent hospital visit by physician 07/20/2024 10:30 AM EDT Hospital Encounter [facility] [address] [place] [phone] Toan Pena DO [address] [place] [address] [facility] Start: 07-20-2024 End: 07-20-2024 Colonoscopy flx dx w/collj spec when pfrmd [facility] Start: 07-11-2024 End: 07-05-2025 Hemoglobin A1c/Hemoglobin.total in Blood Hemoglobin A1c Lab Routine Type 2 diabetes mellitus without complication, without long-term current use of insulin (Multi) Expected: 07/11/2024 (Approximate), Expires: 07/05/2025 [facility] Service Area Work Phone: Comment on above: Expected: 07/11/2024 (Approximate), Expi res: 07/05/2025 Start: 07-10-2024 Hemoglobin A1c measurement Diabetes: Hemoglobin A1C [facility] Start: 07-05-2024 End: 07-05-2024 Telemedicine consultation with patient [facility] Start: 06-25-2024 Zoster Vaccines (2 of 2) Zoster Vaccines (2 of 2) [facility] Start: 06-07-2024 End: 06-07-2024 Telemedicine consultation with patient 06/07/2024 1:20 PM EST Telemedicine [facility] [address] [phone] Mejia Jackson, PharmD [address] [place] [address] [facility] Start: 05-11-2024 Medicare Advantage Annual Wellness Visit Medicare Advantage Annual Wellness Visit [facility] Start: 04-22-2024 End: 04-22-2025 C reactive protein [Mass/volume] in Serum or Plasma C-reactive protein Lab Routine Arthralgia, unspecified joint Arthralgia of both hands Expected: 04/22/2024 (Approximate), Expires: 04/22/2025 [facility] Work Phone: Comment on above: Expected: 04/22/2024 (Approximate), Expi res: 04/22/2025 Start: 04-22-2024 End: 06-23-2025 DBT Breast - bilateral BI mammo bilateral screening tomosynthesis Imaging Routine Screening mammogram for breast cancer Expected: 04/22/2024, Expires: 06/23/2025 [facility] Work Phone: Comment on above: Expected: 04/22/2024, Expires: Start: 04-22-2024 End: 04-22-2025 DXA Skeletal system Views for bone density XR DEXA bone density Imaging Routine Post-menopausal Expected: 04/22/2024, Expires: 04/22/2025 [facility] Work Phone: Comment on above: Expected: 04/22/2024, Expires: Start: 04-22-2024 End: 04-22-2025 Erythrocyte sedimentation rate Sedimentation Rate Lab Routine Arthralgia, unspecified joint Arthralgia of both hands Expected: 04/22/2024 (Approximate), Expires: 04/22/2025 [facility] Service Area Work Phone: Comment on above: Expected: 04/22/2024 (Approximate), Expi res: 04/22/2025 Start: 04-22-2024 End: 04-22-2025 Nuclear Ab [Presence] in Serum by Hep2 substrate TIA with Reflex to JAMISON Lab Routine Arthralgia, unspecified joint Arthralgia of both hands Expected: 04/22/2024 (Approximate), Expires: 04/22/2025 [facility] Work Phone: Comment on above: Expected: 04/22/2024 (Approximate), Expi res: 04/22/2025 Start: 04-22-2024 End: 04-22-2025 Rheumatoid factor [Units/volume] in Serum by Nephelometry Rheumatoid Factor Lab Routine Arthralgia, unspecified joint Arthralgia of both hands Expected: 04/22/2024 (Approximate), Expires: 04/22/2025 [facility] Work Phone: Comment on above: Expected: 04/22/2024 (Approximate), Expi res: 04/22/2025 Start: 04-22-2024 End: 04-22-2025 XR Hand - bilateral Views XR hand 1-2 views bilateral Imaging Routine Arthralgia of both hands Expected: 04/22/2024, Expires: 04/22/2025 [facility] Work Phone: Comment on above: Expected: 04/22/2024, Expires: Start: 02-15-2024 End: 02-15-2024 Patient encounter procedure 02/15/2024 3:30 PM EDT Office Visit [facility] Cardiology [facility] [address] [place] [address] Stone Son MD [address] [facility] [address] [place] [address] [facility] Start: 02-15-2024 End: 02-14-2025 CBC panel - Blood by Automated count CBC Lab Routine Shortness of breath Chronic anticoagulation Expected: 02/15/2024 (Approximate), Expires: 02/14/2025 [facility] Work Phone: Comment on above: Expected: 02/15/2024 (Approximate), Expi res: 02/14/2025 Start: 02-05-2024 Diabetes: Estimated Glomerular Filtration Rate for Kidney Health Diabetes: Estimated Glomerular Filtration Rate for Kidney Health [facility] Start: 01-10-2024 COVID-19 Vaccine ( season) COVID-19 Vaccine ( season) [facility] Start: 01-10-2024 COVID-19 Vaccine ( season) COVID-19 Vaccine ( season) [facility] Start: 01-10-2024 Influenza vaccination [facility] Start: 12-03-2023 End: 11-25-2024 CBC panel - Blood by Automated count CBC Lab Routine Chronic anticoagulation Shortness of breath Expected: 12/03/2023 (Approximate), Expires: 11/25/2024 [facility] Comment on above: Expected: 12/03/2023 (Approximate), Expi res: 11/25/2024 Start: 12-03-2023 End: 11-25-2024 Comprehensive metabolic 1998 panel - Serum or Plasma Comprehensive metabolic panel Lab Routine Atrial fibrillation, chronic (HCC) Cardiomyopathy, dilated (HCC) Expected: 12/03/2023 (Approximate), Expires: 11/25/2024 [employer] Comment on above: Expected: 12/03/2023 (Approximate), Expi res: 11/25/2024 Start: 12-03-2023 End: 11-25-2024 Creatine kinase [Enzymatic activity/volume] in Serum or Plasma CK Lab Routine Mixed hyperlipidemia On statin therapy Expected: 12/03/2023 (Approximate), Expires: 11/25/2024 [facility] Comment on above: Expected: 12/03/2023 (Approximate), Expi res: 11/25/2024 Start: 12-03-2023 End: 11-25-2024 Digoxin level Digoxin level Lab Routine Atrial fibrillation, chronic (HCC) High risk medication use Expected: 12/03/2023 (Approximate), Expires: 11/25/2024 [employer] Comment on above: Expected: 12/03/2023 (Approximate), Expi res: 11/25/2024 Start: 12-03-2023 End: 11-25-2024 Lipid 1996 panel - Serum or Plasma Lipid panel Lab Routine Mixed hyperlipidemia On statin therapy Expected: 12/03/2023 (Approximate), Expires: 11/25/2024 [facility] [facility] Work Phone: Comment on above: Expected: 12/03/2023 (Approximate), Expi res: 11/25/2024 Start: 10-29-2023 Thyroid stimulating hormone measurement TSH Level [facility] Start: 05-11-2023 Medicare Advantage Annual Wellness Visit Medicare Advantage Annual Wellness Visit [facility] Start: 05-04-2023 End: 04-27-2024 Digoxin level Digoxin level Lab Routine H/O mitral valve replacement with mechanical valve Expected: 05/04/2023 (Approximate), Expires: 04/27/2024 [employer] [facility] Work Phone: Comment on above: Expected: 05/04/2023 (Approximate), Expi res: 04/27/2024 Start: 03-16-2023 End: 03-16-2023 Patient encounter procedure 03/16/2023 8:00 AM EST Office Visit [facility] [address] [facility] [address] [facility] [address] [place] [address] Stone Son MD [address] [address] [employer] [facility] Start: 03-10-[address] Panel [facility] Start: 03-06-2023 Screening for malignant neoplasm of breast Mammogram [facility] Start: 02-17-2023 End: 02-17-2024 Prothrombin time (PT) in Blood by Coagulation assay Protime-INR Lab STAT Atrial fibrillation, chronic (HCC) H/O mitral valve replacement with mechanical valve intermodal owner operator truck driver current use of anticoagulant therapy Expected: 02/17/2023 (Approximate), Expires: 02/17/2024 [email or web address] Work Phone: Comment on above: Expected: 02/17/2023 (Approximate), Expi res: 02/17/2024 Start: 02-13-2023 End: 02-13-2023 Admission to same day surgery center 02/13/2023 10:00 AM EDT - 02/13/2023 11:00 AM EDT Surgery [facility] [address] [place] [address] Papo Thompson MD [address] [place], [place] [phone] Left and right heart cath / coronary angiography [facility] Comment on above: Left and right heart cath / coronary ang iography Start: 02-13-2023 Subsequent hospital visit by physician 02/13/2023 10:00 AM EDT Hospital Encounter [facility] [address] [place] [address] Papo Thompson MD [address] [place] [address] History of MVR with cardiopulmonary bypass; Cardiomyopathy, dilated (HCC); Atrial fibrillation, chronic (CMS/HCC) (HCC); Chronic anticoagulation; Angina of effort (CMS/HCC) (HCC) [facility] Comment on above: History of MVR with cardiopulmonary bypa ss; Cardiomyopathy, dilated (HCC); Atrial fibrillation, chronic (CMS/HCC) ([facility]); Chronic anticoagulation; Angina of effort ([facility]) ([facility]) Start: 02-09-2023 DIABETES SCREEN DIABETES SCREEN [facility] Start: 02-05-2023 End: 02-06-2024 Bilirubin.indirect [Mass/volume] in Serum or Plasma Bilirubin, direct Lab Routine Anemia, unspecified type Expected: 02/05/2023 (Approximate), Expires: 02/06/2024 [facility] Comment on above: Expected: 02/05/2023 (Approximate), Expi res: 02/06/2024 Start: 02-05-2023 End: 02-06-2024 CBC panel - Blood by Automated count CBC Lab Routine Anemia, unspecified type Expected: 02/05/2023 (Approximate), Expires: 02/06/2024 [facility] Comment on above: Expected: 02/05/2023 (Approximate), Expi res: 02/06/2024 Start: 02-05-2023 End: 02-06-2024 Haptoglobin Haptoglobin Lab Routine Anemia, unspecified type Expected: 02/05/2023 (Approximate), Expires: 02/06/2024 [facility] Comment on above: Expected: 02/05/2023 (Approximate), Expi res: 02/06/2024 Start: 02-05-2023 End: 02-06-2024 Hemoglobin.gastrointest inal.lower [Presence] in Stool by Immunoassay --1st specimen Occult blood, stool Microbiology Routine Anemia, unspecified type Expected: 02/05/2023 (Approximate), Expires: 02/06/2024 [facility] Comment on above: Expected: 02/05/2023 (Approximate), Expi res: 02/06/2024 Start: 02-05-2023 End: 02-06-2024 Lactate dehydrogenase [Enzymatic activity/volume] in Serum or Plasma by Lactate to pyruvate reaction Lactate dehydrogenase Lab Routine Anemia, unspecified type Expected: 02/05/2023 (Approximate), Expires: 02/06/2024 [facility] Work Phone: Comment on above: Expected: 02/05/2023 (Approximate), Expi res: 02/06/2024 Start: 02-05-2023 End: 02-06-2024 Reticulocytes panel - Blood Reticulocytes Lab Routine Anemia, unspecified type Expected: 02/05/2023 (Approximate), Expires: 02/06/2024 [facility] [employer] Comment on above: Expected: 02/05/2023 (Approximate), Expi res: 02/06/2024 Start: 01-26-2023 End: 01-27-2024 Basic metabolic 1998 panel - Serum or Plasma Basic metabolic panel Lab Routine Atrial fibrillation, chronic (CMS/HCC) (HCC) Expected: 01/26/2023 (Approximate), Expires: 01/27/2024 [facility] [employer] Comment on above: Expected: 01/26/2023 (Approximate), Expi res: 01/27/2024 Start: 01-26-2023 End: 02-25-2023 Cardiac holter monitor (24 hours) Cardiac holter monitor (24 hours) [facility] Routine Atrial fibrillation, chronic (CMS/HCC) (HCC) Near syncope Expected: 01/26/2023 (Approximate), Expires: 02/25/2023 [facility] [employer] Comment on above: Expected: 01/26/2023 (Approximate), Expi res: 02/25/2023 Start: 01-26-2023 End: 01-27-2024 CBC panel - Blood by Automated count CBC Lab Routine Chronic anticoagulation Angina of effort (CMS/HCC) (HCC) Expected: 01/26/2023 (Approximate), Expires: 01/27/2024 [facility] [employer] Comment on above: Expected: 01/26/2023 (Approximate), Expi res: 01/27/2024 Start: 01-26-2023 End: 02-25-2023 US Heart Transthoracic Transthoracic echocardiogram (TTE) complete with contrast, bubble, strain, and 3D PRN CV Echocardiography Routine History of MVR with cardiopulmonary bypass Atrial fibrillation, chronic (CMS/HCC) (HCC) Expected: 01/26/2023 (Approximate), Expires: 02/25/2023 [facility] Work Phone: Comment on above: Expected: 01/26/2023 (Approximate), Expi res: 02/25/2023 Start: 01-09-2023 COVID-19 Vaccine () COVID-19 Vaccine () [facility] Start: 01-09-2023 Influenza vaccination [facility] Start: 2022 Pneumococcal Vaccine: 65+ Years (1 - PCV) Pneumococcal Vaccine: 65+ Years (1 - PCV) [facility] Start: 09-22-2022 End: 09-22-2022 Patient encounter procedure 09/22/2022 Appointment Cardiology [facility] [address] [facility] Start: 09-17-2022 End: 07-19-2023 TSH with reflex to Free T4 if abnormal TSH with reflex to Free T4 if abnormal Lab Routine Acquired hypothyroidism Expected: 09/17/2022 (Approximate), Expires: 07/19/2023 [facility] Service Area Work Phone: Comment on above: Expected: 09/17/2022 (Approximate), Expi res: 07/19/2023 Start: 05-26-2022 OTRECHEADT, Provider: Rose Page, Status: Pen, Time: 4:30 PM OTRECHEADT, Provider: Rose Page, Status: Pen, Time: 4:30 PM [facility] Work Phone: Start: 05-22-2022 OTFUADULT4, Provider: Rose Page, Status: Pen, Time: 4:30 PM OTFUADULT4, Provider: Rose Page, Status: Pen, Time: 4:30 PM [facility] Work Phone: Start: 05-19-2022 OTFUADULT4, Provider: Rebecca Westfall, Status: Pen, Time: 5:00 PM OTFUADULT4, Provider: Rebecca Westfall, Status: Pen, Time: 5:00 PM [facility] Work Phone: Start: 05-15-2022 OTFUADULT4, Provider: Rebecca Westfall, Status: Pen, Time: 5:00 PM OTFUADULT4, Provider: Rebecca Westfall, Status: Pen, Time: 5:00 PM [facility] Work Phone: Start: 05-13-2022 OTFUADULT4, Provider: Rose Page, Status: Pen, Time: 4:30 PM OTFUADULT4, Provider: Rose Page, Status: Pen, Time: 4:30 PM [facility] Work Phone: Start: 05-08-2022 OTFUADULT4, Provider: Rose Page, Status: Pen, Time: 8:30 AM OTFUADULT4, Provider: Rose Page, Status: Pen, Time: 8:30 AM [facility] Work Phone: Start: 05-06-2022 OTFUADULT4, Provider: Rose Page, Status: Pen, Time: 8:00 AM OTFUADULT4, Provider: Rose Page, Status: Pen, Time: 8:00 AM [facility] Work Phone: Start: 05-02-2022 OTFUADULT4, Provider: Rebecca Westfall, Status: Pen, Time: 8:45 AM OTFUADULT4, Provider: Rebecca Westfall, Status: Pen, Time: 8:45 AM [facility] Work Phone: Start: 04-16-2022 OTRECHECKA, Provider: Rose Page, Status: Pen, Time: 10:45 AM OTRECHECKA, Provider: Rose Page, Status: Pen, Time: 10:45 AM [facility] Work Phone: Start: 04-16-2022 OTRECHECKA, Provider: Rose Page, Status: Pen, Time: 7:45 AM OTRECHECKA, Provider: Rose Page, Status: Pen, Time: 7:45 AM [facility] Work Phone: Start: 04-15-2022 OTFUADULT4, Provider: Rebecca Westfall, Status: Pen, Time: 3:00 PM OTFUADULT4, Provider: Rebecca Westfall, Status: Pen, Time: 3:00 PM [facility] Start: 04-14-2022 OTFUADULT4, Provider: Rebecca Westfall, Status: Pen, Time: 1:00 PM OTFUADULT4, Provider: Rebecca Westfall, Status: Pen, Time: 1:00 PM [facility] Work [facility]: Start: 04-09-2022 OTFUADULT4, Provider: Rebecca Westfall, Status: Pen, Time: 1:00 PM OTFUADULT4, Provider: Rebecca Westfall, Status: Pen, Time: 1:00 PM [facility] Work Phone: Start: 04-07-2022 OTFUADULT4, Provider: Rebecca Westfall, Status: Pen, Time: 11:15 AM OTFUADULT4, Provider: Rebecca Westfall, Status: Pen, Time: 11:15 AM [facility] Work Phone: Start: 04-02-2022 OTFUADULT4, Provider: Rebecca Westfall, Status: Pen, Time: 2:45 PM OTFUADULT4, Provider: Rebecca Westfall, Status: Pen, Time: 2:45 PM [facility] Work [facility]: Start: 03-31-2022 OTFUADULT4, Provider: Rebecca Westfall, Status: Pen, Time: 1:45 PM OTFUADULT4, Provider: Rebecca Westfall, Status: Pen, Time: 1:45 PM [facility] Work [facility]: Start: 03-28-2022 OTFUADULT4, Provider: Rebecca Westfall, Status: Pen, Time: 11:00 AM OTFUADULT4, Provider: Rebecca Westfall, Status: Pen, Time: 11:00 AM [facility] Work Phone: Start: 11-14-2022 OTFUADULT4, Provider: Rebecca Westfall, Status: Pen, Time: 9:45 AM OTFUADULT4, Provider: Rebecca Westfall, Status: Pen, Time: 9:45 AM [facility] Work Phone: Start: 03-20-2022 OTRECHEADT, Provider: Rose Page, Status: Pen, Time: 10:30 AM OTRECHEADT, Provider: Rose Page, Status: Pen, Time: 10:30 AM [facility] Work Phone: Start: 03-18-2022 OTFUADULT4, Provider: Rose Page, Status: Pen, Time: 9:30 AM OTFUADULT4, Provider: Rose Page, Status: Pen, Time: 9:30 AM [facility] Work Phone: Start: 03-17-2022 OTFUADULT4, Provider: Rose Page, Status: Pen, Time: 11:15 AM OTFUADULT4, Provider: Rose Page, Status: Pen, Time: 11:15 AM [facility] Work Phone: Start: 03-14-2022 Lipid panel Lipids [facility] Start: 03-13-2022 OTFUADULT4, Provider: Rebecca Westfall, Status: Pen, Time: 11:15 AM OTFUADULT4, Provider: Rebecca Westfall, Status: Pen, Time: 11:15 AM [facility] Work Phone: Start: 03-10-2022 OTFUADULT4, Provider: Rebecca Westfall, Status: Pen, Time: 10:30 AM OTFUADULT4, Provider: Rebecca Westfall, Status: Pen, Time: 10:30 AM [facility] Work Phone: Start: 03-06-2022 OTFUADULT4, Provider: Rebecca Westfall, Status: Pen, Time: 11:15 AM OTFUADULT4, Provider: Rebecca Westfall, Status: Pen, Time: 11:15 AM [facility] Work Phone: Start: 03-03-2022 PHYSICAL, Provider: Melissa Del Rio, Status: Pen, Time: 2:00 PM PHYSICAL, Provider: Melissa Del Rio, Status: Pen, Time: 2:00 PM [facility] Work Phone: Start: 03-03-2022 OTFUADULT4, Provider: Rose Page, Status: Pen, Time: 11:15 AM OTFUADULT4, Provider: Rose Page, Status: Pen, Time: 11:15 AM [facility] Work Phone: Start: 02-26-2022 OTFUADULT4, Provider: Rebecca Westfall, Status: Pen, Time: 2:00 PM OTFUADULT4, Provider: Rebecca Westfall, Status: Pen, Time: 2:00 PM [facility] Work Phone: Start: 02-24-2022 OTFUADULT4, Provider: Rebecca Westfall, Status: Pen, Time: 2:30 PM OTFUADULT4, Provider: Rebecca Westfall, Status: Pen, Time: 2:30 PM [facility] Work Phone: Start: 02-23-2022 End: 02-24-2024 US Heart Transthoracic Transthoracic echocardiogram (TTE) complete with contrast, bubble, strain, and 3D PRN CV Echocardiography Routine Cardiomyopathy, ischemic Expected: 02/23/2022 (Approximate), Expires: 02/24/2024 [facility] Work Phone: Comment on above: Expected: 02/23/2022 (Approximate), Expi res: 02/24/2024 Start: 02-20-2022 OTFUADULT4, Provider: Rose Page, Status: Pen, Time: 3:00 PM OTFUADULT4, Provider: Rose Page, Status: Pen, Time: 3:00 PM [facility] Work Phone: Start: 02-17-2022 OTFUADULT4, Provider: Rose Page, Status: Pen, Time: 10:15 AM OTFUADULT4, Provider: Rose Page, Status: Pen, Time: 10:15 AM [facility] Work Phone: Start: 02-12-2022 OTFUADULT4, Provider: Rebecca Westfall, Status: Pen, Time: 2:45 PM OTFUADULT4, Provider: Rebecca Westfall, Status: Pen, Time: 2:45 PM [facility] Work Phone: Start: 01-20-2022 End: 01-20-2022 Patient encounter procedure 01/20/2022 Office Visit Orthopedic Surgery Lexi Do PA [address] [facility] [address] [place] [address] [facility] [place] Start: 01-20-2022 End: 01-20-2022 Nursing evaluation of patient and report 01/20/2022 Nurse Only Orthopedic Surgery [facility] [place] Start: 01-14-2022 End: 01-14-2022 Patient encounter procedure 01/14/2022 Appointment General Surgery Humberto Yu MD [address] [facility] [address] [place] [address] B General Surgery Start: 01-09-2022 Influenza vaccination [facility] Start: 02-09-2021 Thyroid stimulating hormone measurement TSH Level [facility] Start: 01-09-2021 Influenza vaccination INFLUENZA (#1) [facility] Start: 01-10-2020 Influenza vaccination INFLUENZA (#1) [facility] Start: 07-18-2019 Patient encounter procedure Ambulatory Facility:[facility] Start: 03-10-2019 Thyroid stimulating hormone measurement TSH Level [facility] Start: 12-03-2018 Diabetes mellitus screening Diabetes Screening [facility] Start: 2017 RSV High Risk: (Elderly (60+) or Population) (1 - Risk 60-74 years 1-dose series) RSV High Risk: (Elderly (60+) or Population) (1 - Risk 60-74 years 1-dose series) [facility] Start: 2017 RSV Immunization aged 60 or older (1 - 1-dose 60+ series) RSV Immunization aged 60 or older (1 - 1-dose 60+ series) [facility] Start: 2017 RSV Immunization for Adults (1 - Risk 60-74 years 1-dose series) RSV Immunization for Adults (1 - Risk 60-74 years 1-dose series) [facility] Start: 03-12-2017 DTaP/Tdap/Td Vaccines (2 - Td or Tdap) DTaP/Tdap/Td Vaccines (2 - Td or Tdap) [facility] Start: 07-05-2016 LIPID SCREEN LIPID SCREEN [facility] Start: 07-20-2014 DIABETES SCREEN DIABETES SCREEN [facility] Start: 10-04-2007 Shingles vaccine (1 of 2) Shingles vaccine (1 of 2) [facility] Start: 10-04-2007 SHINGRIX VACCINE (1 of 2) SHINGRIX VACCINE (1 of 2) [facility] Start: 10-04-2007 Tuberculosis screening COLORECTAL CANCER SCREENING,SEE MODIFIER [facility] Start: 10-04-2007 Zoster Vaccines (1 of 2) Zoster Vaccines (1 of 2) [facility] Start: 2002 COLOGUARD (FIT-DNA) COLOGUARD (FIT-DNA) [facility] Start: 2002 Colonoscopy COLONOSCOPY [facility] Start: 2002 COLORECTAL CANCER SCREENING COLORECTAL CANCER SCREENING [facility] Start: [address] COLONOGRAPHY [facility] Start: 2002 FECAL OCCULT BLOOD FECAL OCCULT BLOOD [facility] Start: 2002 Screening for malignant neoplasm of colon [facility] Start: 2002 SIGMOIDOSCOPY SIGMOIDOSCOPY [facility] Start: 1997 Mammography MAMMOGRAM [facility] Start: 1997 Screening for malignant neoplasm of breast [facility] Start: 1992 Diabetes screen Diabetes screen [facility] Start: 10-04-1987 HPV TESTING HPV TESTING [facility] Start: 1978 PAP TESTING PAP TESTING [facility] Start: 1976 DTaP/Tdap/Td Vaccines (1 - Tdap) DTaP/Tdap/Td Vaccines (1 - Tdap) [facility] Start: 1976 Pneumococcal vaccination Pneumococcal Vaccine (1 of 2 - PCV) [facility] Start: 1976 Pneumococcal Vaccine: 50+ Years (1 of 2 - PCV) Pneumococcal Vaccine: 50+ Years (1 of 2 - PCV) [facility] Start: 1976 Urine microalbumin profile DTAP,TDAP,TD (1 - Tdap) [facility] Start: 1976 Urine screening for protein Diabetes: Urine Protein Screening [facility] Start: 10-04-1975 ANNUAL PCP TEAM CHRONIC DISEASE VISIT ANNUAL PCP TEAM CHRONIC DISEASE VISIT [facility] Start: 10-04-1975 COVID-19 Vaccine (#1) COVID-19 Vaccine (#1) [facility] Start: 10-04-1975 Diabetes mellitus screening Diabetes Screening [facility] Start: 10-04-1975 Diabetes: Urine Albumin-Creatinine Ratio for Kidney Health Diabetes: Urine Albumin-Creatinine Ratio for Kidney Health [facility] Start: 10-04-1975 HEPATITIS C SCREENING HEPATITIS C SCREENING [facility] Start: 10-04-1975 Hepatitis C screening [facility] Start: 10-04-1975 HIV SCREENING HIV SCREENING [facility] Start: 1972 HIV screening HIV screen [facility] Start: 1969 Adult depression screening assessment DEPRESSION SCREENING [facility] Start: 1969 Depression Screen Depression Screen [facility] Start: 10-04-1967 Diabetic foot examination Diabetes: Foot Exam [facility] Start: 10-04-1967 Glaucoma screening Diabetes: Retinopathy Screening [facility] Start: 10-04-1967 Preventive dental service Diabetes: Dental Exam [facility] Start: 10-04-1963 Pneumococcal 0-64 years Vaccine (1 - PCV) Pneumococcal 0-64 years Vaccine (1 - PCV) [facility] Start: 10-04-1963 Pneumococcal Vaccine: 65+ Years (1 - PCV) Pneumococcal Vaccine: 65+ Years (1 - PCV) [facility] Start: 10-04-1963 Pneumococcal Vaccine: 65+ Years (1 of 2 - PCV) Pneumococcal Vaccine: 65+ Years (1 of 2 - PCV) [facility] Start: 10-04-1963 Pneumococcal Vaccine: Pediatrics (0 to 5 Years) and At-Risk Patients (6 to 64 Years) (1 - PCV) Pneumococcal Vaccine: Pediatrics (0 to 5 Years) and At-Risk Patients (6 to 64 Years) (1 - PCV) [facility] Start: 1962 COVID-19 VACCINE (1) COVID-19 VACCINE (1) [facility] Start: 1958 MMR Vaccines (1 of 1 - Standard series) MMR Vaccines (1 of 1 - Standard series) [facility] Start: 04-05-1958 COVID-19 Vaccine (#1) COVID-19 Vaccine (#1) [facility] Start: 1957 Annual wellness visit [facility] Start: 1957 Hepatitis B Vaccines (1 of 3 - 3-dose series) Hepatitis B Vaccines (1 of 3 - 3-dose series) [facility] Start: 1957 HIV screening HIV Screening [facility] Start: 1957 Screening for malignant neoplasm of colon [facility] Start: 1957 Screening for osteoporosis Bone Density Scan [facility] Start: 1957 Thyroid stimulating hormone measurement TSH Level [facility] Start: 1957 Urine screening for protein Diabetes: Urine Protein Screening [facility] Start: 1957 Yearly Adult Physical Yearly Adult Physical [facility] End: 05-10-2024 DBT Breast - bilateral [facility] Service Area Work Phone: Comment on above: Once for 1 Occurrences starting 05/10/20 24 until 05/10/2024 End: 02-13-2023 ECG 12 lead ECG 12 lead CV ECG Routine Once for 1 Occurrences starting 02/13/2023 until 02/13/2023 [facility] [employer] [facility] Work Phone: Comment on above: Once for 1 Occurrences starting 02/14/20 23 until 02/13/2023 ECG 12 lead - CLINIC PERFORMED ECG 12 lead - CLINIC PERFORMED CV ECG Routine Atrial fibrillation, chronic (HCC) 03/16/2023 8:10 AM EST [facility] [employer] Work Phone: End: 01-14-2022 FL LESS THAN 1 HOUR [facility] Work Phone: Comment on above: Once for 1 Occurrences starting 01/15/20 until 01/14/2022 End: 01-14-2022 INITIATE PACU OXYGEN THERAPY PROTOCOL Initiate PACU Oxygen Therapy Protocol Respiratory Care Routine Continuous until discontinued starting 01/14/2022 [employer] Phone: Comment on above: Continuous until discontinued starting 0 01/14/2022 End: 01-14-2022 Intermittent pulse oximetry Pulse Oximetry Spot Check Respiratory Care Routine One Time for 1 Occurrences starting 01/14/2022 until 01/14/2022 [employer] Phone: Comment on above: One Time for 1 Occurrences starting 10/2021 until 01/14/2022 LEFT AND RIGHT HEART CATH / CORONARY ANGIOGRAPHY LEFT AND RIGHT HEART CATH / CORONARY ANGIOGRAPHY History of MVR with cardiopulmonary bypass Cardiomyopathy, dilated (HCC) Atrial fibrillation, chronic (CMS/HCC) (HCC) Chronic anticoagulation Angina of effort (CMS/HCC) (HCC) [employer] Nasal Cannula Oxygen Nasal Cannu la Oxygen Respiratory Care Routine As Needed until discontinued starting 01/14/2022 [employer] Phone: Comment on above: As Needed until discontinued starting Nasal Cannula Oxygen Nasal Cannu la Oxygen Respiratory Care Routine As Needed until discontinued starting 01/14/2022 [employer] Phone: Comment on above: As Needed until discontinued starting Nonrebreather mask oxygen Nonrebreather mask oxygen Respiratory Care Routine As Needed until discontinued starting 01/14/2022 [employer] Phone: Comment on above: As Needed until discontinued starting Nonrebreather mask oxygen Nonrebreather mask oxygen Respiratory Care Routine As Needed until discontinued starting 01/14/2022 [employer] Phone: Comment on above: As Needed until discontinued starting Oxygen therapy [[facility] Data Set] Initiate Oxygen Therapy Protocol Respiratory Care Routine As Needed until discontinued starting 01/14/2022 [employer] Phone: Comment on above: As Needed until discontinued starting End: 02-19-2024 Prothrombin time (PT) in Blood by Coagulation assay [facility] Routine H/O mitral valve replacement with mechanical valve Atrial fibrillation, chronic (HCC) Chronic anticoagulation 26 Occurrences starting 02/18/2023 until 02/19/2024 [employer] Work Phone: Comment on above: 26 Occurrences starting 02/18/2023 until 02/19/2024 End: 02-22-2025 Prothrombin time (PT) in Blood by Coagulation assay [facility] Lab Routine Mitral valve disorder Atrial fibrillation, chronic (HCC) Chronic anticoagulation 26 Occurrences starting 02/23/2024 until 02/22/2025 [employer] Work Phone: Comment on above: 26 Occurrences starting 02/23/2024 until 02/22/2025 End: 07-03-2023 Prothrombin time (PT) in Blood by Coagulation assay [facility] Lab Routine S/P MVR (mitral valve replacement) Atrial fibrillation, chronic (CMS/HCC) (HCC) On anticoagulant therapy 26 Occurrences starting 07/03/2022 until 07/03/2023 [employer] Work Phone: Comment on above: 26 Occurrences starting 07/03/2022 until 07/03/2023 Spirometry panel Incentive alejandro metry Respiratory Care Routine Q1H PRN until discontinued starting 01/14/2022 [employer] Work Phone: Comment on above: Q1H PRN until discontinued starting 10/2021 End: 05-10-2024 XR Hand - bilateral 3 Views [facility] Service Area Work Phone: Comment on above: Once for 1 Occurrences starting 05/10/20 24 until 05/10/2024 Immunizations Immunization Date Immunization Notes Care Provider Rebecca pal 07-30-2024 zoster vaccine recombinant Melissa Del Rio DO Work Phone: [facility] Work Phone: 04-30-2024 Pneumococcal conjuga te vaccine, 20-valent (PREVNAR 20) Melissa Del Rio DO Work Phone: [facility] Work Phone: 04-30-2024 pneumococcal vaccine , unspecified formulation Melissa Del Rio DO Work Phone: [facility] Work Phone: 04-30-2024 zoster vaccine recombinant Melissa Jaycheo DO Work Phone: [facility] Work Phone: 02-12-2017 tetanus toxoid, redu lidia diphtheria toxoid, and acellular pertussis vaccine, adsorbed; Translations: [Tdap (Adacel)] Melissa Del Rio -[facility] Work Phone: Comment on above: Series: Payers Date Payer Category Payer Self-pay 2023 Dual Eligibility Medicare/Medicaid Organization [facility] [id number] 5 2023 Medicare [employer] MEDICARE UHC AARP MEDICARE ADVANTAGE [id number] 2023-Present [phone] [address] [address] [place] [address] Medicare HMO [id number] 2023 Medicare (Managed Care) UNITED H [employer]ALTHCARE MEDICARE [id number] 5 2023 Medicare HMO [facility] AARP MEDICAR E ADVANTAGE [id number] 5 2023 Medicare [id number] 2022 Private Health Insurance GENERIC COMMERCIAL [id number] 5 2020 Unknown 2020 Unknown [employer] [id number] 2020-Present [phone] [address] [address] [place] [address] [id number] .[id number] 1959 Unknown [id number] 1957 Unknown [id number] 2.16.840.1.591759.3.579 .2.668 1957 Unknown [id number] 2.16.840.1.105916.3.579 .2.278 1957 Unknown [id number] 2.16.840.1.855398.3.579 .2.278 1957 Unknown [id number] 2.16.840.1.191646.3.579 .2.278 1957 Unknown [id number] 2.16.840.1.857534.3.579 .2.419 1957 Unknown [id number] 2.16.840.1.192557.3.579 .2. 1957 Unknown [id number] 2.16.840.1.526299.3.579 .2. 1957 Unknown [id number] 2.16.840.1.828830.3.579 .2. 1957 Unknown [id number] 2.16.840.1.984987.3.579 .2. 1957 Unknown [id number] 2.16.840.1.405061.3.579 .2.1068 1957 Unknown [id number] 2.16.840.1.184722.3.579 .2.1068 1957 Unknown [id number] 2.16.840.1.597091.3.579 .2.1068 1957 Unknown [id number] 2.16.840.1.550192.3.579 .2.1068 1957 Unknown [id number] 2.16.840.1.983311.3.579 .2.1068 1957 Unknown [id number] 2.16.840.1.471960.3.579 .2.1068 1957 Unknown [id number] 2.16.840.1.833556.3.579 .2.1068 1957 Unknown [id number] 2.16.840.1.590414.3.579 .2.1068 1957 Unknown [id number] 2.16.840.1.127436.3.579 .2.1068 1957 Unknown [id number] 2.16.840.1.589327.3.579 .2.1068 1957 Unknown [id number] 2.16.840.1.647992.3.579 .2.1068 1957 Unknown [id number] 2.16.840.1.220284.3.579 .2.1068 1957 Unknown [id number] 2.16.840.1.022512.3.579 .2.1068 1957 Unknown [id number] 2.16.840.1.395953.3.579 .2.1068 1957 Unknown [id number] 2.16.840.1.053257.3.579 .2.1068 1957 Unknown [id number] 2.16.840.1.922154.3.579 .2.1068 1957 Unknown [id number] 2.16.840.1.440369.3.579 .2.1068 1957 Unknown [id number] 2.16.840.1.744647.3.579 .2.1068 1957 Unknown [id number] 2.16.840.1.594346.3.579 .2.1068 1957 Unknown [id number] 2.16.840.1.870223.3.579 .2.1068 1957 Unknown [id number] 2.16.840.1.414792.3.579 .2.1068 1957 Unknown [id number] 2.16.840.1.180909.3.579 .2.1068 1957 Unknown [id number] 2.16.840.1.165238.3.579 .2.1068 1957 Unknown [id number] 2.16.840.1.309095.3.579 .2.1068 1957 Unknown [id number] 2.16.840.1.294106.3.579 .2.356 1957 Unknown [id number] 2.16.840.1.589133.3.579 .2.356 1957 Unknown [id number] 2.16.840.1.901662.3.579 .2.356 1957 Unknown [id number] 2.16.840.1.271206.3.579 .2.1243 1957 Unknown [id number] 2.16.840.1.159311.3.579 .2.1243 1957 Unknown [id number] 2.16840.1.583964.3.579 .2.1243 1957 Unknown [id number] 2.16840.1.599535.3.579 .2.1244 1957 Unknown [id number] 2.840.1.049482.3.579 .2.1244 1957 Unknown [id number] 2.840.1.985034.3.579 .2.1244 1957 Unknown [id number] 2.840.1.949359.3.579 .2.1244 1957 Unknown [id number] 2.16840.1.123049.3.579 .2.1244 1957 Unknown [id number] 2.16840.1.728739.3.579 .2.1244 1957 Unknown [id number] 2.16.840.1.183872.3.579 .2.1244 1957 Unknown [id number] 2.16840.1.953637.3.579 .2.1244 1957 Unknown [id number] 2.16.840.1.896937.3.579 .2.1244 1957 Unknown [id number] 2.16.840.1.594544.3.579 .2.1245 1957 Unknown [id number] 2.16.840.1.168461.3.579 .2.124 1957 Unknown [id number] 2.16.840.1.399039.3.579 .2.124 1957 Unknown [id number] 2.840.1.540689.3.579 .2.124 1957 Unknown [id number] 2.16840.1.855355.3.579 .2.1245 Unknown [id number] Unknown [id number] 2.16840.1.877675.3.579 .2.462 Unknown [id number] 2.16840.1.648424.3.579 .2.462 Unknown [id number] 2.840.1.880027.3.579 .2.462 Unknown [id number] 2.840.1.717660.3.579 .2.462 Unknown [id number] 2.840.1.924274.3.579 .2.462 Unknown [id number] 2.840.1.681473.3.579 .2.462 Social History Date Type Detail Facility Tobacco smoking status [facility] Unknown if ever smoked [facility] Start: 1955 Sex Assigned At Not on file [facility] Start: 07-04-2011 End: 07-18-2022 Tobacco smoking status NHIS Ex-smoker [facility] End: 05-06-2010 History of tobacco use Current smoker [facility] End: 05-06-2010 History of tobacco use Cigarette Smoker [facility] Start: 07-04-2011 End: 07-18-2022 Tobacco use and exposure Smokeless tobacco non-user [facility] Start: 05-06-2021 End: 06-30-2024 Alcohol intake Current drinker of alcohol (finding) [facility] Start: 07-04-2011 History SDOH Alcohol Comment occasional [facility] Start: 12-28-2021 End: 10-10-2024 Exposure to SARS-CoV-2 (event) Not sure [facility] Start: 05-15-2022 End: 10-10-2024 Former smoker Former smoker [facility] [facility] Work Phone: Start: 11-12-2021 History SDOH Alcohol Comment occasionally- 3 DRINK PER WEEK [employer] Phone: Start: 05-15-2022 End: 10-10-2024 Tobacco use panel [facility] [employer] Start: 01-26-2023 Alcohol Comment occ [facility] ealt Within the last year, have you been afraid of your partner or ex-partner? No [facility] [employer] Start: 12-09-2021 End: 08-08-2024 Sex Female (finding) [facility] Tobacco smoking status NHIS Tobacco smoking consumption unknown [facility] Start: 1955 Sex Assigned At Female [facility] Start: 04-04-[address] [facility] NEGATED: Highlighted row - - [employer] [facility] Work Phone: NEGATED: Highlighted rowStart: NINF History of tobacco use Passive smoker [facility] Work Phone: Functional Status Date Assessment Result Facility 10-10-2024 Patient Health Questionnaire 2 item (PHQ-2) [Reported] [facility] Work Phone: NEGATED: Highlighted row Functional performance Functional status health issues are not documented Disease [facility] Work Phone: Mental Status Date Assessment Result Facility NEGATED: Highlighted row Cognitive function [Interpretation] Cognitive status health issues are not documented [facility]: Clinical Notes 08-13-2009 to 11-29-2024 Mejia Jackson, RP - 11/29/2024 1:20 PM GAELTCarmaan Arriola, [place] - 11/01/2024 1:40 PM EDTTelephone Encounter - Tania Dawkins RN - 10/17/2024 9:23 AM EDTPatient InstructionsPatient Instructions Note Date & Type Note Facility 11-29-2024 History of Present illness Narrative Patient ID: Hernan Walter is a 69 y.o. female who presents for Diabetes. Referring Provider: Melissa Del Rio DO PCP: Melissa Del Rio DO Last visit with PCP: 10/11/2023 Next visit with PCP: 03/30/2025 Subjective Preferred pharmacy: [id number] [place], [place] Can patient afford prescribed medications: Yes, Diabetes Patient presents on referral from PCP to discuss semaglutide therapy for weight loss and glycemic benefit for T2DM. PMH REVIEW: - PMH of Pancreatitis: No - PMH of Retinopathy: No - PMH of MTC: No HEALTH MAINTENANCE: Foot Exam: 04/22/24 with PCP Eye Exam: yearly Lipid Panel: up to date Urine Albumin: needs ordered PRIMARY/SECONDARY PREVENTION: - Statin? Yes - TOD-I/ARB? Yes - Aspirin? No CURRENT PHARMACOTHERAPY: Ozempic 1 mg subcutaneously weekly The patient does not have a known family history of diabetes. Current monitoring regimen: Not monitoring BG currently. Discussed signs and symptoms of hypoglycemia and how to treat. Review of Systems Objective There were no vitals taken for this visit. BP Readings from Last 4 Encounters: 10/10/24 124/70 06/30/24 139/60 04/22/24 128/64 01/23/23 124/60 There were no vitals filed for this visit. Labs Lab Results Component Value Date BILITOT 1.3 (H) 04/11/2024 CALCIUM 9.4 04/11/2024 CO2 30 04/11/2024 CL 98 04/11/2024 CREATININE 0.70 04/11/2024 GLUCOSE 149 (H) 04/11/2024 ALKPHOS 104 04/11/2024 K 4.3 04/11/2024 PROT 7.0 04/11/2024 NA 136 04/11/2024 AST 13 04/11/2024 ALT 11 04/11/2024 BUN 16 04/11/2024 ANIONGAP 12 04/11/2024 ALBUMIN 4.3 04/11/2024 Lab Results Component Value Date TRIG 180 (H) 04/11/2024 CHOL 171 04/11/2024 LDLCALC 88 04/11/2024 HDL 47.1 04/11/2024 Lab Results Component Value Date HGBA1C 7.6 (H) 04/11/2024 Current Outpatient Medications Medication Instructions carvedilol (Coreg) 12.5 mg tablet 1 tablet, 2 times daily RT clindamycin (Cleocin) 150 mg capsule cyclobenzaprine (FLEXERIL) 5 mg, oral, 3 times daily PRN digoxin (Lanoxin) 125 MCG tablet 1 tablet, Daily furosemide (LASIX) 20 mg, Daily levothyroxine (SYNTHROID, LEVOXYL) 75 mcg, oral, Daily before breakfast lisinopril 2.5 mg tablet 1 tablet, Daily Ozempic 1 mg, subcutaneous, Every 7 days pravastatin (Pravachol) 40 mg tablet 1 tablet, Daily spironolactone (Aldactone) 25 mg tablet 1 tablet, Daily warfarin (Coumadin) 4 mg tablet Take by mouth. 2mg 5 days a week, 4mg 2 days a week warfarin (COUMADIN) 1 mg Drug Interactions; None requiring intervention at this time Assessment/Plan Problem List Items Addressed This Visit Obesity Relevant Orders Referral to Clinical Pharmacy Type 2 diabetes mellitus without complication, without long-term current use of insulin - Primary Relevant Orders Referral to Clinical Pharmacy DIABETES ASSESSMENT Lab Results Component Value Date HGBA1C 7.6 (H) 04/11/2024 Patient's diabetes is well controlled and improved with most recent A1c of 6.9% (Goal < 7%). This is improved from previous value of 7.6% six months ago. Continue Ozempic 1 mg weekly No side effects reported Does not check BG at home. No signs/symptoms of hypo/hyperglycemia Current weight 189 lbs Reports goal of 170 lbs Follow Up: 02/01/25 @ 1340 PM Mejia Jackson RPh Continue all meds under the continuation of care with the referring provider and clinical pharmacy team. documented in this encounter [facility] Work Phone: 11-01-2024 History of Present illness Narrative Patient ID: Hernan Walter is a 69 y.o. female who presents for Diabetes. Referring Provider: Melissa Del Rio DO PCP: Melissa Del Rio DO Last visit with PCP: 10/11/2023 Next visit with PCP: 03/30/2025 Subjective Preferred pharmacy: [facility] #[id number] [place], [place] Can patient afford prescribed medications: Yes, HPI Patient presents on referral from PCP to discuss semaglutide therapy for weight loss and glycemic benefit for T2DM. PMH REVIEW: - PMH of Pancreatitis: No - PMH of Retinopathy: No - PMH of MTC: No HEALTH MAINTENANCE: Foot Exam: 04/22/24 with PCP Eye Exam: yearly Lipid Panel: up to date Urine Albumin: needs ordered PRIMARY/SECONDARY PREVENTION: - Statin? Yes - TOD-I/ARB? Yes - Aspirin? No CURRENT PHARMACOTHERAPY: Ozempic 0.5 mg subcutaneously weekly The patient does not have a known family history of diabetes. Current monitoring regimen: Not monitoring BG currently. Discussed signs and symptoms of hypoglycemia and how to treat. Review of Systems Objective There were no vitals taken for this visit. BP Readings from Last 4 Encounters: 10/10/24 124/70 06/30/24 139/60 04/22/24 128/64 01/23/23 124/60 There were no vitals filed for this visit. Labs Lab Results Component Value Date BILITOT 1.3 (H) 04/11/2024 CALCIUM 9.4 04/11/2024 CO2 30 04/11/2024 CL 98 04/11/2024 CREATININE 0.70 04/11/2024 GLUCOSE 149 (H) 04/11/2024 ALKPHOS 104 04/11/2024 K 4.3 04/11/2024 PROT 7.0 04/11/2024 NA 136 04/11/2024 AST 13 04/11/2024 ALT 11 04/11/2024 BUN 16 04/11/2024 ANIONGAP 12 04/11/2024 ALBUMIN 4.3 04/11/2024 Lab Results Component Value Date TRIG 180 (H) 04/11/2024 CHOL 171 04/11/2024 LDLCALC 88 04/11/2024 HDL 47.1 04/11/2024 Lab Results Component Value Date HGBA1C 7.6 (H) 04/11/2024 Current Outpatient Medications Medication Instructions carvedilol (Coreg) 12.5 mg tablet 1 tablet, 2 times daily RT clindamycin (Cleocin) 150 mg capsule cyclobenzaprine (FLEXERIL) 5 mg, oral, 3 times daily PRN digoxin (Lanoxin) 125 MCG tablet 1 tablet, Daily furosemide (LASIX) 20 mg, Daily levothyroxine (SYNTHROID, LEVOXYL) 75 mcg, oral, Daily before breakfast lisinopril 2.5 mg tablet 1 tablet, Daily Ozempic 1 mg, subcutaneous, Every 7 days pravastatin (Pravachol) 40 mg tablet 1 tablet, Daily spironolactone (Aldactone) 25 mg tablet 1 tablet, Daily warfarin (Coumadin) 4 mg tablet Take by mouth. 2mg 5 days a week, 4mg 2 days a week warfarin (COUMADIN) 1 mg Drug Interactions; None requiring intervention at this time Assessment/Plan Problem List Items Addressed This Visit Obesity Relevant Medications semaglutide (Ozempic) 1 mg/dose (4 mg/3 mL) pen injector Other Relevant Orders Referral to Clinical Pharmacy Type 2 diabetes mellitus without complication, without long-term current use of insulin - Primary Relevant Medications semaglutide (Ozempic) 1 mg/dose (4 mg/3 mL) pen injector Other Relevant Orders Referral to Clinical Pharmacy DIABETES ASSESSMENT Lab Results Component Value Date HGBA1C 7.6 (H) 04/11/2024 Patient's diabetes is well controlled and improved with most recent A1c of 6.9% (Goal < 7%). This is improved from previous value of 7.6% six months ago. Increase dose to Ozempic 1 mg weekly No side effects reported Plateau in weight loss in the last few weeks Does not check BG at home. No signs/symptoms of hypo/hyperglycemia Current weight 189 lbs Reports goal of 170 lbs Follow Up: 11/29/2024 @ 1:20 PM Hernan Arriola PharmD Continue all meds under the continuation of care with the referring provider and clinical pharmacy team. Cosigned by Mejia Jackson RPh at 11/01/2024 2:17 PM EDT Associated attestation - Mejia Jackson RPh - 11/01/2024 2:17 PM EDT I agree with the resident documentation and plan proposed. Mejia Jackson RPh documented in this encounter [facility] Work Phone: 10-17-2024 Telephone encounter Note Last seen 02/15/24. CMP done 10/05/24. GFR 82. CBC done 06/30/24. H/H 14.3/42.4 [facility] 10-17-2024 Miscellaneous Notes Last seen 02/15/24. CMP done 10/05/24. GFR 82. CBC done 06/30/24. H/H 14.3/42.4 documented in this encounter [facility] 10-10-2024 Evaluation + Plan note Associated Problem(s): Type 2 diabetes mellitus without complication, without long-term current use of insulin Doing well hemoglobin A1c is below 7 on GLP-1 [facility] Work Phone: 10-10-2024 Evaluation + Plan note Associated Problem(s): Cervical (neck) region somatic dysfunction Going to do heat ice therapy 20 minutes 3 times daily muscle relaxants been sent to pharmacy do not drive if this medicine makes you drowsy [facility] Work Phone: 10-10-2024 Miscellaneous Notes Associated Problem(s): Type 2 diabetes mellitus without complication, without long-term current use of insulin Doing well hemoglobin A1c is below 7 on GLP-1 Associated Problem(s): Cervical (neck) region somatic dysfunction Going to do heat ice therapy 20 minutes 3 times daily muscle relaxants been sent to pharmacy do not drive if this medicine makes you drowsy Associated Problem(s): BMI 33.0-33.9,adult Congratulations on weight loss continue on GLP-1 Associated Problem(s): Atrial fibrillation (Multi) Stable on Coumadin INR stable documented in this encounter [facility] Work Phone: 10-10-2024 Evaluation + Plan note Associated Problem(s): BMI 33.0-33.9,adult Congratulations on weight loss continue on GLP-1 [facility] Work Phone: 10-10-2024 Evaluation + Plan note Associated Problem(s): Atrial fibrillation (Multi) Stable on Coumadin INR stable [facility] Work Phone: 10-10-2024 History of Present illness Narrative Subjective Patient ID: Hernan Walter is a 69 y.o. female who presents for Follow-up (labs ; neck pain). Stationary bike. Patient has been feeling well she has retired excited to get back to exercising regularly. Tolerating GLP-1 well she is losing weight feeling great with this blood work shows that her glucose level has been stable She has had no trouble with chest pain or shortness of breath following up with cardiology on a regular basis she has some discomfort in the right upper neck area states that she just woke up with it and feels like she is getting spasm in the area no new activities no numbness no tingling into the hands pain is worse with rotation both left and right. patient presents for follow-up on labs Review of Systems Constitutional: Negative for activity change, chills and fever. HENT: Negative for dental problem, ear pain and hearing loss. Eyes: Negative for photophobia and pain. Respiratory: Negative for choking and shortness of breath. Cardiovascular: Negative for palpitations and leg swelling. Gastrointestinal: Negative for anal bleeding. Musculoskeletal: Positive for neck pain. Negative for back pain. Skin: Negative for color change. Psychiatric/Behavioral: Negative for behavioral problems, hallucinations and sleep disturbance. Objective BP 124/70 Pulse 94 Temp 36.4 C (97.5 F) Ht 1.626 m (5' 4) Wt 87.5 kg (193 lb) SpO2 97% BMI 33.13 kg/m BSA Body surface area is 1.99 meters squared. Physical Exam HENT: Head: Normocephalic. Right Ear: Tympanic membrane normal. Left Ear: Tympanic membrane normal. Neck: Comments: Some discomfort in the musculature right side cervical spine. Some pain with rotation and with flexion and extension strong shoulder shrug noted detail reflex equal strong strong handgrip strength noted Cardiovascular: Rate and Rhythm: Normal rate and regular rhythm. Heart sounds: No murmur heard. Pulmonary: Effort: Pulmonary effort is normal. Abdominal: General: There is no distension. Palpations: There is no mass. Neurological: General: No focal deficit present. Mental Status: She is alert. Lab on 05/10/2024 Component Date Value Ref Range Status Protime 05/10/2024 38.4 (H) 9.8 - 12.8 seconds Final INR 05/10/2024 3.4 (H) 0.9 - 1.1 Final Sedimentation Rate 05/10/2024 38 (H) 0 - 30 mm/h Final C-Reactive Protein 05/10/2024 1.83 (H) <1.00 mg/dL Final TIA 05/10/2024 Positive (A) Negative Final The Antinuclear Antibody (TIA) test was performed using indirect immunofluorescence assay with HEp-2 cells slide. TAI Pattern 05/10/2024 Homogeneous Final TIA Titer 05/10/2024 1:320 Final Rheumatoid Factor 05/10/2024 <10 0 - 15 IU/mL Final Anti-SM 05/10/2024 <0.2 <1.0 AI Final < 1.0 = NEGATIVE >=1.0 = POSITIVE Anti-LEGAL COORDINATOR 05/10/2024 <0.2 <1.0 AI Final < 1.0 = NEGATIVE >=1.0 = POSITIVE Anti-SM/LEGAL COORDINATOR 05/10/2024 <0.2 <1.0 AI Final < 1.0 = NEGATIVE >=1.0 = POSITIVE Anti-SSA 05/10/2024 <0.2 <1.0 AI Final < 1.0 = NEGATIVE >=1.0 = POSITIVE Anti-SSB 05/10/2024 <0.2 <1.0 AI Final < 1.0 = NEGATIVE >=1.0 = POSITIVE Anti-SCL-70 05/10/2024 <0.2 <1.0 AI Final < 1.0 = NEGATIVE >=1.0 = POSITIVE Anti-TERESA-1 IgG 05/10/2024 <0.2 <1.0 AI Final < 1.0 = NEGATIVE >=1.0 = POSITIVE Anti-Chromatin 05/10/2024 <0.2 <1.0 AI Final < 1.0 = NEGATIVE >=1.0 = POSITIVE Anti-Centromere 05/10/2024 <0.2 <1.0 AI Final < 1.0 = NEGATIVE >=1.0 = POSITIVE ANTI-RIBOSOMAL P 05/10/2024 <0.2 <1.0 AI Final < 1.0 = NEGATIVE >=1.0 = POSITIVE Anti-DNA (DS) 05/10/2024 2.0 <5.0 IU/mL Final NEGATIVE: <= 4 IU/ML EQUIVOCAL: 5- 9 IU/ML POSITIVE: >=10 IU/ML Lab on 04/11/2024 Component Date Value Ref Range Status WBC 04/11/2024 9.9 4.4 - 11.3 x10*3/uL Final nRBC 04/11/2024 0.0 0.0 - 0.0 /100 WBCs Final RBC 04/11/2024 3.97 (L) 4.00 - 5.20 x10*6/uL Final Hemoglobin 04/11/2024 12.3 12.0 - 16.0 g/dL Final Hematocrit 04/11/2024 37.5 36.0 - 46.0 % Final MCV 04/11/2024 95 80 - 100 fL Final MCH 04/11/2024 31.0 26.0 - 34.0 pg Final MCHC 04/11/2024 32.8 32.0 - 36.0 g/dL Final RDW 04/11/2024 13.6 11.5 - 14.5 % Final Platelets 04/11/2024 452 (H) 150 - 450 x10*3/uL Final Neutrophils % 04/11/2024 74.2 40.0 - 80.0 % Final Immature Granulocytes %, Automated 04/11/2024 0.5 0.0 - 0.9 % Final Immature Granulocyte Count (IG) includes promyelocytes, myelocytes and metamyelocytes but does not include bands. Percent differential counts (%) should be interpreted in the context of the absolute cell counts (cells/UL). Lymphocytes % 04/11/2024 12.5 13.0 - 44.0 % Final Monocytes % 04/11/2024 8.7 2.0 - 10.0 % Final Eosinophils % 04/11/2024 3.4 0.0 - 6.0 % Final Basophils % 04/11/2024 0.7 0.0 - 2.0 % Final Neutrophils Absolute 04/11/2024 7.35 1.20 - 7.70 x10*3/uL Final Percent differential counts (%) should be interpreted in the context of the absolute cell counts (cells/uL). Immature Granulocytes Absolute, Au* 04/11/2024 0.05 0.00 - 0.70 x10*3/uL Final Lymphocytes Absolute 04/11/2024 1.24 1.20 - 4.80 x10*3/uL Final Monocytes Absolute 04/11/2024 0.86 0.10 - 1.00 x10*3/uL Final Eosinophils Absolute 04/11/2024 0.34 0.00 - 0.70 x10*3/uL Final Basophils Absolute 04/11/2024 0.07 0.00 - 0.10 x10*3/uL Final Glucose 04/11/2024 149 (H) 74 - 99 mg/dL Final Sodium 04/11/2024 136 136 - 145 mmol/L Final Potassium 04/11/2024 4.3 3.5 - 5.3 mmol/L Final Chloride 04/11/2024 98 98 - 107 mmol/L Final Bicarbonate 04/11/2024 30 21 - 32 mmol/L Final Anion Gap 04/11/2024 12 10 - 20 mmol/L Final Urea Nitrogen 04/11/2024 16 6 - 23 mg/dL Final Creatinine 04/11/2024 0.70 0.50 - 1.05 mg/dL Final eGFR 04/11/2024 >90 >60 mL/min/1.73m*2 Final Calculations of estimated GFR are performed using the 2020 CKD-EPI Study Refit equation without the race variable for the IDMS-Traceable creatinine methods. https://jasn.asnjournals.org/cont ent/early//ASN.46158953 88 Calcium 04/11/2024 9.4 8.6 - 10.6 mg/dL Final Albumin 04/11/2024 4.3 3.4 - 5.0 g/dL Final Alkaline Phosphatase 04/11/2024 104 33 - 136 U/L Final Total Protein 04/11/2024 7.0 6.4 - 8.2 g/dL Final AST 04/11/2024 13 9 - 39 U/L Final Bilirubin, Total 04/11/2024 1.3 (H) 0.0 - 1.2 mg/dL Final ALT 04/11/2024 11 7 - 45 U/L Final Patients treated with Sulfasalazine may generate falsely decreased results for ALT. Cholesterol 04/11/2024 171 0 - 199 mg/dL Final Age Desirable Borderline High High 0-19 Y 0 - 169 170 - 199 >/= 200 20-24 Y 0 - 189 190 - 224 >/= 225 >24 Y 0 - 199 200 - 239 >/= 240 All ranges are based on fasting samples. Specific therapeutic targets will vary based on patient-specific cardiac risk. Pediatric guidelines reference:Pediatrics 2011, 128(S5).Adult guidelines reference: NCEP ATPIII Guidelines,LAYNE 2001, 258:2486-97 Venipuncture immediately after or during the administration of Metamizole may lead to falsely low results. Testing should be performed immediately prior to Metamizole dosing. HDL-Cholesterol 04/11/2024 47.1 mg/dL Final Age Very Low Low Normal High 0-19 Y < 35 < 40 40-45 ---- 20-24 Y ---- < 40 >45 ---- >24 Y ---- < 40 40-60 >60 Cholesterol/HDL Ratio 04/11/2024 3.6 Final Ref Values Desirable < 3.4 High Risk > 5.0 LDL Calculated 04/11/2024 88 <=99 mg/dL Final Near Borderline AGE Desirable Optimal High High Very High 0-19 Y 0 - 109 --- 110-129 >/= 130 ---- 20-24 Y 0 - 119 --- 120-159 >/= 160 ---- >24 Y 0 - 99 100-129 130-159 160-189 >/=190 VLDL 04/11/2024 36 0 - 40 mg/dL Final Triglycerides 04/11/2024 180 (H) 0 - 149 mg/dL Final Age Desirable Borderline High Very High SEX:B mg/dL mg/dL mg/dL mg/dL <=14D 86-277 ---- ---- ---- 15D-365D 55-277 ---- ---- ---- 1Y-9Y 0-74 75-99 >=100 ---- 10Y-19Y 0-89 90-129 >=130 ---- 20Y-24Y 0-114 115-149 >=150 ---- >= 25Y 0-149 150-199 200-499 >=500 Venipuncture immediately after or during the administration of Metamizole may lead to falsely low results. Testing should be performed immediately prior to Metamizole dosing. Non HDL Cholesterol 04/11/2024 124 0 - 149 mg/dL Final Age Desirable Borderline High High Very High 0-19 Y 0 - 119 120 - 144 >/= 145 >/= 160 20-24 Y 0 - 149 150 - 189 >/= 190 ---- >24 Y 30 mg/dL above LDL Cholesterol goal Thyroid Stimulating Hormone 04/11/2024 3.16 0.44 - 3.98 mIU/L Final Protime 04/11/2024 43.8 (H) 9.8 - 12.8 seconds Final INR 04/11/2024 3.8 (H) 0.9 - 1.1 Final Hemoglobin A1C 04/11/2024 7.6 (H) See comment % Final Estimated Average Glucose 04/11/2024 171 Not Established mg/dL Final Lab on 02/23/2024 Component Date Value Ref Range Status Protime 02/23/2024 41.8 (H) 9.8 - 12.8 seconds Final INR 02/23/2024 3.7 (H) 0.9 - 1.1 Final Lab on 02/12/2024 Component Date Value Ref Range Status Protime 02/12/2024 51.4 (H) 9.8 - 12.8 seconds Final INR 02/12/2024 4.5 (H) 0.9 - 1.1 Final Lab on 12/25/2023 Component Date Value Ref Range Status Protime 12/25/2023 43.6 (H) 9.8 - 12.8 seconds Final INR 12/25/2023 3.8 (H) 0.9 - 1.1 Final Lab on 12/09/2023 Component Date Value Ref Range Status Protime 12/09/2023 43.2 (H) 9.8 - 12.8 seconds Final INR 12/09/2023 3.8 (H) 0.9 - 1.1 Final Cholesterol 12/09/2023 155 0 - 199 mg/dL Final HDL-Cholesterol 12/09/2023 42.6 mg/dL Final Age Very Low Low Normal High 0-19 Y < 35 < 40 40-45 ---- 20-24 Y ---- < 40 >45 ---- >24 Y ---- < 40 40-60 >60 Cholesterol/HDL Ratio 12/09/2023 3.6 Final Ref Values Desirable < 3.4 High Risk > 5.0 LDL Calculated 12/09/2023 78 mg/dL Final Near Borderline AGE Desirable Optimal High High Very High 0-19 Y 0 - 109 --- 110-129 >/= 130 ---- 20-24 Y 0 - 119 --- 120-159 >/= 160 ---- >24 Y 0 - 99 100-129 130-159 160-189 >/=190 VLDL 12/09/2023 34 0 - 40 mg/dL Final Triglycerides 12/09/2023 171 (H) 0 - 149 mg/dL Final Non HDL Cholesterol 12/09/2023 112 0 - 149 mg/dL Final Age Desirable Borderline High High Very High 0-19 Y 0 - 119 120 - 144 >/= 145 >/= 160 20-24 Y 0 - 149 150 - 189 >/= 190 ---- >24 Y 30 mg/dL above LDL Cholesterol goal Glucose 12/09/2023 136 (H) 74 - 99 mg/dL Final Sodium 12/09/2023 134 (L) 136 - 145 mmol/L Final Potassium 12/09/2023 4.6 3.5 - 5.3 mmol/L Final Chloride 12/09/2023 97 (L) 98 - 107 mmol/L Final Bicarbonate 12/09/2023 27 21 - 32 mmol/L Final Anion Gap 12/09/2023 15 10 - 20 mmol/L Final Urea Nitrogen 12/09/2023 21 6 - 23 mg/dL Final Creatinine 12/09/2023 0.78 0.50 - 1.05 mg/dL Final eGFR 12/09/2023 84 >60 mL/min/1.73m*2 Final Calculations of estimated GFR are performed using the 2020 CKD-EPI Study Refit equation without the race variable for the IDMS-Traceable creatinine methods. https://jasn.asnjournals.org/cont ent/early//ASN.74222734 88 Calcium 12/09/2023 9.2 8.6 - 10.6 mg/dL Final Albumin 12/09/2023 4.2 3.4 - 5.0 g/dL Final Alkaline Phosphatase 12/09/2023 95 33 - 136 U/L Final Total Protein 12/09/2023 6.6 6.4 - 8.2 g/dL Final AST 12/09/2023 15 9 - 39 U/L Final Bilirubin, Total 12/09/2023 0.6 0.0 - 1.2 mg/dL Final ALT 12/09/2023 11 7 - 45 U/L Final Patients treated with Sulfasalazine may generate falsely decreased results for ALT. Creatine Kinase 12/09/2023 108 0 - 215 U/L Final Digoxin 12/09/2023 0.67 (L) 0.80 - <2.00 ng/mL Final Medications Ordered Prior to Encounter[1] No images are attached to the encounter. 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 BMI 33.0-33.9,adult Z68.33 Congratulations on weight loss continue on GLP-1 Type 2 diabetes mellitus without complication, without long-term current use of insulin E11.9 Doing well hemoglobin A1c is below 7 on GLP-1 Cervical (neck) region somatic dysfunction M99.01 Going to do heat ice therapy 20 minutes 3 times daily muscle relaxants been sent to pharmacy do not drive if this medicine makes you drowsy Relevant Medications cyclobenzaprine (Flexeril) 5 mg tablet [1] Current Outpatient Medications on File Prior to Visit Medication Sig Dispense Refill carvedilol (Coreg) 12.5 mg tablet Take 1 tablet (12.5 mg) by mouth 2 times a day. clindamycin (Cleocin) 150 mg capsule digoxin (Lanoxin) 125 MCG tablet Take 1 tablet (125 mcg) by mouth once daily. furosemide (Lasix) 20 mg tablet Take 1 tablet (20 mg) by mouth once daily. levothyroxine (Synthroid, Levoxyl) 75 mcg tablet TAKE 1 TABLET (75 MCG) BY MOUTH ONCE DAILY IN THE MORNING. TAKE BEFORE MEALS. 90 tablet 3 lisinopril 2.5 mg tablet Take 1 tablet (2.5 mg) by mouth once daily. pravastatin (Pravachol) 40 mg tablet Take 1 tablet (40 mg) by mouth once daily. semaglutide 0.25 mg or 0.5 mg (2 mg/3 mL) pen injector Inject 0.25 mg under the skin 1 (one) time per week. 3 mL 4 spironolactone (Aldactone) 25 mg tablet Take 1 tablet (25 mg) by mouth once daily. warfarin (Coumadin) 1 mg tablet Take 1 tablet (1 mg) by mouth. Take daily or as directed warfarin (Coumadin) 4 mg tablet Take by mouth. 2mg 5 days a week, 4mg 2 days a week No current facility-administered medications on file prior to visit. documented in this encounter [facility] Work Phone: 10-10-2024 Instructions Melissa Del Rio DO - 10/10/2024 9:00 AM EDT BMI significantly improved Congratulations on weight loss Blood sugar shows good control of the blood sugar reading continue on GLP-1 medicine Like to follow-up in 6 months Treating neck spasm. May alternate heat and ice therapy 20 minutes 3 times daily prescription for cyclobenzaprine has been sent to pharmacy do not drive with this medicine it makes you drowsy Expect significant improvement in the neck discomfort in the next 2 to 3 days. If not improved or worsening of symptoms please let me know documented in this encounter [facility] Work Phone: 08-01-2024 Telephone encounter Note See anticoagulation encounter [facility] 08-01-2024 Miscellaneous Notes See anticoagulation encounter Sent to ASSOCIATE PASTOR for review. Received a phone call from [facility] with urgent alert for patient INR: 4.1 08-01-24 Thank you! documented in this encounter [facility] 08-01-2024 Telephone encounter Note Sent to ASSOCIATE PASTOR for review. [facility] 08-01-2024 Telephone encounter Note Received a phone call from [facility] with urgent alert for patient INR: 4.1 08-01-24 Thank you! [facility] 07-26-2024 Telephone encounter Note Pt had INR done yesterday. Will call [facility] for results. [facility] 07-26-2024 Miscellaneous Notes Pt had INR done yesterday. Will call [facility] for results. Notified pt of INR results. Will continue with [facility]. I rec'd fax from [facility],INR dated for 07/18/24, INR 1.5. Called pt she said she had her INR done at [facility] at [address] Advised her I will call for results. Advised her no Lovenox injection tonight. I called [facility] result line. Results could not be found. Pt called, left vm. She said that she was calling for PT results she had done yesterday. She said she needs clarification about injection. She said she is scheduled for colonoscopy tomorrow. [facility]R results not in [facility]. documented in this encounter [facility] 07-20-2024 Note Patient: Hernan Walter Procedure Summary Date: 07/20/24 Room / Location: [place] [address] / [facility] Gastroenterology Anesthesia Start: 1022 Anesthesia Stop: 105 Procedure: COLONOSCOPY Diagnosis: Encounter for screening for malignant neoplasm of colon Providers: Toan Pena DO Responsible Provider: Cedrick Vinson MD Anesthesia Type: TIVA ASA Status: 3 Anesthesia Type: TIVA Vitals Value Taken Time BP 112/73 07/20/24 1113 Temp 36.4 ?C (97.5 ?F) 07/20/24 1053 Pulse 70 07/20/24 1113 Resp 16 07/20/24 1113 SpO2 100 % 07/20/24 1113 Anesthesia Post Evaluation Patient location during evaluation: PACU Patient participation: complete - patient participated Level of consciousness: awake and alert Pain management: satisfactory to patient Airway patency: patent Dental Injury: no Cardiovascular status: acceptable, blood pressure returned to baseline and hemodynamically stable Respiratory status: acceptable and spontaneous ventilation Hydration status: euvolemic Nausea/Vomiting: controlled No notable events documented. Patient can be discharged once all PACU criteria has been met. [facility] 07-20-2024 Note Patient: Hernan Walter Procedure Summary Date: 07/20/24 Room / Location: [place] [address] / [facility] Gastroenterology Anesthesia Start: 1022 Anesthesia Stop: 105 Procedure: COLONOSCOPY Diagnosis: Encounter for screening for malignant neoplasm of colon Providers: Toan Pena DO Responsible Provider: Cedrick Vinson MD Anesthesia Type: TIVA ASA Status: 3 Anesthesia Type: TIVA Vitals Value Taken Time BP 112/73 07/20/24 1113 Temp 36.4 ?C (97.5 ?F) 07/20/24 1053 Pulse 70 07/20/24 1113 Resp 16 07/20/24 1113 SpO2 100 % 07/20/24 1113 Anesthesia Post Evaluation Patient location during evaluation: PACU Patient participation: waiting for patient participation Level of consciousness: awake and responsive to light touch Pain management: adequate Multimodal analgesia pain management approach Airway patency: patent Two or more strategies used to mitigate risk of obstructive sleep apnea Cardiovascular status: acceptable and hemodynamically stable Respiratory status: acceptable Hydration status: acceptable No notable events documented. MIPS #[id number] PONV Patient did not receive an inhalational anesthetic (XX430) MIPS # 424 Perioperative Temperature Management Anesthesia time was less than 60 minutes (4256F) MIPS #477 Multimodal Pain Management Not emergent case Patient was not administered multimodal pain management (G2149) Patient reports no pain in PACU (G2149) MIPS #404 Anesthesiology Smoking Abstinence The patient is not a current smoker (e.g. cigarette, cigar, pipe, e-cigarette/vaping/marijuana) If no stop here (XX404) I completed my handoff to the receiving clinician during which we: 1. Identified the patient 2. Identified the responsible provider 3. Reviewed the pertinent medical history 4. Discussed the surgical course 5. Reviewed intra-op anesthesia management and issues during anesthesia 6. Set expectations for post-procedure period 7. Allowed opportunity for questions and acknowledgement of understanding. [facility] 07-20-2024 Note Patient: Hernan Walter Procedure Information Date/Time: 07/20/24 1030 Procedure: COLONOSCOPY Location: [place] [address] / [facility] Gastroenterology Providers: Toan Pena, DO Relevant Problems Cardio (+) Angina of effort (HCC) (+) Atrial fibrillation, chronic (HCC) (+) H/O mitral valve replacement with mechanical valve (+) Hyperlipidemia Past Medical History: Past Medical History: No date: Arthritis No date: Atrial fibrillation, chronic (HCC) No date: Cardiomegaly No date: Cardiomyopathy, dilated (HCC) No date: Cerebral artery occlusion with cerebral infarction (HCC) No date: Endometriosis Comment: h/o reason for hyster No date: H/O cardiovascular stress test No date: H/O echocardiogram 1998: History of blood transfusion Comment: x6 post hysterectomy No date: Hyperlipidemia 1989- 01/21: Mitral valve disorder Comment: IN [place] No date: Paroxysmal atrial fibrillation (HCC) No date: Presence of prosthetic heart valve No date: Rheumatic heart disease 03/13/2021: S/P MVR (mitral valve replacement) No date: Thyroid disease Comment: hypothroidism- NO MEDS No date: TIA (transient ischemic attack) Comment: x2 Past Surgical History: Past Surgical History: 02/13/2023: CARDIAC CATHETERIZATION; N/A Comment: Performed by Papo Thompson MD at [facility] Cardiac Cath/EP Lab No date: CARDIAC PROCEDURE No date: CATARACT EXTRACTION; Bilateral No date: CATARACT EXTRACTION; Bilateral No date: COLONOSCOPY No date: KNEE SURGERY; Left Comment: [facility] [place] No date: MITRAL VALVE REPLACEMENT 2015: RADIAL HEAD RECONSTRUCTION W/ IMPLANT; Left Comment: [facility] [place] No date: TONSILLECTOMY (HISTORICAL) No date: TOTAL ABDOMINAL HYSTERECTOMY Comment: [facility] Social History: TOBACCO: reports that she quit smoking about 14 years ago. Her smoking use included cigarettes. She has never used smokeless tobacco. ETOH: reports current alcohol use. Social History Substance and Sexual Activity Drug Use No Family History: Family History Problem Relation Name Age of Onset Breast cancer Mother Heart failure Father Screening: unknown Clinical information reviewed: Tobacco Allergies Meds Med Hx Surg Hx Fam Hx Soc Hx Physical Exam Airway Mallampati: II TM distance: >3 FB Neck ROM: full Mouth Open: normal Cardiovascular Rhythm: irregular Dental dentition normal Pulmonary Abdominal Anesthesia Plan patient is NPO appropriate Any family history or previous problems with anesthesia no ASA 3 TIVA Any family history or previous problems with anesthesia no The patient is not a current smoker. Anesthetic plan and risks discussed with patient. BETI Screening Labs: Lab Results Component Value Date WBC 10.6 02/09/2023 HGB 10.6 (L) 02/09/2023 HCT 32.0 (L) 02/09/2023 MCV 93.3 02/09/2023 PLT 507 (H) 02/09/2023 Lab Results Component Value Date SODIUM 139 02/04/2023 NA 138 11/12/2021 POTASSIUM 4.3 02/04/2023 K 4.4 11/12/2021 CHLORIDE 102 02/04/2023 CL 99 11/12/2021 CO2 29 02/04/2023 BUN 18 02/04/2023 CREATININE 0.80 02/04/2023 GLUCOSE 123 (H) 02/04/2023 CALCIUM 8.6 02/04/2023 PROT 7.2 03/15/2021 ALKPHOS 110 03/15/2021 AST 15 03/15/2021 EGFR 82 02/04/2023 No echocardiogram results found for the past 14 days 02/15/24 ECG 12-LEAD 02/15/2024 3:50 PM (Final) Narrative Atrial fibrillation -Nonspecific T-abnormality. ABNORMAL Signed by: Stone Son on 02/15/2024 3:50 PM Equipment Requests: Additional Equipment Requests [facility] 07-20-2024 Note Endoscopy Center- [facility] Patient Name: Hernan Walter Procedure Date: 07/20/2024 10:06 AM Gender: Female Date of : 1955 Age: 68 Admit Type: Outpatient Note Status: Finalized Endoscopist: Toan Pena DO, [id number] Procedure: Colonoscopy Indications: Screening for colorectal malignant neoplasm Findings: The perianal and digital rectal examinations were normal. Pertinent negatives include normal sphincter tone and no palpable rectal lesions. The entire examined colon appeared normal. A few diverticula were found in the ascending colon. Non-bleeding internal hemorrhoids were found during retroflexion. The hemorrhoids were medium-sized. Impression: - The entire examined colon is normal. - Diverticulosis in the ascending colon. - Non-bleeding internal hemorrhoids. - No specimens collected. Recommendation: - Patient has a contact number available for emergencies. The signs and symptoms of potential delayed complications were discussed with the patient. Return to normal activities tomorrow. Written discharge instructions were provided to the patient. - Resume previous diet. - Continue present medications. - Repeat colonoscopy in 10 years for screening purposes. - Okay to resume Coumadin Referring MD: Melissa Del Rio Medicines: Monitored Anesthesia Care, See the Anesthesia note for documentation of the administered medications Procedure: Pre-Anesthesia Assessment: - Prior to the procedure, a History and Physical was performed, and patient medications and allergies were reviewed. The patient's tolerance of previous anesthesia was also reviewed. The risks and benefits of the procedure and the sedation options and risks were discussed with the patient. All questions were answered, and informed consent was obtained. Prior Anticoagulants: The patient last took Coumadin (warfarin) 5 days and Lovenox (enoxaparin) 1 day prior to the procedure. ASA Grade Assessment: III - A patient with severe systemic disease. After reviewing the risks and benefits, the patient was deemed in satisfactory condition to undergo the procedure. After I obtained informed consent, the scope was passed under direct vision. Throughout the procedure, the patient's blood pressure, pulse, and oxygen saturations were monitored continuously. The Colonoscope was introduced through the anus and advanced to the cecum, identified by appendiceal orifice and ileocecal valve. The colonoscopy was performed without difficulty. The patient tolerated the procedure well. The quality of the bowel preparation was good. The ileocecal valve, appendiceal orifice, and rectum were photographed. Complications: No immediate complications. Procedure Code(s): --- Professional --- G0121, Colorectal cancer screening; colonoscopy on individual not meeting criteria for high risk --- Technical --- G0121, Colorectal cancer screening; colonoscopy on individual not meeting criteria for high risk Diagnosis Code(s): --- Professional --- Z12.11, Encounter for screening for malignant neoplasm of colon K64.8, Other hemorrhoids K57.30, Diverticulosis of large intestine without perforation or abscess without bleeding --- Technical --- Z12.11, Encounter for screening for malignant neoplasm of colon K64.8, Other hemorrhoids K57.30, Diverticulosis of large intestine without perforation or abscess without bleeding CPT copyright 2021 [employer]. All rights reserved. The codes documented in this report are preliminary and upon special loan officer review may be revised to meet current compliance requirements. Attending Participation: I personally performed the entire procedure. Toan Pena DO 07/20/2024 10:54:03 AM This report has been signed electronically. Number of Addenda: 0 Note Initiated On: 07/20/2024 10:06 AM [facility]20[facility] Procedure Date: 07/20/2024 10:06 AM Gender: Female Date of : 1955 Age: 68 Admit Type: Outpatient Note Status: Finalized Endoscopist: Toan Pena DO, [id number] Procedure: Colonoscopy Indications: Screening for colorectal malignant neoplasm Findings: The perianal and digital rectal examinations were normal. Pertinent negatives include normal sphincter tone and no palpable rectal lesions. The entire examined colon appeared normal. A few diverticula were found in the ascending colon. Non-bleeding internal hemorrhoids were found during retroflexion. The hemorrhoids were medium-sized. Impression: - The entire examined colon is normal. - Diverticulosis in the ascending colon. - Non-bleeding internal hemorrhoids. - No specimens collected. Recommendation: - Patient has a contact number available for emergencies. The signs and symptoms of potential delayed complications were discussed with the patient. Return to normal activities tomorrow. Written discharge instructions were provided to the patient. - Resume previous diet. - Continue present medications. - Repeat colonoscopy in 10 years for screening purposes. - Okay to resume Coumadin Referring MD: Melissa Del Rio Medicines: Monitored Anesthesia Care, See the Anesthesia note for documentation of the administered medications Procedure: Pre-Anesthesia Assessment: - Prior to the procedure, a History and Physical was performed, and patient medications and allergies were reviewed. The patient's tolerance of previous anesthesia was also reviewed. The risks and benefits of the procedure and the sedation options and risks were discussed with the patient. All questions were answered, and informed consent was obtained. Prior Anticoagulants: The patient last took Coumadin (warfarin) 5 days and Lovenox (enoxaparin) 1 day prior to the procedure. ASA Grade Assessment: III - A patient with severe systemic disease. After reviewing the risks and benefits, the patient was deemed in satisfactory condition to undergo the procedure. After I obtained informed consent, the scope was passed under direct vision. Throughout the procedure, the patient's blood pressure, pulse, and oxygen saturations were monitored continuously. The Colonoscope was introduced through the anus and advanced to the cecum, identified by appendiceal orifice and ileocecal valve. The colonoscopy was performed without difficulty. The patient tolerated the procedure well. The quality of the bowel preparation was good. The ileocecal valve, appendiceal orifice, and rectum were photographed. Complications: No immediate complications. Procedure Code(s): --- Professional --- G0121, Colorectal cancer screening; colonoscopy on individual not meeting criteria for high risk --- Technical --- G0121, Colorectal cancer screening; colonoscopy on individual not meeting criteria for high risk Diagnosis Code(s): --- Professional --- Z12.11, Encounter for screening for malignant neoplasm of colon K64.8, Other hemorrhoids K57.30, Diverticulosis of large intestine without perforation or abscess without bleeding --- Technical --- Z12.11, Encounter for screening for malignant neoplasm of colon K64.8, Other hemorrhoids K57.30, Diverticulosis of large intestine without perforation or abscess without bleeding CPT copyright 2021 [employer]. All rights reserved. The codes documented in this report are preliminary and upon special loan officer review may be revised to meet current compliance requirements. Attending Participation: I personally performed the entire procedure. Toan Pena DO 07/20/2024 10:54:03 AM This report has been signed electronically. Number of Addenda: 0 Note Initiated On: 07/20/2024 10:[address] [facility] 07-20-2024 [facility] Name: Hernan [facility] Procedure Date: 07/20/2024 10:06 AM Gender: Female Date of : 1955 Age: 68 Admit Type: Outpatient Note Status: Finalized Endoscopist: Toan Pean DO, [id number] Procedure: Colonoscopy Indications: Screening for colorectal malignant neoplasm Findings: The perianal and digital rectal examinations were normal. Pertinent negatives include normal sphincter tone and no palpable rectal lesions. The entire examined colon appeared normal. A few diverticula were found in the ascending colon. Non-bleeding internal hemorrhoids were found during retroflexion. The hemorrhoids were medium-sized. Impression: - The entire examined colon is normal. - Diverticulosis in the ascending colon. - Non-bleeding internal hemorrhoids. - No specimens collected. Recommendation: - Patient has a contact number available for emergencies. The signs and symptoms of potential delayed complications were discussed with the patient. Return to normal activities tomorrow. Written discharge instructions were provided to the patient. - Resume previous diet. - Continue present medications. - Repeat colonoscopy in 10 years for screening purposes. - Okay to resume Coumadin Referring MD: Melissa Del Rio Medicines: Monitored Anesthesia Care, See the Anesthesia note for documentation of the administered medications Procedure: Pre-Anesthesia Assessment: - Prior to the procedure, a History and Physical was performed, and patient medications and allergies were reviewed. The patient's tolerance of previous anesthesia was also reviewed. The risks and benefits of the procedure and the sedation options and risks were discussed with the patient. All questions were answered, and informed consent was obtained. Prior Anticoagulants: The patient last took Coumadin (warfarin) 5 days and Lovenox (enoxaparin) 1 day prior to the procedure. ASA Grade Assessment: III - A patient with severe systemic disease. After reviewing the risks and benefits, the patient was deemed in satisfactory condition to undergo the procedure. After I obtained informed consent, the scope was passed under direct vision. Throughout the procedure, the patient's blood pressure, pulse, and oxygen saturations were monitored continuously. The Colonoscope was introduced through the anus and advanced to the cecum, identified by appendiceal orifice and ileocecal valve. The colonoscopy was performed without difficulty. The patient tolerated the procedure well. The quality of the bowel preparation was good. The ileocecal valve, appendiceal orifice, and rectum were photographed. Complications: No immediate complications. Procedure Code(s): --- Professional --- G0121, Colorectal cancer screening; colonoscopy on individual not meeting criteria for high risk --- Technical --- G0121, Colorectal cancer screening; colonoscopy on individual not meeting criteria for high risk Diagnosis Code(s): --- Professional --- Z12.11, Encounter for screening for malignant neoplasm of colon K64.8, Other hemorrhoids K57.30, Diverticulosis of large intestine without perforation or abscess without bleeding --- Technical --- Z12.11, Encounter for screening for malignant neoplasm of colon K64.8, Other hemorrhoids K57.30, Diverticulosis of large intestine without perforation or abscess without bleeding CPT copyright 2021 [employer]. All rights reserved. The codes documented in this report are preliminary and upon special loan officer review may be revised to meet current compliance requirements. Attending Participation: I personally performed the entire procedure. Toan Pena DO 07/20/2024 10:54:03 AM This report has been signed electronically. Number of Addenda: 0 Note Initiated On: 07/20/2024 10:06 AM documented in this encounter [facility] 07-19-2024 Telephone encounter Note Notified pt of INR results. Will continue with [facility]. [facility] 07-19-2024 Miscellaneous Notes Notified pt of INR results. Will continue with [facility]. I rec'd fax from [facility],INR dated for 07/18/24, INR 1.5. Called pt she said she had her INR done at [facility] at [address] Advised her I will call for results. Advised her no Lovenox injection tonight. I called [facility] result line. Results could not be found. Pt called, left vm. She said that she was calling for PT results she had done yesterday. She said she needs clarification about injection. She said she is scheduled for colonoscopy tomorrow. INR results not in [facility] or [facility]. documented in this encounter [facility] 07-19-2024 Telephone encounter Note I rec'd fax from [facility],INR dated for 07/18/24, INR 1.5. [facility] 07-19-2024 Telephone encounter Note Called pt she said she had her INR done at [facility] at [address] Advised her I will call for results. Advised her no Lovenox injection tonight. [facility] 07-19-2024 Telephone encounter Note I called [facility] result line. Results could not be found. [facility] 07-19-2024 Telephone encounter Note Pt called, left vm. She said that she was calling for PT results she had done yesterday. She said she needs clarification about injection. She said she is scheduled for colonoscopy tomorrow. INR results not in [facility]. [facility] 07-19-2024 History and physical note Patient: Hernan Walter : 1955 Primary Care Physician: Melissa Del Rio DO History: Pleasant 68 year old new patient presents to the office today to discuss scheduling a colonoscopy, hx mitral valve replacement 34 years ago, follows with cardiology Dr. Son, hx A fib, 15 years on Warfarin. No chest pain or SOB. Daily formed BM, denies blood in stool, melena, abd pain, change in BH, rectal pain or bleeding. No family hx CRC. Last colonoscopy 10 years ago in [place], [place], patient reports normal with a 10 year recall. Physical Exam: There were no vitals taken for this visit. HEAD: Normal cephalic/atraumatic. Extra-occular motions intact bilaterally. NECK: No lymphadenopathy or bruits. CHEST: Clear to auscultation bilaterally, No RRW. CARDIOVASCULAR: Regular rate and rhythm without murmurs, rubs or gallops. ABDOMEN: Soft, nontender, and nondistended with normal bowel sounds. No Hepatosplemomegaly. Assessment: Screening for colonic neoplasia Plan: Colonoscopy The benefits, alternatives, and risks of the procedure(s) including (but not exclusive to) pain, bleeding, perforation, infection, need for surgery, and likelihood of missing a polyp or neoplastic lesion, were explained to the patient/guardian/responsible accompanying adult who is agreeable. Electronically signed by Toan Pena DO07/19/2024 2:03 PM [facility] [employer] Work Phone: 07-19-2024 Note Patient: Hernan Walter : 1955 Primary Care Physician: Mleissa Del Rio DO History: Damián 68 year old new patient presents to the office today to discuss scheduling a colonoscopy, hx mitral valve replacement 34 years ago, follows with cardiology shalini Wills fib, 15 years on Warfarin. No chest pain or SOB. Daily formed BM, denies blood in stool, melena, abd pain, change in BH, rectal pain or bleeding. No family hx CRC. Last colonoscopy 10 years ago in [place], [place], patient reports normal with a 10 year recall. Physical Exam: There were no vitals taken for this visit. HEAD: Normal cephalic/atraumatic. Extra-occular motions intact bilaterally. NECK: No lymphadenopathy or bruits. CHEST: Clear to auscultation bilaterally, No RRW. CARDIOVASCULAR: Regular rate and rhythm without murmurs, rubs or gallops. ABDOMEN: Soft, nontender, and nondistended with normal bowel sounds. No Hepatosplemomegaly. Assessment: Screening for colonic neoplasia Plan: Colonoscopy The benefits, alternatives, and risks of the procedure(s) including (but not exclusive to) pain, bleeding, perforation, infection, need for surgery, and likelihood of missing a polyp or neoplastic lesion, were explained to the patient/guardian/responsible accompanying adult who is agreeable. Electronically signed by Toan Pena DO07/19/2024 2:03 PM [facility] 07-19-2024 History and physical note Patient: Hernan Walter : 1955 Primary Care Physician: Melissa Del Rio DO History: Damián 68 year old new patient presents to the office today to discuss scheduling a colonoscopy, hx mitral valve replacement 34 years ago, follows with cardiology shalini Wills fib, 15 years on Warfarin. No chest pain or SOB. Daily formed BM, denies blood in stool, melena, abd pain, change in BH, rectal pain or bleeding. No family hx CRC. Last colonoscopy 10 years ago in [place], [place], patient reports normal with a 10 year recall. Physical Exam: There were no vitals taken for this visit. HEAD: Normal cephalic/atraumatic. Extra-occular motions intact bilaterally. NECK: No lymphadenopathy or bruits. CHEST: Clear to auscultation bilaterally, No RRW. CARDIOVASCULAR: Regular rate and rhythm without murmurs, rubs or gallops. ABDOMEN: Soft, nontender, and nondistended with normal bowel sounds. No Hepatosplemomegaly. Assessment: Screening for colonic neoplasia Plan: Colonoscopy The benefits, alternatives, and risks of the procedure(s) including (but not exclusive to) pain, bleeding, perforation, infection, need for surgery, and likelihood of missing a polyp or neoplastic lesion, were explained to the patient/guardian/responsible accompanying adult who is agreeable. Electronically signed by Toan Pena DO07/19/2024 2:03 PM documented in this encounter [facility] 07-14-2024 Telephone encounter Note Last seen 02/15/24. CBC done 06/30/24. [facility] 07-14-2024 Miscellaneous Notes Last seen 02/15/24. CBC done 06/30/24. documented in this encounter [facility] 07-12-2024 Telephone encounter Note Bridging Instructions reviewed with pt. Verbalized an understanding. [facility] 07-12-2024 Miscellaneous Notes Bridging Instructions reviewed with pt. Verbalized an understanding. Bridging instructions sent through my chart. Called pt LM that she will need bridging for colonoscopy. Advised will send through my chart bridging instructions but can review over phone if pt prefers. Requesting call back with further questions. Will send Lovenox to pharmacy. Lovenox 80 mg BID to start on day 2 off warfarin. Hold the PM prior to surgery and the AM of surgery. Resume with warfarin the evening surgery is complete, and maintain Lovenox until INR at least 2. Letter done in [facility] 05/07/24. Intermediate risk pt. Needs bridging. I rec'd a fax requesting clearance for colonoscopy scheduled on 07/20/[address] Pena's office. Pt last ov was 02/15/24. documented in this encounter [facility] 07-05-2024 History of Present illness Narrative Images from the original note were not included. Patient ID: Hernan Walter is a 68 y.o. female who presents for Diabetes. Referring Provider: Melissa Del Rio DO PCP: Melissa Del Rio DO Last visit with PCP: 04/22/2024 Subjective Preferred pharmacy: [id number] [place], [place] Can patient afford prescribed medications: No, patient not willing to pay $380 for product due to deductible. Not eligible for cost assistance via [facility] or administrative associate copay card. HPI Patient presents on referral from PCP to discuss semaglutide therapy for weight loss and glycemic benefit for T2DM. PMH REVIEW: - PMH of Pancreatitis: No - PMH of Retinopathy: No - PMH of MTC: No HEALTH MAINTENANCE: Foot Exam: 04/22/24 with PCP Eye Exam: yearly Lipid Panel: up to date Urine Albumin: needs ordered PRIMARY/SECONDARY PREVENTION: - Statin? Yes - TOD-I/ARB? Yes - Aspirin? No CURRENT PHARMACOTHERAPY: Ozempic 0.25 mg subcutaneously weekly The patient does not have a known family history of diabetes. Current monitoring regimen: Not monitoring BG currently. Discussed signs and symptoms of hypoglycemia and how to treat. Review of Systems Objective There were no vitals taken for this visit. BP Readings from Last 4 Encounters: 06/30/24 139/60 04/22/24 128/64 01/23/23 124/60 10/31/22 134/82 There were no vitals filed for this visit. Labs Lab Results Component Value Date BILITOT 1.3 (H) 04/11/2024 CALCIUM 9.4 04/11/2024 CO2 30 04/11/2024 CL 98 04/11/2024 CREATININE 0.70 04/11/2024 GLUCOSE 149 (H) 04/11/2024 ALKPHOS 104 04/11/2024 K 4.3 04/11/2024 PROT 7.0 04/11/2024 NA 136 04/11/2024 AST 13 04/11/2024 ALT 11 04/11/2024 BUN 16 04/11/2024 ANIONGAP 12 04/11/2024 ALBUMIN 4.3 04/11/2024 Lab Results Component Value Date TRIG 180 (H) 04/11/2024 CHOL 171 04/11/2024 LDLCALC 88 04/11/2024 HDL 47.1 04/11/2024 Lab Results Component Value Date HGBA1C 7.6 (H) 04/11/2024 Current Outpatient Medications Medication Instructions carvedilol (Coreg) 12.5 mg tablet 1 tablet, 2 times daily RT clindamycin (Cleocin) 150 mg capsule TAKE 4 CAPSULES BY MOUTH ONE HOUR PRIOR TO DENTAL PROCEDURE digoxin (Lanoxin) 125 MCG tablet 1 tablet, Daily furosemide (LASIX) 20 mg, Daily levothyroxine (SYNTHROID, LEVOXYL) 75 mcg, oral, Daily before breakfast lisinopril 2.5 mg tablet 1 tablet, Daily Ozempic 0.25 mg, subcutaneous, Weekly pravastatin (Pravachol) 40 mg tablet 1 tablet, Daily spironolactone (Aldactone) 25 mg tablet 1 tablet, Daily warfarin (Coumadin) 4 mg tablet Take by mouth. 2mg 5 days a week, 4mg 2 days a week warfarin (COUMADIN) 1 mg Drug Interactions; None requiring intervention at this time Assessment/Plan Problem List Items Addressed This Visit Class 2 obesity with body mass index (BMI) of 36.0 to 36.9 in adult Relevant Orders Referral to Clinical Pharmacy Obesity (BMI 30-39.9) Type 2 diabetes mellitus without complication, without long-term current use of insulin (Multi) - Primary Relevant Orders Referral to Clinical Pharmacy Hemoglobin A1c DIABETES ASSESSMENT Lab Results Component Value Date HGBA1C 7.6 (H) 04/11/2024 Patient's diabetes is uncontrolled with most recent A1c of 7.6% (Goal < 7%). Patient is not currently using Ozempic because of high cost due to deductible. Not eligible for cost assistance via PAP based on [facility]. Not eligible for administrative associate copay card due to medicare coverage. Offered to discuss alternative agents for glycemic control, however, patient is not interested in starting another medication at this time due to current pill burden. Feels that she will be able to control A1c via weight loss/lifestyle modifications as she has had success with this approach in the past. Has already lost 20 lbs. Due for A1c check in July. Lab ordered. Will assess progress in 3 months and discuss potential initiation of medication for glycemic control if warranted. Patient Assistance Program (PAP) [facility] Address: [place] Prescription Insurance: Yes Members of Household: 2 Files Taxes: Yes Follow-up: 10/04/24 @ 1:20 Hernan Arriola PharmD Continue all meds under the continuation of care with the referring provider and clinical pharmacy team. Cosigned by Mejia Jackson PharmD at 07/05/2024 3:10 PM EST Associated attestation - Mejia Jackson PharmD - 07/05/2024 3:10 PM EST I agree with the resident documentation and plan proposed. Mejia D Ray, PharmD documented in this encounter [facility] Work Phone: 07-05-2024 Telephone encounter Note See anticoagulation encounter [facility] 07-05-2024 Miscellaneous Notes See anticoagulation encounter 2 mg daily now while on antibiotics, and then back to 3 mg daily after. I need another INR next Thursday as well, 07/11. [facility]r [facility] today. INR from yesterday 07/04/24 4.3. pt has been holding. She normally takes 3 mg daily. Called pt advised her that INR is still pending and she needs to hold tonight's dose until we have results. Verbalized an understanding. Spoke with DR Son. She wants coumadin still held tonight since we don't have results and was pt on antibiotics. Last INR was [address] Son said if results come after hours she can be contacted on what to do with coumadin. Called for results. Still pending. Will discuss with Dr Son what to do about coumadin since she was to hold just until today. Called pt she did have INR done today. Had done at [facility] on [address]. Will call for results. I called and spoke to Hernan; relaying note from Dr Son; she verbalized understanding. She will have INR completed at her usual lab (it was [facility], but now thinks it is a [facility] lab. I looked and standing INR order placed 02/15/24, so she should be good to go to get labs drawn. I let her know I would inform Nat as well, so that way will keep an eye out for the lab. She was thankful for the call back. This was addressed and a note written. I asked them NOT to give Vit K with a mechanical MVR, not a good idea. I asked her not to take any warfarin at all and get INR repeat on Tuesday 07/04, then we will decide how to proceed. If bleeding ensued in the meantime, back to ED. I called and spoke to Hernan; she endorses being at the ER yesterday; she has pneumonia-she didn't have to be admitted though and she is currently home. Her INR yesterday was >8.0, she held her coumadin yesterday and was looking for further instruction; she tells me Dr Son and the ER physician were talking about it, but she did not receive an update. There is no documentation on our end or in [facility]'s documentation. She reports she thinks INR elevated due to not eating for 10 days due to being very sick with diarrhea and pneumonia. No abx prior or steroids, she just start doxycycline. She normally takes warfarin 3 mg daily. I told her to not take her dose until we talk with her; likely will need to hold at least today and likely will need INR on Thursday. I spoke with Nat today. She said that due to elevated INR in ER yesterday. Pt was told to hold Warfarin yesterday and to resume normal dosing per Dr Son discussion and that she MUST get INR done on Thursday07/04/24, because she was placed on antibiotics. Pls advise pt [phone]. Pt called to follow up on instructions, s/p ER visit yesterday regarding her Warfarin. documented in this encounter [facility] 07-05-2024 History of Present illness Narrative Images from the original note were not included. Anticoagulation Episode Summary Current INR goal: 2.5-3.5 TTR: 43.4% (2.2 y) Next INR check: 07/11/2024 INR from last check: 8.0 (06/30/2024) Weekly max warfarin dose: -- Target end date: -- INR check location: -- Preferred lab: -- Send INR reminders to: [facility] [employer] RECEIVING CLERK Comments: range 2.5-3.5 is ok with LRI Per Dr Son-2 mg daily now while on antibiotics, and then back to 3 mg daily after. I need another INR next Thursday as well, 3/3 Pt verbalized an understanding.. documented in this encounter [facility] 07-05-2024 Telephone encounter Note 2 mg daily now while on antibiotics, and then back to 3 mg daily after. I need another INR next Thursday as well, 3/3. [facility] 07-05-2024 Telephone encounter Note Inr results in [facility] today. INR from yesterday 07/04/24 4.3. pt has been holding. She normally takes 3 mg daily. [facility] 07-04-2024 Telephone encounter Note Called pt advised her that INR is still pending and she needs to hold tonight's dose until we have results. Verbalized an understanding. [facility] 07-04-2024 Miscellaneous Notes Called pt advised her that INR is still pending and she needs to hold tonight's dose until we have results. Verbalized an understanding. Spoke with DR Son. She wants coumadin still held tonight since we don't have results and was pt on antibiotics. Last INR was [address] Son said if results come after hours she can be contacted on what to do with coumadin. Called for results. Still pending. Will discuss with Dr Son what to do about coumadin since she was to hold just until today. Called pt she did have INR done today. Had done at facility [facility]. Will call for results. I called and spoke to Hernan; relaying note from Dr Son; she verbalized understanding. She will have INR completed at her usual lab (it was [facility], but now thinks it is a [facility] lab. I looked and standing INR order placed 02/15/24, so she should be good to go to get labs drawn. I let her know I would inform Nat as well, so that way will keep an eye out for the lab. She was thankful for the call back. This was addressed and a note written. I asked them NOT to give Vit K with a mechanical MVR, not a good idea. I asked her not to take any warfarin at all and get INR repeat on Tuesday 07/04, then we will decide how to proceed. If bleeding ensued in the meantime, back to ED. I called and spoke to Hernan; she endorses being at the ER yesterday; she has pneumonia-she didn't have to be admitted though and she is currently home. Her INR yesterday was >8.0, she held her coumadin yesterday and was looking for further instruction; she tells me Dr Son and the ER physician were talking about it, but she did not receive an update. There is no documentation on our end or in [facility]'s documentation. She reports she thinks INR elevated due to not eating for 10 days due to being very sick with diarrhea and pneumonia. No abx prior or steroids, she just start doxycycline. She normally takes warfarin 3 mg daily. I told her to not take her dose until we talk with her; likely will need to hold at least today and likely will need INR on Thursday. I spoke with Nat today. She said that due to elevated INR in ER yesterday. Pt was told to hold Warfarin yesterday and to resume normal dosing per Dr Son discussion and that she MUST get INR done on Thursday07/04/24, because she was placed on antibiotics. Pls advise pt [phone]. Pt called to follow up on instructions, s/p ER visit yesterday regarding her Warfarin. documented in this encounter [facility] 07-04-2024 Telephone encounter Note Spoke with DR Son. She wants coumadin still held tonight since we don't have results and was pt on antibiotics. Last INR was [address] Son said if results come after hours she can be contacted on what to do with coumadin. [facility] 07-04-2024 Telephone encounter Note Called for results. Still pending. Will discuss with Dr Son what to do about coumadin since she was to hold just until today. [facility] 07-04-2024 Telephone encounter Note Called pt she did have INR done today. Had done at facility [facility]. Will call for results. [facility] 07-01-2024 Telephone encounter Note I called and spoke to Hernan; relaying note from Dr Son; she verbalized understanding. She will have INR completed at her usual lab (it was , but now thinks it is a [facility]. I looked and standing INR order placed 02/15/24, so she should be good to go to get labs drawn. I let her know I would inform Nat as well, so that way will keep an eye out for the lab. She was thankful for the call back. [facility] 07-01-2024 Telephone encounter Note This was addressed and a note written. I asked them NOT to give Vit K with a mechanical MVR, not a good idea. I asked her not to take any warfarin at all and get INR repeat on Tuesday 07/04, then we will decide how to proceed. If bleeding ensued in the meantime, back to ED. [facility] 07-01-2024 Telephone encounter Note I called and spoke to Hernan; she endorses being at the ER yesterday; she has pneumonia-she didn't have to be admitted though and she is currently home. Her INR yesterday was >8.0, she held her coumadin yesterday and was looking for further instruction; she tells me Dr Son and the ER physician were talking about it, but she did not receive an update. There is no documentation on our end or in [facility]'s documentation. She reports she thinks INR elevated due to not eating for 10 days due to being very sick with diarrhea and pneumonia. No abx prior or steroids, she just start doxycycline. She normally takes warfarin 3 mg daily. I told her to not take her dose until we talk with her; likely will need to hold at least today and likely will need INR on Thursday. [facility] 07-01-2024 Telephone encounter Note I spoke with Nat today. She said that due to elevated INR in ER yesterday. Pt was told to hold Warfarin yesterday and to resume normal dosing per Dr Son discussion and that she MUST get INR done on Thursday07/04/24, because she was placed on antibiotics. Pls advise pt [phone]. [facility] 07-01-2024 Telephone encounter Note Pt called to follow up on instructions, s/p ER visit yesterday regarding her Warfarin. [facility] 06-30-2024 Evaluation + Plan note Associated Problem(s): Atrial fibrillation (Multi) Rate appears to be stable [facility] Work Phone: 06-30-2024 Evaluation + Plan note Associated Problem(s): Dehydration Sending to ER for evaluation. Discussion with ER attending [facility] Work Phone: 06-30-2024 Miscellaneous Notes Associated Problem(s): Atrial fibrillation (Multi) Rate appears to be stable Associated Problem(s): Dehydration Sending to ER for evaluation. Discussion with ER attending Associated Problem(s): Dyspnea Sending to ER to rule out pneumonia COVID testing was negative and influenza testing negative documented in this encounter [facility] Work Phone: 06-30-2024 Evaluation + Plan note Associated Problem(s): Dyspnea Sending to ER to rule out pneumonia COVID testing was negative and influenza testing negative [facility] Work Phone: 06-30-2024 History of Present illness Narrative Subjective Patient ID: Hernan Walter is a 68 y.o. female who presents for URI (Patient believed she had influenza. Still experiencing cough. Nausea, lightheaded, diarrhea. Tested for Covid & came back negative.). Last thursday. This is day #7 negative for acute illness. Patient started with nasal drainage congestion. Patient states then 1 into the chest. She had tremendous body aches and chills when this started. She has had troubles with drinking enough fluid. She is also had some diarrhea associated with this. She has had no vomiting associated with this. No abdominal pain Patient has continued to try to work through this. Influenza A URI Associated symptoms include congestion, coughing and diarrhea. Pertinent negatives include no ear pain. Review of Systems Constitutional: Positive for appetite change. Negative for diaphoresis, fatigue, fever and unexpected weight change. HENT: Positive for congestion and sinus pressure. Negative for drooling and ear pain. Eyes: Negative for redness, itching and visual disturbance. Respiratory: Positive for cough. Negative for chest tightness and stridor. Cardiovascular: Negative. Negative for leg swelling. Gastrointestinal: Positive for diarrhea. Negative for abdominal distention. Objective BP 139/60 Pulse 71 Temp 36.5 C (97.7 F) (Oral) Ht 1.626 m (5' 4) Wt 90.7 kg (200 lb) SpO2 96% BMI 34.33 kg/m BSA Body surface area is 2.02 meters squared. Physical Exam Constitutional: General: She is not in acute distress. Appearance: Normal appearance. She is ill-appearing. She is not diaphoretic. HENT: Head: Normocephalic and atraumatic. Right Ear: Tympanic membrane normal. Left Ear: Tympanic membrane normal. Nose: Nose normal. Cardiovascular: Rate and Rhythm: Normal rate. Heart sounds: Murmur heard. Pulmonary: Effort: Pulmonary effort is normal. Breath sounds: Normal breath sounds. Abdominal: General: Abdomen is flat. Palpations: Abdomen is soft. Musculoskeletal: Cervical back: No rigidity. Neurological: Mental Status: She is alert. Lab on 05/10/2024 Component Date Value Ref Range Status Protime 05/10/2024 38.4 (H) 9.8 - 12.8 seconds Final INR 05/10/2024 3.4 (H) 0.9 - 1.1 Final Sedimentation Rate 05/10/2024 38 (H) 0 - 30 mm/h Final C-Reactive Protein 05/10/2024 1.83 (H) <1.00 mg/dL Final TIA 05/10/2024 Positive (A) Negative Final The Antinuclear Antibody (TIA) test was performed using indirect immunofluorescence assay with HEp-2 cells slide. TIA Pattern 05/10/2024 Homogeneous Final TIA Titer 05/10/2024 1:320 Final Rheumatoid Factor 05/10/2024 <10 0 - 15 IU/mL Final Anti-SM 05/10/2024 <0.2 <1.0 AI Final < 1.0 = NEGATIVE >=1.0 = POSITIVE Anti-LEGAL COORDINATOR 05/10/2024 <0.2 <1.0 AI Final < 1.0 = NEGATIVE >=1.0 = POSITIVE Anti-SM/LEGAL COORDINATOR 05/10/2024 <0.2 <1.0 AI Final < 1.0 = NEGATIVE >=1.0 = POSITIVE Anti-SSA 05/10/2024 <0.2 <1.0 AI Final < 1.0 = NEGATIVE >=1.0 = POSITIVE Anti-SSB 05/10/2024 <0.2 <1.0 AI Final < 1.0 = NEGATIVE >=1.0 = POSITIVE Anti-SCL-70 05/10/2024 <0.2 <1.0 AI Final < 1.0 = NEGATIVE >=1.0 = POSITIVE Anti-TERESA-1 IgG 05/10/2024 <0.2 <1.0 AI Final < 1.0 = NEGATIVE >=1.0 = POSITIVE Anti-Chromatin 05/10/2024 <0.2 <1.0 AI Final < 1.0 = NEGATIVE >=1.0 = POSITIVE Anti-Centromere 05/10/2024 <0.2 <1.0 AI Final < 1.0 = NEGATIVE >=1.0 = POSITIVE ANTI-RIBOSOMAL P 05/10/2024 <0.2 <1.0 AI Final < 1.0 = NEGATIVE >=1.0 = POSITIVE Anti-DNA (DS) 05/10/2024 2.0 <5.0 IU/mL Final NEGATIVE: <= 4 IU/ML EQUIVOCAL: 5- 9 IU/ML POSITIVE: >=10 IU/ML Lab on 04/11/2024 Component Date Value Ref Range Status WBC 04/11/2024 9.9 4.4 - 11.3 x10*3/uL Final nRBC 04/11/2024 0.0 0.0 - 0.0 /100 WBCs Final RBC 04/11/2024 3.97 (L) 4.00 - 5.20 x10*6/uL Final Hemoglobin 04/11/2024 12.3 12.0 - 16.0 g/dL Final Hematocrit 04/11/2024 37.5 36.0 - 46.0 % Final MCV 04/11/2024 95 80 - 100 fL Final MCH 04/11/2024 31.0 26.0 - 34.0 pg Final MCHC 04/11/2024 32.8 32.0 - 36.0 g/dL Final RDW 04/11/2024 13.6 11.5 - 14.5 % Final Platelets 04/11/2024 452 (H) 150 - 450 x10*3/uL Final Neutrophils % 04/11/2024 74.2 40.0 - 80.0 % Final Immature Granulocytes %, Automated 04/11/2024 0.5 0.0 - 0.9 % Final Immature Granulocyte Count (IG) includes promyelocytes, myelocytes and metamyelocytes but does not include bands. Percent differential counts (%) should be interpreted in the context of the absolute cell counts (cells/UL). Lymphocytes % 04/11/2024 12.5 13.0 - 44.0 % Final Monocytes % 04/11/2024 8.7 2.0 - 10.0 % Final Eosinophils % 04/11/2024 3.4 0.0 - 6.0 % Final Basophils % 04/11/2024 0.7 0.0 - 2.0 % Final Neutrophils Absolute 04/11/2024 7.35 1.20 - 7.70 x10*3/uL Final Percent differential counts (%) should be interpreted in the context of the absolute cell counts (cells/uL). Immature Granulocytes Absolute, Au* 04/11/2024 0.05 0.00 - 0.70 x10*3/uL Final Lymphocytes Absolute 04/11/2024 1.24 1.20 - 4.80 x10*3/uL Final Monocytes Absolute 04/11/2024 0.86 0.10 - 1.00 x10*3/uL Final Eosinophils Absolute 04/11/2024 0.34 0.00 - 0.70 x10*3/uL Final Basophils Absolute 04/11/2024 0.07 0.00 - 0.10 x10*3/uL Final Glucose 04/11/2024 149 (H) 74 - 99 mg/dL Final Sodium 04/11/2024 136 136 - 145 mmol/L Final Potassium 04/11/2024 4.3 3.5 - 5.3 mmol/L Final Chloride 04/11/2024 98 98 - 107 mmol/L Final Bicarbonate 04/11/2024 30 21 - 32 mmol/L Final Anion Gap 04/11/2024 12 10 - 20 mmol/L Final Urea Nitrogen 04/11/2024 16 6 - 23 mg/dL Final Creatinine 04/11/2024 0.70 0.50 - 1.05 mg/dL Final eGFR 04/11/2024 >90 >60 mL/min/1.73m*2 Final Calculations of estimated GFR are performed using the 2020 CKD-EPI Study Refit equation without the race variable for the IDMS-Traceable creatinine methods. https://jasn.asnjournals.org/cont ent/early//ASN.64366012 88 Calcium 04/11/2024 9.4 8.6 - 10.6 mg/dL Final Albumin 04/11/2024 4.3 3.4 - 5.0 g/dL Final Alkaline Phosphatase 04/11/2024 104 33 - 136 U/L Final Total Protein 04/11/2024 7.0 6.4 - 8.2 g/dL Final AST 04/11/2024 13 9 - 39 U/L Final Bilirubin, Total 04/11/2024 1.3 (H) 0.0 - 1.2 mg/dL Final ALT 04/11/2024 11 7 - 45 U/L Final Patients treated with Sulfasalazine may generate falsely decreased results for ALT. Cholesterol 04/11/2024 171 0 - 199 mg/dL Final Age Desirable Borderline High High 0-19 Y 0 - 169 170 - 199 >/= 200 20-24 Y 0 - 189 190 - 224 >/= 225 >24 Y 0 - 199 200 - 239 >/= 240 All ranges are based on fasting samples. Specific therapeutic targets will vary based on patient-specific cardiac risk. Pediatric guidelines reference:Pediatrics 2011, 128(S5).Adult guidelines reference: NCEP ATPIII Guidelines,LAYNE 2001, 258:2486-97 Venipuncture immediately after or during the administration of Metamizole may lead to falsely low results. Testing should be performed immediately prior to Metamizole dosing. HDL-Cholesterol 04/11/2024 47.1 mg/dL Final Age Very Low Low Normal High 0-19 Y < 35 < 40 40-45 ---- 20-24 Y ---- < 40 >45 ---- >24 Y ---- < 40 40-60 >60 Cholesterol/HDL Ratio 04/11/2024 3.6 Final Ref Values Desirable < 3.4 High Risk > 5.0 LDL Calculated 04/11/2024 88 <=99 mg/dL Final Near Borderline AGE Desirable Optimal High High Very High 0-19 Y 0 - 109 --- 110-129 >/= 130 ---- 20-24 Y 0 - 119 --- 120-159 >/= 160 ---- >24 Y 0 - 99 100-129 130-159 160-189 >/=190 VLDL 04/11/2024 36 0 - 40 mg/dL Final Triglycerides 04/11/2024 180 (H) 0 - 149 mg/dL Final Age Desirable Borderline High Very High SEX:B mg/dL mg/dL mg/dL mg/dL <=14D 86-277 ---- ---- ---- 15D-365D 55-277 ---- ---- ---- 1Y-9Y 0-74 75-99 >=100 ---- 10Y-19Y 0-89 90-129 >=130 ---- 20Y-24Y 0-114 115-149 >=150 ---- >= 25Y 0-149 150-199 200-499 >=500 Venipuncture immediately after or during the administration of Metamizole may lead to falsely low results. Testing should be performed immediately prior to Metamizole dosing. Non HDL Cholesterol 04/11/2024 124 0 - 149 mg/dL Final Age Desirable Borderline High High Very High 0-19 Y 0 - 119 120 - 144 >/= 145 >/= 160 20-24 Y 0 - 149 150 - 189 >/= 190 ---- >24 Y 30 mg/dL above LDL Cholesterol goal Thyroid Stimulating Hormone 04/11/2024 3.16 0.44 - 3.98 mIU/L Final Protime 04/11/2024 43.8 (H) 9.8 - 12.8 seconds Final INR 04/11/2024 3.8 (H) 0.9 - 1.1 Final Hemoglobin A1C 04/11/2024 7.6 (H) See comment % Final Estimated Average Glucose 04/11/2024 171 Not Established mg/dL Final Lab on 02/23/2024 Component Date Value Ref Range Status Protime 02/23/2024 41.8 (H) 9.8 - 12.8 seconds Final INR 02/23/2024 3.7 (H) 0.9 - 1.1 Final Lab on 02/12/2024 Component Date Value Ref Range Status Protime 02/12/2024 51.4 (H) 9.8 - 12.8 seconds Final INR 02/12/2024 4.5 (H) 0.9 - 1.1 Final Lab on 12/25/2023 Component Date Value Ref Range Status Protime 12/25/2023 43.6 (H) 9.8 - 12.8 seconds Final INR 12/25/2023 3.8 (H) 0.9 - 1.1 Final Lab on 12/09/2023 Component Date Value Ref Range Status Protime 12/09/2023 43.2 (H) 9.8 - 12.8 seconds Final INR 12/09/2023 3.8 (H) 0.9 - 1.1 Final Cholesterol 12/09/2023 155 0 - 199 mg/dL Final HDL-Cholesterol 12/09/2023 42.6 mg/dL Final Age Very Low Low Normal High 0-19 Y < 35 < 40 40-45 ---- 20-24 Y ---- < 40 >45 ---- >24 Y ---- < 40 40-60 >60 Cholesterol/HDL Ratio 12/09/2023 3.6 Final Ref Values Desirable < 3.4 High Risk > 5.0 LDL Calculated 12/09/2023 78 mg/dL Final Near Borderline AGE Desirable Optimal High High Very High 0-19 Y 0 - 109 --- 110-129 >/= 130 ---- 20-24 Y 0 - 119 --- 120-159 >/= 160 ---- >24 Y 0 - 99 100-129 130-159 160-189 >/=190 VLDL 12/09/2023 34 0 - 40 mg/dL Final Triglycerides 12/09/2023 171 (H) 0 - 149 mg/dL Final Non HDL Cholesterol 12/09/2023 112 0 - 149 mg/dL Final Age Desirable Borderline High High Very High 0-19 Y 0 - 119 120 - 144 >/= 145 >/= 160 20-24 Y 0 - 149 150 - 189 >/= 190 ---- >24 Y 30 mg/dL above LDL Cholesterol goal Glucose 12/09/2023 136 (H) 74 - 99 mg/dL Final Sodium 12/09/2023 134 (L) 136 - 145 mmol/L Final Potassium 12/09/2023 4.6 3.5 - 5.3 mmol/L Final Chloride 12/09/2023 97 (L) 98 - 107 mmol/L Final Bicarbonate 12/09/2023 27 21 - 32 mmol/L Final Anion Gap 12/09/2023 15 10 - 20 mmol/L Final Urea Nitrogen 12/09/2023 21 6 - 23 mg/dL Final Creatinine 12/09/2023 0.78 0.50 - 1.05 mg/dL Final eGFR 12/09/2023 84 >60 mL/min/1.73m*2 Final Calculations of estimated GFR are performed using the 2020 CKD-EPI Study Refit equation without the race variable for the IDMS-Traceable creatinine methods. https://jasn.asnjournals.org/cont ent/early//ASN.47188111 88 Calcium 12/09/2023 9.2 8.6 - 10.6 mg/dL Final Albumin 12/09/2023 4.2 3.4 - 5.0 g/dL Final Alkaline Phosphatase 12/09/2023 95 33 - 136 U/L Final Total Protein 12/09/2023 6.6 6.4 - 8.2 g/dL Final AST 12/09/2023 15 9 - 39 U/L Final Bilirubin, Total 12/09/2023 0.6 0.0 - 1.2 mg/dL Final ALT 12/09/2023 11 7 - 45 U/L Final Patients treated with Sulfasalazine may generate falsely decreased results for ALT. Creatine Kinase 12/09/2023 108 0 - 215 U/L Final Digoxin 12/09/2023 0.67 (L) 0.80 - <2.00 ng/mL Final Lab on 10/01/2023 Component Date Value Ref Range Status Protime 10/01/2023 32.3 (H) 9.8 - 12.8 seconds Final INR 10/01/2023 2.8 (H) 0.9 - 1.1 Final Lab on 09/09/2023 Component Date Value Ref Range Status Protime 09/09/2023 32.1 (H) 9.8 - 12.8 seconds Final INR 09/09/2023 2.8 (H) 0.9 - 1.1 Final Lab on 09/03/2023 Component Date Value Ref Range Status Protime 09/03/2023 61.0 (HH) 9.8 - 12.8 seconds Final INR 09/03/2023 5.3 (HH) 0.9 - 1.1 Final Lab on 08/20/2023 Component Date Value Ref Range Status Protime 08/20/2023 42.9 (H) 9.8 - 12.8 seconds Final INR 08/20/2023 3.8 (H) 0.9 - 1.1 Final There may be more visits with results that are not included. Current Outpatient Medications on File Prior to Visit Medication Sig Dispense Refill carvedilol (Coreg) 12.5 mg tablet Take 1 tablet (12.5 mg) by mouth 2 times a day. digoxin (Lanoxin) 125 MCG tablet Take 1 tablet (125 mcg) by mouth once daily. furosemide (Lasix) 20 mg tablet Take 1 tablet (20 mg) by mouth once daily. levothyroxine (Synthroid, Levoxyl) 75 mcg tablet TAKE 1 TABLET (75 MCG) BY MOUTH ONCE DAILY IN THE MORNING. TAKE BEFORE MEALS. 90 tablet 3 lisinopril 2.5 mg tablet Take 1 tablet (2.5 mg) by mouth once daily. pravastatin (Pravachol) 40 mg tablet Take 1 tablet (40 mg) by mouth once daily. semaglutide (Ozempic) 0.25 mg or 0.5 mg (2 mg/3 mL) pen injector Inject 0.25 mg under the skin 1 (one) time per week. 3 mL 3 spironolactone (Aldactone) 25 mg tablet Take 1 tablet (25 mg) by mouth once daily. warfarin (Coumadin) 1 mg tablet Take 1 tablet (1 mg) by mouth. Take daily or as directed warfarin (Coumadin) 4 mg tablet Take by mouth. 2mg 5 days a week, 4mg 2 days a week clindamycin (Cleocin) 150 mg capsule TAKE 4 CAPSULES BY MOUTH ONE HOUR PRIOR TO DENTAL PROCEDURE (Patient not taking: Reported on 06/30/2024) No current facility-administered medications on file prior to visit. No images are attached to the encounter. Assessment/Plan Problem List Items Addressed This Visit ICD-10-CM Atrial fibrillation (Multi) - Primary I48.91 Rate appears to be stable Dyspnea R06.00 Sending to ER to rule out pneumonia COVID testing was negative and influenza testing negative Dehydration E86.0 Sending to ER for evaluation. Discussion with ER attending Bronchitis J40 documented in this encounter [facility] Work Phone: 06-30-2024 Instructions Melissa Del Rio DO - 06/30/2024 8:40 AM EST Evaluating acute illness. Testing for influenza. This is negative. Concerned about dehydration and possible pneumonia. Because of history of cardiomyopathy, sending to ER for evaluation. Discussed with ER attending. documented in this encounter [facility] Work Phone: 06-07-2024 History of Present illness Narrative Images from the original note were not included. Patient ID: Hernan Walter is a 68 y.o. female who presents for Diabetes and Weight Loss. Referring Provider: Melissa Del Rio DO PCP: Melissa Del Rio DO Last visit with PCP: 04/22/2024 Subjective Preferred pharmacy: [id number] [place], [place] Can patient afford prescribed medications: Yes, $47 per month. PA approved through 05/10/2025 HPI Patient presents on referral from PCP to discuss potential semaglutide therapy for weight loss and glycemic benefit for T2DM. Patient reports a goal weight of around 185 lbs. Review of Systems Objective There were no vitals taken for this visit. BP Readings from Last 4 Encounters: 04/22/24 128/64 01/23/23 124/60 10/31/22 134/82 07/18/22 112/60 There were no vitals filed for this visit. Labs Lab Results Component Value Date BILITOT 1.3 (H) 04/11/2024 CALCIUM 9.4 04/11/2024 CO2 30 04/11/2024 CL 98 04/11/2024 CREATININE 0.70 04/11/2024 GLUCOSE 149 (H) 04/11/2024 ALKPHOS 104 04/11/2024 K 4.3 04/11/2024 PROT 7.0 04/11/2024 NA 136 04/11/2024 AST 13 04/11/2024 ALT 11 04/11/2024 BUN 16 04/11/2024 ANIONGAP 12 04/11/2024 ALBUMIN 4.3 04/11/2024 Lab Results Component Value Date TRIG 180 (H) 04/11/2024 CHOL 171 04/11/2024 LDLCALC 88 04/11/2024 HDL 47.1 04/11/2024 Lab Results Component Value Date HGBA1C 7.6 (H) 04/11/2024 Current Outpatient Medications Medication Instructions carvedilol (Coreg) 12.5 mg tablet 1 tablet, 2 times daily RT clindamycin (Cleocin) 150 mg capsule TAKE 4 CAPSULES BY MOUTH ONE HOUR PRIOR TO DENTAL PROCEDURE digoxin (Lanoxin) 125 MCG tablet 1 tablet, Daily furosemide (LASIX) 20 mg, Daily levothyroxine (SYNTHROID, LEVOXYL) 75 mcg, oral, Daily before breakfast lisinopril 2.5 mg tablet 1 tablet, Daily Ozempic 0.25 mg, subcutaneous, Weekly pravastatin (Pravachol) 40 mg tablet 1 tablet, Daily spironolactone (Aldactone) 25 mg tablet 1 tablet, Daily warfarin (Coumadin) 4 mg tablet Take by mouth. 2mg 5 days a week, 4mg 2 days a week warfarin (COUMADIN) 1 mg Drug Interactions; None requiring intervention at this time Assessment/Plan Problem List Items Addressed This Visit Obesity Obesity (BMI 30-39.9) Relevant Orders Referral to Clinical Pharmacy Type 2 diabetes mellitus without complication, without long-term current use of insulin (Multi) - Primary Relevant Orders Referral to Clinical Pharmacy DIABETES ASSESSMENT PMH REVIEW: - PMH of Pancreatitis: No - PMH of Retinopathy: No - PMH of MTC: No HEALTH MAINTENANCE: Foot Exam: 04/22/24 with PCP Eye Exam: yearly Lipid Panel: up to date Urine Albumin: needs ordered PRIMARY/SECONDARY PREVENTION: - Statin? Yes - TOD-I/ARB? Yes - Aspirin? No Last Recorded Vitals: BP Readings from Last 6 Encounters: 04/22/24 128/64 01/23/23 124/60 10/31/22 134/82 07/18/22 112/60 03/03/22 122/70 03/02/20 108/70 Wt Readings from Last 6 Encounters: 05/10/24 98.9 kg (218 lb 0.6 oz) 04/22/24 98.9 kg (218 lb) 01/23/23 98.9 kg (218 lb) 07/18/22 97.1 kg (214 lb) 03/03/22 98.4 kg (217 lb) 03/02/20 97.1 kg (214 lb) CURRENT PHARMACOTHERAPY: Ozempic 0.25 mg subcutaneously weekly The patient does not have a known family history of diabetes. Current monitoring regimen: Not monitoring BG currently. Discussed signs and symptoms of hypoglycemia and how to treat. Lab Results Component Value Date HGBA1C 7.6 (H) 04/11/2024 Patient's diabetes is uncontrolled with most recent A1c of 7.6% (Goal < 7%). Patient weight at baseline: 218 lbs Current weight 197 lbs Side Effects: Some nausea at first, cut down on portions which has helped Patient has seen significant weight loss since starting therapy. Reports she did have the flu about a week ago, which contributed to some of the weight loss. Has been experiencing decreased food noise and appetite. Discussed making sure she is getting enough protein in her diet. Reports having eggs for breakfast and a large salad with a meat for protein at lunch. Usually is not that hungry for dinner. Not currently checking BG, reports no signs/symptoms of hypoglycemia. PLAN: Continue Ozempic 0.25 mg subcutaneously weekly Follow-up: 07/05/24 @ 1:20 Hernan Arriola, [place] Continue all meds under the continuation of care with the referring provider and clinical pharmacy team. Cosigned by Mejia Jackson, PharmD at 06/07/2024 2:35 PM EST Associated attestation - Mejia Jackson PharmD - 06/07/2024 2:35 PM EST I agree with the resident documentation and plan proposed. Mejia Jackson PharmD documented in this encounter [facility] Work Phone: 05-18-2024 Telephone encounter Note Bridging instructions sent through my chart. [facility] 05-18-2024 Miscellaneous Notes Bridging instructions sent through my chart. Called pt LM that she will need bridging for colonoscopy. Advised will send through my chart bridging instructions but can review over phone if pt prefers. Requesting call back with further questions. Will send Lovenox to pharmacy. Lovenox 80 mg BID to start on day 2 off warfarin. Hold the PM prior to surgery and the AM of surgery. Resume with warfarin the evening surgery is complete, and maintain Lovenox until INR at least 2. Letter done in Epic 05/07/24. Intermediate risk pt. Needs bridging. I rec'd a fax requesting clearance for colonoscopy scheduled on 07/20/[address] Pena's office. Pt last ov was 02/15/24. documented in this encounter [facility] 05-17-2024 Telephone encounter Note Called pt LM that she will need bridging for colonoscopy. Advised will send through my chart bridging instructions but can review over phone if pt prefers. Requesting call back with further questions. Will send Lovenox to pharmacy. [facility] 05-17-2024 Miscellaneous Notes Will call pt closer to procedure with Bridging instructions. Lovenox 80 mg BID to start on day 2 off warfarin. Hold the PM prior to surgery and the AM of surgery. Resume with warfarin the evening surgery is complete, and maintain Lovenox until INR at least 2. Letter done in Epic 05/07/24. Intermediate risk pt. Needs bridging. I rec'd a fax requesting clearance for colonoscopy scheduled on 07/20/[address] Pena's office. Pt last ov was 02/15/24. documented in this encounter [facility] 05-10-2024 History of Present illness Narrative Images from the original note were not included. Patient ID: Hernan Walter is a 68 y.o. female who presents for Diabetes. Referring Provider: Melissa Del Rio DO PCP: Melissa Del Rio DO Last visit with PCP: 04/22/2024 Subjective Preferred pharmacy: [facility] #[id number] [place], [place] Can patient afford prescribed medications: Yes, $47 per month. PA approved through 05/10/2025 HPI Patient presents on referral from PCP to discuss potential semaglutide therapy for weight loss and glycemic benefit for T2DM. Review of Systems Objective There were no vitals taken for this visit. BP Readings from Last 4 Encounters: 04/22/24 128/64 01/23/23 124/60 10/31/22 134/82 07/18/22 112/60 There were no vitals filed for this visit. Labs Lab Results Component Value Date BILITOT 1.3 (H) 04/11/2024 CALCIUM 9.4 04/11/2024 CO2 30 04/11/2024 CL 98 04/11/2024 CREATININE 0.70 04/11/2024 GLUCOSE 149 (H) 04/11/2024 ALKPHOS 104 04/11/2024 K 4.3 04/11/2024 PROT 7.0 04/11/2024 NA 136 04/11/2024 AST 13 04/11/2024 ALT 11 04/11/2024 BUN 16 04/11/2024 ANIONGAP 12 04/11/2024 ALBUMIN 4.3 04/11/2024 Lab Results Component Value Date TRIG 180 (H) 04/11/2024 CHOL 171 04/11/2024 LDLCALC 88 04/11/2024 HDL 47.1 04/11/2024 Lab Results Component Value Date HGBA1C 7.6 (H) 04/11/2024 Current Outpatient Medications Medication Instructions carvedilol (Coreg) 12.5 mg tablet 1 tablet, 2 times daily RT clindamycin (Cleocin) 150 mg capsule TAKE 4 CAPSULES BY MOUTH ONE HOUR PRIOR TO DENTAL PROCEDURE digoxin (Lanoxin) 125 MCG tablet 1 tablet, Daily furosemide (LASIX) 20 mg, Daily levothyroxine (SYNTHROID, LEVOXYL) 75 mcg, oral, Daily before breakfast lisinopril 2.5 mg tablet 1 tablet, Daily Ozempic 0.25 mg, subcutaneous, Weekly pravastatin (Pravachol) 40 mg tablet 1 tablet, Daily spironolactone (Aldactone) 25 mg tablet 1 tablet, Daily warfarin (Coumadin) 4 mg tablet Take by mouth. 2mg 5 days a week, 4mg 2 days a week warfarin (COUMADIN) 1 mg Drug Interactions; None requiring intervention at this time Assessment/Plan Problem List Items Addressed This Visit Class 2 obesity with body mass index (BMI) of 36.0 to 36.9 in adult - Primary Relevant Medications semaglutide (Ozempic) 0.25 mg or 0.5 mg (2 mg/3 mL) pen injector Other Relevant Orders Referral to Clinical Pharmacy Type 2 diabetes mellitus without complication, without long-term current use of insulin (Multi) Relevant Medications semaglutide (Ozempic) 0.25 mg or 0.5 mg (2 mg/3 mL) pen injector Other Relevant Orders Referral to Clinical Pharmacy DIABETES ASSESSMENT PMH REVIEW: - PMH of Pancreatitis: No - PMH of Retinopathy: No - PMH of MTC: No HEALTH MAINTENANCE: Foot Exam: 04/22/24 with PCP Eye Exam: yearly Lipid Panel: up to date Urine Albumin: needs ordered PRIMARY/SECONDARY PREVENTION: - Statin? Yes - TOD-I/ARB? Yes - Aspirin? No Last Recorded Vitals: BP Readings from Last 6 Encounters: 04/22/24 128/64 01/23/23 124/60 10/31/22 134/82 07/18/22 112/60 03/03/22 122/70 03/02/20 108/70 Wt Readings from Last 6 Encounters: 05/10/24 98.9 kg (218 lb 0.6 oz) 04/22/24 98.9 kg (218 lb) 01/23/23 98.9 kg (218 lb) 07/18/22 97.1 kg (214 lb) 03/03/22 98.4 kg (217 lb) 03/02/20 97.1 kg (214 lb) CURRENT PHARMACOTHERAPY: No current pharmacotherapy for T2DM The patient does not have a known family history of diabetes. Current monitoring regimen: Not monitoring BG currently. Discussed signs and symptoms of hypoglycemia and how to treat. Lab Results Component Value Date HGBA1C 7.6 (H) 04/11/2024 Patient's diabetes is uncontrolled with most recent A1c of 7.6% (Goal < 7%). Patient weight at baseline: 218 lbs Patient is agreeable to starting injectable Ozempic therapy. Says that she is familiar with administering injections to herself because she uses Lovenox prior to procedures when needed. Ozempic Education: - Counseled patient on Ozempic MOA, expectations, side effects, duration of therapy, administration, and monitoring parameters. - Provided detailed dosing and administration counseling to ensure proper technique. - Reviewed Ozempic titration schedule, starting with 0.25 mg once weekly for 4 weeks, then continuing on 0.5 mg once weekly. Pt verbalized understanding. - Counseled patient on the benefits of GLP-1ra, such as cardiovascular risk reduction, glycemic control, and weight loss potential. - Reviewed storage requirements of Ozempic when not in use, and when to administer the medication if a dose is missed. - Advised patient that they may experience improved satiety after meals and portion sizes of meals may be reduced as doses of Ozempic increase. - Counseled patient to avoid foods that are fatty/oily as this may precipitate the nausea/GI upset that may occur with new start Ozempic. PLAN: START Ozempic 0.25 mg subcutaneously weekly Follow-up: 06/07/24 @ 1:20 Hernan Arriola PharmD Continue all meds under the continuation of care with the referring provider and clinical pharmacy team. Cosigned by Mejia Jackson PharmD at 05/10/2024 2:52 PM EST Associated attestation - Mejia Jackson PharmD - 05/10/2024 2:52 PM EST I agree with the resident documentation and plan proposed. Mejia Jackson PharmD documented in this encounter [facility] Work Phone: 05-09-2024 Telephone encounter Note Lovenox 80 mg BID to start on day 2 off warfarin. Hold the PM prior to surgery and the AM of surgery. Resume with warfarin the evening surgery is complete, and maintain Lovenox until INR at least 2. [facility] [employer] 05-09-2024 Miscellaneous Notes Lovenox 80 mg BID to start on day 2 off warfarin. Hold the PM prior to surgery and the AM of surgery. Resume with warfarin the evening surgery is complete, and maintain Lovenox until INR at least 2. Letter done in [facility] 05/07/24. Intermediate risk pt. Needs bridging. I rec'd a fax requesting clearance for colonoscopy scheduled on 07/20/[address] Pena's office. Pt last ov was 02/15/24. documented in this encounter [facility] 05-07-2024 Telephone encounter Note Letter done in [facility] 05/07/24. Intermediate risk pt. Needs bridging. [facility] 05-07-2024 Miscellaneous Notes Letter done in [facility] 05/07/24. Intermediate risk pt. Needs bridging. I rec'd a fax requesting clearance for colonoscopy scheduled on 07/20/[address] Pena's office. Pt last ov was 02/15/24. documented in this encounter [facility] 05-06-2024 Telephone encounter Note I rec'd a fax requesting clearance for colonoscopy scheduled on 07/20/[address] Pena's office. Pt last ov was 02/15/24. [facility] 04-22-2024 Evaluation + Plan note Associated Problem(s): Hypothyroidism, unspecified TSH level is at goal [facility] Work Phone: 04-22-2024 Evaluation + Plan note Associated Problem(s): Obesity (BMI 30-39.9) Consulting pharmacy staff to try to see if we can get semaglutide therapy approved [facility] Work Phone: 04-22-2024 Evaluation + Plan note Associated Problem(s): Dyslipidemia Doing well on Pravachol therapy [facility] Work Phone: 04-22-2024 Evaluation + Plan note Associated Problem(s): Cardiomyopathy, dilated (Multi) Following up with Dr. Son [facility] Work Phone: 04-22-2024 Miscellaneous Notes Associated Problem(s): Hypothyroidism, unspecified TSH level is at goal Associated Problem(s): Obesity (BMI 30-39.9) Consulting pharmacy staff to try to see if we can get semaglutide therapy approved Associated Problem(s): Dyslipidemia Doing well on Pravachol therapy Associated Problem(s): Cardiomyopathy, dilated (Multi) Following up with Dr. Son Associated Problem(s): Mitral valve replaced Continue to follow-up with cardiology Associated Problem(s): Atrial fibrillation (Multi) Remains anticoagulated please continue to follow-up with cardiology Associated Problem(s): Arthralgia Bilateral hand x-rays go to be performed sed rate C-reactive protein TIA rheumatoid factor being performed documented in this encounter [facility] Work Phone: 04-22-2024 Evaluation + Plan note Associated Problem(s): Mitral valve replaced Continue to follow-up with cardiology [facility] Work Phone: 04-22-2024 Evaluation + Plan note Associated Problem(s): Atrial fibrillation (Multi) Remains anticoagulated please continue to follow-up with cardiology [facility] Work Phone: 04-22-2024 Evaluation + Plan note Associated Problem(s): Arthralgia Bilateral hand x-rays go to be performed sed rate C-reactive protein TIA rheumatoid factor being performed [facility] Work Phone: 04-22-2024 History of Present illness Narrative Advance Care Planning Note Discussion Date: 04/22/24 Discussion Participants: patient The patient wishes to discuss Advance Care Planning today and the following is a brief summary of our discussion. Patient has capacity to make their own medical decisions: Yes Health Care Agent/Surrogate Decision Maker documented in chart: Yes Documents on file and valid: Advance Directive/Living Will: No Health Care Power of Process Safety Specialist: No Other: discussed and code status updated Full code Communication of Medical Status/Prognosis: good Communication of Treatment Goals/Options: good Treatment Decisions Goals of Care: survival is prioritized, if goals for quality or survival can reasonably be achieved agree Follow Up Plan Discuss next year Team Members PCP Time Statement: Total face to face time spent on advance care planning was 16 minutes with 16 minutes spent in counseling, including the explanation. Margarita Oconnell 10-year ASCVD risk score (Star SARAH, et al., 2019) is: 6.1% Values used to calculate the score: Age: 68 years Sex: Female Is Non- : No Diabetic: No Tobacco smoker: No Systolic Blood Pressure: 128 mmHg Is BP treated: No HDL Cholesterol: 47.1 mg/dL Total Cholesterol: 171 mg/dL Time spent was 10 mins reviewingSubjective Patient ID: Hernan Walter is a 68 y.o. female who presents for Medicare Annual Wellness Visit Subsequent. Patient presents for wellness exam. Having issues with arthralgias has a lot of pain discomfort into the hands. Still having some left elbow pain and discomfort. No troubles with headache or double vision or blurring vision no chest pain or shortness of breath no dizziness no lightheadedness. Having trouble losing weight she is not wanting to take any medicine for the diabetes we discussed the risk and benefits and discussion about semaglutide therapy she is interested in this because it may help with the weight loss. She is not happy about taking another medication. She is seeing cardiology regularly after having mitral valve replacement She has had no troubles with abdominal pain or discomfort no blood in the stool or black tarry stool no troubles with numbness or tingling in the legs or feet Diabetic foot exam: Left: Reflexes 3+ Vibratory sensation normal Proprioception normal Sharp/dull discrimination normal Filament test present Right: Reflexes 3+ Vibratory sensation normal Proprioception normal Sharp/dull discrimination normal Filament test present Alcohol intake: 3 onces in a week Caffeine intake: none Exercise: none Starting new year Last Colonoscopy: recommended Last Pap smear: hysterectomy Mammogram:UTD Last Dexa scan :recommended Shingles vaccine: recommended TdaP vaccine: Review of Systems Constitutional: Negative for activity change, appetite change, chills, diaphoresis, fatigue and fever. HENT: Negative. Negative for congestion, dental problem, drooling, ear discharge, facial swelling, nosebleeds, rhinorrhea, sinus pressure, sinus pain, sneezing, sore throat, tinnitus and trouble swallowing. Eyes: Negative for photophobia, pain, discharge, redness, itching and visual disturbance. Reading glasses Respiratory: Positive for wheezing. Negative for apnea, cough, chest tightness and shortness of breath. Cardiovascular: Positive for leg swelling. Negative for chest pain. Gastrointestinal: Negative for abdominal distention, abdominal pain, blood in stool, constipation, diarrhea, nausea and vomiting. Endocrine: Negative for cold intolerance, heat intolerance, polydipsia and polyuria. Genitourinary: Negative for difficulty urinating, enuresis and frequency. Musculoskeletal: Positive for arthralgias. Negative for back pain, joint swelling, myalgias and neck pain. Skin: Negative for color change and rash. Allergic/Immunologic: Negative for environmental allergies and food allergies. Neurological: Negative. Negative for dizziness, tremors, seizures, syncope, facial asymmetry, numbness and headaches. Hematological: Negative for adenopathy. Does not bruise/bleed easily. Psychiatric/Behavioral: Negative for agitation, behavioral problems, confusion, dysphoric mood, hallucinations, sleep disturbance and suicidal ideas. The patient is not nervous/anxious. Objective BP 128/64 Pulse 80 Temp 36.5 C (97.7 F) Ht 1.638 m (5' 4.5) Wt 98.9 kg (218 lb) SpO2 97% BMI 36.84 kg/m BSA Body surface area is 2.12 meters squared. Physical Exam Constitutional: General: She is not in acute distress. Appearance: Normal appearance. She is obese. She is not toxic-appearing. HENT: Head: Normocephalic. Right Ear: Tympanic membrane normal. Left Ear: Tympanic membrane normal. Nose: Nose normal. Mouth/Throat: Mouth: Mucous membranes are dry. Eyes: Extraocular Movements: Extraocular movements intact. Pupils: Pupils are equal, round, and reactive to light. Cardiovascular: Rate and Rhythm: Rhythm irregular. Pulses: Normal pulses. Heart sounds: Murmur heard. Pulmonary: Effort: Pulmonary effort is normal. Breath sounds: Normal breath sounds. Musculoskeletal: General: Deformity present. Cervical back: Normal range of motion. Comments: Some swelling of the MCP joints and DIP joints. Some pain with flexion extension of the left elbow. Skin: General: Skin is warm. Neurological: Mental Status: She is alert. Breast revealed no lumps tenderness masses or nipple discharge Lab on 04/11/2024 Component Date Value Ref Range Status WBC 04/11/2024 9.9 4.4 - 11.3 x10*3/uL Final nRBC 04/11/2024 0.0 0.0 - 0.0 /100 WBCs Final RBC 04/11/2024 3.97 (L) 4.00 - 5.20 x10*6/uL Final Hemoglobin 04/11/2024 12.3 12.0 - 16.0 g/dL Final Hematocrit 04/11/2024 37.5 36.0 - 46.0 % Final MCV 04/11/2024 95 80 - 100 fL Final MCH 04/11/2024 31.0 26.0 - 34.0 pg Final MCHC 04/11/2024 32.8 32.0 - 36.0 g/dL Final RDW 04/11/2024 13.6 11.5 - 14.5 % Final Platelets 04/11/2024 452 (H) 150 - 450 x10*3/uL Final Neutrophils % 04/11/2024 74.2 40.0 - 80.0 % Final Immature Granulocytes %, Automated 04/11/2024 0.5 0.0 - 0.9 % Final Immature Granulocyte Count (IG) includes promyelocytes, myelocytes and metamyelocytes but does not include bands. Percent differential counts (%) should be interpreted in the context of the absolute cell counts (cells/UL). Lymphocytes % 04/11/2024 12.5 13.0 - 44.0 % Final Monocytes % 04/11/2024 8.7 2.0 - 10.0 % Final Eosinophils % 04/11/2024 3.4 0.0 - 6.0 % Final Basophils % 04/11/2024 0.7 0.0 - 2.0 % Final Neutrophils Absolute 04/11/2024 7.35 1.20 - 7.70 x10*3/uL Final Percent differential counts (%) should be interpreted in the context of the absolute cell counts (cells/uL). Immature Granulocytes Absolute, Au* 04/11/2024 0.05 0.00 - 0.70 x10*3/uL Final Lymphocytes Absolute 04/11/2024 1.24 1.20 - 4.80 x10*3/uL Final Monocytes Absolute 04/11/2024 0.86 0.10 - 1.00 x10*3/uL Final Eosinophils Absolute 04/11/2024 0.34 0.00 - 0.70 x10*3/uL Final Basophils Absolute 04/11/2024 0.07 0.00 - 0.10 x10*3/uL Final Glucose 04/11/2024 149 (H) 74 - 99 mg/dL Final Sodium 04/11/2024 136 136 - 145 mmol/L Final Potassium 04/11/2024 4.3 3.5 - 5.3 mmol/L Final Chloride 04/11/2024 98 98 - 107 mmol/L Final Bicarbonate 04/11/2024 30 21 - 32 mmol/L Final Anion Gap 04/11/2024 12 10 - 20 mmol/L Final Urea Nitrogen 04/11/2024 16 6 - 23 mg/dL Final Creatinine 04/11/2024 0.70 0.50 - 1.05 mg/dL Final eGFR 04/11/2024 >90 >60 mL/min/1.73m*2 Final Calculations of estimated GFR are performed using the 2020 CKD-EPI Study Refit equation without the race variable for the IDMS-Traceable creatinine methods. https://jasn.asnjournals.org/cont ent/early//ASN.86450019 88 Calcium 04/11/2024 9.4 8.6 - 10.6 mg/dL Final Albumin 04/11/2024 4.3 3.4 - 5.0 g/dL Final Alkaline Phosphatase 04/11/2024 104 33 - 136 U/L Final Total Protein 04/11/2024 7.0 6.4 - 8.2 g/dL Final AST 04/11/2024 13 9 - 39 U/L Final Bilirubin, Total 04/11/2024 1.3 (H) 0.0 - 1.2 mg/dL Final ALT 04/11/2024 11 7 - 45 U/L Final Patients treated with Sulfasalazine may generate falsely decreased results for ALT. Cholesterol 04/11/2024 171 0 - 199 mg/dL Final Age Desirable Borderline High High 0-19 Y 0 - 169 170 - 199 >/= 200 20-24 Y 0 - 189 190 - 224 >/= 225 >24 Y 0 - 199 200 - 239 >/= 240 All ranges are based on fasting samples. Specific therapeutic targets will vary based on patient-specific cardiac risk. Pediatric guidelines reference:Pediatrics 2011, 128(S5).Adult guidelines reference: NCEP ATPIII Guidelines,LAYNE 2001, 258:2486-97 Venipuncture immediately after or during the administration of Metamizole may lead to falsely low results. Testing should be performed immediately prior to Metamizole dosing. HDL-Cholesterol 04/11/2024 47.1 mg/dL Final Age Very Low Low Normal High 0-19 Y < 35 < 40 40-45 ---- 20-24 Y ---- < 40 >45 ---- >24 Y ---- < 40 40-60 >60 Cholesterol/HDL Ratio 04/11/2024 3.6 Final Ref Values Desirable < 3.4 High Risk > 5.0 LDL Calculated 04/11/2024 88 <=99 mg/dL Final Near Borderline AGE Desirable Optimal High High Very High 0-19 Y 0 - 109 --- 110-129 >/= 130 ---- 20-24 Y 0 - 119 --- 120-159 >/= 160 ---- >24 Y 0 - 99 100-129 130-159 160-189 >/=190 VLDL 04/11/2024 36 0 - 40 mg/dL Final Triglycerides 04/11/2024 180 (H) 0 - 149 mg/dL Final Age Desirable Borderline High Very High SEX:B mg/dL mg/dL mg/dL mg/dL <=14D 86-277 ---- ---- ---- 15D-365D 55-277 ---- ---- ---- 1Y-9Y 0-74 75-99 >=100 ---- 10Y-19Y 0-89 90-129 >=130 ---- 20Y-24Y 0-114 115-149 >=150 ---- >= 25Y 0-149 150-199 200-499 >=500 Venipuncture immediately after or during the administration of Metamizole may lead to falsely low results. Testing should be performed immediately prior to Metamizole dosing. Non HDL Cholesterol 04/11/2024 124 0 - 149 mg/dL Final Age Desirable Borderline High High Very High 0-19 Y 0 - 119 120 - 144 >/= 145 >/= 160 20-24 Y 0 - 149 150 - 189 >/= 190 ---- >24 Y 30 mg/dL above LDL Cholesterol goal Thyroid Stimulating Hormone 04/11/2024 3.16 0.44 - 3.98 mIU/L Final Protime 04/11/2024 43.8 (H) 9.8 - 12.8 seconds Final INR 04/11/2024 3.8 (H) 0.9 - 1.1 Final Hemoglobin A1C 04/11/2024 7.6 (H) See comment % Final Estimated Average Glucose 04/11/2024 171 Not Established mg/dL Final Lab on 02/23/2024 Component Date Value Ref Range Status Protime 02/23/2024 41.8 (H) 9.8 - 12.8 seconds Final INR 02/23/2024 3.7 (H) 0.9 - 1.1 Final Lab on 02/12/2024 Component Date Value Ref Range Status Protime 02/12/2024 51.4 (H) 9.8 - 12.8 seconds Final INR 02/12/2024 4.5 (H) 0.9 - 1.1 Final Lab on 12/25/2023 Component Date Value Ref Range Status Protime 12/25/2023 43.6 (H) 9.8 - 12.8 seconds Final INR 12/25/2023 3.8 (H) 0.9 - 1.1 Final Lab on 12/09/2023 Component Date Value Ref Range Status Protime 12/09/2023 43.2 (H) 9.8 - 12.8 seconds Final INR 12/09/2023 3.8 (H) 0.9 - 1.1 Final Cholesterol 12/09/2023 155 0 - 199 mg/dL Final HDL-Cholesterol 12/09/2023 42.6 mg/dL Final Age Very Low Low Normal High 0-19 Y < 35 < 40 40-45 ---- 20-24 Y ---- < 40 >45 ---- >24 Y ---- < 40 40-60 >60 Cholesterol/HDL Ratio 12/09/2023 3.6 Final Ref Values Desirable < 3.4 High Risk > 5.0 LDL Calculated 12/09/2023 78 mg/dL Final Near Borderline AGE Desirable Optimal High High Very High 0-19 Y 0 - 109 --- 110-129 >/= 130 ---- 20-24 Y 0 - 119 --- 120-159 >/= 160 ---- >24 Y 0 - 99 100-129 130-159 160-189 >/=190 VLDL 12/09/2023 34 0 - 40 mg/dL Final Triglycerides 12/09/2023 171 (H) 0 - 149 mg/dL Final Non HDL Cholesterol 12/09/2023 112 0 - 149 mg/dL Final Age Desirable Borderline High High Very High 0-19 Y 0 - 119 120 - 144 >/= 145 >/= 160 20-24 Y 0 - 149 150 - 189 >/= 190 ---- >24 Y 30 mg/dL above LDL Cholesterol goal Glucose 12/09/2023 136 (H) 74 - 99 mg/dL Final Sodium 12/09/2023 134 (L) 136 - 145 mmol/L Final Potassium 12/09/2023 4.6 3.5 - 5.3 mmol/L Final Chloride 12/09/2023 97 (L) 98 - 107 mmol/L Final Bicarbonate 12/09/2023 27 21 - 32 mmol/L Final Anion Gap 12/09/2023 15 10 - 20 mmol/L Final Urea Nitrogen 12/09/2023 21 6 - 23 mg/dL Final Creatinine 12/09/2023 0.78 0.50 - 1.05 mg/dL Final eGFR 12/09/2023 84 >60 mL/min/1.73m*2 Final Calculations of estimated GFR are performed using the 2020 CKD-EPI Study Refit equation without the race variable for the IDMS-Traceable creatinine methods. https://jasn.asnjournals.org/cont ent/early//ASN.53186302 88 Calcium 12/09/2023 9.2 8.6 - 10.6 mg/dL Final Albumin 12/09/2023 4.2 3.4 - 5.0 g/dL Final Alkaline Phosphatase 12/09/2023 95 33 - 136 U/L Final Total Protein 12/09/2023 6.6 6.4 - 8.2 g/dL Final AST 12/09/2023 15 9 - 39 U/L Final Bilirubin, Total 12/09/2023 0.6 0.0 - 1.2 mg/dL Final ALT 12/09/2023 11 7 - 45 U/L Final Patients treated with Sulfasalazine may generate falsely decreased results for ALT. Creatine Kinase 12/09/2023 108 0 - 215 U/L Final Digoxin 12/09/2023 0.67 (L) 0.80 - <2.00 ng/mL Final Lab on 10/01/2023 Component Date Value Ref Range Status Protime 10/01/2023 32.3 (H) 9.8 - 12.8 seconds Final INR 10/01/2023 2.8 (H) 0.9 - 1.1 Final Lab on 09/09/2023 Component Date Value Ref Range Status Protime 09/09/2023 32.1 (H) 9.8 - 12.8 seconds Final INR 09/09/2023 2.8 (H) 0.9 - 1.1 Final Lab on 09/03/2023 Component Date Value Ref Range Status Protime 09/03/2023 61.0 (HH) 9.8 - 12.8 seconds Final INR 09/03/2023 5.3 (HH) 0.9 - 1.1 Final Lab on 08/20/2023 Component Date Value Ref Range Status Protime 08/20/2023 42.9 (H) 9.8 - 12.8 seconds Final INR 08/20/2023 3.8 (H) 0.9 - 1.1 Final Lab on 07/02/2023 Component Date Value Ref Range Status Protime 07/02/2023 38.2 (H) 9.8 - 12.8 seconds Final INR 07/02/2023 3.3 (H) 0.9 - 1.1 Final There may be more visits with results that are not included. Current Outpatient Medications on File Prior to Visit Medication Sig Dispense Refill carvedilol (Coreg) 12.5 mg tablet Take 1 tablet (12.5 mg) by mouth 2 times a day. clindamycin (Cleocin) 150 mg capsule TAKE 4 CAPSULES BY MOUTH ONE HOUR PRIOR TO DENTAL PROCEDURE digoxin (Lanoxin) 125 MCG tablet Take 1 tablet (125 mcg) by mouth once daily. furosemide (Lasix) 20 mg tablet Take 1 tablet (20 mg) by mouth once daily. levothyroxine (Synthroid, Levoxyl) 75 mcg tablet TAKE 1 TABLET (75 MCG) BY MOUTH ONCE DAILY IN THE MORNING. TAKE BEFORE MEALS. 90 tablet 3 lisinopril 2.5 mg tablet Take 1 tablet (2.5 mg) by mouth once daily. pravastatin (Pravachol) 40 mg tablet Take 1 tablet (40 mg) by mouth once daily. spironolactone (Aldactone) 25 mg tablet Take 1 tablet (25 mg) by mouth once daily. warfarin (Coumadin) 1 mg tablet Take 1 tablet (1 mg) by mouth. Take daily or as directed warfarin (Coumadin) 4 mg tablet Take by mouth. 2mg 5 days a week, 4mg 2 days a week [DISCONTINUED] enoxaparin (Lovenox) 100 mg/mL syringe INJECT 1 ML INTO THE SKIN 2 TIMES DAILY No current facility-administered medications on file prior to visit. No images are attached to the encounter. Assessment/Plan Problem List Items Addressed This Visit ICD-10-CM Arthralgia M25.50 Bilateral hand x-rays go to be performed sed rate C-reactive protein TIA rheumatoid factor being performed Atrial fibrillation (Multi) I48.91 Remains anticoagulated please continue to follow-up with cardiology RESOLVED: Elevated fasting glucose R73.01 Hypothyroidism E03.9 Mitral valve replaced Z95.2 Continue to follow-up with cardiology Class 2 obesity with body mass index (BMI) of 36.0 to 36.9 in adult E66.812, Z68.36 Cardiomyopathy, dilated (Multi) (Chronic) I42.[address] Son Dyslipidemia E78.5 Doing well on Pravachol therapy Mitral valve disorder (Chronic) I05.9 History of mitral valve replacement Z95.2 Other Visit Diagnoses Codes Routine general medical examination at health care facility - Primary Z00.00 Relevant Orders 1 Year Follow Up In [facility] - PCP - Wellness Exam documented in this encounter [facility] Work Phone: 04-22-2024 Instructions Melissa Del Rio DO - 04/22/2024 3:00 PM EST Going to have you see GI specialist for colon cancer screening. Evaluating for hand arthritis. Bilateral hand x-rays being performed sed rate C-reactive protein TIA rheumatoid factor going to be performed. Given slip for mammogram. Bone density study going to be performed. Recommend 2 vaccinations 1 is the shingles vaccination and the pneumonia vaccination given information about that. Going to have you see passenger tire inspector Dr. Thurman. Would like to follow-up in 4 months to recheck hemoglobin A1c documented in this encounter [facility] Work Phone: 04-20-2024 Telephone encounter Note See anticoagulation encounter from 04/15/24. [facility] 04-20-2024 Miscellaneous Notes See anticoagulation encounter from 04/15/24. Sent to ASSOCIATE PASTOR for review. Pt called, left yesterday after 5pm for INR results she said she had done on 04/11/24. I checked for results in care everywhere. Pt's INR per labs was 3.8. documented in this encounter [facility] 04-15-2024 Telephone encounter Note Sent to ASSOCIATE PASTOR for review. [facility] 04-15-2024 Miscellaneous Notes Sent to ASSOCIATE PASTOR for review. Pt called, left vm yesterday after 5pm for INR results she said she had done on 04/11/24. I checked for results in care everywhere. Pt's INR per labs was 3.8. documented in this encounter [facility] 04-15-2024 Telephone encounter Note Pt called, left vm yesterday after 5pm for INR results she said she had done on 04/11/24. I checked for results in care everywhere. Pt's INR per labs was 3.8. [facility] 03-07-2024 Telephone encounter Note Last seen 02/15/24. [facility] 03-07-2024 Miscellaneous Notes Last seen 02/15/24. documented in this encounter [facility] 02-25-2024 Telephone encounter Note See anticoagulation encounter [facility] 02-25-2024 Miscellaneous Notes See anticoagulation encounter Sent to ASSOCIATE PASTOR for review Pt called for INR results from 02/23/24. I ck'd care everywhere. labs results for 02/23/24 was 3.7. documented in this encounter [facility] 02-25-2024 Telephone encounter Note Sent to ASSOCIATE PASTOR for review [facility] 02-25-2024 Telephone encounter Note Pt called for INR results from 02/23/24. I ck'd care everywhere. [facility] labs results for 02/23/24 was 3.7. [facility] 02-23-2024 Telephone encounter Note Order faxed to [facility] [phone]. [facility] 02-23-2024 Miscellaneous Notes Order faxed to [facility] [phone]. Pt called she is at the lab now and needs INR order signed. Will send for signature. documented in this encounter [facility] 02-23-2024 Telephone encounter Note Pt called she is at the lab now and needs INR order signed. Will send for signature. [facility] 02-15-2024 History of Present illness Narrative [facility] Cardiology [facility] 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 Ms. Rosenbaum had a h/o tachycardia mediated LV dysfunction, now recovered. Dx also included hyperlipidemia and chronic anticoagulation. In 2020, she contracted Covid but did not require hospital stay. She felt unwell throughout August, September, October with intermittent high fevers; no Covid vaccine, and no intention of doing that either. In 2021, she had denied chest discomfort, dyspnea, PND, palpitations (despite the atrial arrhythmia); no dizziness, lightheadedness, syncope, or focal neurologic events. Updated echo early 2022: normal LV size and thickness, EF low normal 50%, no WMA; normal R side; [facility] [place] MVR, size unknown, mean grad 6 mm Hg, normal function; borderline ascending aorta = 3.7 cm. At the office visit, she c/o new exertional chest tightness, and initially wrote if off to humidity. However, despite the onset of cooler weather, she noted sx progressing. She stated she had to stop to rest. Not really SOB - but described as unable to take a breath - discomfort located in the mid-sternal area. Minutes for resolution, usually < 5 minutes. No nausea or diaphoresis. INR had been up and down, but nothing < 2.0. The valve was > 30 years old, placed 1989. I was not convinced this was related to the prosthetic valve, I was more concerned with CAD. L+R heart cath followed: widely patent right-dominant coronary arteries with minor luminal irregularities; no significant obstructive CAD; mildly elevated right heart filling pressure with mild-moderate pulmonary hypertension; borderline elevated LVEDP with elevated PCWP; normal cardiac index; normal function mechanical MVR on fluoro. 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 When last seen late 2022, she had remained stable, still some SOB, but not worsened. Diuresis seemed prudent. The pt had changes in insurance, and some question about follow up. I cannot continue to prescribe a high risk medication like warfarin without direct patient contact. Review of EMR does not suggest any recent hospital stays or surgery. Had noted SOB with heat, [place], and a bit uncomfortable. INR today is high 4.5, we are dropping warfarin to 2 mg today, tomorrow and Wed, and then back to usual dose. She has some limitations getting INR, planned to repeat next 02/22. Past Medical History: Past Medical History: Diagnosis Date Arthritis Atrial fibrillation, chronic (HCC) Cardiomegaly Cardiomyopathy, dilated (HCC) Cerebral artery occlusion with cerebral infarction (HCC) Endometriosis h/o reason for hyster H/O cardiovascular stress test H/O echocardiogram History of blood transfusion 1998 x6 post hysterectomy Hyperlipidemia Mitral valve disorder 1989- 01/21 IN [place] Paroxysmal atrial fibrillation (HCC) Presence of prosthetic heart valve Rheumatic heart disease S/P MVR (mitral valve replacement) 03/13/2021 Thyroid disease hypothroidism- NO MEDS TIA (transient ischemic attack) x2 Past Surgical History Past Surgical History: Procedure Laterality Date CARDIAC CATHETERIZATION N/A 02/13/2023 Performed by Papo Thompson MD at [facility] Cardiac Cath/EP Lab CARDIAC PROCEDURE CATARACT EXTRACTION Bilateral CATARACT EXTRACTION Bilateral COLONOSCOPY KNEE SURGERY Left [facility] - [place] MITRAL VALVE REPLACEMENT RADIAL HEAD RECONSTRUCTION W/ IMPLANT Left 2014 [facility] - [place] TONSILLECTOMY (HISTORICAL) TOTAL ABDOMINAL HYSTERECTOMY AG Family History Family History Problem Relation Name Age of Onset Breast cancer Mother Heart failure Father Social History Social History Tobacco Use Smoking status: Former Current packs/day: 0.00 Types: Cigarettes Quit date: 05/06/2010 Years since quittin.7 Smokeless tobacco: Never Substance Use Topics Alcohol use: Yes Comment: [facility] Drug use: No Allergies: Allergies Allergen Reactions Cefaclor Other reaction(s): Unknown Intolerance-unknown Penicillins Other reaction(s): Unknown, Unknown Intolerance-unknown Intolerance-unknown Medications: Current Outpatient Medications: carvedilol (Coreg) 12.5 MG tablet, TAKE 1 TABLET BY MOUTH TWICE A DAY, Disp: 180 tablet, Rfl: 3 clindamycin (Cleocin) 150 MG capsule, TAKE 4 CAPSULES BY MOUTH ONE HOUR PRIOR TO DENTAL PROCEDURE, Disp: 4 capsule, Rfl: 1 digoxin (Lanoxin) 125 MCG tablet, TAKE 1 TABLET BY MOUTH EVERY DAY, Disp: 90 tablet, Rfl: 3 furosemide (Lasix) 40 MG tablet, Take one tablet in the AM skipping Wed and Sun (Patient taking differently: 40 mg daily except 20 mg sat and Sun), Disp: 100 tablet, Rfl: 3 levothyroxine (Synthroid, Levoxyl) 75 MCG tablet, TAKE 1 TABLET (75 MCG) BY MOUTH ONCE DAILY IN THE MORNING. TAKE BEFORE MEALS., Disp: , Rfl: lisinopril 2.5 MG tablet, TAKE 1 TABLET BY MOUTH EVERY DAY, Disp: 90 tablet, Rfl: 3 pravastatin (Pravachol) 40 MG tablet, TAKE 1 TABLET BY MOUTH EVERY DAY, Disp: 90 tablet, Rfl: 3 spironolactone (Aldactone) 25 MG tablet, TAKE 1 TABLET BY MOUTH EVERY DAY, Disp: 90 tablet, Rfl: 3 warfarin (Coumadin) 1 MG tablet, TAKE 1 TABLET DAILY OR DIRECTED, Disp: 90 tablet, Rfl: 1 warfarin (Coumadin) 4 MG tablet, TAKE 1/2-1 TABLET DAILY DIRECTED BY INR, Disp: 90 tablet, Rfl: 1 Review of Systems: Review of Systems Constitutional: Positive for fatigue. Negative for activity change, chills, diaphoresis and fever. HENT: Negative for nosebleeds. Eyes: Negative for visual disturbance. Respiratory: Positive for shortness of breath (breathes little faster than normal; same) and wheezing. Negative for apnea, cough and chest tightness. Cardiovascular: Positive for palpitations (feels afib) and leg swelling. Negative for chest pain. In bed; no PND Gastrointestinal: Negative for abdominal distention, abdominal pain, blood in stool, diarrhea, nausea and vomiting. Endocrine: Negative for cold intolerance and heat intolerance. Genitourinary: Negative for hematuria. Musculoskeletal: Positive for arthralgias. Negative for gait problem and myalgias. Skin: Negative for color change. Neurological: Positive for syncope. Negative for dizziness, weakness and light-headedness. Hematological: Bruises/bleeds easily. Psychiatric/Behavioral: Negative for dysphoric mood and sleep disturbance. The patient is not nervous/anxious. Physical Examination: Vitals: Vitals: 02/15/24 1537 BP: 130/76 BP Location: Right arm Patient Position: Sitting BP Cuff Size: Large adult Pulse: 65 Weight: 221 lb 12.8 oz (101 kg) Height: 5' 5.5 (1.664 m) Body mass index is 36.35 kg/m . Physical Exam Vitals and nursing note reviewed. Constitutional: Appearance: Normal appearance. She is not ill-appearing. Comments: Comes alone, she is frightened, feels as if there is something really wrong, accurate historian and highly compliant Eyes: General: Right eye: No discharge. Left eye: No discharge. Cardiovascular: Rate and Rhythm: Normal rate. Rhythm irregular. Heart sounds: Murmur (no diastolic murmur, soft systolic murmur at the base) heard. No friction rub. No gallop. Comments: 118/70 mm Hg Pulmonary: Effort: Pulmonary effort is normal. No respiratory distress. Breath sounds: Normal breath sounds. No stridor. No wheezing, rhonchi or rales. Chest: Chest wall: No tenderness. Musculoskeletal: Right lower leg: No edema (mild bilateral, but not pitting). Left lower leg: No edema. Skin: General: Skin is warm. Coloration: Skin is not pale. Neurological: Mental Status: She is alert. Psychiatric: Mood and Affect: Mood normal. Behavior: Behavior normal. Laboratory Tests: Lab Results Component Value Date WBC 10.6 02/09/2023 HGB 10.6 (L) 02/09/2023 HCT 32.0 (L) 02/09/2023 MCV 93.3 02/09/2023 PLT 507 (H) 02/09/2023 Lab Results Component Value Date GLUCOSE 123 (H) 02/04/2023 CALCIUM 8.6 02/04/2023 NA 138 11/12/2021 K 4.4 11/12/2021 CO2 29 02/04/2023 CL 99 11/12/2021 BUN 18 02/04/2023 CREATININE 0.80 02/04/2023 @LASTCMP@ Lab Results Component Value Date CHLPL 182 03/15/2021 CHLPL 122 08/29/2020 CHLPL 175 05/19/2019 Lab Results Component Value Date TRIG 204 03/15/2021 TRIG 153 08/29/2020 TRIG 82 05/19/2019 Lab Results Component Value Date HDL 55 03/15/2021 HDL 34 (A) 08/29/2020 HDL 75 (A) 05/19/2019 Lab Results Component Value Date LDLCALC 97 03/15/2021 LDLCALC 64 08/29/2020 LDLCALC 83 05/19/2019 No results found for: BNP Cardiac Tests: ECG: Feb 2024; AF, controlled rate, NSST changes Jan 2023; AF with controlled rate, borderline IVCD; NSST changes - at PCP office, declined one here Last Echo: September 2022: normal LV size and thickness, EF low normal 50%, no WMA; normal R side; [place] MVR, size unknown, mean grad 6 mm Hg, normal function; borderline ascending aorta = 3.7 cm. Last stress test: none recent Last cardiac catheterization: Feb 2023; widely patent right-dominant coronary arteries with minor luminal irregularities; no significant obstructive CAD; mildly elevated right heart filling pressure with mild-moderate pulmonary hypertension; borderline elevated LVEDP with elevated PCWP; normal cardiac index; normal function mechanical MVR on fluoro. Assessment and Plan: 1. Shortness of breath 2. H/O mitral valve replacement with mechanical valve 3. Rheumatic heart disease 4. Atrial fibrillation, chronic (HCC) 5. Chronic anticoagulation 6. Mixed hyperlipidemia No immediate testing AUC would suggest repeat echo in 2025, sooner if new changes on exam or new sx present INR goal 2.5-3.5 Return in 6-8 months documented in this encounter [facility] 02-11-2024 Telephone encounter Note Last seen 03/16/23. CMP done 12/09/23. Has follow up scheduled. [facility] 02-11-2024 Miscellaneous Notes Last seen 03/16/23. CMP done 12/09/23. Has follow up scheduled. documented in this encounter [facility] 01-18-2024 Telephone encounter Note Last seen 03/16/23. CMP done 12/09/23 and dig 12/09/23. [facility] 01-18-2024 Miscellaneous Notes Last seen 03/16/23. CMP done 12/09/23 and dig 12/09/23. documented in this encounter [facility] 12-10-2023 Telephone encounter Note Spoke with Johanne. See anticoagulation encounter [facility] 12-10-2023 Miscellaneous Notes Spoke with Johanne. See anticoagulation encounter Results are in epic. INR from 12/09/23 is 3.8. takes 3 mg daily. Please advise? Range 2.5-3.5 Patient said her results and other labs were collected at on [address] documented in this encounter [facility] 12-10-2023 Telephone encounter Note Results are in epic. INR from 12/09/23 is 3.8. takes 3 mg daily. Please advise? Range 2.5-3.5 [facility] 12-10-2023 Telephone encounter Note Patient said her results and other labs were collected at on [address] [facility] 11-26-2023 Telephone encounter Note I mailed lab orders to pt. [facility] 11-26-2023 Miscellaneous Notes I mailed lab orders to pt. Orders placed. This pt does not have any recent labs since Feb, per pcp office. Can you see if PCP has any recent labs for refills? Thanks! documented in this encounter [facility] 11-25-2023 Telephone encounter Note Orders placed. [facility] 11-25-2023 Telephone encounter Note This pt does not have any recent labs since Feb, per pcp office. [facility] 10-27-2023 Telephone encounter Note Needs new Rx for clarification on frequency. [facility] 10-27-2023 Miscellaneous Notes Needs new Rx for clarification on frequency. documented in this encounter [facility] 10-21-2023 Telephone encounter Note Can you see if PCP has any recent labs for refills? Thanks! [facility] 10-21-2023 Telephone encounter Note Last seen 04/02. CBC and BMP fall 2022. Due for labs. Will check with PCP. [facility] 10-21-2023 Miscellaneous Notes Last seen 04/02. CBC and BMP fall 2022. Due for labs. Will check with PCP. Pt called for refill on Warfarin 4mg and Clindamyacin for 10/25 dental appt. [facility] [place]. She was unable to make an appt at this time due to her schedule. documented in this encounter [facility] 10-21-2023 Telephone encounter Note Pt called for refill on Warfarin 4mg and Clindamyacin for 10/25 dental appt. [facility] [place]. She was unable to make an appt at this time due to her schedule. [facility] 04-13-2023 Telephone encounter Note Patient called, is going to the dentist on 04-15-23, and needs antibiotic, Clindamycin, filled to [facility] 04-13-2023 Miscellaneous Notes Patient called, is going to the dentist on 04-15-23, and needs antibiotic, Clindamycin, filled to [facility]. documented in this encounter [facility] 03-16-2023 Telephone encounter Note Received fax from pharmacy, needing clarification on the number of tablets daily. Requesting new RX. [facility] 03-16-2023 Miscellaneous Notes Received fax from pharmacy, needing clarification on the number of tablets daily. Requesting new RX. documented in this encounter [facility] 03-16-2023 History of Present illness Narrative [facility] Cardiology [facility] 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 Ms. Rosenbaum had a h/o tachycardia mediated LV dysfunction, now recovered. Other dx included hyperlipidemia and chronic anticoagulation. In 2020, she recalled ED visit for Covid did not require hospital stay. She felt unwell throughout August, September, October with intermittent high fevers; no Covid vaccine, and no intention of doing that either. At the visit in 2021, she had denied chest discomfort, dyspnea, PND, palpitations (despite the atrial arrhythmia); no dizziness, lightheadedness, syncope, or focal neurologic events. When seen in Jan 2023, she had updated echo done in the spring: normal LV size and thickness, EF low normal 50%, no WMA; normal R side; [place] MVR, size unknown, mean grad 6 mm Hg, normal function; borderline ascending aorta = 3.7 cm. At the office visit, she c/o new exertional tightness, and initially wrote if off to humidity. However, despite the onset of cooler weather, she noted sx progressing. She stated she had to stop, not able to proceed. Not really SOB - but described as unable to take a breath - some associated discomfort located in the mid-sternal area. Minutes for resolution, usually < 5 minutes. No nausea or diaphoresis. INR had been up and down, but nothing < 2.0. The valve is > 30 years old, placed 1989. I was not convinced this was related to the prosthetic valve, I was more concerned with CAD. L+R heart cath followed: widely patent right-dominant coronary arteries with minor luminal irregularities; no significant obstructive CAD; mildly elevated right heart filling pressure with mild-moderate pulmonary hypertension; borderline elevated LVEDP with elevated PCWP; normal cardiac index; normal function mechanical MVR on fluoro. 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 She returns for follow up. Past Medical History: Past Medical History: Diagnosis Date Arthritis Atrial fibrillation, chronic (HCC) Cardiomegaly Cardiomyopathy, dilated (HCC) Cerebral artery occlusion with cerebral infarction (HCC) Endometriosis h/o reason for hyster H/O cardiovascular stress test H/O echocardiogram History of blood transfusion 1998 x6 post hysterectomy Hyperlipidemia Mitral valve disorder 1989- 01/21 IN [place] Paroxysmal atrial fibrillation (HCC) Presence of prosthetic heart valve Rheumatic heart disease S/P MVR (mitral valve replacement) 03/13/2021 Thyroid disease hypothroidism- NO MEDS TIA (transient ischemic attack) x2 Past Surgical History Past Surgical History: Procedure Laterality Date CARDIAC CATHETERIZATION N/A 02/13/2023 Performed by Papo Thompson MD at [facility] Cardiac Cath/EP Lab CARDIAC PROCEDURE CATARACT EXTRACTION Bilateral CATARACT EXTRACTION Bilateral COLONOSCOPY KNEE SURGERY Left [facility]ENISC[facility] - [place] MITRAL VALVE REPLACEMENT RADIAL HEAD RECONSTRUCTION W/ IMPLANT Left 2014 [facility] - ELBOW TONSILLECTOMY (HISTORICAL) TOTAL ABDOMINAL HYSTERECTOMY [facility] Family History Family History Problem Relation Name Age of Onset Breast cancer Mother Heart failure Father Social History Social History Tobacco Use Smoking status: Former Types: Cigarettes Quit date: 05/06/2010 Years since quittin.8 Smokeless tobacco: Never Substance Use Topics Alcohol use: Yes Comment: occ Drug use: No Allergies: Allergies Allergen Reactions Cefaclor Other reaction(s): Unknown Intolerance-unknown Penicillins Other reaction(s): Unknown, Unknown Intolerance-unknown Intolerance-unknown Medications: Current Outpatient Medications: carvedilol (Coreg) 12.5 MG tablet, TAKE 1 TABLET BY MOUTH TWICE A DAY, Disp: 180 tablet, Rfl: 3 clindamycin (Cleocin) 150 MG capsule, TAKE 4 CAPSULES BY MOUTH ONE HOUR PRIOR TO DENTAL PROCEDURE (Patient not taking: Reported on 02/13/2023), Disp: 4 capsule, Rfl: 1 digoxin (Lanoxin) 125 MCG tablet, TAKE 1 TABLET BY MOUTH EVERY DAY, Disp: 90 tablet, Rfl: 0 furosemide (Lasix) 20 MG tablet, TAKE 1 TABLET BY MOUTH EVERY DAY, Disp: 90 tablet, Rfl: 3 levothyroxine (Synthroid, Levoxyl) 75 MCG tablet, TAKE 1 TABLET (75 MCG) BY MOUTH ONCE DAILY IN THE MORNING. TAKE BEFORE MEALS., Disp: , Rfl: lisinopril 2.5 MG tablet, TAKE 1 TABLET BY MOUTH EVERY DAY, Disp: 90 tablet, Rfl: 3 pravastatin (Pravachol) 40 MG tablet, TAKE 1 TABLET BY MOUTH EVERY DAY, Disp: 90 tablet, Rfl: 3 spironolactone (Aldactone) 25 MG tablet, TAKE 1 TABLET BY MOUTH EVERY DAY, Disp: 90 tablet, Rfl: 3 warfarin (Coumadin) 1 MG tablet, Take one tablet daily or as directed, Disp: 90 tablet, Rfl: 1 warfarin (Coumadin) 4 MG tablet, TAKE 4 mg x 2 days, then 2 mg until Thursday, Disp: , Rfl: Review of Systems: Review of Systems Constitutional: Positive for fatigue. Negative for activity change, chills, diaphoresis and fever. HENT: Negative for nosebleeds. Eyes: Negative for visual disturbance. Respiratory: Positive for cough and shortness of breath (breathes little faster than normal; same). Negative for apnea, chest tightness and wheezing. Cardiovascular: Positive for palpitations. Negative for chest pain and leg swelling. Gastrointestinal: Negative for abdominal distention, abdominal pain, blood in stool, diarrhea, nausea and vomiting. Endocrine: Negative for cold intolerance and heat intolerance. Genitourinary: Negative for hematuria. Musculoskeletal: Negative for arthralgias, gait problem and myalgias. Skin: Negative for color change and rash. Neurological: Positive for syncope (feels presyncopal if she does not stop) and light-headedness (with exertion and SOB). Negative for dizziness and weakness. Hematological: Bruises/bleeds easily. Psychiatric/Behavioral: Negative for dysphoric mood and sleep disturbance. The patient is not nervous/anxious. Physical Examination: Vitals: There were no vitals filed for this visit. There is no height or weight on file to calculate BMI. Physical Exam Vitals and nursing note reviewed. Constitutional: Appearance: Normal appearance. She is not ill-appearing. Comments: Comes alone, she is frightened, feels as if there is something really wrong, accurate historian and highly compliant Eyes: General: Right eye: No discharge. Left eye: No discharge. Cardiovascular: Rate and Rhythm: Normal rate. Rhythm irregular. Heart sounds: Murmur (no diastolic murmur, soft systolic murmur at the base) heard. No friction rub. No gallop. Comments: 120/72 mm Hg, L arm sitting R wrist with good pulse, no bruit Pulmonary: Effort: Pulmonary effort is normal. No respiratory distress. Breath sounds: Normal breath sounds. No stridor. No wheezing, rhonchi or rales. Chest: Chest wall: No tenderness. Musculoskeletal: Right lower leg: No edema (mild bilateral, but not pitting). Left lower leg: No edema. Skin: General: Skin is warm. Coloration: Skin is not pale. Neurological: Mental Status: She is alert. Psychiatric: Mood and Affect: Mood normal. Behavior: Behavior normal. Laboratory Tests: Lab Results Component Value Date WBC 10.6 02/09/2023 HGB 10.6 (L) 02/09/2023 HCT 32.0 (L) 02/09/2023 MCV 93.3 02/09/2023 PLT 507 (H) 02/09/2023 Lab Results Component Value Date GLUCOSE 123 (H) 02/04/2023 CALCIUM 8.6 02/04/2023 NA 138 11/12/2021 K 4.4 11/12/2021 CO2 29 02/04/2023 CL 99 11/12/2021 BUN 18 02/04/2023 CREATININE 0.80 02/04/2023 @LASTP@ Lab Results Component Value Date CHLPL 182 03/15/2021 CHLPL 122 08/29/2020 CHLPL 175 05/19/2019 Lab Results Component Value Date TRIG 204 03/15/2021 TRIG 153 08/29/2020 TRIG 82 05/19/2019 Lab Results Component Value Date HDL 55 03/15/2021 HDL 34 (A) 08/29/2020 HDL 75 (A) 05/19/2019 Lab Results Component Value Date LDLCALC 97 03/15/2021 LDLCALC 64 08/29/2020 LDLCALC 83 05/19/2019 No results found for: BNP Cardiac Tests: ECG: Jan 2023; AF with controlled rate, borderline IVCD; NSST changes - at PCP office, declined one here Last Echo: September 2022: normal LV size and thickness, EF low normal 50%, no WMA; normal R side; [place] MVR, size unknown, mean grad 6 mm Hg, normal function; borderline ascending aorta = 3.7 cm. Last stress test: none recent Last cardiac catheterization: Feb 2023; widely patent right-dominant coronary arteries with minor luminal irregularities; no significant obstructive CAD; mildly elevated right heart filling pressure with mild-moderate pulmonary hypertension; borderline elevated LVEDP with elevated PCWP; normal cardiac index; normal function mechanical MVR on fluoro. Assessment and Plan: 1. Shortness of breath 2. H/O mitral valve replacement with mechanical valve 3. Cardiomyopathy, dilated (HCC) 4. Atrial fibrillation, chronic (HCC) 5. Chronic anticoagulation Not much to offer - slow the HR in AF and diuresis for stiff LA syndrome Increased Lasix 40 mg daily. Might consider switch from carvedilol to diltiazem and see if this impacts Return in 6 months I could consider CP stress test to see if the issues is more heart vs lung related, but I am pretty convinced this is longstanding AF and MV disease leading to the symptoms documented in this encounter [facility] 03-10-2023 Telephone encounter Note Pt needs 1 mg tablet to take 3 mg daily. [facility] 03-10-2023 Miscellaneous Notes Pt needs 1 mg tablet to take 3 mg daily. documented in this encounter [facility] 03-10-2023 Telephone encounter Note Called pt she would like warfarin 1 mg sent to [facility] in [facility]. Also notified her about the appointment 03/16/23 not being in network. She said she talked to her insurance company and said that [facility] is the hospital in [facility] but we just needed to send the bill to the right billing department. She said she has not changed anything regarding her insurance and we accepted it last year. She would like a call back to discuss. [facility] 03-10-2023 Miscellaneous Notes Called pt she would like warfarin 1 mg sent to [facility] in [facility]. Also notified her about the appointment 03/16/23 not being in network. She said she talked to her insurance company and said that [facility] is the hospital in [facility] but we just needed to send the bill to the right billing department. She said she has not changed anything regarding her insurance and we accepted it last year. She would like a call back to discuss. Pt returned call, lvm this afternoon. She can be reached at different number. Pls call her at [phone], ext [phone]. LM requesting call back. LM requesting call back to discuss appointment 03/16/23 and where she would like 1 mg tablets to go to. Pt called lvm yesterday. She said that she needs call back from nurse due to med changes for INR do not work with dosage she has. [phone]. Also I rec'd a msg from Sheyla Thomas. She said that pt's plan is out of network and she would need to be billed as self pay and then she can turn over bill to her insurance. She has an appt on 03/16. See anticoagulation encounter She had been previously doing a great deal of manipulations with regard to her anticoagulation. I would go with 3 mg daily rather than switching back and forth between 2 and 4 mg, too confusing. I would recheck the INR in 5 to 7 days. Received INR dated 03/06/23. INR 2.2. takes 2 mg daily. Please advise? documented in this encounter [facility] 03-10-2023 Telephone encounter Note Pt returned call, lvm this afternoon. She can be reached at different number. Pls call her at [phone], ext [phone]. [facility] 03-10-2023 Telephone encounter Note LM requesting call back. [facility] 03-10-2023 Telephone encounter Note LM requesting call back to discuss appointment 03/16/23 and where she would like 1 mg tablets to go to. [facility] 03-10-2023 Telephone encounter Note Pt called lvm yesterday. She said that she needs call back from nurse due to med changes for INR do not work with dosage she has. [phone]. Also I rec'd a msg from Sheyla Thomas. She said that pt's plan is out of network and she would need to be billed as self pay and then she can turn over bill to her insurance. She has an appt on 03/16. [facility] 03-09-2023 Telephone encounter Note See anticoagulation encounter [facility] 03-09-2023 Telephone encounter Note She had been previously doing a great deal of manipulations with regard to her anticoagulation. I would go with 3 mg daily rather than switching back and forth between 2 and 4 mg, too confusing. I would recheck the INR in 5 to 7 days. [facility] 03-09-2023 Telephone encounter Note Received INR dated 03/06/23. INR 2.2. takes 2 mg daily. Please advise? [facility] 02-25-2023 Telephone encounter Note Range changed to 2.5-3.5. flow sheet updated. [facility] 02-25-2023 Miscellaneous Notes Range changed to 2.5-3.5. flow sheet updated. Really 2.5 - 3.5, the latter is too high, even with a mechanical MVR. See anticoagulation encounter Her goal is 3-4 in the chart. Do you want her in this range or 2.5-3.5? Pt called for INR results done on 02/20/23. INR results was 2.8 on 02/20/23, per care everywhere-. I faxed standing order to fax [phone]. Called pt LM that we will fax order to for INR and advised to follow up as scheduled and DR Son will review cath and what she thinks her next options are. Pt called said that she plans to have INR drawn again on 02/20/23 at facility on [address]. She is requesting that standing order be faxed there. She also would like to know what the next step is for her s/p cath since she is still having the same symptoms. documented in this encounter [facility] 02-24-2023 Telephone encounter Note Really 2.5 - 3.5, the latter is too high, even with a mechanical MVR. [facility] 02-24-2023 Miscellaneous Notes Really 2.5 - 3.5, the latter is too high, even with a mechanical MVR. See anticoagulation encounter Her goal is 3-4 in the chart. Do you want her in this range or 2.5-3.5? Pt called for INR results done on 02/20/23. INR results was 2.8 on 02/20/23, per care everywhere-. I faxed standing order to fax [phone]. Called pt LM that we will fax order to for INR and advised to follow up as scheduled and DR Son will review cath and what she thinks her next options are. Pt called said that she plans to have INR drawn again on 02/20/23 at facility on [address]. She is requesting that standing order be faxed there. She also would like to know what the next step is for her s/p cath since she is still having the same symptoms. documented in this encounter [facility] 02-24-2023 Telephone encounter Note INR 2.8 from 02/20/23. [facility] 02-24-2023 Miscellaneous Notes INR 2.8 from 02/20/23. Called pt LM requesting call back if she had INR done Thursday at . 02/17/23. Pt was 4.4. see anticoagulation flow sheet for adjustments. Will recheck INR. Addended by: STONE SON on: 02/16/2023 04:59 PM Modules accepted: Orders Addended by: TANIA DAWKINS on: 02/16/2023 04:48 PM Modules accepted: Orders LM with pt advised to take 2 mg tonight and continue Lovenox. Will get INR stat tomorrow in am. Pt stopped into the office, went to lab but to late to have done today. She will get first thing tomorrow. Advised her to continue with Lovenox and will check with dose with Dr Son. Called pt regarding INR. She said she is getting ready to leave work to have it done. Pt has 2 more doses of Lovenox. Agree with recs from Dr. Son to take 2mg dose tonight. Will reassess INR tomorrow at time of cardiac cath. Pt called wondering what she should do with her coumadin today. I advised her she could take her [address] Son. Prep for proc completed. Thanks. Dr Son said she could resume her usual dose of 2 mg if ok with Dr Thompson. INR results are resulted in epic. INR 1.8. R/LHC tomorrow. Pt held dose for 2 days, otherwise 2 mg daily. Please let me know INR for final adjustment precath (Thursday). Reviewed with Dr. Thompson. He agrees with plan. Called pt LM to hold coumadin for next 2 days and go to lab early for INR. Requesting call back to make sure she received the message. Spoke with Dr Son will hold dose today and tomorrow and repeat INR . Pt did call back and is taking the 2 mg daily. No changes with diet or medications. Pt knows we will call her back with instruction for her coumadin. Called pt, LM to call office regarding INR to see if she did drop her dose to 2 mg last week. Advised her someone would give her call back regarding coumadin for her heart cath on Thursday. Received INR results today. Pt had done yesterday. INR 3.7. We had decreased her to 2mg daily last week for INR 4.3. LMOM seeing if pt checked INR today and results so we can give warfarin instructions re cath thursday INR today remains elevated at 4.3. Mechanical MV. Cath planned next Thu02/13/23. RN from [facility] called patient today and instructed patient to decrease coumadin to 2mg daily and recheck INR Thursday. Agree with this plan. Please send me the INR on Thursday. As per prior note, would like to target INR in low 2s, and try to forego Lovenox bridging, etc. Thank you. Discussed with Dr. Thompson, pt will get INR in the next few days and again early next week. Can discuss warfarin/ bridging with those results. Pt aware, cath teach done. Papo Thompson MD sent to Stone Son MD Cc: Heather Espinosa RN; Kim Arriola RN; Nancie Diamond Thank you. Will work on arranging RHC/LHC soon. She is on warfarin for prior mechanical MVR---Try to get INR a few days precath and let me know results so we can plan anticoagulation plan. Likely just keep her on warfarin and target INR in low 2s, and try to forego full Lovenox bridging. Keep me posted on labs. Thanks Patient is scheduled for a R/LHC with Dr. Thompson on 02/13/2023 @ 10:00 at [facility]. Labs to be drawn on 02/04 and teach needs to be completed. Pt in office yesterday, needs R/LHC. Can you please schedule with Dr Thompson. Thanks! documented in this encounter [facility] 02-24-2023 Telephone encounter Note See anticoagulation encounter [facility] 02-24-2023 Telephone encounter Note Her goal is 3-4 in the chart. Do you want her in this range or 2.5-3.5? [facility] 02-24-2023 History of Present illness Narrative Images from the original note were not included. Anticoagulation Episode Summary Current INR goal: 3.0-4.0 TTR: 50.5% (10.4 mo) Next INR check: 02/20/2023 INR from last check: 2.8 (02/20/2023) Weekly max warfarin dose: Target end date: INR check location: Preferred lab: Send INR reminders to: [facility] [employer] [employer] Comments: LM to continue with 2 mg daily and recheck in 2 weeks. documented in this encounter [facility] 02-24-2023 Telephone encounter Note Pt called for INR results done on 02/20/23. INR results was 2.8 on 02/20/23, per care everywhere-. [facility] 02-23-2023 Telephone encounter Note Called pt LM requesting call back if she had INR done Thursday at . [facility] 02-23-2023 Miscellaneous Notes Called pt LM requesting call back if she had INR done Thursday at . 02/17/23. Pt was 4.4. see anticoagulation flow sheet for adjustments. Will recheck INR. Addended by: STONE SON on: 02/16/2023 04:59 PM Modules accepted: Orders Addended by: TANIA DAWKINS on: 02/16/2023 04:48 PM Modules accepted: Orders LM with pt advised to take 2 mg tonight and continue Lovenox. Will get INR stat tomorrow in am. Pt stopped into the office, went to lab but to late to have done today. She will get first thing tomorrow. Advised her to continue with Lovenox and will check with dose with Dr Son. Called pt regarding INR. She said she is getting ready to leave work to have it done. Pt has 2 more doses of Lovenox. Agree with recs from Dr. Son to take 2mg dose tonight. Will reassess INR tomorrow at time of cardiac cath. Pt called wondering what she should do with her coumadin today. I advised her she could take her [address] Son. Prep for proc completed. Thanks. Dr Son said she could resume her usual dose of 2 mg if ok with Dr Thompson. INR results are resulted in epic. INR 1.8. R/LHC tomorrow. Pt held dose for 2 days, otherwise 2 mg daily. Please let me know INR for final adjustment precath (Thursday). Reviewed with Dr. Thompson. He agrees with plan. Called pt LM to hold coumadin for next 2 days and go to lab early for INR. Requesting call back to make sure she received the message. Spoke with Dr Son will hold dose today and tomorrow and repeat INR . Pt did call back and is taking the 2 mg daily. No changes with diet or medications. Pt knows we will call her back with instruction for her coumadin. Called pt, LM to call office regarding INR to see if she did drop her dose to 2 mg last week. Advised her someone would give her call back regarding coumadin for her heart cath on Thursday. Received INR results today. Pt had done yesterday. INR 3.7. We had decreased her to 2mg daily last week for INR 4.3. LMOM seeing if pt checked INR today and results so we can give warfarin instructions re cath thursday INR today remains elevated at 4.3. Mechanical MV. Cath planned next Thu02/13/23. RN from [facility] called patient today and instructed patient to decrease coumadin to 2mg daily and recheck INR Thursday. Agree with this plan. Please send me the INR on Thursday. As per prior note, would like to target INR in low 2s, and try to forego Lovenox bridging, etc. Thank you. Discussed with Dr. Thompson, pt will get INR in the next few days and again early next week. Can discuss warfarin/ bridging with those results. Pt aware, cath teach done. Papo Thompson MD sent to Stone Son MD Cc: Heather Espinosa RN; Kim Arriola RN; Nancie Diamond Thank you. Will work on arranging RHC/LHC soon. She is on warfarin for prior mechanical MVR---Try to get INR a few days precath and let me know results so we can plan anticoagulation plan. Likely just keep her on warfarin and target INR in low 2s, and try to forego full Lovenox bridging. Keep me posted on labs. Thanks Patient is scheduled for a R/LHC with Dr. Thompson on 02/13/2023 @ 10:00 at [facility]. Labs to be drawn on 02/04 and teach needs to be completed. Pt in office yesterday, needs R/LHC. Can you please schedule with Dr Thompson. Thanks! documented in this encounter [facility] 02-23-2023 Telephone encounter Note 02/17/23. Pt was 4.4. see anticoagulation flow sheet for adjustments. Will recheck INR. [facility] 02-19-2023 Telephone encounter Note I faxed standing order to fax [phone]. [facility] 02-19-2023 Miscellaneous Notes I faxed standing order to fax [phone]. Called pt LM that we will fax order to for INR and advised to follow up as scheduled and DR Son will review cath and what she thinks her next options are. Pt called said that she plans to have INR drawn again on 02/20/23 at facility on [address]. She is requesting that standing order be faxed there. She also would like to know what the next step is for her s/p cath since she is still having the same symptoms. documented in this encounter [facility] 02-19-2023 Telephone encounter Note Called pt LM that we will fax order to for INR and advised to follow up as scheduled and DR Son will review cath and what she thinks her next options are. [facility] 02-18-2023 Telephone encounter Note Pt called said that she plans to have INR drawn again on 02/20/23 at facility on [address]. She is requesting that standing order be faxed there. She also would like to know what the next step is for her s/p cath since she is still having the same symptoms. [facility] 02-18-2023 Miscellaneous Notes Pt called said that she plans to have INR drawn again on 02/20/23 at facility on [address]. She is requesting that standing order be faxed there. She also would like to know what the next step is for her s/p cath since she is still having the same symptoms. documented in this encounter [facility] 02-16-2023 Note Addended by: STONE SON on: 02/16/2023 04:59 PM Modules accepted: Orders [facility] 02-16-2023 Note Addended by: STONE SON on: 02/16/2023 04:59 PM Modules accepted: Orders [facility] 02-16-2023 Note Addended by: STONE SON on: 02/16/2023 04:59 PM Modules accepted: Orders [facility] 02-16-2023 Note Addended by: STONE SON on: 02/16/2023 04:59 PM Modules accepted: Orders [facility] 02-16-2023 Note Addended by: STONE SON on: 02/16/2023 04:59 PM Modules accepted: Orders [facility] 02-16-2023 Note Addended by: STONE SON on: 02/16/2023 04:59 PM Modules accepted: Orders [facility] 02-16-2023 Note Addended by: STONE SON on: 02/16/2023 04:59 PM Modules accepted: Orders [facility] 02-16-2023 Miscellaneous Notes Addended by: STONE SON on: 02/16/2023 04:59 PM Modules accepted: Orders Addended by: TANIA DAWKINS on: 02/16/2023 04:48 PM Modules accepted: Orders LM with pt advised to take 2 mg tonight and continue Lovenox. Will get INR stat tomorrow in am. Pt stopped into the office, went to lab but to late to have done today. She will get first thing tomorrow. Advised her to continue with Lovenox and will check with dose with Dr Son. Called pt regarding INR. She said she is getting ready to leave work to have it done. Pt has 2 more doses of Lovenox. Agree with recs from Dr. Son to take 2mg dose tonight. Will reassess INR tomorrow at time of cardiac cath. Pt called wondering what she should do with her coumadin today. I advised her she could take her [address] Son. Prep for proc completed. Thanks. Dr Son said she could resume her usual dose of 2 mg if ok with Dr Thompson. INR results are resulted in epic. INR 1.8. [facility] tomorrow. Pt held dose for 2 days, otherwise 2 mg daily. Please let me know INR for final adjustment precath (Thursday). Reviewed with Dr. Thompson. He agrees with plan. Called pt LM to hold coumadin for next 2 days and go to lab early for INR. Requesting call back to make sure she received the message. Spoke with Dr Son will hold dose today and tomorrow and repeat INR . Pt did call back and is taking the 2 mg daily. No changes with diet or medications. Pt knows we will call her back with instruction for her coumadin. Called ptABEBE to call office regarding INR to see if she did drop her dose to 2 mg last week. Advised her someone would give her call back regarding coumadin for her heart cath on Thursday. Received INR results today. Pt had done yesterday. INR 3.7. We had decreased her to 2mg daily last week for INR 4.3. LMOM seeing if pt checked INR today and results so we can give warfarin instructions re cath thursday INR today remains elevated at 4.3. Mechanical MV. Cath planned next Thu02/13/23. RN from [facility] called patient today and instructed patient to decrease coumadin to 2mg daily and recheck INR Thursday. Agree with this plan. Please send me the INR on Thursday. As per prior note, would like to target INR in low 2s, and try to forego Lovenox bridging, etc. Thank you. Discussed with Dr. Thompson, pt will get INR in the next few days and again early next week. Can discuss warfarin/ bridging with those results. Pt aware, cath teach done. Papo Thompson MD sent to Stone Son MD Cc: Heather Espinosa RN; Kim Arriola RN; Nancie Diamond Thank you. Will work on arranging RHC/LHC soon. She is on warfarin for prior mechanical MVR---Try to get INR a few days precath and let me know results so we can plan anticoagulation plan. Likely just keep her on warfarin and target INR in low 2s, and try to forego full Lovenox bridging. Keep me posted on labs. Thanks Patient is scheduled for a R/LHC with Dr. Thompson on 02/13/2023 @ 10:00 at [facility]. Labs to be drawn on 02/04 and teach needs to be completed. Pt in office yesterday, needs R/LHC. Can you please schedule with Dr Thompson. Thanks! documented in this encounter [facility] 02-16-2023 Note Addended by: TANIA DAWKINS on: 02/16/2023 04:48 PM Modules accepted: Orders [facility] 02-16-2023 Note Addended by: TANIA DAWKINS on: 02/16/2023 04:48 PM Modules accepted: Orders [facility] 02-16-2023 Note Addended by: TANIA DAWKINS on: 02/16/2023 04:48 PM Modules accepted: Orders [facility] 02-16-2023 Note Addended by: TANIA DAWKINS on: 02/16/2023 04:48 PM Modules accepted: Orders [facility] 02-16-2023 Note Addended by: TANIA DAWKINS on: 02/16/2023 04:48 PM Modules accepted: Orders [facility] 02-16-2023 Note Addended by: TANIA DAWKINS on: 02/16/2023 04:48 PM Modules accepted: Orders [facility] 02-16-2023 Note Addended by: TANIA DAWKINS on: 02/16/2023 04:48 PM Modules accepted: Orders [facility] 02-16-2023 Telephone encounter Note LM with pt advised to take 2 mg tonight and continue Lovenox. Will get INR stat tomorrow in am. [facility] 02-16-2023 Telephone encounter Note Pt stopped into the office, went to lab but to late to have done today. She will get first thing tomorrow. Advised her to continue with Lovenox and will check with dose with Dr Son. [facility] 02-16-2023 Telephone encounter Note Called pt regarding INR. She said she is getting ready to leave work to have it done. Pt has 2 more doses of Lovenox. [facility] 02-13-2023 History of Present illness Narrative S/P LHC: Valve ok, coronaries ok. Plans to take 40 mg lasix x 2 days. Take 4 mg coumadin x 2 days, then 2 mg until Thursday. Lovenox bridge with Lovenox 90 mg bid until next INR on Thursday. Patient and spouse educated. Spouse able to give injections as he had done so before. They verbalized understanding. Lovenox Rx sent to [facility]. INR on Thursday. Spoke with Dr. Son office and update given, to follow up INR on Thursday. documented in this encounter [facility] 02-13-2023 Hospital Discharge instructions JOB Bingham CNP - 02/13/2023 12:56 PM EDT Take Coumadin 4mg today and tomorrow, then 2mg daily. Follow up with INR on Thursday with Dr. Son office. Take Lovenox 90 mg twice daily x 4 days, until Thursday. Inject today (1 dose today), then twice daily. Increase lasix to 40 mg x 2 days, then 20 mg daily. Call your doctor with any medication questions or if you notice any side effects from your medications. If you are unable to fill your medications, please call your [facility] immediately. The office number is located with your follow-up appointment information. Call your doctor if any redness or drainage from the wound site. DO NOT stop taking your medication unless instructed to do so by your doctor. Read the drug information material that were given to you and take medications as instructed by your doctor. New drugs may have been added to your medications, that will strengthen your heart and prevent re-stenosis of the coronary arteries. Drink 6 glasses of water (8 ounces each) over the next 24 hours. Water helps clear the dye from your body. No alcoholic beverages for 24 hours. It may interfere with healing. No exercise or sex for 5 days. Call 911 for chest pain, arm pain, nausea, neck pain, dizziness or unusual sweating AND your pain has not relieved with 2 doses of Nitroglycerin. Call your doctor if a lump at the puncture site enlarges or is larger than marble size. Call your doctor for numbness, tingling, or swelling of the fingers, hand or wrist. Call your doctor for increased area or bruising with discoloration extending into the arm. If bleeding occurs, hold pressure with your thumb against the puncture site and your finger against the back of the wrist for 10 minutes, if BLEEDING continues CALL 911. OK to shower. No tub baths, swimming pools or hot tub soaking for three days. Wash site daily with soap and water, dry gently. The healing wound should remain soft and dry. Keep site clean and dry, no soaking of wrist for three days (no cleaning or dish washing). Remove band aid the day after procedure and leave open to air. No bending of affected wrist for 24 hours. DO NOT lift more than three pounds for 3-5 days[address] driving for 24 hours. PLEASE CALL YOUR HEART DOCTOR IF YOU CANNOT GET YOUR MEDICATIONS. THE NUMBER IS LISTED WITH YOUR FOLLOW-UP APPOINTMENT. Procedure Sedation Instructions If you have received sedation: you must have someone drive you home You should not drive a car, operate machinery, drink alcohol or perform any activity that requires alertness for the rest of the day. The effects of the sedative should be gone by tomorrow. documented in this encounter [facility] 02-13-2023 Note Formatting of this n ote might be different from the original. Sedation Plan ASA class 2 - patient with mild systemic disease Mallampati class: III - soft palate, base of uvula visible. Sedation plan: local anesthesia and minimal sedation Risks, benefits, and alternatives discussed with patient. Plan discussed with attending. Immediate reassessment prior to sedation: Patient's status reviewed and vital signs assessed; acceptable to perform procedure and proceed to administer sedation as planned. [employer] Phone: 02-13-2023 Note Formatting of this n ote might be different from the original. Sedation Plan ASA class 2 - patient with mild systemic disease Mallampati class: III - soft palate, base of uvula visible. Sedation plan: local anesthesia and minimal sedation Risks, benefits, and alternatives discussed with patient. Plan discussed with attending. Immediate reassessment prior to sedation: Patient's status reviewed and vital signs assessed; acceptable to perform procedure and proceed to administer sedation as planned. [employer] Phone: 02-13-2023 Miscellaneous Notes Sedation Plan ASA class 2 - patient with mild systemic disease Mallampati class: III - soft palate, base of uvula visible. Sedation plan: local anesthesia and minimal sedation Risks, benefits, and alternatives discussed with patient. Plan discussed with attending. Immediate reassessment prior to sedation: Patient's status reviewed and vital signs assessed; acceptable to perform procedure and proceed to administer sedation as planned. documented in this encounter [facility] [facility] 02-12-2023 Telephone encounter Note Agree with recs from Dr. Son to take 2mg dose tonight. Will reassess INR tomorrow at time of cardiac cath. [employer] Work Phone: 02-12-2023 Miscellaneous Notes Agree with recs from Dr. Son to take 2mg dose tonight. Will reassess INR tomorrow at time of cardiac cath. Pt called wondering what she should do with her coumadin today. I advised her she could take her [address] Son. Prep for proc completed. Thanks. Dr Son said she could resume her usual dose of 2 mg if ok with Dr Thompson. INR results are resulted in epic. INR 1.8. R/C tomorrow. Pt held dose for 2 days, otherwise 2 mg daily. Please let me know INR for final adjustment precath (Thursday). Reviewed with Dr. Thompson. He agrees with plan. Called pt LM to hold coumadin for next 2 days and go to lab early for INR. Requesting call back to make sure she received the message. Spoke with Dr Son will hold dose today and tomorrow and repeat INR . Pt did call back and is taking the 2 mg daily. No changes with diet or medications. Pt knows we will call her back with instruction for her coumadin. Called pt, LM to call office regarding INR to see if she did drop her dose to 2 mg last week. Advised her someone would give her call back regarding coumadin for her heart cath on Thursday. Received INR results today. Pt had done yesterday. INR 3.7. We had decreased her to 2mg daily last week for INR 4.3. LMOM seeing if pt checked INR today and results so we can give warfarin instructions re cath thursday INR today remains elevated at 4.3. Mechanical MV. Cath planned next Thu02/13/23. RN from [facility] called patient today and instructed patient to decrease coumadin to 2mg daily and recheck INR Thursday. Agree with this plan. Please send me the INR on Thursday. As per prior note, would like to target INR in low 2s, and try to forego Lovenox bridging, etc. Thank you. Discussed with Dr. Thompson, pt will get INR in the next few days and again early next week. Can discuss warfarin/ bridging with those results. Pt aware, cath teach done. Papo Thompson MD sent to Stone Son MD Cc: Heather Espinosa RN; Kim Arriola RN; Nancie Diamond Thank you. Will work on arranging RHC/LHC soon. She is on warfarin for prior mechanical MVR---Try to get INR a few days precath and let me know results so we can plan anticoagulation plan. Likely just keep her on warfarin and target INR in low 2s, and try to forego full Lovenox bridging. Keep me posted on labs. Thanks Patient is scheduled for a R/LHC with Dr. Thompson on 02/13/2023 @ 10:00 at [facility]. Labs to be drawn on 02/04 and teach needs to be completed. Pt in office yesterday, needs R/LHC. Can you please schedule with Dr Thompson. Thanks! documented in this encounter [facility] 02-12-2023 Telephone encounter Note Pt called wondering what she should do with her coumadin today. I advised her she could take her [address] Son. [facility] 02-12-2023 Miscellaneous Notes Pt called wondering what she should do with her coumadin today. I advised her she could take her [address] Son. Prep for proc completed. Thanks. Dr Son said she could resume her usual dose of 2 mg if ok with Dr Thompson. INR results are resulted in epic. INR 1.8. R/LHC tomorrow. Pt held dose for 2 days, otherwise 2 mg daily. Please let me know INR for final adjustment precath (Thursday). Reviewed with Dr. Thompson. He agrees with plan. Called pt LM to hold coumadin for next 2 days and go to lab early for INR. Requesting call back to make sure she received the message. Spoke with Dr Son will hold dose today and tomorrow and repeat INR . Pt did call back and is taking the 2 mg daily. No changes with diet or medications. Pt knows we will call her back with instruction for her coumadin. Called ptABEBE to call office regarding INR to see if she did drop her dose to 2 mg last week. Advised her someone would give her call back regarding coumadin for her heart cath on Thursday. Received INR results today. Pt had done yesterday. INR 3.7. We had decreased her to 2mg daily last week for INR 4.3. LMOM seeing if pt checked INR today and results so we can give warfarin instructions re cath thursday INR today remains elevated at 4.3. Mechanical MV. Cath planned next Thu02/13/23. RN from [facility] called patient today and instructed patient to decrease coumadin to 2mg daily and recheck INR Thursday. Agree with this plan. Please send me the INR on Thursday. As per prior note, would like to target INR in low 2s, and try to forego Lovenox bridging, etc. Thank you. Discussed with Dr. Thompson, pt will get INR in the next few days and again early next week. Can discuss warfarin/ bridging with those results. Pt aware, cath teach done. Papo Thompson MD sent to [facility] Son MD Cc: Heather Espinosa RN; Kim Arriola RN; Nancie Diamond Thank you. Will work on arranging RHC/LHC soon. She is on warfarin for prior mechanical MVR---Try to get INR a few days precath and let me know results so we can plan anticoagulation plan. Likely just keep her on warfarin and target INR in low 2s, and try to forego full Lovenox bridging. Keep me posted on labs. Thanks Patient is scheduled for a R/LHC with Dr. Thompson on 02/13/2023 @ 10:00 at [facility]. Labs to be drawn on 02/04 and teach needs to be completed. Pt in office yesterday, needs R/LHC. Can you please schedule with Dr Thompson. Thanks! documented in this encounter [facility] 02-12-2023 Telephone encounter Note Prep for proc completed. Thanks. [facility] Work Phone: 02-12-[address] Son said she could resume her usual dose of 2 mg if ok with Dr Thompson. [facility] 02-12-2023 Telephone encounter Note INR results are resulted in epic. INR 1.8. R/LHC tomorrow. Pt held dose for 2 days, otherwise 2 mg daily. [facility] 02-11-2023 Telephone encounter Note Last seen 01/26/23. BMP done 02/04/23. [facility] 02-11-2023 Miscellaneous Notes Last seen 01/26/23. BMP done 02/04/23. documented in this encounter [facility] 02-10-2023 Telephone encounter Note Please let me know INR for final adjustment precath (Thursday). [employer] Phone: 02-10-2023 Miscellaneous Notes Please let me know INR for final adjustment precath (Thursday). Reviewed with Dr. Thompson. He agrees with plan. Called pt LM to hold coumadin for next 2 days and go to lab early for INR. Requesting call back to make sure she received the message. Spoke with Dr Son will hold dose today and tomorrow and repeat INR . Pt did call back and is taking the 2 mg daily. No changes with diet or medications. Pt knows we will call her back with instruction for her coumadin. Called pt LM to call office regarding INR to see if she did drop her dose to 2 mg last week. Advised her someone would give her call back regarding coumadin for her heart cath on Thursday. Received INR results today. Pt had done yesterday. INR 3.7. We had decreased her to 2mg daily last week for INR 4.3. LMOM seeing if pt checked INR today and results so we can give warfarin instructions re cath thursday INR today remains elevated at 4.3. Mechanical MV. Cath planned next Thu02/13/23. RN from [facility] called patient today and instructed patient to decrease coumadin to 2mg daily and recheck INR Thursday. Agree with this plan. Please send me the INR on Thursday. As per prior note, would like to target INR in low 2s, and try to forego Lovenox bridging, etc. Thank you. Discussed with Dr. Thompson, pt will get INR in the next few days and again early next week. Can discuss warfarin/ bridging with those results. Pt aware, cath teach done. Papo Thompson MD sent to Stone Son MD Cc: Heather Espinosa RN; Kim Arriola RN; Nancie Diamond Thank you. Will work on arranging RHC/LHC soon. She is on warfarin for prior mechanical MVR---Try to get INR a few days precath and let me know results so we can plan anticoagulation plan. Likely just keep her on warfarin and target INR in low 2s, and try to forego full Lovenox bridging. Keep me posted on labs. Thanks Patient is scheduled for a R/LHC with Dr. Thompson on 02/13/2023 @ 10:00 at [facility]. Labs to be drawn on 02/04 and teach needs to be completed. Pt in office yesterday, needs R/LHC. Can you please schedule with Dr Thompson. Thanks! documented in this encounter [facility] 02-10-2023 Telephone encounter Note Reviewed with Dr. Thompson. He agrees with plan. [facility] [employer] Phone: 02-10-2023 Telephone encounter Note Called pt LM to hold coumadin for next 2 days and go to lab early for INR. Requesting call back to make sure she received the message. [facility] 02-10-2023 Telephone encounter Note Spoke with Dr Son will hold dose today and tomorrow and repeat INR . [facility] 02-10-2023 Telephone encounter Note Pt did call back and is taking the 2 mg daily. No changes with diet or medications. Pt knows we will call her back with instruction for her coumadin. [facility] 02-10-2023 Telephone encounter Note Called pt LM to call office regarding INR to see if she did drop her dose to 2 mg last week. Advised her someone would give her call back regarding coumadin for her heart cath on Thursday. [facility] 02-10-2023 Telephone encounter Note Received INR results today. Pt had done yesterday. INR 3.7. We had decreased her to 2mg daily last week for INR 4.3. [facility] 02-09-2023 Telephone encounter Note LMOM seeing if pt checked INR today and results so we can give warfarin instructions re cath thursday [facility] 02-05-2023 Telephone encounter Note INR today remains elevated at 4.3. Mechanical MV. Cath planned next Thu02/13/23. RN from [facility] called patient today and instructed patient to decrease coumadin to 2mg daily and recheck INR Thursday. Agree with this plan. Please send me the INR on Thursday. As per prior note, would like to target INR in low 2s, and try to forego Lovenox bridging, etc. Thank you. [facility] 02-05-2023 Telephone encounter Note See anticoagulation encounter. Pt decreasing to 2 mg and rechecking next week. [facility] 02-05-2023 Miscellaneous Notes See anticoagulation encounter. Pt decreasing to 2 mg and rechecking next week. Flat out 2 mg daily and re-check next week. Pt called back informed her of coumadin changes. Reviewed dose with her she said she only decreased to 2 mg for 4 days then went back to 2 mg -2 days week and 4 mg all other days. Please advise what dose she needs to take. She is rechecking INR next week. One mg daily for now, re-check Thursday Received INR from yesterday- INR 4.3, 2 weeks ago she was 4.9 and we decreased her to 2 mg daily. Pt has R/LHC scheduled for next week 02/13 and hoping to get her close to 2. LM to see if there were any changes in diet/medication. documented in this encounter [facility] 02-05-2023 Telephone encounter Note Flat out 2 mg daily and re-check next week. [facility] 02-05-2023 Telephone encounter Note Reviewed labs with pt and notified her of new lab orders, she will get them done next week. She said her PCP had already ordered a stool collection because of the anemia. [facility] 02-05-2023 Miscellaneous Notes Reviewed labs with pt and notified her of new lab orders, she will get them done next week. She said her PCP had already ordered a stool collection because of the anemia. LM with INR waiting for call back. Will review labs with her. ----- Message from Stone Son MD sent at 02/05/2023 7:35 AM EDT ----- Her H/H is low, but not excessively so. Nevertheless, this is new for her. I need repeat CBC and stool for OB, please. 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 I should probably check LDH, unconjugated bili, haptoglobin and a retic count as well. documented in this encounter [facility] 02-05-2023 Telephone encounter Note Pt called back informed her of coumadin changes. Reviewed dose with her she said she only decreased to 2 mg for 4 days then went back to 2 mg -2 days week and 4 mg all other days. Please advise what dose she needs to take. She is rechecking INR next week. [facility] 02-05-2023 Telephone encounter Note One mg daily for now, re-check Thursday [facility] 02-05-2023 Telephone encounter Note LM with INR waiting for call back. Will review labs with her. [facility] 02-05-2023 Telephone encounter Note ----- Message from Stone Son MD sent at 02/05/2023 7:35 AM EDT ----- Her H/H is low, but not excessively so. Nevertheless, this is new for her. I need repeat CBC and stool for OB, please. 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 I should probably check LDH, unconjugated bili, haptoglobin and a retic count as well. [facility] 02-05-2023 Telephone encounter Note Received INR from yesterday- INR 4.3, 2 weeks ago she was 4.9 and we decreased her to 2 mg daily. Pt has R/LHC scheduled for next week 02/13 and hoping to get her close to 2. LM to see if there were any changes in diet/medication. [facility] 02-02-2023 Telephone encounter Note Discussed with Dr. Thompson, pt will get INR in the next few days and again early next week. Can discuss warfarin/ bridging with those results. Pt aware, cath teach done. [facility] 02-02-2023 Telephone encounter Note Papo Thompson MD sent to Stone Son MD Cc: Heather Espinosa RN; Kim Arriola RN; Nancie Diamond Thank you. Will work on arranging RHC/LHC soon. She is on warfarin for prior mechanical MVR---Try to get INR a few days precath and let me know results so we can plan anticoagulation plan. Likely just keep her on warfarin and target INR in low 2s, and try to forego full Lovenox bridging. Keep me posted on labs. Thanks [facility] 02-02-2023 Telephone encounter Note Patient is scheduled for a R/LHC with Dr. Thompson on 02/13/2023 @ 10:00 at [facility]. Labs to be drawn on 02/04 and teach needs to be completed. [facility] 01-27-2023 Telephone encounter Note Pt in office yesterday, needs R/LHC. Can you please schedule with Dr Thompson. Thanks! T [facility] 01-27-2023 Telephone encounter Note Last see yesterday. Orders for BMP [facility] 01-27-2023 Miscellaneous Notes Last see yesterday. Orders for BMP documented in this encounter [facility] 01-26-2023 History of Present illness Narrative [facility] Cardiology [facility] CARDIOLOGY [address] [facility] [id number] Dept: [phone] Dept Visit type: Established : 1955 Chief Complaint: Chief Complaint Patient presents with Follow-up 6 months overdue History of Present Illness: Hernan Wallace ([facility] [place]) is a 67 year old lady with h/o rheumatic fever and MV disease requiring mechanical MVR decades prior and with permanent valvular AF. Ms. Rosenbaum had a h/o tachycardia mediated LV dysfunction, now recovered. Other dx included hyperlipidemia and chronic anticoagulation. In 2020, she recalled ED visit for Covid in spring of that year, but was sent home. She was provided with MDI, but required no supplemental O2, no steroids, and did not require admit to the hospital. She felt unwell throughout August, September, October with intermittent high fevers; no Covid vaccine, and no intention of going forward. At the last visit she had no issues with chest discomfort, no dyspnea, no PND, no palpitations (despite the atrial arrhythmia) and had denied dizziness, lightheadedness, syncope, or focal neurologic events. The pt returns for follow up. Updated echo September 2022: normal LV size and thickness, EF low normal 50%, no WMA; normal R side; [place] MVR, size unknown, mean grad 6 mm Hg, normal function; borderline ascending aorta = 3.7 cm. Review of the EMR finds no recent hospital stays or surgery. States has been walking to the office for the last 3 years, but in the last month has noted exertional tightness, and wrote if off to humidity. Despite the onset of cooler weather, she notes sx progressing. Notes that she absolutely must stop, she cannot go further - not real SOB - but unable to take a breath. - located mid-sternal. Minutes for resolution, usually < 5 minutes. No nausea or diaphoresis. Did not have this back in September when she had echo done. INR has sreekanth up and down, but nothing < 2.0. Does not feel much different from the AF. Trying to blame this on weather of anxiety - I don't think so. The valve is > 30 years old, placed 1989. This is a problem, but I am not convinced it is the MVR. Past Medical History: Past Medical History: Diagnosis Date Arthritis Atrial fibrillation, chronic (CMS/HCC) (HCC) Cardiomegaly Cardiomyopathy, dilated (HCC) Cerebral artery occlusion with cerebral infarction (HCC) Endometriosis h/o reason for hyster H/O cardiovascular stress test H/O echocardiogram History of blood transfusion 1998 x6 post hysterectomy Hyperlipidemia Mitral valve disorder 1989- 01/21 IN [place] Paroxysmal atrial fibrillation (CMS/HCC) (HCC) Presence of prosthetic heart valve Rheumatic heart disease S/P MVR (mitral valve replacement) 03/13/2021 Thyroid disease hypothroidism- NO MEDS TIA (transient ischemic attack) x2 Past Surgical History Past Surgical History: Procedure Laterality Date CARDIAC PROCEDURE CATARACT EXTRACTION Bilateral CATARACT EXTRACTION Bilateral COLONOSCOPY KNEE SURGERY Left [facility] [place] MITRAL VALVE REPLACEMENT RADIAL HEAD RECONSTRUCTION W/ IMPLANT Left 2014 [facility] - ELBOW TONSILLECTOMY (HISTORICAL) TOTAL ABDOMINAL HYSTERECTOMY [facility] Family History Family History Problem Relation Name Age of Onset Breast cancer Mother Heart failure Father Social History Social History Tobacco Use Smoking status: Former Types: Cigarettes Quit date: 05/06/2010 Years since quittin.7 Smokeless tobacco: Never Substance Use Topics Alcohol use: Yes Comment: occ Drug use: No Allergies: Allergies Allergen Reactions Cefaclor Other reaction(s): Unknown Intolerance-unknown Penicillins Other reaction(s): Unknown, Unknown Intolerance-unknown Intolerance-unknown Medications: Current Outpatient Medications: carvedilol (Coreg) 12.5 MG tablet, Take 12.5 mg by mouth in the morning and 12.5 mg before bedtime., Disp: , Rfl: clindamycin (Cleocin) 150 MG capsule, TAKE 4 CAPSULES BY MOUTH ONE HOUR PRIOR TO DENTAL PROCEDURE, Disp: 4 capsule, Rfl: 1 digoxin (Lanoxin) 125 MCG tablet, Take 1 tablet by mouth in the morning., Disp: , Rfl: furosemide (Lasix) 20 MG tablet, Take 20 mg by mouth in the morning., Disp: , Rfl: levothyroxine (Synthroid, Levoxyl) 75 MCG tablet, TAKE 1 TABLET (75 MCG) BY MOUTH ONCE DAILY IN THE MORNING. TAKE BEFORE MEALS., Disp: , Rfl: lisinopril 2.5 MG tablet, Take 1 tablet by mouth in the morning., Disp: , Rfl: pravastatin (Pravachol) 40 MG tablet, Take 1 tablet by mouth in the morning., Disp: , Rfl: spironolactone (Aldactone) 25 MG tablet, Take 1 tablet by mouth in the morning., Disp: , Rfl: warfarin (Coumadin) 4 MG tablet, TAKE 1 TABLET BY MOUTH DAILY OR DIRECTED, Disp: , Rfl: Review of Systems: Review of Systems Constitutional: Positive for fatigue. Negative for activity change, chills, diaphoresis and fever. HENT: Negative for nosebleeds. Eyes: Negative for visual disturbance. Respiratory: Positive for chest tightness (with exertion), shortness of breath (breathes little fastr than normal) and wheezing (since covid when laying down). Negative for apnea and cough. Cardiovascular: Positive for palpitations. Negative for chest pain and leg swelling. Gastrointestinal: Negative for abdominal distention, abdominal pain, blood in stool, diarrhea, nausea and vomiting. Endocrine: Negative for cold intolerance and heat intolerance. Genitourinary: Negative for hematuria. Musculoskeletal: Positive for arthralgias. Negative for gait problem and myalgias. Skin: Negative for color change and rash. Neurological: Positive for syncope (feels presyncopal) and light-headedness. Negative for dizziness and weakness. Hematological: Bruises/bleeds easily. Psychiatric/Behavioral: Negative for dysphoric mood and sleep disturbance. The patient is not nervous/anxious. Physical Examination: Vitals: Vitals: 01/26/23 1534 BP: 138/68 BP Location: Left arm Patient Position: Sitting BP Cuff Size: Large adult Pulse: 62 Weight: 219 lb 12.8 oz (99.7 kg) Height: 5' 5.5 (1.664 m) Body mass index is 36.02 kg/m . Physical Exam Vitals and nursing note reviewed. Constitutional: Appearance: Normal appearance. She is not ill-appearing. Comments: Comes alone, she is frightened, feels as if there is something really wrong, accurate historian and highly compliant Eyes: General: Right eye: No discharge. Left eye: No discharge. Neck: Vascular: No carotid bruit. Cardiovascular: Rate and Rhythm: Normal rate. Rhythm irregular. Heart sounds: Murmur (no diastolic murmur, soft systolic murmur at the base) heard. No friction rub. No gallop. Comments: 128/78 mm Hg sitting Pulmonary: Effort: Pulmonary effort is normal. No respiratory distress. Breath sounds: Normal breath sounds. No stridor. No wheezing, rhonchi or rales. Chest: Chest wall: No tenderness. Abdominal: General: Bowel sounds are normal. There is no distension. Palpations: Abdomen is soft. Tenderness: There is no abdominal tenderness. Comments: No hepatomegaly, no bruit Musculoskeletal: Right lower leg: No edema (mild bilateral, but not pitting). Left lower leg: Edema present. Skin: General: Skin is warm. Coloration: Skin is not pale. Neurological: Mental Status: She is alert. Gait: Gait normal. Psychiatric: Mood and Affect: Mood normal. Thought Content: Thought content normal. Laboratory Tests: Lab Results Component Value Date WBC 9.6 11/12/2021 HGB 12.1 11/12/2021 MCV 93.8 11/12/2021 Lab Results Component Value Date GLUCOSE 109 (H) 11/12/2021 CALCIUM 8.8 11/12/2021 NA 138 11/12/2021 K 4.4 11/12/2021 CO2 30 11/12/2021 CL 99 11/12/2021 BUN 19 11/12/2021 CREATININE 0.77 11/12/2021 [facility] Lab Results Component Value Date CHLPL 182 03/15/2021 CHLPL 122 08/29/2020 CHLPL 175 05/19/2019 Lab Results Component Value Date TRIG 204 03/15/2021 TRIG 153 08/29/2020 TRIG 82 05/19/2019 Lab Results Component Value Date HDL 55 03/15/2021 HDL 34 (A) 08/29/2020 HDL 75 (A) 05/19/2019 Lab Results Component Value Date LDLCALC 97 03/15/2021 LDLCALC 64 08/29/2020 LDLCALC 83 05/19/2019 No results found for: BNP Cardiac Tests: ECG: Jan 2023; AF with controlled rate, borderline IVCD; NSST changes - at PCP office, declined one here Last Echo: September 2022: normal LV size and thickness, EF low normal 50%, no WMA; normal R side; [place] MVR, size unknown, mean grad 6 mm Hg, normal function; borderline ascending aorta = 3.7 cm. Last stress test: none recent Last cardiac catheterization: decades ago with MVR, no CAD 1989 Assessment and Plan: 1. History of MVR with cardiopulmonary bypass 2. Cardiomyopathy, dilated (HCC) 3. Atrial fibrillation, chronic (CMS/HCC) (HCC) 4. Chronic anticoagulation 5. Angina of effort (CMS/HCC) (HCC) 6. Near syncope She had echo updated in September, but sx are noted worsening in the past 3-4 weeks with exertion, and causing her to stop and rest. I do not hear a problem with the prosthetic clicks, and she has run high INR rather than subtherapeutic. I don't think this is occlusion or obstruction in the interim since the echo. Events occur daily, and the AF is not new either. She does not feel the arrhythmia, and the rate is currently controlled. She is not aware of any changes in rate when walking, just chest tightness.l I think this is escalating/ new AP. I think she needs LHC as soon as I can get her in. I would add RHC b/c of the valve, and looking for developing PA hypertension as the etiology of the CP - but I would expect more SOB and R sided sx, which is not present on exam. For completeness, she needs echo and Holter, but that does not obviate the cath - the symptoms sound classic to me. Return post invasive assessment. Last cath 33 years ago, she could certainly have developed CAD in the interim. documented in this encounter [facility] 01-23-2023 History of Present illness Narrative Subjective Patient ID: Hernan Walter is a 67 y.o. female who presents for Follow-up (Labs ). Patient presents to follow-up on labs. Patient has noticed that she has been somewhat more short of breath with activity. She has appointment to follow-up with cardiology on Thursday which is 3 days from now. States has been going on over several weeks. She denies chest pain no dizziness or lightheadedness. States it feels like when she had valvular issues in the past. She has had no swelling of the legs or feet. Still having left elbow pain discomfort did see the sales account specialist and there was not anything in particular they could do other than offer her a possible new elbow at some time. She denies any nausea vomiting abdominal pain or discomfort. Review of Systems Constitutional: Negative. HENT: Negative. Eyes: Negative. Respiratory: Positive for shortness of breath. Negative for apnea, wheezing and stridor. Cardiovascular: Negative for chest pain, palpitations and leg swelling. Gastrointestinal: Negative. Endocrine: Negative. Negative for polyphagia. Genitourinary: Negative. Musculoskeletal: Negative for back pain, gait problem, joint swelling and neck stiffness. Skin: Negative. Neurological: Negative for dizziness and headaches. Hematological: Negative for adenopathy. Does not bruise/bleed easily. Psychiatric/Behavioral: Negative for agitation. Objective BP 124/60 Pulse 80 Temp 36.3 C (97.3 F) Ht 1.626 m (5' 4) Wt 98.9 kg (218 lb) SpO2 97% BMI 37.42 kg/m BSA Body surface area is 2.11 meters squared. Physical Exam Constitutional: Appearance: Normal appearance. She is obese. She is not ill-appearing, toxic-appearing or diaphoretic. HENT: Head: Normocephalic. Right Ear: Tympanic membrane normal. Left Ear: Tympanic membrane normal. Cardiovascular: Rate and Rhythm: Normal rate. Rhythm irregular. Pulses: Normal pulses. Heart sounds: Murmur heard. Pulmonary: Effort: Pulmonary effort is normal. Breath sounds: No stridor. No wheezing or rales. Abdominal: General: Bowel sounds are normal. Musculoskeletal: Cervical back: Normal range of motion. Comments: Pain some discomfort noted in the left elbow with any range of motion Neurological: General: No focal deficit present. Mental Status: She is alert and oriented to person, place, and time. Mental status is at baseline. Cranial Nerves: No cranial nerve deficit. Motor: No weakness. Psychiatric: Mood and Affect: Mood normal. Behavior: Behavior normal. No visits with results within 1 Year(s) from this visit. Latest known visit with results is: [facility] Encounter on 03/17/2018 Component Date Value Ref Range Status ANTI-NUCLEAR ANTIBODY (TIA) 03/17/2018 NEGATIVE NEGATIVE Final Anti-SM 03/17/2018 <0.2 AI Final Comment: REF VALUES < 1.0 = NEGATIVE >=1.0 = POSITIVE Anti-LEGAL COORDINATOR 03/17/2018 <0.2 AI Final Comment: REF VALUES < 1.0 = NEGATIVE >=1.0 = POSITIVE Anti-SM/LEGAL COORDINATOR 03/17/2018 <0.2 AI Final Comment: REF VALUES < 1.0 = NEGATIVE >=1.0 = POSITIVE Anti-SSA 03/17/2018 <0.2 AI Final Comment: REF VALUES < 1.0 = NEGATIVE >=1.0 = POSITIVE Anti-SSB 03/17/2018 <0.2 AI Final Comment: REF VALUES < 1.0 = NEGATIVE >=1.0 = POSITIVE Anti-SCL-70 03/17/2018 <0.2 AI Final Comment: REF VALUES < 1.0 = NEGATIVE >=1.0 = POSITIVE Anti-TERESA-1 IgG 03/17/2018 <0.2 AI Final Comment: REF VALUES < 1.0 = NEGATIVE >=1.0 = POSITIVE Anti-Chromatin 03/17/2018 <0.2 AI Final Comment: REF VALUES < 1.0 = NEGATIVE >=1.0 = POSITIVE Anti-Centromere 03/17/2018 <0.2 AI Final Comment: REF VALUES < 1.0 = NEGATIVE >=1.0 = POSITIVE Anti-Ribosomal P 03/17/2018 <0.2 AI Final Comment: REF VALUES < 1.0 = NEGATIVE >=1.0 = POSITIVE Anti-DNA (DS) 03/17/2018 3.0 IU/mL Final Comment: REF VALUES NEGATIVE: <= 4 IU/ML EQUIVOCAL: 5- 9 IU/ML POSITIVE: >=10 IU/ML Sedimentation Rate 03/17/2018 37 (H) 0 - 30 mm/h Final Rheumatoid Factor 03/17/2018 <10 0 - 15 IU/mL Final CRP 03/17/2018 1.45 (A) mg/dL Final Comment: REF VALUE < 1.00 Current Outpatient Medications on File Prior to Visit Medication Sig Dispense Refill carvedilol (Coreg) 12.5 mg tablet Take 1 tablet (12.5 mg) by mouth 2 times a day. clindamycin (Cleocin) 150 mg capsule TAKE 4 CAPSULES BY MOUTH ONE HOUR PRIOR TO DENTAL PROCEDURE digoxin (Lanoxin) 125 MCG tablet Take 1 tablet (125 mcg) by mouth once daily. enoxaparin (Lovenox) 100 mg/mL syringe INJECT 1 ML INTO THE SKIN 2 TIMES DAILY furosemide (Lasix) 20 mg tablet Take 1 tablet (20 mg) by mouth once daily. levothyroxine (Synthroid, Levoxyl) 75 mcg tablet Take 1 tablet (75 mcg) by mouth once daily in the morning. Take before meals. 90 tablet 3 lisinopril 2.5 mg tablet Take 1 tablet (2.5 mg) by mouth once daily. pravastatin (Pravachol) 40 mg tablet Take 1 tablet (40 mg) by mouth once daily. spironolactone (Aldactone) 25 mg tablet Take 1 tablet (25 mg) by mouth once daily. warfarin (Coumadin) 4 mg tablet Take by mouth. 2mg 5 days a week, 4mg 2 days a week No current facility-administered medications on file prior to visit. No images are attached to the encounter. Assessment/Plan Problem List Items Addressed This Visit Atrial fibrillation (CMS/HCC) - Primary Elevated fasting glucose Hypothyroidism Class 2 obesity with body mass index (BMI) of 36.0 to 36.9 in adult Cardiomyopathy, dilated (CMS/HCC) (Chronic) Dyslipidemia Hyperlipidemia (Chronic) Relevant Orders ECG 12 Lead (Completed) Anemia Relevant Orders Iron and TIBC (Completed) Ferritin (Completed) POCT Fecal occult immunoassay-ifob manually resulted Vitamin B12 (Completed) Dyspnea Relevant Orders XR chest 2 views (Completed) documented in this encounter [facility] Work Phone: 01-23-2023 Instructions Melissa Del Rio DO - 01/23/2023 3:00 PM EDT Slight anemia noted. Lab studies are going to be performed including iron, ferritin, TIBC level vitamin B12 level also being performed. Doing fecal occult blood test because of the anemia. Chest x-ray going to be performed because of the shortness of breath with exertion. You have a follow-up appointment to see cardiology in the next 3 days. I do recommend no heavy activity. Were reviewed with you today. Please continue to work toward weight loss. Please follow 1500-calorie diet If any troubles with chest pain or shortness of breath should change, please call 911 and go to the ER. EKG performed and reviewed. Atrial fibrillation noted. Heart rate [address]-T wave changes appreciated. documented in this encounter [facility] Work Phone: 01-21-2023 Telephone encounter Note Pt called, lvm yesterday. She said that she is scheduled for dental work on 01/22. She needs rx [facility] [place], [place]. [facility] 01-21-2023 Miscellaneous Notes Pt called, lvm yesterday. She said that she is scheduled for dental work on 01/22. She needs rx [facility] [place] [place]. documented in this encounter [facility] 11-01-2022 Evaluation + Plan note Associated Problem(s): History of mitral valve replacement Doing well having echocardiogram performed by cardiology. [facility] Work Phone: 11-01-2022 Evaluation + Plan note Associated Problem(s): Atrial fibrillation, chronic (CMS/HCC) Remains anticoagulated. Rate has been well controlled. Please continue to follow-up with cardiology [facility] Work Phone: 11-01-2022 Evaluation + Plan note Associated Problem(s): Cardiomyopathy, dilated (CMS/HCC) This has been stable please continue to follow-up with cardiology [facility] Work Phone: 11-01-2022 Miscellaneous Notes Associated Problem(s): History of mitral valve replacement Doing well having echocardiogram performed by cardiology. Associated Problem(s): Atrial fibrillation, chronic (CMS/HCC) Remains anticoagulated. Rate has been well controlled. Please continue to follow-up with cardiology Associated Problem(s): Cardiomyopathy, dilated (CMS/HCC) This has been stable please continue to follow-up with cardiology Associated Problem(s): Arthralgia Continued pain in left elbow would like for you to see sales account specialist to help with this. documented in this encounter [facility] Work Phone: 11-01-2022 Evaluation + Plan note Associated Problem(s): Arthralgia Continued pain in left elbow would like for you to see sales account specialist to help with this. [facility] Work Phone: 10-31-2022 History of Present illness Narrative Subjective Patient ID: Hernan Walter is a 67 y.o. female who presents for 3 mo f/u . HPI patient presents for 3-month follow-up. Some elbow pain and discomfort. L elbow pain. Patient having persistent left elbow pain discomfort. Otherwise has been doing well. She did meet with sales account specialist as there is nothing else they can do having tremendous pain with flexion extension of the elbow tremendous amount of pain with internal and external rotation. Patient otherwise had no trouble with the thyroid no chest pain no shortness of breath no swelling of the legs or feet. No troubles with tremor. No troubles with fever or chills or night sweats. No swelling of the legs or feet. Osteoparthritis. Review of Systems Constitutional: Negative for appetite change and diaphoresis. HENT: Negative for congestion and dental problem. Eyes: Negative. Respiratory: Negative. Cardiovascular: Negative. Seeing Dr. Son Endocrine: Negative. Musculoskeletal: Positive for arthralgias. Objective BP 134/82 Pulse 73 Temp 36.4 C (97.6 F) BSA There is no height or weight on file to calculate BSA. Physical Exam Constitutional: Appearance: Normal appearance. HENT: Head: Normocephalic and atraumatic. Cardiovascular: Heart sounds: Murmur heard. Neurological: Mental Status: She is alert. Obesity noted. Decreased range of motion noted of the elbow with flexion extension pronation supination. Strong handgrip strength appreciated. +1 edema noted to lower extremities. No visits with results within 1 Year(s) from this visit. Latest known visit with results is: [facility] Encounter on 03/17/2018 Component Date Value Ref Range Status ANTI-NUCLEAR ANTIBODY (TIA) 03/17/2018 NEGATIVE NEGATIVE Final Anti-SM 03/17/2018 <0.2 AI Final Comment: REF VALUES < 1.0 = NEGATIVE >=1.0 = POSITIVE Anti-LEGAL COORDINATOR 03/17/2018 <0.2 AI Final Comment: REF VALUES < 1.0 = NEGATIVE >=1.0 = POSITIVE Anti-SM/LEGAL COORDINATOR 03/17/2018 <0.2 AI Final Comment: REF VALUES < 1.0 = NEGATIVE >=1.0 = POSITIVE Anti-SSA 03/17/2018 <0.2 AI Final Comment: REF VALUES < 1.0 = NEGATIVE >=1.0 = POSITIVE Anti-SSB 03/17/2018 <0.2 AI Final Comment: REF VALUES < 1.0 = NEGATIVE >=1.0 = POSITIVE Anti-SCL-70 03/17/2018 <0.2 AI Final Comment: REF VALUES < 1.0 = NEGATIVE >=1.0 = POSITIVE Anti-TERESA-1 IgG 03/17/2018 <0.2 AI Final Comment: REF VALUES < 1.0 = NEGATIVE >=1.0 = POSITIVE Anti-Chromatin 03/17/2018 <0.2 AI Final Comment: REF VALUES < 1.0 = NEGATIVE >=1.0 = POSITIVE Anti-Centromere 03/17/2018 <0.2 AI Final Comment: REF VALUES < 1.0 = NEGATIVE >=1.0 = POSITIVE Anti-Ribosomal P 03/17/2018 <0.2 AI Final Comment: REF VALUES < 1.0 = NEGATIVE >=1.0 = POSITIVE Anti-DNA (DS) 03/17/2018 3.0 IU/mL Final Comment: REF VALUES NEGATIVE: <= 4 IU/ML EQUIVOCAL: 5- 9 IU/ML POSITIVE: >=10 IU/ML Sedimentation Rate 03/17/2018 37 (H) 0 - 30 mm/h Final Rheumatoid Factor 03/17/2018 <10 0 - 15 IU/mL Final CRP 03/17/2018 1.45 (A) mg/dL Final Comment: REF VALUE < 1.00 Current Outpatient Medications on File Prior to Visit Medication Sig Dispense Refill carvedilol (Coreg) 12.5 mg tablet Take 1 tablet (12.5 mg) by mouth 2 times a day. clindamycin (Cleocin) 150 mg capsule TAKE 4 CAPSULES BY MOUTH ONE HOUR PRIOR TO DENTAL PROCEDURE digoxin (Lanoxin) 125 MCG tablet Take 1 tablet (125 mcg) by mouth once daily. enoxaparin (Lovenox) 100 mg/mL syringe INJECT 1 ML INTO THE SKIN 2 TIMES DAILY levothyroxine (Synthroid, Levoxyl) 75 mcg tablet Take 1 tablet (75 mcg) by mouth once daily in the morning. Take before meals. 90 tablet 0 lisinopril 2.5 mg tablet Take 1 tablet (2.5 mg) by mouth once daily. pravastatin (Pravachol) 40 mg tablet Take 1 tablet (40 mg) by mouth once daily. spironolactone (Aldactone) 25 mg tablet Take 1 tablet (25 mg) by mouth once daily. warfarin (Coumadin) 4 mg tablet Take by mouth. 2mg 5 days a week, 4mg 2 days a week furosemide (Lasix) 20 mg tablet Take 1 tablet (20 mg) by mouth once daily. No current facility-administered medications on file prior to visit. No images are attached to the encounter. Assessment/Plan Problem List Items Addressed This Visit Arthralgia Hypothyroidism RESOLVED: Left elbow pain Mitral valve replaced Rheumatic heart disease Cardiomyopathy, dilated (CMS/HCC) - Primary (Chronic) Atrial fibrillation, chronic (CMS/HCC) (Chronic) Hypothyroidism, unspecified History of mitral valve replacement documented in this encounter [facility] Work Phone: 10-31-2022 Instructions Melissa Del Rio DO - 10/31/2022 3:40 PM EDT Recommend seeing wildlife removal specialist going to give the information to see Dr. Thurman TSH level is at goal please continue present thyroid dosing. Recommend follow-up in the next 6 months. Going to have you see specialist regarding persistent elbow pain to see if there is something that can be done. documented in this encounter [facility] Work Phone: 07-25-2022 History of Present illness Narrative Anticoagulation Episode Summary Current INR goal: 3.0-4.0 TTR: 55.0 % (3.4 mo) Next INR check: 08/25/2022 INR from last check: 3.7 (07/24/2022) Weekly max warfarin dose: Target end date: INR check location: Preferred lab: Send INR reminders to: [facility] [employer]URNED [employer] RECEIVING CLERK Comments: Will have pt continue same dose and recheck in month. PC called today 07/29/22. Informed her to continue with same dose and recheck in month. documented in this encounter [facility] [employer] 07-18-2022 Evaluation + Plan note Associated Problem(s): Hypothyroidism Starting thyroid supplement would like to recheck TSH level in [address] [facility] Work Phone: 07-18-2022 Miscellaneous Notes Associated Problem(s): Hypothyroidism Starting thyroid supplement would like to recheck TSH level in 8 weeks. Associated Problem(s): Class 2 obesity with body mass index (BMI) of 36.0 to 36.9 in adult Please continue to follow dietary guidelines closely. Would like to see demonstrated weight loss. Associated Problem(s): Atrial fibrillation (CMS/HCC) Atrial fibrillation stable rate well controlled. documented in this encounter [facility] Work Phone: 07-18-2022 Evaluation + Plan note Associated Problem(s): Class 2 obesity with body mass index (BMI) of 36.0 to 36.9 in adult Please continue to follow dietary guidelines closely. Would like to see demonstrated weight loss. [facility] Work Phone: 07-18-2022 Evaluation + Plan note Associated Problem(s): Atrial fibrillation (CMS/HCC) Atrial fibrillation stable rate well controlled. [facility] Work Phone: 07-18-2022 History of Present illness Narrative Subjective Patient ID: Hernan Walter is a 66 y.o. female who presents for Follow-up (labs). Surgery to remove the manda. Hair brittle. TSH remains elevated. Has been brittle. Feels like she is running low thyroid at this time. She had been on Synthroid in the past. She has had no chest pain or shortness of breath no swelling in the legs or feet. She does have persistent elbow pain. She had a manda removed from the left elbow area and now is having pain she would like to see rheumatology to look at this. She is seeing orthopedic doctor but still having quite a bit of pain Weight gain HPI Review of Systems Constitutional: Negative for appetite change and fatigue. Respiratory: Negative. Cardiovascular: Negative. Gastrointestinal: Negative. Musculoskeletal: Positive for arthralgias. Pain in the left elbow. Pain with flexion extension and movement of the left elbow. Neurological: Negative. Negative for dizziness. Objective BP 112/60 Pulse 90 Temp 36.2 C (97.1 F) Ht 1.626 m (5' 4) Wt 97.1 kg (214 lb) SpO2 95% BMI 36.73 kg/m Physical Exam Constitutional: Appearance: Normal appearance. HENT: Head: Normocephalic. Cardiovascular: Comments: Heart is of irregular rate and rhythm. Grade 1/6 stock ejection murmur. Musculoskeletal: Comments: Decreased range of motion noted in the left elbow with flexion extension and pronation supination. Neurological: Mental Status: She is alert. Assessment/Plan Problem List Items Addressed This Visit Circulatory Atrial fibrillation (CMS/HCC) - Primary Atrial fibrillation stable rate well controlled. Endocrine/Metabolic Hypothyroidism Starting thyroid supplement would like to recheck TSH level in 8 weeks. Relevant Medications levothyroxine (Synthroid, Levoxyl) 75 mcg tablet Class 2 obesity with body mass index (BMI) of 36.0 to 36.9 in adult Please continue to follow dietary guidelines closely. Would like to see demonstrated weight loss. Other Visit Diagnoses Elbow pain, chronic, left Relevant Orders Referral to Rheumatology documented in this encounter [facility] Work Phone: 07-18-2022 Instructions Melissa Del Rio DO - 07/18/2022 3:20 PM EST Starting thyroid supplement this time. Going to recheck this in 8 weeks a TSH level. Referring to rheumatology regarding persistent elbow pain. Would like to have follow-up with TSH in 8 weeks. Atrial fibrillation is stable please continue to follow-up with cardiology. documented in this encounter [facility] Work Phone: 07-09-2022 Telephone encounter Note Pt called said that she is scheduled for dental clng on 07/14, [facility] [place] [place] 07-09-2022 Miscellaneous Notes Pt called said that she is scheduled for dental clng on 07/14, requesting rx [facility] [place] [place]. documented in this encounter [facility] 07-03-2022 Telephone encounter Note I faxed order to [facility] in [place] [employer]. [facility] 07-03-2022 Miscellaneous Notes I faxed order to [facility] in [place] [employer]. See anticoagulation encounter. Pt would like new order faxed to [employer] [address] [facility]. It says her goal is 3.0-4.0, so I would have her continue her current dosing and recheck 2 weeks. Pt was 2.6 -05/16/22. Yesterday 3.8. pt takes 2 mg 2 days week and 4 mg all other days. Please advise? I rec'd a fax from [employer], dated for 07/02/22, INR 3.8. documented in this encounter [facility] 07-03-2022 Telephone encounter Note See anticoagulation encounter. Pt would like new order faxed to [facility] [employer]. [facility] 07-03-2022 Telephone encounter Note It says her goal is 3.0-4.0, so I would have her continue her current dosing and recheck 2 weeks. [facility] [employer] Work Phone: 07-03-2022 Telephone encounter Note Pt was 2.6 -05/16/22. Yesterday 3.8. pt takes 2 mg 2 days week and 4 mg all other days. Please advise? [facility] 07-03-2022 Telephone encounter Note I rec'd a fax from [employer], dated for 07/02/22, INR 3.8. [facility] 05-15-2022 History of Present illness Narrative Images from the original note were not included. [facility] [address] [place] [address] Dept: [phone] 05/15/2022 Chief Complaint Patient presents with Follow-up Left elbow radial head removal on 01/14/22 EFRAIN Demarco returns today in follow-up regarding left elbow. She is approximately 4 months s/p left lebow radial head removal. Her last appointment was approximately 2.5 months ago. At her last appointment she was treated with formal physical therapy [facility] and OTC medication as needed. She reports slight improvement with ROM and pain. Continues to have quite a bit of left elbow pain. States it bothers her at night and with ADLs. Notices crepitation and pain inhibition. Range of motion is improved since her last visit. Past Medical History: Diagnosis Date Arthritis Atrial fibrillation, chronic (CMS/HCC) (HCC) Cardiomegaly Cardiomyopathy, dilated (CMS/HCC) (HCC) Cerebral artery occlusion with cerebral infarction (CMS/HCC) (HCC) Endometriosis h/o reason for hyster H/O cardiovascular stress test H/O echocardiogram History of blood transfusion 1998 x6 post hysterectomy Hyperlipidemia Mitral valve disorder 1989- 01/21 IN [place] Paroxysmal atrial fibrillation (CMS/HCC) (HCC) Presence of prosthetic heart valve Rheumatic heart disease Thyroid disease hypothroidism- NO MEDS TIA (transient ischemic attack) x2 Social History Socioeconomic History Marital status: Single Spouse name: Not on file Number of children: Not on file Years of education: Not on file Highest education level: Not on file Occupational History Not on file Tobacco Use Smoking status: Former Types: Cigarettes Quit date: 05/06/2010 Years since quittin.0 Smokeless tobacco: Never Substance and Sexual Activity Alcohol use: Yes Drug use: No Sexual activity: Not on file Other Topics Concern Not on file Social History Narrative Not on file Social Determinants of Health Financial Resource Strain: Not on file Food Insecurity: Not on file Transportation Needs: Not on file Physical Activity: Not on file Stress: Not on file Social Connections: Not on file Intimate Partner Violence: Not on file Housing Stability: Not on file OBJECTIVE BP 116/74 Temp 36.1 C (96.9 F) Ht 5' 5.5 (1.664 m) Wt 210 lb (95.3 kg) BMI 34.41 kg/m Ortho Exam Focused Exam of the LEFT Upper Extremity ROM: ELBOW Flexion 140 deg Extension -20 deg Supination 80 deg Pronation 80 deg Incision is well-healed. Residual soft tissue swelling lateral elbow. Neurovascular intact in the hand. IMAGING XRay: None NCT/EMG (Copied Impression) None PROCEDURE Procedure Note: Injection Elbow The LEFT Radiocapitellar Joint was identified as the injection site. I discussed the risks/benefits of a corticosteroid injection to include but not be limited to infection, subcutaneous fat atrophy, elevated blood glucose, local redness and pain. After discussion of the risk/benefits the patient elected to proceed. Under sterile conditions, the elbow was injected with a mixture of 1 mL of 1% Lidocaine and 1 mL of Celestone (6mg/mL) without complication. A sterile bandage was applied. Hernan tolerated the procedure well without complication. I advised Hernan of the expected response, possible reactions and the instructions for care of her elbow ASSESSMENT 1. Arthritis of left elbow 2. H/O elbow surgery PLAN Hernan has a dramatic improvement with regards to her elbow range of motion although she still quite painful. I recommended corticosteroid injection. We also discussed anti-inflammatory medication but she is taking ibuprofen 800 mg at night which seems to be in the skin or through the evenings. If she continues to have symptoms she is to call the office to be reevaluated in person. I recommend she continue with OTC medications. Immobilization: NO immobilization required at this point - FULL ROM all joints encouraged Weight Bearing: Weight Bearing As Tolerated through left sided upper extremity Rehabilitation: Home Exercise Program Follow-up: Hernan will followup with me on an as needed basis. She knows to call the office with any questions or concerns in the interim. Future Imaging: NONE Humberto Yu MD Hand and Upper Extremity Surgery [facility] Department of Orthopaedics and Sports Medicine 05/15/2022 at 9:45 AM (Please note that portions of this note may have been completed with a voice recognition program. Efforts were made to edit the dictations but occasionally words are mis-transcribed.) documented in this encounter [facility] 04-02-2022 History of Present illness Narrative Patients Response to Today's Treatment: orthosis - independent with don/doffing.Patient able to complete most activities w/ several breaks and tons of encouragement, patient requiring extensive education to keep moving arm at home d/t arm being stiff from lack of movement over past several days. LUE extremely tight this date, several adhesions found in L forearm, bicep and elbow region that have been recently broke down with cupping, IASTM and Manual massage d/t lack of use and carry over at home. Patient Strongly encouraged to call for early follow up d/t high pain and patient not having an appointment until the middle of May 2022. 10/10 pain reported with exercises this date session ended early d/t high pain and unable to complete hammer activity. Patient states she is going on vacation this weekend and will call when she has time and unsure when that would be.Patient was able to complete today's treatment with much difficulty. [facility] Work Phone: 01-14-2022 Hospital Discharge instructions Gerson ePrez PA-C - 01/14/2022 4:05 PM EDT Bandage: Keep operative splint/dressing on, clean, and dry until follow up appointment in 1-2 weeks. Swelling control: Elevate and Ice for pain control. Immobilization: Encourage range of motion of index finger, long finger, ring finger, little finger, thumb in splint/dressing with goal of touching finger tips to splint material/dressing in palm by initial post op appointment. Weightbearing: Non weight bearing in operative extremity. Nerve block for pain control: If you have any questions regarding your nerve block and/or catheter, please refer to the information packet provided in your post op folder. You can also call (generic nurse) or [phone] and page [facility] interior design consultant for further questions or concerns. Okay to discontinue sling once the nerve block has worn off and motor function as well as sensation has returned to your arm. documented in this encounter [facility] Work Phone: 01-14-2022 History of Present illness Narrative HERNAN BRITO was evaluated today for s/p radial head implant removal on 01/14/22 . HERNAN presents with deficits in elbow/wrist and finger ROM, pain management, ADLs/IADLS, edema, scar management. HERNAN would benefit from regular outpatient OT x2 /week for 6 weeks in order to improve AROM/PROM, strengthening, coordination, scar management, pain management and activity tolerance to improve functional independence in ADLs/IADLs/work tasks. HERNAN BRITO presents with good prognosis considering supportive factors such as age, motivation, PLOF with consideration of onset of condition 7 years ago. HERNAN BRITO presents with good understanding and teach back of today's education and provides input into goals/POC.Interdisciplinary Team Communication: occupational therapy . [facility] Work Phone: 01-14-2022 History of Present illness Narrative SCDs applied to BLE documented in this encounter [facility] Work Phone: 01-07-2022 History of Present illness Narrative LVM for patient to call back to do PTPC. Patient given Coumadin holding instructions and Lovenox bridging instructions by Dr. Son ( [facility]) for upcoming surgery on 01/14/22. documented in this encounter [facility] Work Phone: 11-17-2021 History of Present illness Narrative Patients Response to Today's Treatment: orthosis - independent with don/doffing.Patient c/o increased pain 7/10 w/ PROM flexion and 5/10 w/ extension, patient demos increased ROM and decreased pain post stretching and cupping, states arm is sore. Patient c/o intense pain in dorsal forearm with light pressure prior to cupping then stating it does not hurt anymore there at all post cupping. Patient demos understanding of potential bruising and to drink water.Patient was able to complete today's treatment with much difficulty. [facility] Work Phone: 10-18-2021 History of Present illness Narrative Patient very tearful and painful throughout session w/ STM, retrograde massage and PROM, patient requiring several breaks throughout session. 6/10 pain reported at end of session in L Lateral wrist, elbow and tricep.Patient was able to complete today's treatment with some difficulty. [facility] Work Phone: 10-18-2021 History of Present illness Narrative Patient refusing cupping this date and asking therapist to stop w/ STM d/t high increase in pain. Patient continues to demo little to no improvement, c/o of fatigue and 6/10 pain at end of session. Patient has several adhesions in L tricep and distal bicep, educated to massage at home several times a day. Patient demos extreme difficulty w/ tasks this date unable to finish block stacking task stating I cannot close my hand anymore I think I am done patient strongly encouraged to stretch and finish activity to improve overall healing process. Patient states she is unable to lift arm off of table to stack/un stack last two towers of blocks. Patient strongly educated to continue massage and exercises at home.Patient was able to complete today's treatment with some difficulty. [facility] Work Phone: 10-18-2021 History of Present illness Narrative Patient unable to push Dystrophile on 2lb setting, however able to push 11lb ball back and forth on table. Patient unable to complete hammer exercise states hammer is too heavy and she is unable to turn it. Max A to hold L arm to attempt to complete activity. Patient strongly encouraged to continue hammer and isometric exercises at home w/ other exercises. reporting 6/10 pain in elbow and forearm at end of session.Patient was able to complete today's treatment with much difficulty. [facility] Work Phone: 10-18-2021 History of Present illness Narrative Patients Response to Today's Treatment: orthosis - independent with don/doffing.Patient c/o 6/10 pain with exercises this date, patient given 2lb DB states I am unable to pick that up off the table given 1lb DB to complete exercises. Patient educated to continue with exercises at home for strengthening.Patient was able to complete today's treatment with much difficulty. [facility] Work Phone: 10-18-2021 History of Present illness Narrative Patients Response to Today's Treatment: orthosis - independent with don/doffing.Patient c/o 6/10 pain with exercises this date, patient given 2lb DB states I am unable to pick that up off the table given 1lb DB to complete exercises. Patient educated to continue with exercises at home for strengthening.Patient was able to complete today's treatment with much difficulty. [facility] Work Phone: 05-07-2021 Miscellaneous Notes Attempted to call patient she needs to talk to our Financial services department prior to scheduling her due to insurance being out of network. No voicemail available. Stefani Saravia May 07, 2021 4:19 PM ----- Message from Joleen Parson sent at 05/07/2021 3:57 PM EST ----- Regarding: Ortho/Mae/Robert/unable to reach Patient name: Hernan Brito, : 1955, called to request see about whom was calling her today to set up her appointment? I told her it was in process and she should hear back before Thursday. Please contact the patient at [phone] (home) . Thank you, Joleen Parson May 07, 2021 3:58 PM documented in this encounter [facility] 05-06-2021 Miscellaneous Notes Information given to Stefani, she will check with Dr. Wall and Dr. Jones to see if either one of them can see this patient. She will let me know after she receives an answer. Rayshawn Marin [employer] Spoke with patient regarding x-ray results. X-ray results reveal: IMPRESSION: Abnormal lucency adjacent to the stem of the radial head component causing mild expansion of the proximal radial shaft. Findings are suspicious for hardware loosening or particle disease. Severe arthrosis of the radial-ulnar articulation. Multiple probable loose bodies in the medial joint space. Recommend further evaluation and treatment options by an elbow specialist. Will have field secretary reach out to you to assist with scheduling. Continue conservative treatment as discussed in office including ice/ice massage, gentle range of motion, and if no known side effects or contraindications tylenol for pain if needed 500-1000mg per dose up to 3000mg per day. Avoid nsaids due to taking coumadin. Monitor for red flags including but not limited to acute significantly increased pain, significant decreased ROM, numbness or tingling or focal weakness and seek immediate evaluation if any red flags present. All questions answered. Patient voices understanding and is in agreement with treatment plan. Jania Garrido APRN.CNP May 06, 2021 3:25 PM documented in this encounter [facility] 05-06-2021 History of Present illness Narrative Radiology Service Progress Note PATIENT NAME: Hernan Brito DATE OF SERVICE: May 06, 2021 TIME: 1:54 PM PATIENT IDENTITY VERIFICATION COMPLETED USING TWO (2) IDENTIFIERS: Name and Date of confirmed by patient verbally and Name and Date of confirmed by identification band. FALL SCREENING: Has the patient had 2 falls in the last year or 1 fall with injury or currently using an Ambulatory Assistive Device (Walker, Cane, Wheelchair, Crutches, etc.)? No PATIENT GENDER DATA: Female. status: : No status: NO. PATIENT RELEVANT IMPLANT DATA REVIEWED: Not Applicable RADIOLOGY DEPARTMENT: General X-ray: Exam(s) Completed: Upper Extremity X-Ray(s): Elbow, left PERIPHERAL IV DATA: Not applicable SIGNED BY: RT Sharon(R) May 06, 2021 1:54 PM documented in this encounter [facility] 05-06-2021 History of Present illness Narrative HPI: [facility] arm pain Points to proximal radius as area of most pain Reports pain for the past 6 months that has gotten progressively worse. Denies any recent injury and/or trauma. Reports 7 years ago having a manda placed in her upper forearm due to a fall that caused a shattered radius. Unsure of the surgeons name. Pain at rest 2/10 At times pain is up to 10/10 but unable to state aggravating factors. Decreased ROM-- no Strength-- No Has tried heat, ice, nsaids-800mg nightly, compression-tod wrap, topical biofreeze, CBD lotion Previous imaging of this area-7 years ago Previous injury, fracture or surgery to the area-7 years ago surgery to have manda place. Denies swelling Denies bruising Denies increased warmth/erythema Denies numbness/tingling Right handed. PAST MEDICAL HISTORY Diagnosis Date Atrial fibrillation (HCC) Dyslipidemia H/O hysterectomy with oophorectomy H/O mitral valve replacement 1989 Hypothyroidism, unspecified Obesity (BMI 30-39.9) PAST SURGICAL HISTORY Procedure Laterality Date REPLACEMENT OF MITRAL VALVE TONSILLECTOMY HX Social History Tobacco Use Smoking status: Former Smoker Years: 30.00 Types: Cigarettes Quit date: 05/06/2010 Years since quittin.0 Smokeless tobacco: Never Used Substance Use Topics Alcohol use: Yes Comment: occasional Drug use: No Current Outpatient Medications Medication Sig levothyroxine (SYNTHROID) 50 mcg tablet TAKE 2 TABLETS (100MCG) BY MOUTH EVERY DAY levothyroxine (SYNTHROID) 100 mcg tablet Take 1 tablet by mouth once daily. 6 days weekly carvedilol (COREG) 12.5 mg tablet digoxin (LANOXIN) 125 mcg tablet furosemide (LASIX) 20 mg tablet lisinopril 2.5 mg tablet pravastatin (PRAVACHOL) 40 mg tablet spironolactone (ALDACTONE) 25 mg tablet warfarin (COUMADIN) 4 mg tablet CALCIUM PHOSPHATE DIBAS/VIT D3 (VITAMIN D, WITH CALCIUM, ORAL) Take by mouth. No current facility-administered medications for this visit. ALLERGIES Allergen Reactions Amoxicillin Unknown Ceclor [Cefaclor] Unknown Penicillins Unknown Resp 18 Ht 5' 6 (1.68m) Wt 185 lb (83.9kg) BMI 29.87 kg/(m^2). ROS: I have reviewed and agree with the ROS performed and documented within this office visit EXAM: General: Alert and oriented 3 in no apparent distress. Gait: Normal gait without assistance Head: Normocephalic and atraumatic Psyche: Normal affect, good insight and eye contact, no irritability or inappropriate behavior Skin: Skin condition is healthy without rashes or erythema. Cadiovascular: Normal palpable distal pulses without focal edema or swelling Neck: Supple with no JVD Lymph: There is no palpable enlargement or tenderness Pulmonary: Non labored breathing and no pursed lips. There is no evidence of cyanosis. Neuro: There are no focal neurologic deficits--normal gross sensory function Left Elbow exam: Healed surgical incision but no other visible abnormality and/or deformity. Slightly limited ROM--15 degree extension lag which patient reports is baseline since surgery 7 years ago. Full active ROM with flexion. Moderate pain with palpation along the proximal radius but no other focal pain on exam. No palpable defects in the distal triceps or biceps tendons--moderate pain with resisted extension more than resisted flexion but no significant pain with resisted wrist flexion, extension pronation or supination. No effusion, localized swelling, bruising, erythema or increased warmth. Grossly normal strength 5/5 except biceps and triceps limited to 4/5. ASSESSMENT: (M25.522) Left elbow pain (primary encounter diagnosis) (Z98.890) H/O elbow surgery PLAN: X-rays ordered to be completed downstairs and interpreted by radiology. Will call with results. Recommend conservative treatment including intermittent gentle ROM, lifting limited as tolerated. Intermittent ice or ice massage and if no known side effects or contraindications tylenol for pain if needed 500-1000mg per dose up to 3000mg per day. Avoid nsaids due to taking coumadin. Recommend follow up with an elbow specialist for further evaluation and treatment options if persistent/worsening pain. Discussed red flags including but not limited to acute significantly increased pain, decreased ROM, numbness or tingling or focal weakness and will seek immediate evaluation if any red flags present. All questions answered and patient voiced understanding and agreement with testing and treatment plan. Jania Garrido APRN.PROJECT MANAGEMENT PROFESSOR During this patient visit I have spent approximately 30 minutes out of 35 in counseling regarding treatment options, medications and test results and coordinating care. REVIEW OF SYSTEMS: GENERAL: Well developed, well nourished. No acute distress PAIN: Pain LT ARM CARDIOVASCULAR: Negative for chest pain, leg swelling and palpations. MSK: Negative for joint swelling SKIN: Negative for lesions, rash, itching, metal sensitivity NEURO: Negative for seizure, trauma, numbness/tingling of extremities. ENDOCRINE: Negative for diabetic associated symptoms HEMATOLOGY: WARFARIN documented in this encounter [facility] 05-06-2021 Instructions Jania Garrido APRN.MULUGETA - 05/06/2021 1:19 PM EST Obtain x-rays downstairs. Will call with results. Ice pack or Ice massage with ice cup made in papercup 3-5 min 2-3 times a day If no known side effects or contraindications tylenol for pain if needed 500-1000mg per dose up to 3000mg per day. Avoid nsaids due to taking coumadin. Gentle Range of Motion Follow up with elbow specialist for further evaluation and treatment options if persistent/worsening pain Discussed red flags including but not limited to acute significantly increased pain, significant decreased ROM, numbness or tingling or focal weakness and will seek immediate evaluation if any red flags present. documented in this encounter [facility] 08-13-2009 History of Present illness Narrative Pt reporting increased pain with ROM arc, demos lack of control with release of rings, unable to complete full reps decreased to 2 full ROM. Pt reporting icnreased pain with towel activity, demos ability to complete all reps. Encouraged to limited use fo RUE to assist LUE. pt reporting 4-5/10 pain at end of session.Patient was able to complete today's treatment with some difficulty.Interdisciplinary Team Communication: occupational therapy . [facility] Work Phone: Evaluation note Diagnosis Left elbow pain- Primary Pain in joint, upper arm H/O elbow surgery Personal history of surgery to other organs [facility] Diagnosis Left elbow pain Pain in joint, upper arm [facility] Diagnosis Painful orthopaedic hardware (HCC)- Primary documented in this encounter [facility] Work Phone: Evaluation note* Diagnosis Cardiomyopathy, ischemic Other specified forms of chronic ischemic heart disease [facility] Diagnosis Cardiomyopathy, dilated (CMS/HCC)- Primary Acquired hypothyroidism Unspecified hypothyroidism Atrial fibrillation, chronic (CMS/HCC) Rheumatic heart disease Unspecified rheumatic heart disease Hypothyroidism, unspecified type Pain in other joint Left elbow pain Pain in joint, upper arm Mitral valve replaced Heart valve replaced by other means Chronic atrial fibrillation (CMS/HCC) Atrial fibrillation Class 2 severe obesity due to excess calories with serious comorbidity and body mass index (BMI) of 36.0 to 36.9 in adult (CMS/HCC) Mitral valve disorder Mitral valve disorders History of mitral valve replacement Heart valve replaced by other means documented in this encounter [facility] Work Phone: Evaluation note* Diagnosis Longstanding persistent atrial fibrillation (CMS/HCC)- Primary Cardiomyopathy, dilated (CMS/HCC) Dyslipidemia Other and unspecified hyperlipidemia Elevated fasting glucose Impaired fasting glucose Hyperlipidemia, unspecified hyperlipidemia type Hypothyroidism, unspecified type Anemia, unspecified type Dyspnea, unspecified type Class 2 severe obesity due to excess calories with serious comorbidity and body mass index (BMI) of 36.0 to 36.9 in adult (CMS/HCC) documented in this encounter [facility] Work Phone: Evaluation note* Diagnosis History of MVR with cardiopulmonary bypass- Primary Cardiomyopathy, dilated (HCC) Atrial fibrillation, chronic (HCC) Chronic anticoagulation Encounter for long-term (current) use of anticoagulants Angina of effort Other and unspecified angina pectoris Near syncope Angina of effort- Primary Other and unspecified angina pectoris History of MVR with cardiopulmonary bypass Cardiomyopathy, dilated (HCC) Atrial fibrillation, chronic (HCC) Chronic anticoagulation Encounter for long-term (current) use of anticoagulants History of MVR with cardiopulmonary bypass Cardiomyopathy, dilated (HCC) Atrial fibrillation, chronic (HCC) Chronic anticoagulation Encounter for long-term (current) use of anticoagulants Angina of effort Other and unspecified angina pectoris [facility] Angina of effort- Primary Other and unspecified angina pectoris History of MVR with cardiopulmonary bypass Cardiomyopathy, dilated (HCC) Atrial fibrillation, chronic (HCC) Chronic anticoagulation Encounter for long-term (current) use of anticoagulants Anemia, unspecified type History of MVR with cardiopulmonary bypass Cardiomyopathy, dilated (HCC) Atrial fibrillation, chronic (HCC) Chronic anticoagulation Encounter for long-term (current) use of anticoagulants Angina of effort Other and unspecified angina pectoris [facility] Diagnosis Angina of effort- Primary Other and unspecified angina pectoris History of MVR with cardiopulmonary bypass Cardiomyopathy, dilated (HCC) Atrial fibrillation, chronic (HCC) Chronic anticoagulation Encounter for long-term (current) use of anticoagulants NUÑEZ (dyspnea on exertion) Other dyspnea and respiratory abnormality History of MVR with cardiopulmonary bypass Cardiomyopathy, dilated (HCC) Atrial fibrillation, chronic (HCC) Chronic anticoagulation Encounter for long-term (current) use of anticoagulants Angina of effort Other and unspecified angina pectoris [facility] Diagnosis Atrial fibrillation, chronic (HCC) H/O mitral valve replacement with mechanical valve [facility] current use of anticoagulant therapy [facility] Diagnosis H/O mitral valve replacement with mechanical valve Atrial fibrillation, chronic (HCC) Chronic anticoagulation Encounter for long-term (current) use of anticoagulants [facility] Diagnosis H/O mitral valve replacement with mechanical valve Atrial fibrillation, chronic (HCC) Chronic anticoagulation Encounter for long-term (current) use of anticoagulants [facility] Diagnosis Atrial fibrillation, chronic (HCC) H/O mitral valve replacement with mechanical valve intermodal owner operator truck driver current use of anticoagulant therapy documented [facility]* Diagnosis H/O mitral valve replacement with mechanical valve Atrial fibrillation, chronic (HCC) Chronic anticoagulation Encounter for long-term (current) use of anticoagulants [facility] Diagnosis Atrial fibrillation, chronic (HCC) H/O mitral valve replacement with mechanical valve intermodal owner operator truck driver current use of anticoagulant therapy documented [facility] encounter [facility]* Diagnosis H/O mitral valve replacement with mechanical valve Atrial fibrillation, chronic (HCC) Chronic anticoagulation Encounter for long-term (current) use of anticoagulants [facility] Diagnosis Shortness of breath- Primary H/O mitral valve replacement with mechanical valve Cardiomyopathy, dilated (HCC) Atrial fibrillation, chronic (HCC) Chronic anticoagulation Encounter for long-term (current) use of anticoagulants documented in this encounter [facility] note* Diagnosis Cardiomyopathy, dilated (HCC) H/O mitral valve replacement with mechanical valve [facility] Diagnosis Mixed hyperlipidemia Atrial fibrillation, chronic (HCC) Chronic anticoagulation Encounter for long-term (current) use of anticoagulants Shortness of breath Cardiomyopathy, dilated (HCC) On statin therapy High risk medication use [facility] Diagnosis Shortness of breath- Primary H/O mitral valve replacement with mechanical valve Rheumatic heart disease Unspecified rheumatic heart disease Atrial fibrillation, chronic (HCC) Chronic anticoagulation Encounter for long-term (current) use of anticoagulants Mixed hyperlipidemia [facility] Diagnosis Mitral valve disorder Mitral valve disorders Atrial fibrillation, chronic (HCC) Chronic anticoagulation Encounter for long-term (current) use of anticoagulants [facility] Diagnosis Acquired hypothyroidism- Primary Unspecified hypothyroidism Longstanding persistent atrial fibrillation (CMS/HCC) Elbow pain, chronic, left Class 2 severe obesity due to excess calories with serious comorbidity and body mass index (BMI) of 36.0 to 36.9 in adult (CMS/HCC) documented in this encounter [facility] Work Phone: Evaluation note* Diagnosis Arthritis of left elbow H/O elbow surgery [facility] Diagnosis Cardiomyopathy, ischemic- Primary Other specified forms of chronic ischemic heart disease [facility]* Diagnosis Acquired hypothyroidism- Primary Unspecified hypothyroidism Longstanding persistent atrial fibrillation (Multi) Elbow pain, chronic, left Class 2 severe obesity due to excess calories with serious comorbidity and body mass index (BMI) of 36.0 to 36.9 in adult Cardiomyopathy, dilated (Multi)- Primary Acquired hypothyroidism Unspecified hypothyroidism Atrial fibrillation, chronic (Multi) Rheumatic heart disease Unspecified rheumatic heart disease Hypothyroidism, unspecified type Pain in other joint Left elbow pain Pain in joint, upper arm Mitral valve replaced Heart valve replaced by other means Chronic atrial fibrillation (Multi) Atrial fibrillation Class 2 severe obesity due to excess calories with serious comorbidity and body mass index (BMI) of 36.0 to 36.9 in adult Mitral valve disorder Mitral valve disorders History of mitral valve replacement Heart valve replaced by other means Routine general medical examination at health care facility- Primary Routine general medical examination at a health care facility Arthralgia, unspecified joint Longstanding persistent atrial fibrillation (Multi) Elevated fasting glucose Impaired fasting glucose Hypothyroidism, unspecified type Mitral valve replaced Heart valve replaced by other means Class 2 severe obesity due to excess calories with serious comorbidity and body mass index (BMI) of 36.0 to 36.9 in adult Cardiomyopathy, dilated (Multi) Mitral valve disorder Mitral valve disorders Dyslipidemia Other and unspecified hyperlipidemia Arthralgia of both hands History of mitral valve replacement Heart valve replaced by other means Type 2 diabetes mellitus without complication, without long-term current use of insulin (Multi) Post-menopausal Asymptomatic postmenopausal status (age-related) (natural) Screening mammogram for breast cancer Colon cancer screening Special screening for malignant neoplasms, colon documented in this encounter [facility] Work Phone: Evaluation note* Diagnosis S/P MVR (mitral valve replacement) Heart valve replaced by other means Atrial fibrillation, chronic (CMS/HCC) (HCC) On anticoagulant therapy [facility]* Diagnosis Acquired hypothyroidism- Primary Unspecified hypothyroidism Longstanding persistent atrial fibrillation (Multi) Elbow pain, chronic, left Class 2 severe obesity due to excess calories with serious comorbidity and body mass index (BMI) of 36.0 to 36.9 in adult Cardiomyopathy, dilated (Multi)- Primary Acquired hypothyroidism Unspecified hypothyroidism Atrial fibrillation, chronic (Multi) Rheumatic heart disease Unspecified rheumatic heart disease Hypothyroidism, unspecified type Pain in other joint Left elbow pain Pain in joint, upper arm Mitral valve replaced Heart valve replaced by other means Chronic atrial fibrillation (Multi) Atrial fibrillation Class 2 severe obesity due to excess calories with serious comorbidity and body mass index (BMI) of 36.0 to 36.9 in adult Mitral valve disorder Mitral valve disorders History of mitral valve replacement Heart valve replaced by other means Routine general medical examination at health care facility- Primary Routine general medical examination at a health care facility Arthralgia, unspecified joint Longstanding persistent atrial fibrillation (Multi) Elevated fasting glucose Impaired fasting glucose Hypothyroidism, unspecified type Mitral valve replaced Heart valve replaced by other means Class 2 severe obesity due to excess calories with serious comorbidity and body mass index (BMI) of 36.0 to 36.9 in adult Cardiomyopathy, dilated (Multi) Mitral valve disorder Mitral valve disorders Dyslipidemia Other and unspecified hyperlipidemia Arthralgia of both hands History of mitral valve replacement Heart valve replaced by other means Type 2 diabetes mellitus without complication, without long-term current use of insulin (Multi) Post-menopausal Asymptomatic postmenopausal status (age-related) (natural) Screening mammogram for breast cancer Colon cancer screening Special screening for malignant neoplasms, colon Class 2 severe obesity due to excess calories with serious comorbidity and body mass index (BMI) of 36.0 to 36.9 in adult- Primary Type 2 diabetes mellitus without complication, without long-term current use of insulin (Multi) documented in this encounter [facility] Work Phone: Evaluation note* Diagnosis Acquired hypothyroidism- Primary Unspecified hypothyroidism Longstanding persistent atrial fibrillation (Multi) Elbow pain, chronic, left Class 2 severe obesity due to excess calories with serious comorbidity and body mass index (BMI) of 36.0 to 36.9 in adult Cardiomyopathy, dilated (Multi)- Primary Acquired hypothyroidism Unspecified hypothyroidism Atrial fibrillation, chronic (Multi) Rheumatic heart disease Unspecified rheumatic heart disease Hypothyroidism, unspecified type Pain in other joint Left elbow pain Pain in joint, upper arm Mitral valve replaced Heart valve replaced by other means Chronic atrial fibrillation (Multi) Atrial fibrillation Class 2 severe obesity due to excess calories with serious comorbidity and body mass index (BMI) of 36.0 to 36.9 in adult Mitral valve disorder Mitral valve disorders History of mitral valve replacement Heart valve replaced by other means Routine general medical examination at health care facility- Primary Routine general medical examination at a health care facility Arthralgia, unspecified joint Longstanding persistent atrial fibrillation (Multi) Elevated fasting glucose Impaired fasting glucose Hypothyroidism, unspecified type Mitral valve replaced Heart valve replaced by other means Class 2 severe obesity due to excess calories with serious comorbidity and body mass index (BMI) of 36.0 to 36.9 in adult Cardiomyopathy, dilated (Multi) Mitral valve disorder Mitral valve disorders Dyslipidemia Other and unspecified hyperlipidemia Arthralgia of both hands History of mitral valve replacement Heart valve replaced by other means Type 2 diabetes mellitus without complication, without long-term current use of insulin (Multi) Post-menopausal Asymptomatic postmenopausal status (age-related) (natural) Screening mammogram for breast cancer Colon cancer screening Special screening for malignant neoplasms, colon Arthralgia of both hands documented in this encounter [facility] Work Phone: Evaluation note* Diagnosis Acquired hypothyroidism- Primary Unspecified hypothyroidism Longstanding persistent atrial fibrillation (Multi) Elbow pain, chronic, left Class 2 severe obesity due to excess calories with serious comorbidity and body mass index (BMI) of 36.0 to 36.9 in adult Cardiomyopathy, dilated (Multi)- Primary Acquired hypothyroidism Unspecified hypothyroidism Atrial fibrillation, chronic (Multi) Rheumatic heart disease Unspecified rheumatic heart disease Hypothyroidism, unspecified type Pain in other joint Left elbow pain Pain in joint, upper arm Mitral valve replaced Heart valve replaced by other means Chronic atrial fibrillation (Multi) Atrial fibrillation Class 2 severe obesity due to excess calories with serious comorbidity and body mass index (BMI) of 36.0 to 36.9 in adult Mitral valve disorder Mitral valve disorders History of mitral valve replacement Heart valve replaced by other means Routine general medical examination at health care facility- Primary Routine general medical examination at a health care facility Arthralgia, unspecified joint Longstanding persistent atrial fibrillation (Multi) Elevated fasting glucose Impaired fasting glucose Hypothyroidism, unspecified type Mitral valve replaced Heart valve replaced by other means Class 2 severe obesity due to excess calories with serious comorbidity and body mass index (BMI) of 36.0 to 36.9 in adult Cardiomyopathy, dilated (Multi) Mitral valve disorder Mitral valve disorders Dyslipidemia Other and unspecified hyperlipidemia Arthralgia of both hands History of mitral valve replacement Heart valve replaced by other means Type 2 diabetes mellitus without complication, without long-term current use of insulin (Multi) Post-menopausal Asymptomatic postmenopausal status (age-related) (natural) Screening mammogram for breast cancer Colon cancer screening Special screening for malignant neoplasms, colon Post-menopausal Asymptomatic postmenopausal status (age-related) (natural) documented in this encounter [facility] Work Phone: Evaluation note* Diagnosis Acquired hypothyroidism- Primary Unspecified hypothyroidism Longstanding persistent atrial fibrillation (Multi) Elbow pain, chronic, left Class 2 severe obesity due to excess calories with serious comorbidity and body mass index (BMI) of 36.0 to 36.9 in adult Cardiomyopathy, dilated (Multi)- Primary Acquired hypothyroidism Unspecified hypothyroidism Atrial fibrillation, chronic (Multi) Rheumatic heart disease Unspecified rheumatic heart disease Hypothyroidism, unspecified type Pain in other joint Left elbow pain Pain in joint, upper arm Mitral valve replaced Heart valve replaced by other means Chronic atrial fibrillation (Multi) Atrial fibrillation Class 2 severe obesity due to excess calories with serious comorbidity and body mass index (BMI) of 36.0 to 36.9 in adult Mitral valve disorder Mitral valve disorders History of mitral valve replacement Heart valve replaced by other means Routine general medical examination at health care facility- Primary Routine general medical examination at a health care facility Arthralgia, unspecified joint Longstanding persistent atrial fibrillation (Multi) Elevated fasting glucose Impaired fasting glucose Hypothyroidism, unspecified type Mitral valve replaced Heart valve replaced by other means Class 2 severe obesity due to excess calories with serious comorbidity and body mass index (BMI) of 36.0 to 36.9 in adult Cardiomyopathy, dilated (Multi) Mitral valve disorder Mitral valve disorders Dyslipidemia Other and unspecified hyperlipidemia Arthralgia of both hands History of mitral valve replacement Heart valve replaced by other means Type 2 diabetes mellitus without complication, without long-term current use of insulin (Multi) Post-menopausal Asymptomatic postmenopausal status (age-related) (natural) Screening mammogram for breast cancer Colon cancer screening Special screening for malignant neoplasms, colon Screening mammogram for breast cancer documented in this encounter [facility] Work Phone: Evaluation note* Diagnosis Acquired hypothyroidism- Primary Unspecified hypothyroidism Longstanding persistent atrial fibrillation (Multi) Elbow pain, chronic, left Class 2 severe obesity due to excess calories with serious comorbidity and body mass index (BMI) of 36.0 to 36.9 in adult Cardiomyopathy, dilated (Multi)- Primary Acquired hypothyroidism Unspecified hypothyroidism Atrial fibrillation, chronic (Multi) Rheumatic heart disease Unspecified rheumatic heart disease Hypothyroidism, unspecified type Pain in other joint Left elbow pain Pain in joint, upper arm Mitral valve replaced Heart valve replaced by other means Chronic atrial fibrillation (Multi) Atrial fibrillation Class 2 severe obesity due to excess calories with serious comorbidity and body mass index (BMI) of 36.0 to 36.9 in adult Mitral valve disorder Mitral valve disorders History of mitral valve replacement Heart valve replaced by other means Routine general medical examination at health care facility- Primary Routine general medical examination at a health care facility Arthralgia, unspecified joint Longstanding persistent atrial fibrillation (Multi) Elevated fasting glucose Impaired fasting glucose Hypothyroidism, unspecified type Mitral valve replaced Heart valve replaced by other means Class 2 severe obesity due to excess calories with serious comorbidity and body mass index (BMI) of 36.0 to 36.9 in adult Cardiomyopathy, dilated (Multi) Mitral valve disorder Mitral valve disorders Dyslipidemia Other and unspecified hyperlipidemia Arthralgia of both hands History of mitral valve replacement Heart valve replaced by other means Type 2 diabetes mellitus without complication, without long-term current use of insulin (Multi) Post-menopausal Asymptomatic postmenopausal status (age-related) (natural) Screening mammogram for breast cancer Colon cancer screening Special screening for malignant neoplasms, colon Type 2 diabetes mellitus without complication, without long-term current use of insulin (Multi)- Primary Obesity (BMI 30-39.9) Class 2 severe obesity due to excess calories with serious comorbidity and body mass index (BMI) of 36.0 to 36.9 in adult documented in this encounter [facility] Work Phone: Evaluation note* Diagnosis Acquired hypothyroidism- Primary Unspecified hypothyroidism Longstanding persistent atrial fibrillation (Multi) Elbow pain, chronic, left Class 2 severe obesity due to excess calories with serious comorbidity and body mass index (BMI) of 36.0 to 36.9 in adult Cardiomyopathy, dilated (Multi)- Primary Acquired hypothyroidism Unspecified hypothyroidism Atrial fibrillation, chronic (Multi) Rheumatic heart disease Unspecified rheumatic heart disease Hypothyroidism, unspecified type Pain in other joint Left elbow pain Pain in joint, upper arm Mitral valve replaced Heart valve replaced by other means Chronic atrial fibrillation (Multi) Atrial fibrillation Class 2 severe obesity due to excess calories with serious comorbidity and body mass index (BMI) of 36.0 to 36.9 in adult Mitral valve disorder Mitral valve disorders History of mitral valve replacement Heart valve replaced by other means Routine general medical examination at health care facility- Primary Routine general medical examination at a health care facility Arthralgia, unspecified joint Longstanding persistent atrial fibrillation (Multi) Elevated fasting glucose Impaired fasting glucose Hypothyroidism, unspecified type Mitral valve replaced Heart valve replaced by other means Class 2 severe obesity due to excess calories with serious comorbidity and body mass index (BMI) of 36.0 to 36.9 in adult Cardiomyopathy, dilated (Multi) Mitral valve disorder Mitral valve disorders Dyslipidemia Other and unspecified hyperlipidemia Arthralgia of both hands History of mitral valve replacement Heart valve replaced by other means Type 2 diabetes mellitus without complication, without long-term current use of insulin (Multi) Post-menopausal Asymptomatic postmenopausal status (age-related) (natural) Screening mammogram for breast cancer Colon cancer screening Special screening for malignant neoplasms, colon Longstanding persistent atrial fibrillation (Multi)- Primary Dehydration Dyspnea, unspecified type Bronchitis Bronchitis, not specified as acute or chronic documented in this encounter [facility] Work Phone: Evaluation note* Diagnosis Acquired hypothyroidism- Primary Unspecified hypothyroidism Longstanding persistent atrial fibrillation (Multi) Elbow pain, chronic, left Class 2 severe obesity due to excess calories with serious comorbidity and body mass index (BMI) of 36.0 to 36.9 in adult Cardiomyopathy, dilated (Multi)- Primary Acquired hypothyroidism Unspecified hypothyroidism Atrial fibrillation, chronic (Multi) Rheumatic heart disease Unspecified rheumatic heart disease Hypothyroidism, unspecified type Pain in other joint Left elbow pain Pain in joint, upper arm Mitral valve replaced Heart valve replaced by other means Chronic atrial fibrillation (Multi) Atrial fibrillation Class 2 severe obesity due to excess calories with serious comorbidity and body mass index (BMI) of 36.0 to 36.9 in adult Mitral valve disorder Mitral valve disorders History of mitral valve replacement Heart valve replaced by other means Routine general medical examination at health care facility- Primary Routine general medical examination at a health care facility Arthralgia, unspecified joint Longstanding persistent atrial fibrillation (Multi) Elevated fasting glucose Impaired fasting glucose Hypothyroidism, unspecified type Mitral valve replaced Heart valve replaced by other means Class 2 severe obesity due to excess calories with serious comorbidity and body mass index (BMI) of 36.0 to 36.9 in adult Cardiomyopathy, dilated (Multi) Mitral valve disorder Mitral valve disorders Dyslipidemia Other and unspecified hyperlipidemia Arthralgia of both hands History of mitral valve replacement Heart valve replaced by other means Type 2 diabetes mellitus without complication, without long-term current use of insulin (Multi) Post-menopausal Asymptomatic postmenopausal status (age-related) (natural) Screening mammogram for breast cancer Colon cancer screening Special screening for malignant neoplasms, colon Longstanding persistent atrial fibrillation (Multi)- Primary Dehydration Dyspnea, unspecified type Bronchitis Bronchitis, not specified as acute or chronic Type 2 diabetes mellitus without complication, without long-term current use of insulin (Multi)- Primary Class 2 severe obesity due to excess calories with serious comorbidity and body mass index (BMI) of 36.0 to 36.9 in adult Obesity (BMI 30-39.9) documented in this encounter [facility] Work Phone: Evaluation noteNo assessment information available [facility] Work Phone: Evaluation note* Diagnosis Acquired hypothyroidism- Primary Unspecified hypothyroidism Longstanding persistent atrial fibrillation (Multi) Elbow pain, chronic, left Class 2 severe obesity due to excess calories with serious comorbidity and body mass index (BMI) of 36.0 to 36.9 in adult Cardiomyopathy, dilated (Multi)- Primary Acquired hypothyroidism Unspecified hypothyroidism Atrial fibrillation, chronic (Multi) Rheumatic heart disease Unspecified rheumatic heart disease Hypothyroidism, unspecified type Pain in other joint Left elbow pain Pain in joint, upper arm Mitral valve replaced Heart valve replaced by other means Chronic atrial fibrillation (Multi) Atrial fibrillation Class 2 severe obesity due to excess calories with serious comorbidity and body mass index (BMI) of 36.0 to 36.9 in adult Mitral valve disorder Mitral valve disorders History of mitral valve replacement Heart valve replaced by other means Routine general medical examination at health care facility- Primary Routine general medical examination at a health care facility Arthralgia, unspecified joint Longstanding persistent atrial fibrillation (Multi) Elevated fasting glucose Impaired fasting glucose Hypothyroidism, unspecified type Mitral valve replaced Heart valve replaced by other means Class 2 severe obesity due to excess calories with serious comorbidity and body mass index (BMI) of 36.0 to 36.9 in adult Cardiomyopathy, dilated (Multi) Mitral valve disorder Mitral valve disorders Dyslipidemia Other and unspecified hyperlipidemia Arthralgia of both hands History of mitral valve replacement Heart valve replaced by other means Type 2 diabetes mellitus without complication, without long-term current use of insulin Post-menopausal Asymptomatic postmenopausal status (age-related) (natural) Screening mammogram for breast cancer Colon cancer screening Special screening for malignant neoplasms, colon Longstanding persistent atrial fibrillation (Multi)- Primary Dehydration Dyspnea, unspecified type Bronchitis Bronchitis, not specified as acute or chronic Longstanding persistent atrial fibrillation (Multi)- Primary Cardiomyopathy, dilated (Multi) BMI 33.0-33.9,adult Type 2 diabetes mellitus without complication, without long-term current use of insulin Cervical (neck) region somatic dysfunction Nonallopathic lesion of cervical region, not elsewhere classified documented in this encounter [facility] Work Phone: Evaluation note* Diagnosis Acquired hypothyroidism- Primary Unspecified hypothyroidism Longstanding persistent atrial fibrillation (Multi) Elbow pain, chronic, left Class 2 severe obesity due to excess calories with serious comorbidity and body mass index (BMI) of 36.0 to 36.9 in adult Cardiomyopathy, dilated (Multi)- Primary Acquired hypothyroidism Unspecified hypothyroidism Atrial fibrillation, chronic (Multi) Rheumatic heart disease Unspecified rheumatic heart disease Hypothyroidism, unspecified type Pain in other joint Left elbow pain Pain in joint, upper arm Mitral valve replaced Heart valve replaced by other means Chronic atrial fibrillation (Multi) Atrial fibrillation Class 2 severe obesity due to excess calories with serious comorbidity and body mass index (BMI) of 36.0 to 36.9 in adult Mitral valve disorder Mitral valve disorders History of mitral valve replacement Heart valve replaced by other means Routine general medical examination at health care facility- Primary Routine general medical examination at a health care facility Arthralgia, unspecified joint Longstanding persistent atrial fibrillation (Multi) Elevated fasting glucose Impaired fasting glucose Hypothyroidism, unspecified type Mitral valve replaced Heart valve replaced by other means Class 2 severe obesity due to excess calories with serious comorbidity and body mass index (BMI) of 36.0 to 36.9 in adult Cardiomyopathy, dilated (Multi) Mitral valve disorder Mitral valve disorders Dyslipidemia Other and unspecified hyperlipidemia Arthralgia of both hands History of mitral valve replacement Heart valve replaced by other means Type 2 diabetes mellitus without complication, without long-term current use of insulin Post-menopausal Asymptomatic postmenopausal status (age-related) (natural) Screening mammogram for breast cancer Colon cancer screening Special screening for malignant neoplasms, colon Longstanding persistent atrial fibrillation (Multi)- Primary Dehydration Dyspnea, unspecified type Bronchitis Bronchitis, not specified as acute or chronic Longstanding persistent atrial fibrillation (Multi)- Primary Cardiomyopathy, dilated (Multi) BMI 33.0-33.9,adult Type 2 diabetes mellitus without complication, without long-term current use of insulin Cervical (neck) region somatic dysfunction Nonallopathic lesion of cervical region, not elsewhere classified Type 2 diabetes mellitus without complication, without long-term current use of insulin- Primary Class 2 severe obesity due to excess calories with serious comorbidity and body mass index (BMI) of 36.0 to 36.9 in adult documented in this encounter [facility] Work Phone: Evaluation note* Diagnosis Acquired hypothyroidism- Primary Unspecified hypothyroidism Longstanding persistent atrial fibrillation (Multi) Elbow pain, chronic, left Class 2 severe obesity due to excess calories with serious comorbidity and body mass index (BMI) of 36.0 to 36.9 in adult Cardiomyopathy, dilated (Multi)- Primary Acquired hypothyroidism Unspecified hypothyroidism Atrial fibrillation, chronic (Multi) Rheumatic heart disease Unspecified rheumatic heart disease Hypothyroidism, unspecified type Pain in other joint Left elbow pain Pain in joint, upper arm Mitral valve replaced Heart valve replaced by other means Chronic atrial fibrillation (Multi) Atrial fibrillation Class 2 severe obesity due to excess calories with serious comorbidity and body mass index (BMI) of 36.0 to 36.9 in adult Mitral valve disorder Mitral valve disorders History of mitral valve replacement Heart valve replaced by other means Routine general medical examination at health care facility- Primary Routine general medical examination at a health care facility Arthralgia, unspecified joint Longstanding persistent atrial fibrillation (Multi) Elevated fasting glucose Impaired fasting glucose Hypothyroidism, unspecified type Mitral valve replaced Heart valve replaced by other means Class 2 severe obesity due to excess calories with serious comorbidity and body mass index (BMI) of 36.0 to 36.9 in adult Cardiomyopathy, dilated (Multi) Mitral valve disorder Mitral valve disorders Dyslipidemia Other and unspecified hyperlipidemia Arthralgia of both hands History of mitral valve replacement Heart valve replaced by other means Type 2 diabetes mellitus without complication, without long-term current use of insulin Post-menopausal Asymptomatic postmenopausal status (age-related) (natural) Screening mammogram for breast cancer Colon cancer screening Special screening for malignant neoplasms, colon Longstanding persistent atrial fibrillation (Multi)- Primary Dehydration Dyspnea, unspecified type Bronchitis Bronchitis, not specified as acute or chronic Longstanding persistent atrial fibrillation (Multi)- Primary Cardiomyopathy, dilated (Multi) BMI 33.0-33.9,adult Type 2 diabetes mellitus without complication, without long-term current use of insulin Cervical (neck) region somatic dysfunction Nonallopathic lesion of cervical region, not elsewhere classified Type 2 diabetes mellitus without complication, without long-term current use of insulin- Primary Class 2 severe obesity due to excess calories with serious comorbidity and body mass index (BMI) of 36.0 to 36.9 in adult documented in this encounter [facility] Work Phone: History of Present illness Narrative* Pt reporting significant pain with all PROM this date, reps limited to 5. Pt demos good understanding of increasing HEP frequency to x3/day. * Patient was able to complete today's treatment with some difficulty. * Interdisciplinary Team Communication: occupational therapy . [facility] Work Phone: History of Present illness Narrative* Patient reporting increased pain with all exercises this date in L elbow, patient unable to lift L arm off of able for Juxacisor activity wedge provided for elevation. Extended time for all activities d/t decreased ROM and increased pain. * Patient was able to complete today's treatment with some difficulty. [facility] Work Phone: History of Present illness Narrative* Pt demos significant difficulty tolerating PROM, cupping and STM with light/moderate pressure. pt requiring cues to keep breathing though exercises. Pt refusing IASTM this date or continued cupping, only allowing STM but requests light pressure. Pt reporting pain with light pressure and with AROM/PROM this date. Pt demos good understanding of wearing compression sleeve to faciliate edema management. * Patient was able to complete today's treatment with some difficulty. [facility] Work Phone: History of Present illness Narrative* The last health maintenance visit was 1 year year(s) ago. The patient's health since the last visitis described as good. There are no interval changes in the patient's PMH, PSH, and current medications. There are no interval changes in the patient's social and family history. She has regular dental visits. She denies vision problems. She denies hearing loss. Immunizations status: not up to date . Requires Shingrix vaccination. * Lifestyle: She does not have a healthy diet. She does not have any weight concerns. She does not exercise regularly (7 days per week for 1 hour per day). She exercises for 30 or more minutes per session. Exercise includes walking, aerobic conditioning and biking. She does not use tobacco. She consum es alcohol (Vodka and sprite rarely). She reports occasional alcohol use and drinking 1 drinks per week. She typically drinks hard liquor, but no wine consumption. * Reproductive health: the patient is postmenopausal. 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 * Cervical cancer screening:. patient has a history of an abnormal pap smear. yes rufused pap. * Breast cancer screening:. mammogram ordered. 2019. * Colorectal Cancer Screening: agreeing to do net year. a colonoscopy was performed within the past ten years. * Metabolic screening: lipid profile performed 03/10/18 and glucose screening performed November 2017. * L wrist pain. Patient just had surgery performed on her left wrist. She has been doing well after this. * Patient otherwise has been doing better. * She is recently been she is very happy with this. * She has not been watching the diet as well as she should. * Patient continues to follow-up with cardiology. Patient with history of mitral valve replacement. * Patient with history rheumatic heart disease. * Patient is status post hysterectomy. She is had no troubles with vaginal bleeding or rectal bleeding. She is had no troubles with headache or double vision or blurring vision. No troubles with sore throat or difficulty swallowing. No abdominal pain or discomfort. * Colonoscopy [place]. * 2011. -[facility] Work Phone: History of Present illness Narrative* Patient demos increased ROM and decreased pain this date w/ exercises and cupping, Patient refusingto do cupping at first after extensive encouragement patient agreeing to try it again. * Patient was able to complete today's treatment with some difficulty. [facility] Work Phone: History of Present illness Narrative* Pt demos significant improvements with re-eval this date. Pt has met goals with ROM this date. Pt was assessed for barn hand strength and FMC this date as protocol now has no limitations. Pt is still verypainful with ROM this date but demonstrates increase of 65 degrees of flexion. Pt still presenting with decreased ROM, ADLs/IADLs, FMC, pain management. Pt would continue to benefit from additional skilled therapy services. Extend POC to address new/updated goals. * Patient was able to complete today's treatment with some difficulty. [facility] Work Phone: History of Present illness Narrative* Patient requiring extensive encouragement for arm ladder and sliding towel up wall for elbow extension d/t increase in pain. Patient asking to use R hand to hold L arm up several times stating I can't do it several times w/ attempting only 1x each, patient requiring [employer] and extra encouragement tocomplete task. * Patient was able to complete today's treatment with some difficulty. [facility] Work Phone: Hisliry of Present illness Narrative* Pt tolerating IASTM and US much better this date. Pt muscles very tight at beginning of session butdemos increased elbow extension at end of session. Educated to keep arm down and extended rather than flexed and guarded. * Patient was able to complete today's treatment with much difficulty. [facility] Work Phone: History of Present illness Narrative* Extended time and several breaks required for dowel activity patient c/o increased pain during at activity and at end of session. * Patient was able to complete today's treatment with much difficulty. [facility] Work Phone: Hisedas of Present illness Narrative* Patient tolerating cupping well this date, states elbow feels really good at end of session. * Patient was able to complete today's treatment with much difficulty. [facility] Work Phone: Hisbhnr of Present illness Narrative* Patient tolerating cupping well this date, states elbow feels really good at end of session. * Patient was able to complete today's treatment with much difficulty. [facility]: Hisegbe of Present illness Narrative* Patient c/o increased pain w/ activities this date, patient states she is unable to flex elbow thisdate d/t yesterdays session. * Patient was able to complete today's treatment with much difficulty. [facility] Work Phone: Hisyrdw of Present illness Narrative* Patient c/o increased pain w/ activities this date, patient states she is unable to flex elbow thisdate d/t yesterdays session. * Patient was able to complete today's treatment with much difficulty. [facility] Work Phone: Hospital Discharge instructions* Attachments The following attachments cannot be sent through Care Everywhere. * Colonoscopy Discharge Instructions (Greenlandic) * Moderate Sedation in Adults Discharge Instructions (Greenlandic) [facility] Name Dates Details Instructions not documented -[facility] Work Phone: Reason for referral (narrative)* Diagnostic Procedure Only (Urgent) - Closed Specialty Diagnoses / Procedures Referred By Contac t Referred To Contact XR IMAGING Diagnoses Left elbow pain Procedures XR ELBOW SPECIAL VIEWS AP/LAT/OTHER LEFT X-RAY ELBOW MINIMUM 3 VIEWS Jania Garrido, JOB.PROJECT MANAGEMENT PROFESSOR [address] [place] [address] Xr Imaging Referral ID Status Reason Start Date Expiration Date V isits Requested Visits Authorized [id number] Closed Auto-Generate d Referral 05/06/2021 06/05/2022 1 1 [facility] for referral (narrative)* Diagnostic Procedure Only (Urgent) - Closed Specialty Diagnoses / Procedures Referred By Contac t Referred To Contact XR IMAGING Diagnoses Left elbow pain Procedures XR ELBOW SPECIAL VIEWS AP/LAT/OTHER LEFT X-RAY ELBOW MINIMUM 3 VIEWS Jania Garrido APRN.CNP [address] [facility] [address] [place] [address] Xr Imaging Referral ID Status Reason Start Date Expiration Date V isits Requested Visits Authorized [id number] Closed Auto-Generate d Referral 05/06/2021 06/05/2022 1 1 [facility] for referral (narrative)* Consultation (Routine) - Authorized Specialty Diagnoses / Procedures Referred By Contac t Referred To Contact Rheumatology Diagnoses Pain in other joint Procedures VA OFFICE/OUTPATIENT NEW HIGH MDM 60-74 MINUTES Melissa Del Rio DO [address] [facility] [place] [address] Referral ID Status Reason Start Date Expiration Date Visits Requested Visits Authorized [id number] Authorized Specialty Services Required 10/31/2022 04/29/[address] [facility] Work Phone: Reason for referral (narrative)* Consultation (Routine) - Authorized Specialty Diagnoses / Procedures Referred By Contac t Referred To Contact Primary Care Diagnoses Acquired hypothyroidism Procedures Follow Up In Advanced Primary Care - PCP Melissa Del Rio DO [address] [facility] [place] [address] Referral ID Status Reason Start Date Expiration Date V isits Requested Visits Authorized [id number] Authorized 07/18/2022 01/14/2023 1 1 * Consultation (Routine) - Authorized Specialty Diagnoses / Procedures Referred By Clair t Referred To Contact Rheumatology Diagnoses Elbow pain, chronic, left Procedures VA OFFICE/OUTPATIENT NEW HIGH MDM 60-74 MINUTES Melissa Del Rio DO [address] [facility] [place] [address] Referral ID Status Reason Start Date Expiration Date Visits Requested Visits Authorized [id number] Authorized Specialty Services Required 07/18/2022 01/14/[address] [facility] Work Phone: Reason for referral (narrative)No reason for referral information [facility]: Reason for visit Narrative* Diagnostic Procedure Only (Urgent) - Closed Specialty Diagnoses / Procedures Referred By Clair t Referred To Contact XR IMAGING Diagnoses Left elbow pain Procedures XR ELBOW SPECIAL VIEWS AP/LAT/OTHER LEFT X-RAY ELBOW MINIMUM 3 VIEWS Jania Garrido APRN.PROJECT MANAGEMENT PROFESSOR [address] [facility] [address] [place] [address] Xr Imaging Referral ID Status Reason Start Date Expiration Date V isits Requested Visits Authorized [id number] Closed Auto-Generate d Referral 05/06/2021 06/05/2022 1 [facility] Initial Evaluation, Evaluation and Treatment. * Reason for Referral: removal of L radial head. * [facility] Abiodun Hastings. [facility]: Reason for visit Narrative* Initial Evaluation, Evaluation and Treatment. * Reason for Referral: removal of L radial head. * Referred by Abiodun Hastings. [facility] Work [facility]: reason for visit Narrative* Initial Evaluation, Evaluation and Treatment. * Reason for Referral: removal of L radial head. * Referred by Abiodun Hastings. [facility] Work Phone: reason for visit Narrative* Initial Evaluation, Evaluation and Treatment. * Reason for Referral: removal of L radial head. * Referred by Abiodun Hastings. [facility] Work Phone: Reuemk for visit Narrative* Initial Evaluation, Evaluation and Treatment. * Reason for Referral: removal of L radial head. * Referred by Abiodun Hastings. [facility] Work Phone: Rejfkx for visit Narrative* Initial Evaluation, Evaluation and Treatment. * Reason for Referral: removal of L radial head. * Referred by Abiodun Hastings. [facility] Work Phone: Rerryh for visit Narrative* Initial Evaluation, Evaluation and Treatment. * Reason for Referral: removal of L radial head. * Referred by Abiodun Hastings. [facility] Work Phone: Reanev for visit Narrative* Initial Evaluation, Evaluation and Treatment. * Reason for Referral: removal of L radial head. * Referred by Abiodun Hastings. [facility] Work Phone: Rexvoi for visit Narrative* Initial Evaluation, Evaluation and Treatment. * Reason for Referral: removal of L radial head. * Referred by Abiodun Hastings. [facility] Work Phone: Rescyl for visit Narrative* Initial Evaluation, Evaluation and Treatment. * Reason for Referral: removal of L radial head. * Referred by Abiodun Hastings. [facility] Work Phone: Reydna for visit Narrative* Initial Evaluation, Evaluation and Treatment. * Reason for Referral: removal of L radial head. * Referred by Abiodun Hastings. [facility] Work Phone: Rebiyp for visit Narrative* Initial Evaluation, Evaluation and Treatment. * Reason for Referral: removal of L radial head. * Referred by Abiodun Hastings. [facility] Work Phone: reason for visit Narrative* Initial Evaluation, Evaluation and Treatment. * Reason for Referral: removal of L radial head. * Referred by Abiodun Hastings. [facility] Work Phone: Reason for visit Narrative* Initial Evaluation, Evaluation and Treatment. * Reason for Referral: removal of L radial head. * Referred by Abiodun Hastings. [facility] Work Phone: Reason for visit Narrative* Initial Evaluation, Evaluation and Treatment. * Reason for Referral: removal of L radial head. * Referred by Abiodun Hastings. [facility] Work Phone: Retvqm for visit Narrative* Initial Evaluation, Evaluation and Treatment. * Reason for Referral: removal of L radial head. * Referred by Abiodun Hastings. [facility] Work Phone: Reason for visit Narrative* Initial Evaluation, Evaluation and Treatment. * Reason for Referral: removal of L radial head. * Referred by Abiodun Hastings. [facility] Work Phone: Rerjzv for visit Narrative* Initial Evaluation, Evaluation and Treatment. * Reason for Referral: removal of L radial head. * Referred by Abiodun Hastings. [facility] Work Phone: Reason for visit Narrative* Initial Evaluation, Evaluation and Treatment. * Reason for Referral: removal of L radial head. * Referred by Abiodun Hatsings. [facility] Work Phone: Reason for visit Narrative* Initial Evaluation, Evaluation and Treatment. * Reason for Referral: removal of L radial head. * Referred by Abiodun Hastings. [facility] Work Phone: Reason for visit Narrative* Initial Evaluation, Evaluation and Treatment. * Reason for Referral: removal of L radial head. * Referred by Abiodun Hastings. [facility] Work Phone: reason for visit Narrative* Imaging (Routine) - Pending Review Specialty Diagnoses / Procedures Referred By Clair askew Referred To Contact Radiology Diagnoses Arthralgia of both hands Procedures XR hand 3+ views bilateral XR hand 1-2 views bilateral Melissa Del Rio, DO [address] [facility], [facility] [address] [place] [address] Phone: tel: fax: Referral ID Status Reason Start Date Expiration Date Visits Requested Visits Authorized [id number] Pending Review Perform Procedure 4 04/22/[address] [facility] Work Phone: reason for visit Narrative* Imaging (Routine) - Pending Review Specialty Diagnoses / Procedures Referred By Clair askew Referred To Contact Radiology Diagnoses Post-menopausal Procedures XR DEXA bone density Melissa Del Rio, DO [address] [facility], [address] [address] Phone: tel: fax: Referral ID Status Reason Start Date Expiration Date Visits Requested Visits Authorized [id number] Pending Review Perform Procedure 4 04/22/[address] [facility] Work Phone: reason for visit Narrative* Imaging (Routine) - Pending Review Specialty Diagnoses / Procedures Referred By Clair askew Referred To Contact Radiology Diagnoses Screening mammogram for breast cancer Procedures BI mammo bilateral screening tomosynthesis Melissa Del Rio, DO [address] [facility], [address] [address] Phone: tel: fax: Referral ID Status Reason Start Date Expiration Date Visits Requested Visits Authorized [id number] Pending Review Perform Procedure 4 04/22/[address] [facility] Work Phone: Reason for visit Narrative* Auth/Cert (Routine) Specialty Diagnoses / Procedures Referred By Contheather t Referred To Contact Diagnoses Encounter for screening for malignant neoplasm of colon Procedures VA COLONOSCOPY FLX DX W/COLLJ SPEC WHEN PFRMD COLONOSCOPY Toan Pena DO [address] [place] [address] Phone: tel: fax: [facility]oscopy [address] [place] [address] Phone: tel: Referral ID Status Reason Start Date Expiration Date Visits Re quested Visits Authorized [id number] 1 1 [facility] Health Summary Purpose Family History Mother Name Dates Details Family history of malignant neoplasm of breast(V16.3, Z80.3) Status:Active Father Name Dates Details Family history of Coronary A rtery Surgery Status:Active Grandfather Name Dates Details Family history of malignant neoplasm of prostate(V16.42, Z80.42) Status:Active Mother Name Dates Details Family history of malignant neoplasm of breast(V16.3, Z80.3) Status:Active Father Name Dates Details Family history of Coronary A rtery Surgery Status:Active Grandfather Name Dates Details Family history of malignant neoplasm of prostate(V16.42, Z80.42) Status:Active Unknown Family Member Name Dates Details Family history of malignant neoplasm of breast: Mother(V16.3, Z80.3) Status:Active Coronary Artery Surgery: Fat her Status:Active Family history of malignant neoplasm of prostate: Maternal Grandfather(V16.42, Z80.42) Status:Active Unknown Family Member Name Dates Details Family history of malignant neoplasm of prostate: Maternal Grandfather(V16.42, Z80.42) Status:Active Coronary Artery Surgery: Fat her Status:Active Family history of malignant neoplasm of breast: Mother(V16.3, Z80.3) Status:Active Unknown Family Member Name Dates Details Family history of malignant neoplasm of breast: Mother(V16.3, Z80.3) Status:Active Coronary Artery Surgery: Fat her Status:Active Family history of malignant neoplasm of prostate: Maternal Grandfather(V16.42, Z80.42) Status:Active Unknown Family Member Name Dates Details Family history of malignant neoplasm of prostate: Maternal Grandfather(V16.42, Z80.42) Status:Active Coronary Artery Surgery: Fat her Status:Active Family history of malignant neoplasm of breast: Mother(V16.3, Z80.3) Status:Active Unknown Family Member Name Dates Details Family history of malignant neoplasm of breast: Mother(V16.3, Z80.3) Status:Active Coronary Artery Surgery: Fat her Status:Active Family history of malignant neoplasm of prostate: Maternal Grandfather(V16.42, Z80.42) Status:Active Unknown Family Member Name Dates Details Family history of malignant neoplasm of breast: Mother(V16.3, Z80.3) Status:Active Coronary Artery Surgery: Fat her Status:Active Family history of malignant neoplasm of prostate: Maternal Grandfather(V16.42, Z80.42) Status:Active Unknown Family Member Name Dates Details Family history of malignant neoplasm of breast: Mother(V16.3, Z80.3) Status:Active Coronary Artery Surgery: Fat her Status:Active Family history of malignant neoplasm of prostate: Maternal Grandfather(V16.42, Z80.42) Status:Active Unknown Family Member Name Dates Details Family history of malignant neoplasm of breast: Mother(V16.3, Z80.3) Status:Active Coronary Artery Surgery: Fat her Status:Active Family history of malignant neoplasm of prostate: Maternal Grandfather(V16.42, Z80.42) Status:Active Unknown Family Member Name Dates Details Family history of malignant neoplasm of breast: Mother(V16.3, Z80.3) Status:Active Coronary Artery Surgery: Fat her Status:Active Family history of malignant neoplasm of prostate: Maternal Grandfather(V16.42, Z80.42) Status:Active Unknown Family Member Name Dates Details Family history of malignant neoplasm of breast: Mother(V16.3, Z80.3) Status:Active Coronary Artery Surgery: Fat her Status:Active Family history of malignant neoplasm of prostate: Maternal Grandfather(V16.42, Z80.42) Status:Active Unknown Family Member Name Dates Details Family history of malignant neoplasm of prostate: Maternal Grandfather(V16.42, Z80.42) Status:Active Coronary Artery Surgery: Fat her Status:Active Family history of malignant neoplasm of breast: Mother(V16.3, Z80.3) Status:Active Unknown Family Member Name Dates Details Family history of malignant neoplasm of breast: Mother(V16.3, Z80.3) Status:Active Coronary Artery Surgery: Fat her Status:Active Family history of malignant neoplasm of prostate: Maternal Grandfather(V16.42, Z80.42) Status:Active Unknown Family Member Name Dates Details Family history of malignant neoplasm of breast: Mother(V16.3, Z80.3) Status:Active Coronary Artery Surgery: Fat her Status:Active Family history of malignant neoplasm of prostate: Maternal Grandfather(V16.42, Z80.42) Status:Active Unknown Family Member Name Dates Details Family history of malignant neoplasm of breast: Mother(V16.3, Z80.3) Status:Active Coronary Artery Surgery: Fat her Status:Active Family history of malignant neoplasm of prostate: Maternal Grandfather(V16.42, Z80.42) Status:Active Unknown Family Member Name Dates Details Family history of malignant neoplasm of breast: Mother(V16.3, Z80.3) Status:Active Coronary Artery Surgery: Fat her Status:Active Family history of malignant neoplasm of prostate: Maternal Grandfather(V16.42, Z80.42) Status:Active Unknown Family Member Name Dates Details Family history of malignant neoplasm of breast: Mother(V16.3, Z80.3) Status:Active Coronary Artery Surgery: Fat her Status:Active Family history of malignant neoplasm of prostate: Maternal Grandfather(V16.42, Z80.42) Status:Active Unknown Family Member Name Dates Details Family history of malignant neoplasm of prostate: Maternal Grandfather(V16.42, Z80.42) Status:Active Coronary Artery Surgery: Fat her Status:Active Family history of malignant neoplasm of breast: Mother(V16.3, Z80.3) Status:Active Unknown Family Member Name Dates Details Family history of malignant neoplasm of prostate: Maternal Grandfather(V16.42, Z80.42) Status:Active Coronary Artery Surgery: Fat her Status:Active Family history of malignant neoplasm of breast: Mother(V16.3, Z80.3) Status:Active Unknown Family Member Name Dates Details Family history of malignant neoplasm of prostate: Maternal Grandfather(V16.42, Z80.42) Status:Active Coronary Artery Surgery: Fat her Status:Active Family history of malignant neoplasm of breast: Mother(V16.3, Z80.3) Status:Active Unknown Family Member Name Dates Details Family history of malignant neoplasm of breast: Mother(V16.3, Z80.3) Status:Active Coronary Artery Surgery: Fat her Status:Active Family history of malignant neoplasm of prostate: Maternal Grandfather(V16.42, Z80.42) Status:Active Unknown Family Member Name Dates Details Family history of malignant neoplasm of breast: Mother(V16.3, Z80.3) Status:Active Coronary Artery Surgery: Fat her Status:Active Family history of malignant neoplasm of prostate: Maternal Grandfather(V16.42, Z80.42) Status:Active Unknown Family Member Name Dates Details Family history of malignant neoplasm of breast: Mother(V16.3, Z80.3) Status:Active Coronary Artery Surgery: Fat her Status:Active Family history of malignant neoplasm of prostate: Maternal Grandfather(V16.42, Z80.42) Status:Active Unknown Family Member Name Dates Details Family history of malignant neoplasm of breast: Mother(V16.3, Z80.3) Status:Active Coronary Artery Surgery: Fat her Status:Active Family history of malignant neoplasm of prostate: Maternal Grandfather(V16.42, Z80.42) Status:Active Unknown Family Member Name Dates Details Family history of malignant neoplasm of breast: Mother(V16.3, Z80.3) Status:Active Coronary Artery Surgery: Fat her Status:Active Family history of malignant neoplasm of prostate: Maternal Grandfather(V16.42, Z80.42) Status:Active Unknown Family Member Name Dates Details Family history of malignant neoplasm of breast: Mother(V16.3, Z80.3) Status:Active Coronary Artery Surgery: Fat her Status:Active Family history of malignant neoplasm of prostate: Maternal Grandfather(V16.42, Z80.42) Status:Active Advance Directives Latest Code Status on File Code Status Date Activated Date Inactivated Comments Full Code 01/14/2022 1:14 PM Full Code 01/14/2022 1:14 PM 01/14/2022 1:14 PM Latest Code Status on File Code Status Date Activated Date Inactivated Comments Full Code 02/13/2023 10:44 AM 02/13/2023 5:44 PM Latest Code Status on File Code Status Date Activated Date Inactivated Comments Full Code 02/13/2023 10:44 AM 02/13/2023 5:44 PM Date Activated Date Inactivated Comments 02/13/2023 10:44 AM 02/13/2023 5:44 PM Healthcare Agents on File Name Relationship Healthcare Agent Relationship Communication Lucia Flores Child Health Care Agent Healthcare Agents on File Name Relationship Healthcare Agent Relationship Communication Lucia Gardiner Health Care Agent Healthcare Agents on File Name Relationship Healthcare Agent Relationship Communication Lucia Flores Child Health Care Agent Healthcare Agents on File Name Relationship Healthcare Agent Relationship Communication Lucia Flores Child Health Care Agent Healthcare Agents on File Name Relationship Healthcare Agent Relationship Communication Lucia Flores Child Health Care Agent Healthcare Agents on File Name Relationship Healthcare Agent Relationship Communication Lucia Gardiner Health Care Agent Healthcare Agents on File Name Relationship Healthcare Agent Relationship Communication Lucia Flores Child Health Care Agent Date Activated Date Inactivated Comments 07/20/2024 9:48 AM 07/20/2024 1:23 PM Date Activated Date Inactivated Comments 02/13/2023 10:44 AM 02/13/2023 5:44 PM Date Activated Date Inactivated Comments 07/20/2024 9:48 AM 07/20/2024 1:23 PM Date Activated Date Inactivated Comments 02/13/2023 10:44 AM 02/13/2023 5:44 PM Healthcare Agents on File Name Relationship Healthcare Agent Relationship Communication Lucia Flores Child Health Care Agent Healthcare Agents on File Name Relationship Healthcare Agent Relationship Communication Lucia Flores Child Health Care Agent Healthcare Agents on File Name Relationship Healthcare Agent Relationship Communication Lucia Flores Child Health Care Agent Chief Complaint physical Reason for Referral Specialty Diagnoses / Procedures Referred By Clair t Referred To Contact Cardiology Diagnoses Dilated cardiomyopathy (HCC) Rheumatic mitral valve disease, unspecified Presence of prosthetic heart valve Rheumatic heart disease, unspecified penitentiary (current) use of anticoagulants Procedures Transthoracic echocardiogram (TTE) complete with contrast, bubble, strain, and 3D PRN VA ECHO TTHRC R-T 2D W/WOM-MODE COMPL SPEC&COLR D VA TTE W OR WO FOL JOCEDOPPLER Stone Son MD 1 [facility] [address] [place] [address] Referral ID Status Reason Start Date Expiration Date V isits Requested Visits Authorized [id number] Closed Perform Procedure 02/23/2022 08/22/2022 1 1 Specialty Diagnoses / Procedures Referred By Contac t Referred To Contact Diagnoses Hyperlipidemia, unspecified hyperlipidemia type Procedures ECG 12 Lead Melissa Del Rio DO [address] [facility] [address] [place] [address] Referral ID Status Reason Start Date Expiration Date V isits Requested Visits Authorized [id number] Authorized 01/25/2023 07/24/2023 1 1 Specialty Diagnoses / Procedures Referred By Contac t Referred To Contact Cardiology Diagnoses Atrial fibrillation, chronic (HCC) Near syncope Procedures Cardiac holter monitor (24 hours) Stone Son MD 1 [facility] [address] [place] [address] Referral ID Status Reason Start Date Expiration Date V isits Requested Visits Authorized [id number] Pending Review 01/26/2023 07/25/2023 1 1 Specialty Diagnoses / Procedures Referred By Contac t Referred To Contact Cardiology Diagnoses History of MVR with cardiopulmonary bypass Atrial fibrillation, chronic (HCC) Procedures Transthoracic echocardiogram (TTE) complete with contrast, bubble, strain, and 3D PRN VA ECHO TTHRC R-T 2D W/WOM-MODE COMPL SPEC&COLR D VA TTE W OR WO FOL PETROS HOBSON Loretta R, MD 1 [facility] [address] [place] [address] Referral ID Status Reason Start Date Expiration Date V isits Requested Visits Authorized [id number] Pending Review 01/26/2023 07/25/2023 1 1 Referral ID Status Reason Start Date Expiration Date Visits Requested Visits Authorized [id number] Pending Review Perform Procedure 08/22/2022 1 1 Chief Complaint and Reason for Visit Chief Complaint Admit Date [facility] July 12, 2024 1 0:18am STANDING ORDER- INR July 18, 2024 3:2 7pm Chief Complaint Admit Date [facility] July 12, 2024 1 0:18am STANDING ORDER- INR August 08, 2024 12: 33pm Chief Complaint Admit Date [facility] July 12, 2024 1 0:18am STANDING ORDER- INR August 08, 2024 12: 33pm STANDING ORDER- INR August 22, 2024 11: 43am STANDING ORDER- INR/ ADD ADDT ORDER 10/05October 05, 2024 11:43am Chief Complaint Admit Date [facility]/ ADDT. LABS July 12, 2024 1 0:18am STANDING ORDER- INR August 08, 2024 12: 33pm STANDING ORDER- INR August 22, 2024 11: 43am STANDING ORDER- INR/ ADD ADDT ORDER 10/05October 05, 2024 11:43am PAIN- COPY PCP October 17, 2024 9:50a m Additional Source Comments INFORMATION SOURCE (unrecogn ized section and content) DATE CREATED AUTHOR 04/20/2018 [facility] DATE CREATED AUTHOR AUTHOR'S ORGANIZ ATION 04/22/2018 [facility] DATE CREATED AUTHOR AUTHOR'S ORGANIZ ATION 07/19/2018 [facility] DATE CREATED AUTHOR AUTHOR'S ORGANIZ ATION 01/01/2022 [facility] DATE CREATED AUTHOR AUTHOR'S ORGANIZ ATION 03/07/2022 [facility] DATE CREATED AUTHOR AUTHOR'S ORGANIZ ATION 05/13/2022 [facility] DATE CREATED AUTHOR AUTHOR'S ORGANIZ ATION 06/20/2022 [facility] DATE CREATED AUTHOR AUTHOR'S ORGANIZ ATION 01/25/2023 [facility] DATE CREATED AUTHOR AUTHOR'S ORGANIZ ATION 01/26/2023 [facility] DATE CREATED AUTHOR AUTHOR'S ORGANIZ ATION 07/02/2024 [facility] DATE CREATED AUTHOR AUTHOR'S ORGANIZ ATION 10/10/2024 [facility] DATE CREATED AUTHOR AUTHOR'S ORGANIZ ATION 10/17/2024 [facility] DATE CREATED AUTHOR AUTHOR'S ORGANIZ ATION 10/24/2024 [facility] DATE CREATED AUTHOR AUTHOR'S ORGANIZ ATION 11/06/2024 [facility] Source Comments (unrecognize d section and content) In the event this informatio n is protected by the Federal Confidentiality of Alcohol and Drug Abuse Patient Records regulations: The Federal rules restrict any use of the information to criminally investigate or prosecute any alcohol or drug abuse patient.[facility] the event this information is protected by the Federal Confidentiality of Alcohol and Drug Abuse Patient Records regulations: The Federal rules restrict any use of the information to criminally investigate or prosecute any alcohol or drug abuse patient.[facility] Center[facility] the event this information is protected by the Federal Confidentiality of Alcohol and Drug Abuse Patient Records regulations: The Federal rules restrict any use of the information to criminally investigate or prosecute any alcohol or drug abuse patient.[facility] Center[facility] the event this information is protected by the Federal Confidentiality of Alcohol and Drug Abuse Patient Records regulations: The Federal rules restrict any use of the information to criminally investigate or prosecute any alcohol or drug abuse patient.[facility] Center[facility] the event this information is protected by the Federal Confidentiality of Alcohol and Drug Abuse Patient Records regulations: The Federal rules restrict any use of the information to criminally investigate or prosecute any alcohol or drug abuse patient.[facility] Reason for Visit (unrecogniz ed section and content) Reason Comments Xray Results Reason Comments Pain LT FORARM Pain Reason Comments Appointment Specialty Diagnoses / Procedures Referred By Clair askew Referred To Contact Cardiology Diagnoses Dilated cardiomyopathy (HCC) Rheumatic mitral valve disease, unspecified Presence of prosthetic heart valve Rheumatic heart disease, 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 Procedures Transthoracic echocardiogram (TTE) complete with contrast, bubble, strain, and 3D PRN VA ECHO TTHRC R-T 2D W/WOM-MODE COMPL SPEC&COLR D VA TTE W OR WO FOL WCCOREEN,DOPPLER Stone Son MD [address] [place] [address] Referral ID Status Reason Start Date Expiration Date V isits Requested Visits Authorized [id number] Closed Perform Procedure 02/23/2022 08/22/2022 1 1 Reason Comments 3 mo f/u Specialty Diagnoses / Procedures Referred By Clair askew Referred To Contact Primary Care Diagnoses Acquired hypothyroidism Procedures Follow Up In [facility] - PCP Melissa Del Rio, DO [address] [facility], [address] [place] [address] [address] Referral ID Status Reason Start Date Expiration Date V isits Requested Visits Authorized [id number] Authorized 07/18/2022 01/14/2023 1 1 Reason Onset Date Comments Med Refill 01/21/2023 Reason Comments Follow-up Labs Reason Comments Med Refill Reason Comments Follow-up 6 months overdue Reason Onset Date Comments Results 02/05/2023 INR Reason Onset Date Comments Results 02/05/2023 labs Reason Onset Date Comments Procedure 01/27/2023 L/RHC Specialty Diagnoses / Procedures Referred By Contac t Referred To Contact Diagnoses History of MVR with cardiopulmonary bypass Cardiomyopathy, dilated (HCC) Atrial fibrillation, chronic (HCC) Chronic anticoagulation Angina of effort History of MVR with cardiopulmonary bypass [Z95.2] Cardiomyopathy, dilated (HCC) [I42.0] Atrial fibrillation, chronic (CMS/HCC) (HCC) [I48.20] Chronic anticoagulation [Z79.01] Angina of effort (CMS/HCC) (HCC) [I20.8] Procedures Left and right heart cath / coronary angiography Papo Thompson MD [address] [place] [id number] [facility]Ep [facility] [address] [place] [id number] Referral ID Status Reason Start Date Expiration Date Visits Re quested Visits Authorized [id number] 1 1 Reason Onset Date Comments Orders 02/18/2023 INR standing ord er/ medical question Reason Onset Date Comments Results 03/09/2023 INR Reason Onset Date Comments Med Refill 03/10/2023 Reason Comments Follow-up 6 weeks Reason Onset Date Comments Med Refill 03/16/2023 Reason Onset Date Comments Med Refill 04/13/2023 Reason Onset Date Comments Med Refill 10/21/2023 Reason Onset Date Comments Med Refill 10/27/2023 Reason Onset Date Comments Labs Only 10/21/2023 Reason Onset Date Comments Results 12/10/2023 PT/INR Reason Comments 6 Month Follow-up overdue Reason Onset Date Comments Orders 02/23/2024 Reason Onset Date Comments Results 02/25/2024 INR results Reason Onset Date Comments Results 04/15/2024 INR results Reason Comments Follow-up labs Reason Comments Follow-up Left elbow radial he ad removal on 01/14/22 Reason Comments Medicare Annual Wellness Visit Jimmie askew Reason Onset Date Comments Results 07/03/2022 INR results Reason Onset Date Comments Med Refill 07/09/2022 Clindamycin rx f or dental clng Reason Onset Date Comments Cardiac Clearance 05/06/2024 Reason Comments Diabetes Specialty Diagnoses / Procedures Referred By Clair askew Referred To Contact Pharmacy Diagnoses Type 2 diabetes mellitus without complication, without long-term current use of insulin (Multi) Melissa Del Rio DO [address] [facility], [place] [address] Phone: tel: fax: Referral ID Status Reason Start Date Expiration Date Visits Requested Visits Authorized [id number] Pending Review Specialty Services Required 4 04/22/2025 1 1 Reason Comments Diabetes Weight Loss Specialty Diagnoses / Procedures Referred By Clair askew Referred To Contact Pharmacy Diagnoses Class 2 severe obesity due to excess calories with serious comorbidity and body mass index (BMI) of 36.0 to 36.9 in adult Type 2 diabetes mellitus without complication, without long-term current use of insulin (Multi) Melissa Del Rio DO [address] [facility], [place] [address] Phone: tel: fax: Referral ID Status Reason Start Date Expiration Date Visits Requested Visits Authorized [id number] Authorized Specialty Services Required 4 05/10/2025 1 1 Reason Comments URI Patient believed she had influenza. Still experiencing cough. Nausea, lightheaded, diarrhea. Tested for Covid & came back negative. Reason Onset Date Comments Other 07/01/2024 INR instructions /post ER visit Specialty Diagnoses / Procedures Referred By Clair askew Referred To Contact Pharmacy Diagnoses Type 2 diabetes mellitus without complication, without long-term current use of insulin (Multi) Obesity (BMI 30-39.9) Melissa Del Rio DO [address] [facility], [address] [place] [address] Phone: tel: fax: Referral ID Status Reason Start Date Expiration Date Visits Requested Visits Authorized [id number] Authorized Specialty Services Required 06/07/2024 06/07/2025 1 1 Reason Onset Date Comments Med Refill 07/12/2024 Reason Onset Date Comments Results 07/19/2024 INR results/colo noscopy tomorrow Reason Onset Date Comments Med Refill 07/26/2024 Reason Onset Date Comments Results 08/01/2024 INR Reason Comments Follow-up labs ; neck pain Specialty Diagnoses / Procedures Referred By Clair askew Referred To Contact Pharmacy Diagnoses Type 2 diabetes mellitus without complication, without long-term current use of insulin Class 2 severe obesity due to excess calories with serious comorbidity and body mass index (BMI) of 36.0 to 36.9 in adult Melissa Del Rio DO [address] [facility] [address] [place] [address] Phone: tel: fax: Referral ID Status Reason Start Date Expiration Date Visits Requested Visits Authorized [id number] Authorized Specialty Services Required 10/04/2024 10/04/2025 1 1 Referral ID Status Reason Start Date Expiration Date Visits Requested Visits Authorized [id number] Authorized Specialty Services Required 11/01/2024 11/01/2025 1 1 Care Teams (unrecognized sec tion and content) Sales Operations Lead Relationship Specialty Start Date End Date Melissa Del Rio MD [address] [address] PCP - General Family Practice 02/14/16 Sales Operations Lead Relationship Specialty Start Date End Date Melissa Del Rio MD [address] [address] PCP - General Family Practice 02/14/16 Sales Operations Lead Relationship Specialty Start Date End Date Melissa Del Rio MD [address] [place] [address] PCP - General Family Practice 02/14/16 Sales Operations Lead Relationship Specialty Start Date End Date Melissa Del Rio DO [address] [place] [address] PCP - General 03/01/15 Sales Operations Lead Relationship Specialty Start Date End Date Melissa Del Rio DO [address] [facility] [address] PCP - General 03/01/15 Sales Operations Lead Relationship Specialty Start Date End Date Melissa Del Rio DO [address] [facility] [address] PCP - General 03/01/15 Sales Operations Lead Relationship Specialty Start Date End Date Melissa Del Rio DO [address] [facility] [address] PCP - General 03/01/15 Sales Operations Lead Relationship Specialty Start Date End Date Melissa Del Rio DO [address] [facility] [address] PCP - General 03/01/15 Sales Operations Lead Relationship Specialty Start Date End Date Melissa Del Rio DO [address] [facility], [address] [place] [address] PCP - General 11/13/15 Sales Operations Lead Relationship Specialty Start Date End Date Melissa Del Rio DO [address] [facility] [address] PCP - General 03/01/15 Sales Operations Lead Relationship Specialty Start Date End Date Melissa Del Rio DO [address] [facility] [address] [facility] [address] [place] [address] PCP - General 03/01/15 Sales Operations Lead Relationship Specialty Start Date End Date Melissa Del Rio DO [address] [facility], [address] [place] [address] PCP - General 03/01/15 Sales Operations Lead Relationship Specialty Start Date End Date Melissa Del Rio DO [address] [facility] [address] [place] [address] PCP - General 11/13/15 Sales Operations Lead Relationship Specialty Start Date End Date Melissa Del Rio DO [address] [facility] [address] [facility] [address] [place] [address] PCP - General 03/01/15 Sales Operations Lead Relationship Specialty Start Date End Date Melissa Del Rio DO [address] [facility] [address] [facility], [address] [place] [address] PCP - General 03/01/15 Sales Operations Lead Relationship Specialty Start Date End Date Melissa Del Rio DO [address] [facility] [address] [place] [address] PCP - General 03/01/15 Sales Operations Lead Relationship Specialty Start Date End Date Melissa Del Rio DO [address] [facility] [address] [place] [address] PCP - General 03/01/15 Sales Operations Lead Relationship Specialty Start Date End Date Melissa Del Rio DO [address] [facility] [address] [place] [address] PCP - General 03/01/15 Sales Operations Lead Relationship Specialty Start Date End Date Melissa Del Rio DO [address] [facility], [address] [place] [address] PCP - General 03/01/15 Sales Operations Lead Relationship Specialty Start Date End Date Melissa Del Rio DO [address] [facility], [address] [place] [address] PCP - General 03/01/15 Sales Operations Lead Relationship Specialty Start Date End Date Melissa Del Rio DO [address] [facility], [address] [place] [address] PCP - General 03/01/15 Sales Operations Lead Relationship Specialty Start Date End Date Melissa Del Rio DO [address] [facility], [address] [place] [address] PCP - General 03/01/15 Sales Operations Lead Relationship Specialty Start Date End Date Melissa Del Rio DO [address] [facility], [address] [place] [address] PCP - General 03/01/15 Sales Operations Lead Relationship Specialty Start Date End Date Melissa Del Rio DO [address] [facility], [address] [place] [address] PCP - General 03/01/15 Sales Operations Lead Relationship Specialty Start Date End Date Melissa Del Rio DO [address] [facility], [address] [place] [address] PCP - General 03/01/15 Sales Operations Lead Relationship Specialty Start Date End Date Melissa Del Rio DO [address] [facility], [address] [place] [address] PCP - General 03/01/15 Sales Operations Lead Relationship Specialty Start Date End Date Melissa Del Rio DO [address] [facility], [address] [place] [address] PCP - General 03/01/15 Sales Operations Lead Relationship Specialty Start Date End Date Melissa Del Rio DO [address] [facility], [address] [place] [address] PCP - General 03/01/15 Sales Operations Lead Relationship Specialty Start Date End Date Melissa Del Rio DO [address] [facility], [address] [place] [address] PCP - General 03/01/15 Sales Operations Lead Relationship Specialty Start Date End Date Melissa Del Rio DO [address] [facility] [address] [place] [address] PCP - General 03/01/15 Sales Operations Lead Relationship Specialty Start Date End Date Melissa Del Rio DO [address] [facility] [address] [place] [address] PCP - General 03/01/15 Sales Operations Lead Relationship Specialty Start Date End Date Melissa Del Rio DO [address] [facility] [address] [place] [address] PCP - General 03/01/15 Sales Operations Lead Relationship Specialty Start Date End Date Melissa Del Rio DO [address] [facility], [address] [place] [address] PCP - General 03/01/15 Sales Operations Lead Relationship Specialty Start Date End Date Melissa Del Rio DO [address] [facility], [address] [place] [address] PCP - General 03/01/15 Sales Operations Lead Relationship Specialty Start Date End Date Melissa Del Rio DO [address] [facility] [address] [place] [address] PCP - General 03/01/15 Sales Operations Lead Relationship Specialty Start Date End Date Melissa Del Rio DO [address] [facility] [address] [place] [address] PCP - General 03/01/15 Sales Operations Lead Relationship Specialty [place] [address] [place] [address], [address] [place] [address] PCP - General 11/13/15 Sales Operations Lead Relationship Specialty Start Date End Date Melissa Del Rio DO [address] [facility], [address] [place] [address] PCP - General 03/01/15 Sales Operations Lead Relationship Specialty Start Date End Date Melissa Del Rio DO [address] [facility], [address] [place] [address] PCP - General 03/01/15 Sales Operations Lead Relationship Specialty Start Date End Date Melissa Del Rio DO [address] [facility], [address] [place] [address] PCP - General 03/01/15 Sales Operations Lead Relationship Specialty Start Date End Date Melissa Del Rio DO [address] [facility], [address] [place] [address] PCP - General 11/13/15 [place] [address] [place] [address], [address] [place] [address] PCP - [employer] PCP 07/10/23 Sales Operations Lead Relationship Specialty Start Date End Date Melissa Del Rio DO [address] [facility], [address] [place] [address] PCP - General 03/01/15 Sales Operations Lead Relationship Specialty Start Date End Date Melissa Del Rio DO [address] [place] [address] PCP - General 03/01/15 Sales Operations Lead Relationship Specialty Start Date End Date Melissa Del Rio DO [address] [facility] [place] [address] PCP - General 03/01/15 Sales Operations Lead Relationship Specialty Start Date End Date Melissa Del Rio DO [address] [facility], [address] [place] [address] PCP - General 11/13/15 Melissa Del Rio DO [address] [facility], [address] [place] [address] PCP - [employer] PCP 07/10/23 Sales Operations Lead Relationship Specialty Start Date End Date Melissa Del Rio DO [address] [facility], [address] [place] [address] PCP - General 11/13/15 Melissa Del Rio DO [address] [facility], [address] [place] [address] PCP - [employer] PCP 07/10/23 Sales Operations Lead Relationship Specialty Start Date End Date Melissa Del Rio DO [address] [facility] [place] [address] PCP - General 11/13/15 Melissa Del Rio DO [address] [facility], [address] [place] [address] PCP - [employer] PCP 07/10/23 Sales Operations Lead Relationship Specialty Start Date End Date Melissa Del Rio DO [address] [facility], [address] [place] [address] PCP - General 03/01/15 Sales Operations Lead Relationship Specialty Start Date End Date Melissa Del Rio DO [address] [facility], [place] [address] [place] [address] PCP - General 11/13/15 Melissa Del Rio DO [address] [facility], [address] [place] [address] PCP - [employer] PCP 07/10/23 Sales Operations Lead Relationship Specialty Start Date End Date Melissa Del Rio DO [address] [facility] [address] [place] [address] PCP - General 11/13/15 Melissa Del Rio DO [address] [facility], [address] [place] [address] PCP - [employer] PCP 07/10/23 Sales Operations Lead Relationship Specialty Start Date End Date Melissa Del Rio DO [address] [facility], [place] [address] [place] [address] PCP - General 03/01/15 Sales Operations Lead Relationship Specialty Start Date End Date Melissa Del Rio DO [address] [facility], [address] [place] [address] PCP - General 11/13/15 Melissa Del Rio DO [address] [facility], [address] [place] [address] PCP - [employer] PCP 07/10/23 Sales Operations Lead Relationship Specialty Start Date End Date Melissa Del Rio DO [address] [facility], [address] [place] [address] PCP - General 03/01/15 Sales Operations Lead Relationship Specialty Start Date End Date Melissa Del Rio DO [address] [facility] [address] [place] [address] PCP - General 03/01/15 Team Status: Active Member Role Status Dates Dr. Melissa Del Rio MD Primary Care Provider Active Team Status: Inactive Member Role Status Dates Dr. Melissa Del Rio MD Primary Care Provider Active Start: July 12, 2024 End: July 12, 2024 Dr. Helena Santos MD Attending Provider Active Start: July 12, 2024 End: July 12, 2024 Dr. Helena Santos MD Referring Provider Active Start: July 12, 2024 End: July 12, 2024 Team Status: Active Member Role Status Dates Dr. Melissa Del Rio MD Primary Care Provider Active Start: July 18, 2024 Dr. Stone Son MD Attending Provider Active Start: July 18, 2024 Dr. Stone Son MD Referring Provider Active Start: July 18, 2024 Team Status: Inactive Member Role Status Dates Dr. Melissa Del Rio MD Primary Care Provider Active Start: August 08, 2024 End: August 08, 2024 Dr. Stone Son MD Attending Provider Active Start: August 08, 2024 End: August 08, 2024 Dr. Stone Son MD Referring Provider Active Start: August 08, 2024 End: August 08, 2024 Team Status: Inactive Member Role Status Dates Dr. Melissa Del Rio MD Primary Care Provider Active Start: August 22, 2024 End: September 07, 2024 Dr. Stone Son MD Attending Provider Active Start: August 22, 2024 End: September 07, 2024 Dr. Stone Son MD Referring Provider Active Start: August 22, 2024 End: September 07, 2024 Team Status: Inactive Member Role Status Dates Dr. Melissa Del Rio MD Primary Care Provider Active Start: October 05, 2024 End: October 05, 2024 Dr. Melissa Del Rio MD Other Provider Active Sta rt: October 05, 2024 End: October 05, 2024 Dr. Stone Son MD Attending Provider Active Start: October 05, 2024 End: October 05, 2024 Dr. Stone Son MD Referring Provider Active Start: October 05, 2024 End: October 05, 2024 Sales Operations Lead Relationship Specialty Start Date End Date Melissa Del Rio DO [address] [facility] [place] [address] PCP - General 11/13/15 Melissa Del Rio DO [address] [facility], [address] [place] [address] PCP - [employer] PCP 07/10/23 Team Status: Inactive Member Role Status Dates Dr. Melissa Del Rio MD Primary Care Provider Active Start: October 17, 2024 End: October 17, 2024 Dr. Helena Santos MD Attending Provider Active Start: October 17, 2024 End: October 17, 2024 Dr. Helena Santos MD Referring Provider Active Start: October 17, 2024 End: October 17, 2024 Sales Operations Lead Relationship Specialty Start Date End Date Melissa Del Rio DO [address] [facility], [address] [place] [address] PCP - General 11/13/15 Melissa Del Rio DO [address] [facility] [address] [place] [address] PCP - [employer] PCP 07/10/23 Sales Operations Lead Relationship Specialty Start Date End Date Melissa Del Rio DO [address] [facility], [address] [place] [address] PCP - General 11/13/15 Melissa Del Rio DO [address] [facility] [place] [address] PCP - [employer] PCP 07/10/23 Ordered Prescriptions (unrec ognized section and content) Prescription Sig Dispensed Refills Start Date End Da oxyCODONE-acetaminophen (PERCOCET) 5-325 MG per tabletIndications:Painfu l orthopaedic hardware (HCC) Take 1 tablet by mouth every 6 hours as needed for Pain for up to 7 days. Intended supply: 7 days. Take lowest dose possible to manage pain 28 tablet 0 01/14/2022 01/21/2022 Scheduled Active and Recently Administ ered Medications (unrecognized section and content) Medication Order 01/12/2022 01/13/2022 01/14/2022 acetaminophen (TYLENOL) tablet 1,000 mg 1,000 mg, Oral, ONCE, 1 dose, On Thu01/14/22 at 1330, Maximum dose of acetaminophen is 4000 mg from all sources in 24 hours. Do not administer if patient has taken tylenol <4 hours earlier. Do not give if contraindicated ie. patient has active liver disease or cirrhosis., Pre-op (day of surgery) 0 (Due) clindamycin (CLEOCIN) 600 mg in dextrose 5 % 50 mL IVPB 600 mg, IntraVENous, ONCE, 1 dose, On Thu01/14/22 at 1330, Antimicrobial Indications: Surgical Prophylaxis, Give 30 minutes before surgery in the pre-operative area., Pre-op (day of surgery) 1329 (Due) clindamycin (CLEOCIN) 600 mg in dextrose 5 % 50 mL IVPB (CANCELED) 600 mg, IntraVENous, ONCE, 1 dose, On Thu01/14/22 at 1330, Antimicrobial Indications: Surgical Prophylaxis, Give 30 minutes before surgery in the pre-operative area., Pre-op (day of surgery) 1729 (Given by Other Clinician - Provider: Kaylee Ewing RN) famotidine (PEPCID) tablet 20 mg 20 mg, Oral, ONCE, 1 dose, On Thu01/14/22 at 1330, Pre-op (day of surgery) 1330 (Due) gabapentin (NEURONTIN) capsule 100 mg 100 mg, Oral, ONCE, 1 dose, On Thu01/14/22 at 1330, For Age >69, or Low GFR, Pre-op (day of surgery) 0 (Due) LORazepam (ATIVAN) injection 0.5 mg 0.5 mg, IntraVENous, ONCE, 1 dose, On Thu01/14/22 at 1730, PACU only 1730 (Due) sodium chloride flush 0.9 % injection 5-40 mL 5-40 mL, IntraVENous, EVERY 12 HOURS SCHEDULED (2 times per day), First dose on Thu01/14/22 at 2100, Until Discontinued, For Line Patency: Peripheral IV = 5 mL; Midline or Central Line = 10 mL/lumen. If following IV push medication, administer flush at same rate as the IV push. Flush volume is determined by type of infusion therapy being given. For non-viscous solutions use: Peripheral IV = 5 mL Midline or Central Line = 10 mL/lumen For viscous solutions (i.e. blood components, parenteral nutrition, contrast media, or after obtaining blood sample) use: Peripheral IV = 10 mL Midline or Central Line = 20 mL/lumen, Pre-op (day of surgery) 2100 (Due) sodium chloride flush 0.9 % injection 5-40 mL 5-40 mL, IntraVENous, EVERY 12 HOURS SCHEDULED (2 times per day), First dose on Thu01/14/22 at 2100, Until Discontinued, For Line Patency: Peripheral IV = 5 mL; Midline or Central Line = 10 mL/lumen. If following IV push medication, administer flush at same rate as the IV push. Flush volume is determined by type of infusion therapy being given. For non-viscous solutions use: Peripheral IV = 5 mL Midline or Central Line = 10 mL/lumen For viscous solutions (i.e. blood components, parenteral nutrition, contrast media, or after obtaining blood sample) use: Peripheral IV = 10 mL Midline or Central Line = 20 mL/lumen, PACU only 2100 (Due) Continuous Medication Order 01/12/2022 01/13/2022 01/14/2022 lactated ringers infusion IntraVENous, at 50 mL/hr, CONTINUOUS, Starting on Thu01/14/22 at 1330, Upon admission to sameday - please start iv if patient does not have iv access. Use 500ml NS for patients on dialysis., Pre-op (day of surgery) 1330 (Due) lactated ringers infusion IntraVENous, at 50 mL/hr, CONTINUOUS, Starting on Thu01/14/22 at 1730, PACU only 1730 (Due) PRN Medication Order 01/12/2022 01/13/2022 01/14/2022 0.9 % sodium chloride bolus 500 mL (5.25 mL/kg), IntraVENous, at 1,000 mL/hr, Administer over 0.5 Hours, PRN, Anti-nausea, Starting on Thu01/14/22 at 1705, PACU only 0.9 % sodium chloride infusion IntraVENous, at 5-250 mL/hr, PRN, if patient receiving piggyback infusions and maintenance fluids are not ordered OR KVO fluids to protect IV site / prevent frequent line interruptions/ long duration, Starting on Thu01/14/22 at 1314, For piggyback infusion, administer at same rate as piggyback for a total of 25 mL. Enter 25 mL into dose field and piggyback rate into rate field of order. If piggyback is infusing at a rate less than 100 mL/hr, enter 25 mL into dose field and 100 mL/hr into rate field of order. For KVO fluids, enter rate of 20 mL/hr or less into rate field of order., Pre-op (day of surgery) ALPRAZolam (NIRAVAM) dissolvable tablet 0.25 mg 0.25 mg, Oral, PRN, Starting on Thu01/14/22 at 1314, Until Discontinued, Anxiety, Pre-op (day of surgery) diphenhydrAMINE (BENADRYL) injection 12.5 mg 12.5 mg, IntraVENous, ONCE PRN, 1 dose, Starting on Thu01/14/22 at 1705, Until Thu01/14/22 at 2359, Itching, PACU only hydrALAZINE (APRESOLINE) injection 5 mg(Linked Group 1) 5 mg, IntraVENous, EVERY 10 MIN PRN, 2 doses, Starting on Thu01/14/22 at 1705, Until Discontinued, High Blood Pressure, for SBP greater than 160 mmHg for 2 consecutive measurements taken from different sites, PRN for SBP > 160 for 2 consecutive measurements, and if one of the following conditions is met: 1) If IV labetolol is ineffective. 2) If HR is under 60. 3) If patient has heart block, COPD or asthma. If both labetalol and hydralazine ineffective, notify anesthesiologist. for use Sameday and, PACU only HYDROmorphone (DILAUDID) injection 0.25 mg HYDROmorphone (DILAUDID) 1.5mg IV is equivalent to morphine 10mg IV, 0.25 mg, IntraVENous, EVERY 5 MIN PRN, 4 doses, Starting on Thu01/14/22 at 1705, Until Discontinued, Pain Moderate (4-6), Phase I and Phase II- Initial therapy for moderate pain (4-6). Restricted to a 90 minute time frame starting when the patient can verbally state their pain score. If oral meds are utilized, do not return to initial therapy medications. SDS and, PACU only 1743 (Given - Provid er: Kaylee Ewing RN) HYDROmorphone (DILAUDID) injection 0.5 mg HYDROmorphone (DILAUDID) 1.5mg IV is equivalent to morphine 10mg IV, 0.5 mg, IntraVENous, EVERY 5 MIN PRN, 4 doses, Starting on Thu01/14/22 at 1705, Until Discontinued, Pain Severe (7-10), Phase I or Phase II- Initial therapy for severe pain (7-10). Restricted to a 90 minute time frame starting when the patient can verbally state their pain score. If oral meds are utilized, do not return to initial therapy medications. SDS and, PACU only labetalol (NORMODYNE;TRANDATE) injection 5 mg(Linked Group 1) 5 mg, IntraVENous, EVERY 10 MIN PRN, 2 doses, Starting on Thu01/14/22 at 1705, Until Discontinued, High Blood Pressure, for SBP greater than 160 mmHg for 2 consecutive measurements taken from different sites., PRN for SBP >160 for 2 consecutive measurements, if HR is 60 or greater. If beta drew is contraindicated (HR less than 60, heart block, COPD or asthma) use hydralazine IV order. for use Sameday and, PACU only lidocaine PF 1 % injection 1 mL 1 mL, IntraDERmal, ONCE PRN, 1 dose, Starting on Thu01/14/22 at 1314, Until Thu01/14/22 at 2359, IV start, Pre-op (day of surgery) meperidine (DEMEROL) injection 12.5 mg 12.5 mg, IntraVENous, EVERY 5 MIN PRN, 4 doses, Starting on Thu01/14/22 at 1705, Until Discontinued, Shivering, , May give every 5 minutes to max of 50mg., PACU only ondansetron (ZOFRAN) injection 4 mg 4 mg, IntraVENous, ONCE PRN, 1 dose, Starting on Thu01/14/22 at 1705, Until Thu01/14/22 at 2359, Nausea, Initial antiemetic therapy., PACU only oxyCODONE (ROXICODONE) immediate release tablet 10 mg(Linked Group 2) 10 mg, Oral, PRN, 1 dose, Starting on Thu01/14/22 at 1705, Until Thu01/14/22 at 2359, Pain Severe (7-10), PHASE II, PACU only oxyCODONE (ROXICODONE) immediate release tablet 5 mg(Linked Group 2) 5 mg, Oral, PRN, 1 dose, Starting on Thu01/14/22 at 1705, Until Thu01/14/22 at 2359, Pain Moderate (4-6), PHASE II, PACU only sodium chloride flush 0.9 % injection 5-40 mL 5-40 mL, IntraVENous, PRN, Starting on Thu01/14/22 at 1314, Until Discontinued, Line Care, After every IV line use, For Line Patency: Peripheral IV = 5 mL; Midline or Central Line = 10 mL/lumen. If following IV push medication, administer flush at same rate as the IV push. Flush volume is determined by type of infusion therapy being given. For non-viscous solutions use: Peripheral IV = 5 mL Midline or Central Line = 10 mL/lumen For viscous solutions (i.e. blood components, parenteral nutrition, contrast media, or after obtaining blood sample) use: Peripheral IV = 10 mL Midline or Central Line = 20 mL/lumen, Pre-op (day of surgery) sodium chloride flush 0.9 % injection 5-40 mL 5-40 mL, IntraVENous, PRN, Starting on Thu01/14/22 at 1705, Until Discontinued, Line Care, After every IV line use, For Line Patency: Peripheral IV = 5 mL; Midline or Central Line = 10 mL/lumen. If following IV push medication, administer flush at same rate as the IV push. Flush volume is determined by type of infusion therapy being given. For non-viscous solutions use: Peripheral IV = 5 mL Midline or Central Line = 10 mL/lumen For viscous solutions (i.e. blood components, parenteral nutrition, contrast media, or after obtaining blood sample) use: Peripheral IV = 10 mL Midline or Central Line = 20 mL/lumen, PACU only No Frequency Medication Order 01/12/2022 01/13/2022 01/14/2022 midazolam (VERSED) 2 MG/2ML injection 1 dose, Starting on Thu01/14/22 at 1357, Until Thu01/15/22 at 0214, Jairon Narayanan: cabinet override, Jairon Narayanan: cabinet override 1415 (Due) Linked Groups Order Group 1: labetalol (NORMODYNE;TRANDATE) injection 5 mgJump to med 5 mg, IntraVENous, EVERY 10 MIN PRN, 2 doses, Starting on Thu01/14/22 at 1705, Until Discontinued, High Blood Pressure, for SBP greater than 160 mmHg for 2 consecutive measurements taken from different sites.
PRN for SBP >160 for 2 consecutive measurements, if HR is 60 or greater. If beta drew is contraindicated (HR less than 60, heart block, COPD or asthma) use hydralazine IV order. for use Same and
PACU only Or hydrALAZINE (APRESOLINE) injection 5 mgJump to med 5 mg, IntraVENous, EVERY 10 MIN PRN, 2 doses, Starting on Thu01/14/22 at 1705, Until Discontinued, High Blood Pressure, for SBP greater than 160 mmHg for 2 consecutive measurements taken from different sites
PRN for SBP > 160 for 2 consecutive measurements, and if one of the following conditions is met: 1) If IV labetolol is ineffective. 2) If HR is under 60. 3) If patient has heart block, COPD or asthma. If both labetalol and hydralazine ineffective, notify anesthesiologist. for use and
PACU only Group 2: oxyCODONE (ROXICODONE) immediate release tablet 5 mgJump to med 5 mg, Oral, PRN, 1 dose, Starting on Thu01/14/22 at 1705, Until Thu01/14/22 at 2359, Pain Moderate (4-6)
PHASE II
PACU only Or oxyCODONE (ROXICODONE) immediate release tablet 10 mgJump to med 10 mg, Oral, PRN, 1 dose, Starting on Thu01/14/22 at 1705, Until Thu01/14/22 at 2359, Pain Severe (7-10)
PHASE II
PACU only Scheduled Medication Order 02/11/2023 02/12/2023 02/13/2023 aspirin tablet 325 mg 325 mg, Oral, Once, On Thu02/13/23 at 1045, For 1 dose, Preprocedure 1045 (Canceled Entry - Provider: Automatic Discharge Provider - Comment: Automatically canceled at discontinue of medication order) sodium chloride 0.9% (NS) flush 5-40 mL 5-40 mL, IntraVENous, Every 12 hours, First dose on Thu02/13/23 at 1045, Preprocedure, For Line Patency: Peripheral IV = 5 mL; Midline or Central Line = 10 mL/lumen. If following IV push medication, administer flush at same rate as the IV push. Flush volume is determined by type of infusion therapy being given. For non-viscous solutions use: Peripheral IV = 5 mL Midline or Central Line = 10 mL/lumen For viscous solutions (i.e. blood components, parenteral nutrition, contrast media, or after obtaining blood sample) use: Peripheral IV = 10 mL Midline or Central Line = 20 mL/lumen 1045 (Canceled Entry - Provider: Automatic Discharge Provider - Comment: Automatically canceled at discontinue of medication order) Continuous Medication Order 02/11/2023 02/12/2023 02/13/2023 sodium chloride 0.9 % infusion 30 mL/hr, IntraVENous, Continuous, Starting on Thu02/13/23 at 1045, Preprocedure 1045 (Canceled Entry - Provider: Automatic Discharge Provider - Comment: Automatically canceled at discontinue of medication order) PRN Medication Order 02/11/2023 02/12/2023 02/13/2023 fentaNYL (Sublimaze) injection (CANCELED) IntraVENous, As needed, Starting on Thu02/13/23 at 1136, Intraprocedure 1136 (Given - Provid er: Tayla Ross RN)1228 (Given - Provider: Jaja Dickerson, JHON)1235 (Given - Provider: Jaja Dickerson, RN) heparin injection (CANCELED) IntraVENous, As needed, Starting on Thu02/13/23 at 1157, Intraprocedure 1157 (Given - Provid er: Tayla Ross RN) lidocaine (Xylocaine) 1 % injection (CANCELED) As needed, Starting on Thu02/13/23 at 1146, Intraprocedure 1145 (Given - Provid er: Jb Roth DO)1146 (Given - Provider: Jb Roth DO) midazolam (Versed) injection (CANCELED) IntraVENous, As needed, Starting on Thu02/13/23 at 1137, Intraprocedure 1137 (Given - Provid er: Tayla Ross RN)1228 (Given - Provider: Jaja Dickerson RN) NITROGLYCERIN 1000 MCG / 10 ML SYRINGE (CHARGE ONLY) (CANCELED) As needed, Starting on Thu02/13/23 at 1230, Intraprocedure 1230 (Given - Provid er: Papo Thompson MD) sodium chloride 0.9% (NS) flush 5-40 mL 5-40 mL, IntraVENous, PRN, line care, After every IV line use, Starting on Thu02/13/23 at 1044, Preprocedure, For Line Patency: Peripheral IV = 5 mL; Midline or Central Line = 10 mL/lumen. If following IV push medication, administer flush at same rate as the IV push. Flush volume is determined by type of infusion therapy being given. For non-viscous solutions use: Peripheral IV = 5 mL Midline or Central Line = 10 mL/lumen For viscous solutions (i.e. blood components, parenteral nutrition, contrast media, or after obtaining blood sample) use: Peripheral IV = 10 mL Midline or Central Line = 20 mL/lumen verapamil (Isoptin) injection (CANCELED) As needed, Starting on Thu02/13/23 at 1230, Intraprocedure 1230 (Given - Provid er: Papo Thompson MD) Continuous Medication Order 07/18/2024 07/19/2024 07/20/2024 sodium chloride 0.9 % infusion 75 mL/hr, IntraVENous, Continuous, Starting on Thu07/20/24 at 1000, Preprocedure 0948 (New Bag - Prov ider: Angy Lagunas RN)1022 (Paused - Provider: JOB Rosas CRNA - Comment: Switch to gravity)1023 (Restarted - Provider: JOB Rosas CRNA)1051 (Stopped - Provider: JOB Rosas CRNA) PRN Medication Order 07/18/2024 07/19/2024 07/20/2024 ondansetron (Zofran) injection 4 mg 4 mg, IntraVENous, Once PRN, nausea, vomiting, Starting on Thu07/20/24 at 0948, For 1 dose, Preprocedure Goals (unrecognized section and content) Goals may be documented in a n alternate sectionGoals may be documented in an alternate sectionGoals may be documented in an alternate sectionGoals may be documented in an alternate section FOR RECORDS PERTAINING TO PATIENTS WHO ARE OR HAVE BEEN ENROLLED IN A CHEMICAL DEPENDENCY/SUBSTANCEABUSE PROGRAM, SOME INFORMATION MAY BE OMITTED. This clinical summary was aggregated from multiple sources. Caution should be exercised in using it in the provision of clinical care. This summary normalizes information from multiple sources, and as a consequence, information in this document may materially change the coding, format and clinical context of patient data. In addition, data may be omitted in some cases. CLINICAL DECISIONS SHOULD BE BASED ON THE PRIMARY CLINICAL RECORDS. [facility] provides no warranty or guarantee of the accuracy or completeness of information in this document.
[2024-12-08 12:39] LABS: Prothrombin Time (Protime)PT. 40.8 SECONDS (11.7-14.9)
== END 2024-12-08 18:00 | disposition home or self-care (01) ==
LOC: MTLAB 10:13
PROVIDERS: PCP Family Medicine; Referring Provider Internal Medicine Cardiovascular Disease; Visit Provider Internal Medicine Cardiovascular Disease
DX: Z95.2 Presence of prosthetic heart valve (principal); Z79.01 Long term (current) use of anticoagulants; I48.20 Chronic atrial fibrillation, unspecified
CPT/HCPCS: 36415; 85610

== ENCOUNTER 2024-12-26 15:31 | Outpatient (RCR) | payer MEDICARE, SELFPAY ==
[2024-12-15 12:36] LABS: Prothrombin Time (Protime)PT. 38.2 SECONDS (11.7-14.9)
[2024-12-26 17:51] LABS: Hematocrit 35.1 % (37-47); Hemoglobin 11.6 g/dL (12.0-15.0); Immature Granulocytes Count 0.050 X10^3/uL (0.0-0.0); Mean Corp Hgb Conc 33.0 g/dL (32-36); Mean Corpuscular Volume 94.6 fL (81-99); Mean Platelet Vol. 9.6 fl (6.2-12.0); NRBC Flagged by Analyzer 0 % (0-5); Platelet Count 499 K/mm3 (150-450); RBC Distribution Width CV 14.8 % (11.6-14.6); RBC Distribution Width SD 51.1 fl (35.1-43.9); Red Blood Count 3.71 M/mm3 (4.2-5.4); White Blood Count 12.6 K/mm3 (4.4-11.0)
[2024-12-26 17:57] LABS: Prothrombin Time (Protime)PT. 27.9 SECONDS (11.7-14.9)
[2024-12-26 18:18] LABS: AST(SGOT) 16 U/L (<=31); Alanine Aminotransfer ALT/SGPT 8 U/L (<=34); Albumin, Serum 4.0 g/dL (3.4-4.8); Alkaline Phosphatase 124 U/L (35-104); Anion Gap 12 (5-15); BUN 10 mg/dL (4-19); BUN/Creat Ratio 15.1 RATIO (10-20); Calcium,Total 9.3 mg/dL (7.6-11.0); Carbon Dioxide 25.8 mmol/L (21.0-32.0); Chloride 100 mmol/L (98-108); Globulin 2.8 g/dL (2.2-4.2); Glucose 103 mg/dL (70-99); Potassium 3.9 mmol/L (3.3-5.1)
== END 2024-12-26 18:00 | disposition home or self-care (01) ==
LOC: MTLAB 15:31
PROVIDERS: PCP Family Medicine; Referring Provider Internal Medicine Cardiovascular Disease; Visit Provider Internal Medicine Cardiovascular Disease
DX: I48.20 Chronic atrial fibrillation, unspecified (principal); Z79.01 Long term (current) use of anticoagulants; Z95.2 Presence of prosthetic heart valve; M06.4 Inflammatory polyarthropathy; R76.8 Other specified abnormal immunological findings in serum; Z79.899 Other long term (current) drug therapy
CPT/HCPCS: 36415; 80053; 85025; 85610

== ENCOUNTER 2025-02-03 11:40 | Outpatient (RCR) | payer MEDICARE, SELFPAY ==
[2025-01-26 12:41] LABS: Prothrombin Time (Protime)PT. 21.8 SECONDS (11.7-14.9)
[2025-02-03 16:35] LABS: Prothrombin Time (Protime)PT. 23.0 SECONDS (11.7-14.9)
== END 2025-02-07 18:00 | disposition home or self-care (01) ==
LOC: MTLAB 11:40
PROVIDERS: PCP Family Medicine; Referring Provider Internal Medicine Cardiovascular Disease; Visit Provider Internal Medicine Cardiovascular Disease
DX: I48.20 Chronic atrial fibrillation, unspecified (principal); Z79.01 Long term (current) use of anticoagulants; Z95.2 Presence of prosthetic heart valve
CPT/HCPCS: 36415; 85610

== ENCOUNTER 2025-02-16 13:16 | Outpatient (RCR) | payer MEDICARE, SELFPAY ==
[2025-02-16 15:05] LABS: Hematocrit 38.0 % (37-47); Hemoglobin 12.8 g/dL (12.0-15.0); Mean Corp Hgb Conc 33.7 g/dL (32-36); Mean Corpuscular Volume 91.8 fL (81-99); Mean Platelet Vol. 9.5 fl (6.2-12.0); Platelet Count 449 K/mm3 (150-450); RBC Distribution Width CV 13.3 % (11.6-14.6); RBC Distribution Width SD 44.9 fl (35.1-43.9); Red Blood Count 4.14 M/mm3 (4.2-5.4); White Blood Count 10.7 K/mm3 (4.4-11.0)
[2025-02-16 15:08] LABS: Prothrombin Time (Protime)PT. 31.6 SECONDS (11.7-14.9)
[2025-02-16 19:21] LABS: AST(SGOT) 15 U/L (<=31); Alanine Aminotransfer ALT/SGPT 9 U/L (<=34); Albumin, Serum 4.3 g/dL (3.4-4.8); Alkaline Phosphatase 120 U/L (35-104); Anion Gap 12 (5-15); BUN 7 mg/dL (4-19); BUN/Creat Ratio 9.2 RATIO (10-20); CPK Total, Creatine Kinase 76 U/L (24-195); Calcium,Total 9.6 mg/dL (7.6-11.0); Carbon Dioxide 27.6 mmol/L (21.0-32.0); Chloride 100 mmol/L (98-108); Cholesterol 146 mg/dL (<=200); Globulin 3.3 g/dL (2.2-4.2); Glucose 107 mg/dL (70-99); Low Density Lipoprotein Calc. 63 mg/dL; Potassium 4.1 mmol/L (3.3-5.1); Triglycerides 133 mg/dL; Very Low Density Lipoprotein 27 mg/dL (5-40); cholesterol:hdl ratio screen 2.58
== END 2025-02-16 18:00 | disposition home or self-care (01) ==
LOC: MTLAB 13:16
PROVIDERS: PCP Family Medicine; Referring Provider Internal Medicine Cardiovascular Disease; Visit Provider Internal Medicine Cardiovascular Disease
DX: E78.2 Mixed hyperlipidemia (principal); Z79.899 Other long term (current) drug therapy; Z79.01 Long term (current) use of anticoagulants; R06.02 Shortness of breath; I48.20 Chronic atrial fibrillation, unspecified
CPT/HCPCS: 36415; 80053; 80061; 80162; 82550; 85027; 85610

== ENCOUNTER 2025-03-24 12:38 | Outpatient (RCR) | payer MEDICARE, SELFPAY ==
[2025-03-24 15:07] LABS: Hematocrit 39.8 % (37-47); Hemoglobin 13.3 g/dL (12.0-15.0); Immature Granulocytes Count 0.040 X10^3/uL (0.0-0.0); Mean Corp Hgb Conc 33.4 g/dL (32-36); Mean Corpuscular Volume 90.9 fL (81-99); Mean Platelet Vol. 9.3 fl (6.2-12.0); NRBC Flagged by Analyzer 0 % (0-5); Platelet Count 488 K/mm3 (150-450); RBC Distribution Width CV 13.3 % (11.6-14.6); RBC Distribution Width SD 44.9 fl (35.1-43.9); Red Blood Count 4.38 M/mm3 (4.2-5.4); White Blood Count 10.0 K/mm3 (4.4-11.0)
[2025-03-24 15:19] LABS: Prothrombin Time (Protime)PT. 33.5 SECONDS (11.7-14.9)
[2025-03-24 15:43] LABS: Creatinine, Urine (random) 58.90 mg/dL (28.00-217.00); Microalbumin,Random Urine < 12.0 mg/L (<20 mg/L)
[2025-03-24 15:49] LABS: AST(SGOT) 19 U/L (<=31); Alanine Aminotransfer ALT/SGPT 9 U/L (<=34); Albumin, Serum 4.3 g/dL (3.4-4.8); Alkaline Phosphatase 116 U/L (35-104); Anion Gap 14 (5-15); BUN 10 mg/dL (4-19); BUN/Creat Ratio 13.3 RATIO (10-20); Calcium,Total 9.9 mg/dL (7.6-11.0); Carbon Dioxide 23.7 mmol/L (21.0-32.0); Chloride 102 mmol/L (98-108); Cholesterol 137 mg/dL (<=200); Globulin 3.4 g/dL (2.2-4.2); Glucose 95 mg/dL (70-99); Low Density Lipoprotein Calc. 67 mg/dL; Potassium 3.8 mmol/L (3.3-5.1); Triglycerides 119 mg/dL; Very Low Density Lipoprotein 24 mg/dL (5-40); cholesterol:hdl ratio screen 2.80
== END 2025-04-09 18:00 | disposition home or self-care (01) ==
LOC: MTLAB 12:38
PROVIDERS: PCP Family Medicine; Referring Provider Internal Medicine Cardiovascular Disease; Visit Provider Internal Medicine Cardiovascular Disease
DX: I48.20 Chronic atrial fibrillation, unspecified (principal); E11.69 Type 2 diabetes mellitus with other specified complication; E03.9 Hypothyroidism, unspecified; E78.2 Mixed hyperlipidemia; Z79.01 Long term (current) use of anticoagulants; Z79.899 Other long term (current) drug therapy
CPT/HCPCS: 36415; 80053; 80061; 82043; 82570; 83036; 84439; 84443; 85025; 85610

== ENCOUNTER → 2025-04-10 | Outpatient (CLI) | payer MEDICARE, SELFPAY | END | disposition home or self-care (01) | PROVIDERS: PCP Family Medicine; Referring Provider Family Medicine; Visit Provider Family Medicine | DX: E11.9 Type 2 diabetes mellitus without complications (principal); E78.5 Hyperlipidemia, unspecified; E03.9 Hypothyroidism, unspecified | CPT/HCPCS: 36415; 83036 ==